=== PATIENT | female | born 1935 | race African-American/Black ===

== ENCOUNTER 2019-03-29 06:17 | Inpatient (IN) | payer OTHER ==
[2019-03-29] MEDS ORDERED: ALBUTEROL SO4 2.5/IPRATROPIUM 0.5 INH SOL 3 ML VIAL.NEB. NEB ONE ×2 (06:35→07:02)
[2019-03-29] MEDS ORDERED: DEXAMETHASONE SOD PHOSPHATE 10 MG/1 ML VIAL ONE (06:35)
[2019-03-29 06:38] LABS: BASO % 0.8 % (0-2.0); EOS % 2.2 % (0-4.5); HEMATOCRIT 38.9 % (32.4-45.2); HEMOGLOBIN 12.9 GM/dL (10.7-15.3); LYMPH % 18.3 % (8-40); MCH 30.5 pg (25.7-33.7); MCHC 33.3 g/dl (32.0-36.0); MEAN CELL VOLUME 91.5 fl (80-96); MEAN PLT VOLUME 8.2 fl (7.5-11.1); MONO % 8.4 % (3.8-10.2); NEUT % 70.3 % (42.8-82.8); PLATELET COUNT 253 K/MM3 (134-434); RBC 4.25 M/mm3 (3.60-5.2); RDW 14.1 % (11.6-15.6); WHITE BLOOD COUNT 7.3 K/mm3 (4.0-10.0)
[2019-03-29] MEDS ORDERED: ACETAMINOPHEN 1000 MG/100 ML VIAL (NON FORMULARY) IVPB ONE (07:01)
[2019-03-29] MEDS ORDERED: AZITHROMYCIN IVPB 500 MG in DEXTROSE 5%-WATER - 250 ML IVPB ONE (07:02)
--- NOTE | 2019-03-29 07:03 | PDOC ---
History of Present Illness - General Chief Complaint: Shortness of Breath Stated Complaint: DIFFICULTY BREATHING Time Seen by Provider: 03/29/19 06:32 History Source: Patient, EMS Exam Limitations: No Limitations - History of Present Illness Initial Comments: 03/29/19 07:24 83yo F with PMH of COPD (not on home O2), Afib (Eliquis), HTN, CHF BIBA for SOB. Pt states that she was having a harder time breathing for the last day or two but it got worse overnight. Per EMS, Pt was saturating high 60s on RA, placed on CPAP, given 10mg IM decadron and 2 duoneb treatments and saturated in low 90s. She was found to be using accessory muscles with scattered wheezing. Pt denies cough, congestion, fevers, chills, nausea, vomiting, recent hospitalizations, recent antibiotic use. PMD: [facility] Cards: Tatiana PMH: see hpi PSH: see hpi Meds: see med rec Allergies: PCN Past History - Past Medical History Allergies/Adverse Reactions: Allergies Allergy/AdvReac Type Severity Reaction Status Date / Time banana Allergy Unknown Verified 02/11/16 14:39 Penicillins Allergy Verified 02/11/16 14:39 Home Medications: Ambulatory Orders Acetaminophen [Tylenol .Regular Strength -] 650 mg PO Q6H PRN #0 tablet Apixaban [Eliquis -] 5 mg PO BID #0 tablet 11/05/15 Diltiazem Cd [Cardizem Cd -] 180 mg PO DAILY #30 cap.cd.24h 11/05/15 Furosemide [Lasix -] 40 mg PO DAILY #0 tablet 11/05/15 Hypromellose 0.5% Opth Soln [Artificial Tears] 1 drop OU TID PRN #0 drops Sotalol HCl [Betapace -] 80 mg PO BID #0 tablet 11/05/15 Valsartan [Diovan] 40 mg PO DAILY #0 tablet 11/05/15 Fluticasone/Salmeterol [Advair 250-50 Diskus] 1 each IH DAILY 02/11/16 Cardiac Disorders: Yes (PACEMAKER) COPD: Yes HTN: Yes - Suicide/Smoking/Psychosocial Hx Smoking History: Never smoked Have you smoked in the past 12 months: No If you are a former smoker, when did you quit?: 1 yr Information on smoking cessation initiated: No Hx Alcohol Use: No Drug/Substance Use Hx: No Substance Use Type: None Review of Systems - Review of Systems Constitutional: No: Chills, Fever, Weakness, Unexplained wgt Loss Respiratory: Yes: Shortness of Breath. No: Cough Cardiac (ROS): Yes: Palpitations. No: Chest Pain, Lightheadedness, Syncope ABD/GI: No: Constipated, Diarrhea, Nausea, Vomiting, Abdominal cramping : No: Symptoms Reported Musculoskeletal: No: Symptoms Reported Integumentary: No: Symptoms Reported Neurological: No: Symptoms reported *Physical Exam - Vital Signs Last Vital Signs Temp Pulse Resp BP Pulse Ox 100.6 F H 121 H 32 H 156/110 H 89 L 03/29/19 06:52 03/29/19 06:20 03/29/19 06:20 03/29/19 06:20 03/29/19 06:20 - Physical Exam General Appearance: Yes: Appropriately Dressed, Severe Distress, Obese HEENT: positive: EOMI, SOHAM Neck: positive: Trachea midline, Supple Respiratory/Chest: positive: Decreased Breath Sounds (in lower taylor), Rales ( upper taylor) Cardiovascular: positive: Tachycardia. negative: Edema, JVD, Murmur Vascular Pulses: Dorsalis-Pedis (R): 2+, Doralis-Pedis (L): 2+ Gastrointestinal/Abdominal: positive: Normal Bowel Sounds, Soft. negative: Tender Musculoskeletal: negative: CVA Tenderness Extremity: positive: Normal Capillary Refill, Pelvis Stable. negative: Swelling , Calf Tenderness Integumentary: positive: Normal Color, Dry, Warm Neurologic: positive: jailkeeper II-XII NML intact, Fully Oriented, Alert, Normal Mood/ Affect, Normal Response, Motor Strength 5/5 ED Treatment Course - LABORATORY CBC & Chemistry Diagram: 03/29/19 06:24 03/29/19 06:24 - ADDITIONAL ORDERS Additional order review: Laboratory Results 03/29/19 06:26 POC Glucometer 205 03/29/19 06:26 POC Glucometer 205 Medical Decision Making - Medical Decision Making 03/29/19 07:32 83yo F with PMH of COPD (not on home O2), Afib (Eliquis), HTN, CHF BIBA for SOB. Pt states that she was having a harder time breathing for the last day or two but it got worse overnight. Per EMS, Pt was saturating high 60s on RA, placed on CPAP, given 10mg IM decadron and 2 duoneb treatments and saturated in low 90s. She was found to be using accessory muscles with scattered wheezing. Pt denies cough, congestion, fevers, chills, nausea, vomiting, recent hospitalizations, recent antibiotic use. Vitals: tachycardic, saturating well on CPAP, hypertensive, 100.6 rectal temp PE: decreased breath sounds in lower lung taylor, rales in upper lung taylor , tachycardic, accessory muscle use Ddx includes but not limited to copd exacerbation, chf, pna, acs, effusions, metabolic/electrolyte abnormality, drug interactions, malignancy, pe low suspicion for pe; pt is on AC sepsis w/u. -bipap, ekg, cxr -abg, trop, bnp, mg -azithromycin given pcn allergy -tylenol -duonebs pt signed out to day team *DC/Admit/Observation/Transfer Diagnosis at time of Disposition: SOB (shortness of breath) - Referrals - Patient Instructions - Post Discharge Activity
[2019-03-29 07:11] LABS: ARTERIAL BLD GAS O2 SATURATION 94.9 % (95-98); ARTERIAL BLOOD GAS BASE EXCESS 3.4 meq/l (-2-2); ARTERIAL BLOOD GAS PCO2 49.7 mmHg (35-45); ARTERIAL BLOOD GAS PO2 79.4 mmHg (80-105); ARTERIAL BLOOD GAS pH 7.38 (7.35-7.45); CARBOXYHEMOGLOBIN 1.3 % (0-2)
[2019-03-29 07:18] LABS: ALBUMIN 3.2 g/dl (3.4-5.0); ALK PHOS 115 U/L (45-117); ANION GAP 6 MMOL/L (8-16); BILIRUBIN,TOTAL 0.7 mg/dL (0.2-1); BLOOD UREA NITROGEN 17.2 mg/dL (7-18); CALCIUM 8.5 mg/dL (8.5-10.1); CHLORIDE 103 mmol/L (98-107); CO2 31 mmol/L (21-32); CREATININE 1.2 mg/dL (0.55-1.3); GLUCOSE,RANDOM 230 mg/dL (74-106); SGOT/AST 100 U/L (15-37); SGPT/ALT 87 U/L (13-61); SODIUM 140 mmol/L (136-145); TOT PROT 7.2 g/dl (6.4-8.2)
[2019-03-29 07:25] LABS: ALLENS TEST POSITIVE
--- NOTE | 2019-03-29 07:40 | PDOC ---
*Physical Exam - Vital Signs Last Vital Signs Temp Pulse Resp BP Pulse Ox 100.6 F H 121 H 32 H 156/110 H 98 03/29/19 06:52 03/29/19 06:20 03/29/19 06:20 03/29/19 06:20 03/29/19 06:30 ED Treatment Course - LABORATORY CBC & Chemistry Diagram: 03/29/19 06:24 03/29/19 06:24 - ADDITIONAL ORDERS Additional order review: Laboratory Results 03/29/19 03/29/19 03/29/19 06:36 06:26 06:24 Anticoagulation Therapy No Result Required. Puncture Site Right radial ABG pH 7.38 ABG pCO2 at Pt Temp 49.7 H ABG pO2 at Pt Temp 79.4 L ABG HCO3 28.8 H ABG O2 Sat (Measured) 94.9 L ABG O2 Content 16.0 ABG Base Excess 3.4 H Roque Test Positive Carboxyhemoglobin 1.3 Methemoglobin 0.4 O2 Delivery Device Bipap Oxygen Flow Rate 40% Vent Mode S/t Vent Rate 16 Mechanical Rate Bipap Pressure Support Vent 14/7 Sodium Potassium Chloride Carbon Dioxide Anion Gap BUN Creatinine Est GFR (CKD-EPI)AfAm Est GFR (CKD-EPI)NonAf POC Glucometer 205 Random Glucose Lactic Acid Calcium Magnesium Cancelled Total Bilirubin AST ALT Alkaline Phosphatase Troponin I B-Natriuretic Peptide Cancelled Total Protein Albumin 03/29/19 03/29/19 03/29/19 06:24 06:24 06:24 Anticoagulation Therapy Puncture Site ABG pH ABG pCO2 at Pt Temp ABG pO2 at Pt Temp ABG HCO3 ABG O2 Sat (Measured) ABG O2 Content ABG Base Excess Roque Test Carboxyhemoglobin Methemoglobin O2 Delivery Device Oxygen Flow Rate Vent Mode Vent Rate Mechanical Rate Pressure Support Vent Sodium 140 Potassium 4.0 Chloride 103 Carbon Dioxide 31 Anion Gap 6 L BUN 17.2 Creatinine 1.2 Est GFR (CKD-EPI)AfAm 48.74 Est GFR (CKD-EPI)NonAf 42.05 POC Glucometer Random Glucose 230 H Lactic Acid 2.6 H* Calcium 8.5 Magnesium Total Bilirubin 0.7 AST 100 H ALT 87 H Alkaline Phosphatase 115 Troponin I Cancelled B-Natriuretic Peptide Total Protein 7.2 Albumin 3.2 L 03/29/19 03/29/19 06:26 06:24 RBC 4.25 MCV 91.5 MCHC 33.3 RDW 14.1 MPV 8.2 Neutrophils % 70.3 D Lymphocytes % 18.3 D Monocytes % 8.4 Eosinophils % 2.2 Basophils % 0.8 POC Glucometer 205 Medical Decision Making - Medical Decision Making Pt was signed out to me by resident Dr. Burnham, who explained the presentation, ED course, any pending results, and needed interventions. Pending results include labs and x-ray. Pt is currently stable on bipap and is lying comfortably. 03/29/19 07:40 Pt provided 500 mg IV azithromycin, IV levaquin, ofirmev, 1 g IV Mg, and duonebs (received duoneb and 10 IM decadron on ambulance) ECG: A flutter with variable AV block (HR 124, QRS 88, QTc 387). No TWIs or significant ST segment changes. No significant changes from prior ECG. CBC and CMP WNL Pending trop and BNP AB.38, CO2 49, O2 79 -- pt likely admission to telemetry 03/29/19 07:43 Chest x-ray shows b/l lower infiltrates suggestive of pneumonia with potential overlying edema suggestive of CHF 03/29/19 08:[address] Pillai for admission to telemetry. 03/29/19 08:34 Pt admitted to tele to Dr. Pillai. Pt stable, tolerating Bipap. BP stable. 03/29/19 08:49 *DC/Admit/Observation/Transfer Diagnosis at time of Disposition: SOB (shortness of breath) - Referrals Referrals: Ora Pillai MD [Primary Care Provider] - - Patient Instructions - Post Discharge Activity
[2019-03-29] MEDS ORDERED: MAGNESIUM 1GM/D5W - 1 GM/100 ML IVPB IVPB ONE (07:46)
[2019-03-29] MEDS ORDERED: ACETAMINOPHEN INJECTION 100 ML IVPB ONE (07:47)
[2019-03-29] MEDS ORDERED: AZITHROMYCIN IVPB 500 MG/250 ML BAG IVPB ONE (07:48)
[2019-03-29 07:58] LABS: MAGNESIUM 2.6 mg/dL (1.8-2.4); N-TERMINAL BNP 3001.6 pg/ml (5-450)
--- NOTE | 2019-03-29 07:59 | PDOC ---
Attending Attestation - Resident Resident Name: Sa Chachaira - ED Attending Attestation I have performed the following: I have examined & evaluated the patient, The case was reviewed & discussed with the resident, I agree w/resident's findings & plan, Exceptions are as noted - HPI HPI: 03/29/19 07:59 83yo F hx COPD (not on home O2), Afib (Eliquis), HTN, CHF presents to the ED with progressive SOB for 2 days. Pt states she was having difficulty sleeping while lying down due to the shortness of breath. Per EMS the patient was hypoxic to the 60s on room air when they got there. They put her on CPAP and gave her IM Decadron as well as duo nebs with improved sats to 90s. Patient was placed on BiPAP on arrival to the emergency department. She denies any fevers or chills, chest pain, coughing, nausea, vomiting, diarrhea, headache, focal weakness or numbness. Denies recent hospitalizations. - Physicial Exam PE: 03/29/19 08:02 agree with resident exam - Medical Decision Making 03/29/19 08:02 83yo F hx MMP including Afib on eliquis (reports compliance), COPD presents to the ED with 2 days of progressive SOB. Lungs with diminished breath sounds at R lung base, no wheezing at this time ( although after multiple nebs, decadron) DDx includes COPD exacerbation vs CHF vs PNA CXR with infiltrates at R lung base and congestion Plan to add magnesium, cover for PNA with azithro/levaquin (PCN allergy, CAP), and admit to tele Heart Score/ECG Review #1 03/29/19 08:05 Twelve-lead EKG was performed and reviewed by me. Atrial flutter, rate 124. Normal axis. No ST elevations. [address] depressions in leads V5 and V6, likely secondary to rate.
[2019-03-29 08:18] LABS: ACTIVATED PTT 33.4 SECONDS (25.2-36.5)
[2019-03-29 08:37] LABS: INR 1.49 (0.83-1.09); PROTHROMBIN TIME (PATIENT) 17.7 SEC (9.7-13.0)
[2019-03-29] MEDS: ALBUTEROL SO4 0.083% IH SOL 2.5 MG/3 ML VIAL.NEB. NEB SCH ×5 (08:47→23:20)
--- NOTE | 2019-03-29 09:55 | CON.CARD ---
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 Found to be in rapid afib and failure, rate-controlled and started IV diuresis, did not take AM meds, now on VM. - History Source History Provided By: Patient Limitations to Obtaining History: No Limitations - Past Medical History Cardio/Vascular: Yes: AFIB, Aortic Stenosis, HTN, Mitral Insufficiency, Pulmonary Hypertension, Other (AV block PPM) Pulmonary: Yes: COPD - Past Surgical History Past Surgical History: Yes: Permanent Pacemaker - Alcohol/Substance Use Hx Alcohol Use: No - Smoking History Smoking history: Never smoked Have you smoked in the past 12 months: No If you are a former smoker, when did you quit?: 1 yr Home Medications - Allergies Allergies/Adverse Reactions: Allergies Allergy/AdvReac Type Severity Reaction Status Date / Time banana Allergy Unknown Verified 02/11/16 14:39 Penicillins Allergy Verified 02/11/16 14:39 - Home Medications Home Medications: Ambulatory Orders Apixaban [Eliquis -] 5 mg PO BID #0 tablet 11/05/15 Furosemide [Lasix -] 40 mg PO DAILY #0 tablet 11/05/15 Hypromellose 0.5% Opth Soln [Artificial Tears] 1 drop OU TID PRN #0 drops Sotalol HCl [Betapace -] 80 mg PO BID #0 tablet 11/05/15 Fluticasone/Salmeterol [Advair 250-50 Diskus] 1 each IH DAILY 02/11/16 Diltiazem Cd [Cardizem Cd -] 240 mg PO DAILY 03/29/19 Losartan Potassium 25 mg PO DAILY 03/29/19 Review of Systems - Review of Systems Respiratory: reports: Exercise Intolerance, Orthopnea, SOB, SOB on Exertion Vital Signs: Vital Signs Temperature 100.6 F H 03/29/19 06:52 Pulse Rate 115 H 03/29/19 09:53 Respiratory Rate 16 03/29/19 09:53 Blood Pressure 92/74 03/29/19 09:53 O2 Sat by Pulse Oximetry (%) 100 03/29/19 09:53 Constitutional: Yes: No Distress Neck: Yes: Supple Respiratory: Yes: Regular, Diminished, On Venti-Mask Gastrointestinal: Yes: Soft, Hypoactive Bowel Sounds Cardiovascular: Yes: Tachycardia, Pulse Irregular JVD: No Carotid Bruit: No Heart Sounds: Yes: S1, S2 Murmur: Yes: Systolic Murmur, Grade 1 Edema: No - Other Data Labs, Other Data: CBC, BMP 03/29/19 06:24 03/29/19 06:24 INR, PTT INR 1.49 (0.83-1.09) H 03/29/19 06:24 Troponin, BNP 03/29/19 03/29/19 03/29/19 06:24 06:24 06:24 Troponin I < 0.02 Cancelled B-Natriuretic Peptide 3001.6 H Cancelled Troponin, BNP 03/29/19 03/29/19 03/29/19 06:24 06:24 06:24 Troponin I < 0.02 Cancelled B-Natriuretic Peptide 3001.6 H Cancelled Rapid aflutter @ 124 QTc 387 msec Ejection Fraction %: LVEF > or = 40 % Imaging - Results Chest X-ray: Report Reviewed (Bilateral PNA vs congestion) Problem List - Problems (1) Acute on chronic diastolic (congestive) heart failure Code(s): I50.33 - ACUTE ON CHRONIC DIASTOLIC (CONGESTIVE) HEART FAILURE (2) Chronic anticoagulation Code(s): Z79.01 - CUPOLA TAPPER (CURRENT) USE OF ANTICOAGULANTS (3) COPD (chronic obstructive pulmonary disease) Code(s): J44.9 - CHRONIC OBSTRUCTIVE PULMONARY DISEASE, UNSPECIFIED Qualifiers: COPD type: unspecified COPD Qualified Code(s): J44.9 - Chronic obstructive pulmonary disease, unspecified (4) SOB (shortness of breath) Code(s): R06.02 - SHORTNESS OF BREATH (5) Atrial fibrillation with rapid ventricular response Code(s): I48.91 - UNSPECIFIED ATRIAL FIBRILLATION (6) Chronic kidney disease Code(s): N18.9 - CHRONIC KIDNEY DISEASE, UNSPECIFIED Qualifiers: Chronic kidney disease stage: stage 2 (mild) Qualified Code(s): N18.2 - Chronic kidney disease, stage 2 (mild) (7) Hypertension Code(s): I10 - ESSENTIAL (PRIMARY) HYPERTENSION Qualifiers: Hypertension type: essential hypertension Qualified Code(s): I10 - Essential (primary) hypertension (8) Pacemaker Code(s): Z95.0 - PRESENCE OF CARDIAC PACEMAKER (9) Acute on chronic respiratory failure with hypoxia and hypercapnia Code(s): J96.21 - ACUTE AND CHRONIC RESPIRATORY FAILURE WITH HYPOXIA; J96.22 - ACUTE AND CHRONIC RESPIRATORY FAILURE WITH HYPERCAPNIA Assessment/Plan 06/08/2018 Echo: Normal LV systolic fxn LVEF 60-65%, mild AR, mild MR, mild-mod TR, mod pulm HTN 01/24/2019 Carotid US: Mild heterogenous plaque w/o stenosis Assessment/Plan 1. Acute on chronic hypercapneic, hypoxemic respiratory failure 2. Acute on chronic diastolic heart failure with mod pulm HTN 3. Paroxysmal atrial fibrillation with RVR [id number] on NOAC 4. Hypertension/HCVD 5. Advanced AV block s/p PPM 6. COPD 7. CKD 8. Abnormal LFTs suspect hepatic congestion PLAN: 1. IV diuresis with monitor diuretic response, renal fxn and electrolytes 2. Continue Sotalol 80 mg BID 3. Continue Eliquis 5 mg BID 4. Continue Cardizem CD 120 mg once a day and losartan 25 mg once a day with uptitration as hemodynamics tolerate 5. Continue monitoring on telemetry, repeat echo to assess ventricular and valve fxn, check TSH, lipid panel and Ha1c, trend LFTs 6. BD, O2 to maintain saO2>90%, empiric abx 7. Thank you for consultative opportunity
--- NOTE | 2019-03-29 10:07 | HP ---
DATE OF ADMISSION: 03/29/2019 HISTORY OF PRESENT ILLNESS: This is an 83-year-old female known to me for long time who came to the emergency room with complaints of shortness of breath. In the ER, she was found to have bibasilar pneumonia, so, she got admitted. She is on VentiMask now, and she is awake, alert, oriented, not in distress. PHYSICAL EXAMINATION: Vital signs: Today, her BP is 100/92, respirations 20, temperature 100.6, pulse 105. General: She alert and oriented, mild distress. HEENT: Unremarkable. Neck: Supple. Lungs: Bibasilar rales present. Heart: S1, S2 normal. No S3, S4. Abdomen: Soft. Extremities: Legs no edema. Neurologic: Grossly normal. LABORATORY REPORTS: WBC 7.3, hemoglobin 12.9, hematocrit 38.9. Chemistry: Sodium 140, potassium 4, chloride 103, creatinine 1.2, blood sugar 230. B-peptide 3001. Chest x-ray showed pulmonary congestion present, bibasilar pneumonia present. EKG to be evaluated. IMPRESSION: Bilateral pneumonia, history of hypertension. PLAN: IV antibiotics, admit to telemetry, will follow. Deidra [id number]
[2019-03-29] MEDS ORDERED: FUROSEMIDE 40 MG/4 ML INJECTABLE VIAL ONE (11:45)
[2019-03-29] MEDS: FUROSEMIDE 40 MG/4 ML INJECTABLE VIAL IVPUSH SCH (11:57)
--- NOTE | 2019-03-29 16:26 | ECHO ---
Name: CHAPIN HUSSEIN Exam:Adult Echocardiogram Study Date: 03/29/2019 01:43 PM Age: 83 yrs Reason For Study: CHF Height: 66 in Weight: 230 lb BSA: 2.1 m2 MMode/2D Measurements & Calculations IVSd: 1.3 cm Ao root diam: 2.3 cm LVIDd: 3.7 cm LA dimension: 3.7 cm LVIDs: 2.6 cm LVPWd: 1.0 cm EDV(Teich): 57.3 ml LVOT diam: 2.0 cm ESV(Teich): 23.6 ml LAV (MOD-bp): 133.0 ml Doppler Measurements & Calculations MV E max mayur: 241.0 cm/sec Ao V2 max: 176.5 cm/sec MV dec time: 0.10 sec Ao max P.5 mmHg AI P1/2t: 360.9 msec YAMILETH(V,D): 1.0 cm2 AI max mayur: 419.4 cm/sec LV V1 max P.3 mmHg AI max P.4 mmHg LV V1 max: 57.2 cm/sec AI dec slope: 340.4 cm/sec2 MR max mayur: 465.0 cm/sec TR max mayur: 322.4 cm/sec MR max P.9 mmHg TR max P.9 mmHg PA V2 max: 90.9 cm/sec Med Peak E' Mayur: 5.9 cm/sec PA max P.3 mmHg Med E/e': 41.0 Lat Peak E' Mayur: 5.7 cm/sec Lat E/e': 42.6 Procedure A complete two-dimensional transthoracic echocardiogram was performed (2D, M-mode, Doppler and color flow Doppler). The study was technically difficult with many images being suboptimal in quality. Left Ventricle The left ventricle is normal in size. Left ventricular systolic function is mildly reduced. Ejection Fraction = 45-50%. There is mild global hypokinesis of the left ventricle. Right Ventricle The right ventricle is normal in size and function. There is a pacemaker lead in the right ventricle. Atria The left atrium is moderately dilated. The right atrium is mildly dilated. There is a catheter/pacema ker lead seen in the right atrium. Mitral Valve There is mild mitral regurgitation. Tricuspid Valve There is moderate tricuspid regurgitation. Right ventricular systolic pressure is elevated at 40-50mm Hg. Aortic Valve No hemodynamically significant valvular aortic stenosis. Mild aortic regurgitation. Pulmonic Valve There is no pulmonic valvular regurgitation. Great Vessels The aortic root is normal size. Pericardium/Pleura There is no pericardial effusion. Interpretation Summary The study was technically difficult with many images being suboptimal in quality. Left ventricular systolic function is mildly reduced. There is mild global hypokinesis of the left ventricle. The right ventricle is normal in size and function. There is a pacemaker lead in the right ventricle and atrium. The left atrium is moderately dilated. The right atrium is mildly dilated. There is mild mitral regurgitation. There is moderate tricuspid regurgitation. Right ventricular systolic pressure is elevated at 40-50mmHg. Mild aortic regurgitation. MD Peter Yeboah 03/29/2019 04:26 PM
--- NOTE | 2019-03-29 17:02 | EKG ---
Test Reason : Blood Pressure : / mmHG Vent. Rate : 124 BPM Atrial Rate : 326 BPM P-R Int : 000 ms QRS Dur : 088 ms QT Int : 270 ms P-R-T Axes : 000 054 131 degrees QTc Int : 387 ms ATRIAL FLUTTER WITH VARIABLE A-V BLOCK ABNORMAL ECG WHEN COMPARED WITH ECG OF 11-FEB-2016 14:23, ATRIAL FLUTTER HAS REPLACED ATRIAL FIBRILLATION NON-SPECIFIC CHANGE IN ST SEGMENT IN ANTERIOR LEADS T WAVE INVERSION NOW EVIDENT IN LATERAL LEADS Confirmed by RYAN ARELLANO MD ([id number]) on 03/29/2019 5:01:59 PM Referred By: Molina HAUSER Confirmed By:RYAN ARELLANO MD
[2019-03-29 18:58] VITALS: BMI 35.5
[2019-03-29] MEDS ORDERED: dilTIAZem HCL 25 MG/5 ML - 5 ML VIAL IVPUSH PRN (19:50)
[2019-03-29] MEDS ORDERED: PT OWN MED DRAWER 7, Y5N ONE (20:55)
[2019-03-29] MEDS: APIXABAN 5 MG TABLET PO SCH (21:46)
[2019-03-29] MEDS: SOTALOL HCL 80 MG TABLET (FP) PO SCH (21:47)
[2019-03-29] MEDS ORDERED: APIXABAN 5 MG TABLET PO SCH (22:00)
[2019-03-29] MEDS ORDERED: SOTALOL HCL 80 MG TABLET (FP) PO SCH (22:00)
[2019-03-30] MEDS: ALBUTEROL SO4 0.083% IH SOL 2.5 MG/3 ML VIAL.NEB. NEB SCH ×6 (04:45→23:46)
[2019-03-30 07:15] LABS: BASO % 0.1 % (0-2.0); HEMATOCRIT 36.9 % (32.4-45.2); HEMOGLOBIN 12.2 GM/dL (10.7-15.3); LYMPH % 8.6 % (8-40); MCH 30.3 pg (25.7-33.7); MCHC 33.1 g/dl (32.0-36.0); MEAN CELL VOLUME 91.6 fl (80-96); MEAN PLT VOLUME 7.7 fl (7.5-11.1); MONO % 7.9 % (3.8-10.2); NEUT % 83.4 % (42.8-82.8); PLATELET COUNT 244 K/MM3 (134-434); RBC 4.03 M/mm3 (3.60-5.2); RDW 14.3 % (11.6-15.6)
[2019-03-30 07:59] LABS: ALBUMIN 3.4 g/dl (3.4-5.0); BILIRUBIN,DIRECT 0.3 mg/dL (0.0-0.2); BILIRUBIN,TOTAL 0.6 mg/dL (0.2-1); TOT PROT 7.2 g/dl (6.4-8.2)
[2019-03-30 08:00] LABS: ALBUMIN 3.3 g/dl (3.4-5.0); ALK PHOS 114 U/L (45-117); ANION GAP 6 MMOL/L (8-16); BILIRUBIN,TOTAL 0.6 mg/dL (0.2-1); BLOOD UREA NITROGEN 26.7 mg/dL (7-18); CALCIUM 8.8 mg/dL (8.5-10.1); CHLORIDE 104 mmol/L (98-107); CO2 31 mmol/L (21-32); CREATININE 1.1 mg/dL (0.55-1.3); GLUCOSE,RANDOM 142 mg/dL (74-106); SGOT/AST 115 U/L (15-37); SGPT/ALT 126 U/L (13-61); SODIUM 141 mmol/L (136-145); TOT PROT 7.2 g/dl (6.4-8.2)
[2019-03-30 08:04] LABS: BLOOD UREA NITROGEN 26.7 mg/dL (7-18); CALCIUM 8.6 mg/dL (8.5-10.1); CREATININE 1.1 mg/dL (0.55-1.3)
[2019-03-30 08:21] LABS: EPI CELLS 1.1 /HPF (0-5/HPF); HYALINE CASTS 1 /lpf (0-8); URINE APPEARANCE CLEAR; URINE BACTERIA 7.3 /hpf (NEGATIVE); URINE BILIRUBIN NEGATIVE (NEGATIVE); URINE COLOR YELLOW; URINE GLUCOSE (UA) NEGATIVE (NEGATIVE); URINE KETONE NEGATIVE (NEGATIVE); URINE LEUK ESTERASE NEGATIVE (NEGATIVE); URINE NITRITE NEGATIVE (NEGATIVE); URINE PROTEIN NEGATIVE (NEGATIVE); URINE RBC 2 /hpf (0-4); URINE UROBILINOGEN 0.2 mg/dL (0.2-1.0); URINE WBC 6 /hpf (0-5)
--- NOTE | 2019-03-30 09:11 | PN ---
Progress Note, Physician History of Present Illness: Rapid afib overnight, now dyspnea, orthopnea, chest tightness improved with rate -control and IV diuresis. - Current Medication List Current Medications: Active Medications Albuterol Sulfate (Ventolin 0.083% Nebulizer Soln -) 1 amp NEB RQ4H [facility] Last Admin: 03/30/19 08:07 Dose: 1 amp Apixaban (Eliquis -) 5 mg PO BID [facility] Last Admin: 03/29/19 21:46 Dose: 5 mg Diltiazem HCl (Cardizem Cd -) 120 mg PO DAILY [facility] Diltiazem HCl (Cardizem Injection -) 10 mg IVPUSH Q4H PRN PRN Reason: TO KEEP HR BELOW 120 Last Admin: 03/29/19 20:12 Dose: 10 mg Furosemide (Lasix Injection -) 40 mg IVPUSH DAILY [facility] Last Admin: 03/29/19 11:57 Dose: 40 mg Levofloxacin (Levaquin 500 Mg Premixed Ivpb -) 500 mg in 100 mls @ 100 mls/hr IVPB DAILY [facility] Losartan Potassium (Cozaar -) 25 mg PO DAILY [facility] Sotalol HCl (Betapace -) 80 mg PO BID [facility] Last Admin: 03/29/19 21:47 Dose: 80 mg - Objective Vital Signs: Vital Signs Temperature 97.6 F 03/30/19 05:50 Pulse Rate 87 03/30/19 05:50 Respiratory Rate 20 03/30/19 05:50 Blood Pressure 119/68 03/30/19 05:50 O2 Sat by Pulse Oximetry (%) 95 03/29/19 23:39 Constitutional: Yes: No Distress, Calm Neck: Yes: Supple Cardiovascular: Yes: Tachycardia, Pulse Irregular Respiratory: Yes: Regular, Diminished, On Nasal O2 Gastrointestinal: Yes: Normal Bowel Sounds, Soft, Abdomen, Obese Edema: No Labs: CBC, BMP 03/30/19 06:50 03/30/19 06:50 INR, PTT INR 1.49 (0.83-1.09) H 03/29/19 06:24 - ....Imaging EKG: Report Reviewed (Tele: Rapid afib) Problem List - Problems (1) Acute on chronic diastolic (congestive) heart failure Code(s): I50.33 - ACUTE ON CHRONIC DIASTOLIC (CONGESTIVE) HEART FAILURE (2) Chronic anticoagulation Code(s): Z79.01 - DIESEL RETROFIT DESIGNER (CURRENT) USE OF ANTICOAGULANTS (3) COPD (chronic obstructive pulmonary disease) Code(s): J44.9 - CHRONIC OBSTRUCTIVE PULMONARY DISEASE, UNSPECIFIED Qualifiers: COPD type: unspecified COPD Qualified Code(s): J44.9 - Chronic obstructive pulmonary disease, unspecified (4) SOB (shortness of breath) Code(s): R06.02 - SHORTNESS OF BREATH (5) Atrial fibrillation with rapid ventricular response Code(s): I48.91 - UNSPECIFIED ATRIAL FIBRILLATION (6) Chronic kidney disease Code(s): N18.9 - CHRONIC KIDNEY DISEASE, UNSPECIFIED Qualifiers: Chronic kidney disease stage: stage 2 (mild) Qualified Code(s): N18.2 - Chronic kidney disease, stage 2 (mild) (7) Hypertension Code(s): I10 - ESSENTIAL (PRIMARY) HYPERTENSION Qualifiers: Hypertension type: essential hypertension Qualified Code(s): I10 - Essential (primary) hypertension (8) Pacemaker Code(s): Z95.0 - PRESENCE OF CARDIAC PACEMAKER (9) Acute on chronic respiratory failure with hypoxia and hypercapnia Code(s): J96.21 - ACUTE AND CHRONIC RESPIRATORY FAILURE WITH HYPOXIA; J96.22 - ACUTE AND CHRONIC RESPIRATORY FAILURE WITH HYPERCAPNIA Assessment/Plan 03/29/2019 Echo: Mildly decreased LV systolic fxn, normal RV size and fxn, pacemaker RV, mod LAE, mild CEDRIC, mod TR RVSP 40-50 mmHg, mild MR, AR 06/08/2018 Echo: Normal LV systolic fxn LVEF 60-65%, mild AR, mild MR, mild-mod TR, mod pulm HTN 01/24/2019 Carotid US: Mild heterogenous plaque w/o stenosis Assessment/Plan 1. Acute on chronic hypercapneic, hypoxemic respiratory failure 2. Acute on chronic diastolic heart failure with mod pulm HTN 3. Paroxysmal atrial fibrillation with RVR [id number] on NOAC 4. Hypertension/HCVD 5. Advanced AV block s/p PPM 6. COPD 7. CKD 8. Abnormal LFTs suspect hepatic congestion 9. Low TSH, r/o hyperthyroidism as rapid afib trigger PLAN: 1. IV diuresis with monitor diuretic response, renal fxn and electrolytes 2. Continue Sotalol 80 mg BID 3. Continue Eliquis 5 mg BID 4. Increase Cardizem CD 240 mg once a day with IV Cardizem pushes as needed for rate-control and resumed losartan 25 mg once a day with uptitration as hemodynamics tolerate 5. Continue monitoring on telemetry, repeat echo to assess ventricular and valve fxn, check full TFTs, trend LFTs 6. BD, O2 to maintain saO2>90%, empiric abx
--- NOTE | 2019-03-30 10:00 | PN ---
Progress Note, Physician Chief Complaint: SOB better History of Present Illness: Admitted with exacerbation of COPD and Br asthma - Current Medication List Current Medications: Active Medications Albuterol Sulfate (Ventolin 0.083% Nebulizer Soln -) 1 amp NEB RQ4H [facility] Last Admin: 03/30/19 08:07 Dose: 1 amp Apixaban (Eliquis -) 5 mg PO BID [facility] Last Admin: 03/29/19 21:46 Dose: 5 mg Diltiazem HCl (Cardizem Cd -) 120 mg PO DAILY [facility] Diltiazem HCl (Cardizem Injection -) 10 mg IVPUSH Q4H PRN PRN Reason: TO KEEP HR BELOW 120 Last Admin: 03/29/19 20:12 Dose: 10 mg Furosemide (Lasix Injection -) 40 mg IVPUSH DAILY [facility] Last Admin: 03/29/19 11:57 Dose: 40 mg Levofloxacin (Levaquin 500 Mg Premixed Ivpb -) 500 mg in 100 mls @ 100 mls/hr IVPB DAILY [facility] Losartan Potassium (Cozaar -) 25 mg PO DAILY [facility] Sotalol HCl (Betapace -) 80 mg PO BID [facility] Last Admin: 03/29/19 21:47 Dose: 80 mg - Objective Vital Signs: Vital Signs Temperature 97.6 F 03/30/19 05:50 Pulse Rate 87 03/30/19 05:50 Respiratory Rate 20 03/30/19 05:50 Blood Pressure 119/68 03/30/19 05:50 O2 Sat by Pulse Oximetry (%) 95 03/29/19 23:39 Constitutional: Yes: No Distress Eyes: Yes: WNL HENT: Yes: WNL Neck: Yes: WNL Cardiovascular: Yes: WNL Respiratory: Yes: On Nasal O2, Poor Air Entry Gastrointestinal: Yes: Normal Bowel Sounds ...Rectal Exam: Yes: Deferred Genitourinary: Yes: WNL Breast(s): Yes: WNL Musculoskeletal: Yes: WNL Edema: No Peripheral Pulses WNL: Yes Neurological: Yes: Alert ...Motor Strength: WNL Psychiatric: Yes: Alert Labs: CBC, BMP 03/30/19 06:50 03/30/19 06:50 INR, PTT INR 1.49 (0.83-1.09) H 03/29/19 06:24 Assessment/Plan SOB resolved Continue same trt
[2019-03-30] MEDS ORDERED: PT OWN MED DRAWER 7, Y5N ONE ×3 (10:35→21:02)
[2019-03-30] MEDS: FUROSEMIDE 40 MG/4 ML INJECTABLE VIAL IVPUSH SCH (11:00)
[2019-03-30] MEDS: APIXABAN 5 MG TABLET PO SCH ×2 (11:00→22:34)
[2019-03-30] MEDS: SOTALOL HCL 80 MG TABLET (FP) PO SCH ×2 (11:00→22:34)
[2019-03-30] MEDS: LOSARTAN POTASSIUM 25 MG TABLET PO SCH (11:01)
--- NOTE | 2019-03-30 11:12 | CON.ID ---
Consult Consult Specialty:: infectious diseases Referred by:: Reason for Consultation:: pneumonia,sob - History of Present Illness Chief Complaint: sob History of Present Illness: 83yo F with PMH of COPD (not on home O2), Afib (Eliquis), HTN, CHF BIBA for SOB. Pt states that she was having a harder time breathing for the last day or two but it got worse overnight. Per EMS, Pt was saturating high 60s on RA, placed on CPAP, given 10mg IM decadron and 2 duoneb treatments and saturated in low 90s. She was found to be using accessory muscles with scattered wheezing. Pt denies cough, congestion, fevers, chills, nausea, vomiting, recent hospitalizations, recent antibiotic use. patient was placed on bipap and now is on nasal canula still looks tired patient was worked up and found to ahve infiltrates in lung - History Source History Provided By: Patient Limitations to Obtaining History: No Limitations - Past Medical History Cardio/Vascular: Yes: AFIB, Aortic Stenosis, HTN, Mitral Insufficiency, Pulmonary Hypertension, Other (AV block PPM) Pulmonary: Yes: COPD - Past Surgical History Past Surgical History: Yes: Permanent Pacemaker - Alcohol/Substance Use Hx Alcohol Use: No - Smoking History Smoking history: Former smoker Have you smoked in the past 12 months: No If you are a former smoker, when did you quit?: MORE THAN 5 YEARS AGO Home Medications - Allergies Allergies/Adverse Reactions: Allergies Allergy/AdvReac Type Severity Reaction Status Date / Time banana Allergy Unknown Verified 02/11/16 14:39 Penicillins Allergy Verified 02/11/16 14:39 - Home Medications Home Medications: Ambulatory Orders Apixaban [Eliquis -] 5 mg PO BID #0 tablet 11/05/15 Furosemide [Lasix -] 40 mg PO DAILY #0 tablet 11/05/15 Hypromellose 0.5% Opth Soln [Artificial Tears] 1 drop OU TID PRN #0 drops Sotalol HCl [Betapace -] 80 mg PO BID #0 tablet 11/05/15 Fluticasone/Salmeterol [Advair 250-50 Diskus] 1 each IH DAILY 02/11/16 Diltiazem Cd [Cardizem Cd -] 240 mg PO DAILY 03/29/19 Losartan Potassium 25 mg PO DAILY 03/29/19 Review of Systems - Review of Systems Constitutional: reports: No Symptoms Eyes: reports: No Symptoms HENT: reports: No Symptoms Neck: reports: No Symptoms Cardiovascular: reports: No Symptoms Respiratory: reports: Cough, SOB, SOB on Exertion Gastrointestinal: reports: No Symptoms Musculoskeletal: reports: No Symptoms Integumentary: reports: No Symptoms Neurological: reports: No Symptoms Endocrine: reports: No Symptoms Hematology/Lymphatic: reports: No Symptoms Psychiatric: reports: No Symptoms Physical Exam Vital Signs: Vital Signs Temperature 97.6 F 03/30/19 05:50 Pulse Rate 87 03/30/19 05:50 Respiratory Rate 20 03/30/19 05:50 Blood Pressure 119/68 03/30/19 05:50 O2 Sat by Pulse Oximetry (%) 95 03/29/19 23:39 Constitutional: Yes: Well Nourished, No Distress, Calm Eyes: Yes: Conjunctiva Clear Cardiovascular: Yes: Pulse Irregular Respiratory: Yes: Regular, On Nasal O2, Poor Air Entry (at the bases) Gastrointestinal: Yes: Normal Bowel Sounds, Soft Musculoskeletal: Yes: WNL Extremities: Yes: WNL Neurological: Yes: Alert, Oriented Psychiatric: Yes: Alert, Oriented Labs: CBC, BMP 03/30/19 06:50 03/30/19 06:50 Imaging - Results Chest X-ray: Report Reviewed, Image Reviewed Assessment/Plan Problem List - Problems (1) Acute on chronic diastolic (congestive) heart failure Code(s): I50.33 - ACUTE ON CHRONIC DIASTOLIC (CONGESTIVE) HEART FAILURE (2) Chronic anticoagulation Code(s): Z79.01 - NURSING HOME (CURRENT) USE OF ANTICOAGULANTS (3) COPD (chronic obstructive pulmonary disease) Code(s): J44.9 - CHRONIC OBSTRUCTIVE PULMONARY DISEASE, UNSPECIFIED Qualifiers: COPD type: unspecified COPD Qualified Code(s): J44.9 - Chronic obstructive pulmonary disease, unspecified (4) SOB (shortness of breath) Code(s): R06.02 - SHORTNESS OF BREATH (5) Atrial fibrillation with rapid ventricular response Code(s): I48.91 - UNSPECIFIED ATRIAL FIBRILLATION (6) Chronic kidney disease Code(s): N18.9 - CHRONIC KIDNEY DISEASE, UNSPECIFIED Qualifiers: Chronic kidney disease stage: stage 2 (mild) Qualified Code(s): N18.2 - Chronic kidney disease, stage 2 (mild) (7) Hypertension Code(s): I10 - ESSENTIAL (PRIMARY) HYPERTENSION Qualifiers: Hypertension type: essential hypertension Qualified Code(s): I10 - Essential (primary) hypertension (8) Pacemaker Code(s): Z95.0 - PRESENCE OF CARDIAC PACEMAKER (9) Acute on chronic respiratory failure with hypoxia and hypercapnia Code(s): J96.21 - ACUTE AND CHRONIC RESPIRATORY FAILURE WITH HYPOXIA; J96.22 - ACUTE AND CHRONIC RESPIRATORY FAILURE WITH HYPERCAPNIA plan await for all cx report will continue levaquin monitor wbc resp support incentive juanita
--- NOTE | 2019-03-30 12:42 | CON.PULM ---
Consult Consult Specialty:: PULMONARY Referred by:: PMD Reason for Consultation:: SOB - History of Present Illness History of Present Illness: 83yo F with PMH of COPD (not on home O2), Afib (Eliquis), HTN, CHF BIBA for SOB. Pt states that she was having a harder time breathing for the last day or two but it got worse overnight. Per EMS, Pt was saturating high 60s on RA, placed on CPAP, given 10mg IM decadron and 2 duoneb treatments and saturated in low 90s. She was found to be using accessory muscles with scattered wheezing. She was also found to be in rapid AF with CHF. Pt denies cough, congestion, fevers, chills, nausea, vomiting, recent hospitalizations, recent antibiotic use. She is a former long time smoker. She has a goiter and low TSH noted on this admission. 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 No: O2 Dependent Gastrointestinal: No: GI Bleed Hepatobiliary: No: Cirrhosis Renal/: No: Renal Failure Reproductive: Yes: Postmenopausal ...: No Heme/Onc: Yes: Anemia Infectious Disease: No: AIDS Psych: No: Addictions Musculoskeletal: Yes: Osteoarthritis Rheumatology: No: Rheumatoid Arthritis Endocrine: Yes: Hyperthyroidism. No: Diabetes Mellitus - Past Surgical History Past Surgical History: Yes: Permanent Pacemaker - Alcohol/Substance Use Hx Alcohol Use: No - Smoking History Smoking history: Former smoker Have you smoked in the past 12 months: No If you are a former smoker, when did you quit?: MORE THAN 5 YEARS AGO - Social History Usual Living Arrangement: With Child Place of : [facility] History of Recent Travel: No Home Medications - Allergies Allergies/Adverse Reactions: Allergies Allergy/AdvReac Type Severity Reaction Status Date / Time banana Allergy Unknown Verified 02/11/16 14:39 Penicillins Allergy Verified 02/11/16 14:39 - Home Medications Home Medications: Ambulatory Orders Apixaban [Eliquis -] 5 mg PO BID #0 tablet 11/05/15 Furosemide [Lasix -] 40 mg PO DAILY #0 tablet 11/05/15 Hypromellose 0.5% Opth Soln [Artificial Tears] 1 drop OU TID PRN #0 drops Sotalol HCl [Betapace -] 80 mg PO BID #0 tablet 11/05/15 Fluticasone/Salmeterol [Advair 250-50 Diskus] 1 each IH DAILY 02/11/16 Diltiazem Cd [Cardizem Cd -] 240 mg PO DAILY 03/29/19 Losartan Potassium 25 mg PO DAILY 03/29/19 Family Disease History - Family Disease History Family History: Unremarkable Review of Systems - Review of Systems Constitutional: denies: Fever Eyes: denies: Blurred Vision HENT: denies: Difficult Swallowing Neck: denies: Decreased ROM Cardiovascular: reports: Palpitations, Shortness of Breath. denies: Chest Pain Respiratory: reports: Exercise Intolerance, SOB, SOB on Exertion. denies: Hemoptysis, Wheezing Gastrointestinal: denies: Abdominal Pain Genitourinary: denies: Burning Physical Exam Vital Sings: Vital Signs Temperature 97.4 F L 03/30/19 10:00 Pulse Rate 133 H 03/30/19 10:00 Respiratory Rate 22 H 03/30/19 10:00 Blood Pressure 112/93 03/30/19 10:00 O2 Sat by Pulse Oximetry (%) 95 03/29/19 23:39 Constitutional: Yes: Calm Eyes: Yes: EOM Intact HENT: Yes: Normocephalic Neck: Yes: Trachea Midline Cardiovascular: Yes: Pulse Irregular, S1, S2 Respiratory: Yes: CTA Bilaterally Gastrointestinal: Yes: Normal Bowel Sounds, Soft, Abdomen, Obese Extremities: Yes: WNL Edema: No Neurological: Yes: Alert Psychiatric: Yes: Alert Labs: CBC, BMP 03/30/19 06:50 03/30/19 06:50 ABG Results ABG pH 7.38 (7.35-7.45) 03/29/19 06:36 ABG pCO2 at Pt Temp 49.7 mmHg (35-45) H 03/29/19 06:36 ABG pO2 at Pt Temp 79.4 mmHg (80-105) L 03/29/19 06:36 ABG HCO3 28.8 mmol/L (22-27) H 03/29/19 06:36 ABG O2 Sat (Measured) 94.9 % (95-98) L 03/29/19 06:36 ABG O2 Content 16.0 % vol (15-22) 03/29/19 06:36 ABG Base Excess 3.4 meq/l (-2-2) H 03/29/19 06:36 rest reviewed Imaging - Results Chest X-ray: Report Reviewed, Image Reviewed Cat Scan: Report Reviewed, Image Reviewed Problem List - Problems (1) Hyperthyroidism Code(s): E05.90 - THYROTOXICOSIS, UNSP WITHOUT THYROTOXIC CRISIS OR STORM (2) Acute on chronic diastolic (congestive) heart failure Code(s): I50.33 - ACUTE ON CHRONIC DIASTOLIC (CONGESTIVE) HEART FAILURE (3) COPD (chronic obstructive pulmonary disease) Code(s): J44.9 - CHRONIC OBSTRUCTIVE PULMONARY DISEASE, UNSPECIFIED Qualifiers: COPD type: unspecified COPD Qualified Code(s): J44.9 - Chronic obstructive pulmonary disease, unspecified (4) Pacemaker Code(s): Z95.0 - PRESENCE OF CARDIAC PACEMAKER (5) SOB (shortness of breath) Code(s): R06.02 - SHORTNESS OF BREATH (6) Atrial fibrillation Code(s): I48.91 - UNSPECIFIED ATRIAL FIBRILLATION Qualifiers: Atrial fibrillation type: persistent Qualified Code(s): I48.1 - Persistent atrial fibrillation (7) Hypertension Code(s): I10 - ESSENTIAL (PRIMARY) HYPERTENSION Qualifiers: Hypertension type: essential hypertension Qualified Code(s): I10 - Essential (primary) hypertension Assessment/Plan RAPID AF WITH CHF LOW TSH/GOITER SUSPECT HYPERTHYROIDISM WHICH MAY HAVE PRECIPITATED THE AF UNDERLYING COPD (50 PACK YEARS) PPM DUAL CHAMBER HTN CHECK T4/T3 WOULD REPEAT US THYROID CONSIDER ENDO CONSULT SUPPLEMENTAL O2/BRONCHODILATORS NEEDED NO NEED FOR SYSTEMIC STEROIDS AT THIS TIME RATE CONTROL/CARDIO FOLLOW UP Emily GALINDO MD
[2019-03-31] MEDS: ALBUTEROL SO4 0.083% IH SOL 2.5 MG/3 ML VIAL.NEB. NEB SCH ×5 (03:11→19:39)
[2019-03-31] MEDS ORDERED: PT OWN MED DRAWER 7, Y5N ONE ×3 (05:16→21:12)
[2019-03-31 07:35] LABS: ALBUMIN 3.1 g/dl (3.4-5.0); BILIRUBIN,DIRECT 0.2 mg/dL (0.0-0.2); BILIRUBIN,TOTAL 0.3 mg/dL (0.2-1); BLOOD UREA NITROGEN 27.7 mg/dL (7-18); CALCIUM 8.2 mg/dL (8.5-10.1); CREATININE 1.2 mg/dL (0.55-1.3); POTASSIUM 3.9 mmol/L (3.5-5.1); TOT PROT 6.7 g/dl (6.4-8.2)
--- NOTE | 2019-03-31 08:21 | PN ---
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 Found to be in rapid afib and failure, rate-controlled and started IV diuresis, did not take AM meds, now on VM. - Current Medication List Current Medications: Active Medications Albuterol Sulfate (Ventolin 0.083% Nebulizer Soln -) 1 amp NEB RQ4H [facility] Last Admin: 03/31/19 03:11 Dose: Not Given Apixaban (Eliquis -) 5 mg PO BID [facility] Last Admin: 03/30/19 22:34 Dose: 5 mg Diltiazem HCl (Cardizem Injection -) 10 mg IVPUSH Q4H PRN PRN Reason: TO KEEP HR BELOW 120 Last Admin: 03/29/19 20:12 Dose: 10 mg Diltiazem HCl (Cardizem Cd -) 240 mg PO DAILY [facility] Furosemide (Lasix Injection -) 40 mg IVPUSH DAILY [facility] Last Admin: 03/30/19 11:00 Dose: 40 mg Levofloxacin (Levaquin 500 Mg Premixed Ivpb -) 500 mg in 100 mls @ 100 mls/hr IVPB DAILY [facility] Last Admin: 03/30/19 11:00 Dose: 100 mls/hr Losartan Potassium (Cozaar -) 25 mg PO DAILY [facility] Last Admin: 03/30/19 11:01 Dose: 25 mg Sotalol HCl (Betapace -) 80 mg PO BID [facility] Last Admin: 03/30/19 22:34 Dose: 80 mg - Objective Vital Signs: Vital Signs Temperature 97.5 F L 03/31/19 02:00 Pulse Rate 69 03/31/19 02:00 Respiratory Rate 20 03/31/19 02:00 Blood Pressure 122/44 L 03/31/19 02:00 O2 Sat by Pulse Oximetry (%) 98 03/30/19 21:00 Eyes: Yes: WNL, Conjunctiva Clear, EOM Intact HENT: Yes: WNL, Atraumatic, Normocephalic Neck: Yes: WNL, Supple, Trachea Midline Cardiovascular: Yes: Pulse Irregular, S1, S2 Respiratory: Yes: WNL, Regular, CTA Bilaterally Gastrointestinal: Yes: WNL, Normal Bowel Sounds Genitourinary: Yes: WNL Musculoskeletal: Yes: WNL Extremities: Yes: WNL Edema: No Integumentary: Yes: WNL Neurological: Yes: WNL, Alert, Oriented ...Motor Strength: WNL Psychiatric: Yes: WNL Labs: CBC, BMP 03/30/19 06:50 03/31/19 05:00 INR, PTT INR 1.49 (0.83-1.09) H 03/29/19 06:24 Assessment/Plan Assessment/Plan 03/29/2019 Echo: Mildly decreased LV systolic fxn, normal RV size and fxn, pacemaker RV, mod LAE, mild CEDRIC, mod TR RVSP 40-50 mmHg, mild MR, AR 06/08/2018 Echo: Normal LV systolic fxn LVEF 60-65%, mild AR, mild MR, mild-mod TR, mod pulm HTN 01/24/2019 Carotid US: Mild heterogenous plaque w/o stenosis Assessment/Plan 1. Acute on chronic hypercapneic, hypoxemic respiratory failure 2. Acute on chronic diastolic heart failure with mod pulm HTN 3. Paroxysmal atrial fibrillation with RVR [id number] on NOAC 4. Hypertension/HCVD 5. Advanced AV block s/p PPM 6. COPD 7. CKD 8. Abnormal LFTs suspect hepatic congestion 9. Low TSH, r/o hyperthyroidism as rapid afib trigger PLAN: 1. IV diuresis with monitor diuretic response, renal fxn and electrolytes 2. Continue Sotalol 80 mg BID 3. Continue Eliquis 5 mg BID 4. Increase Cardizem CD 240 mg once a day with IV Cardizem pushes as needed for rate-control and resumed losartan 25 mg once a day with uptitration as hemodynamics tolerate 5. Continue monitoring on telemetry, repeat echo to assess ventricular and valve fxn, check full TFTs, trend LFTs 6. BD, O2 to maintain saO2>90%, empiric abx
--- NOTE | 2019-03-31 09:54 | PN ---
Progress Note (short form) - Note Progress Note: PULMONARY SUBJECTIVE IMPROVEMENT AWAKE/ALERT HR 80'S IRREGULAR/AFEBRILE ANICTERIC CLEAR B/L BREATH SOUNDS S1S2 IRREG BS+ SOFT NONTENDER DECREASED EDEMA LABS/MEDS/NOTES/IMAGES REVIEWED RAPID AF WITH CHF RESOLVING LOW TSH/GOITER/EUTHYROID UNDERLYING COPD (50 PACK YEARS) PPM DUAL CHAMBER HTN WOULD REPEAT US THYROID CONSIDER ENDO CONSULT/MAY HAVE SUBCLINICAL HYPERTHYROID SUPPLEMENTAL O2/BRONCHODILATORS NEEDED NO NEED FOR SYSTEMIC STEROIDS AT THIS TIME RATE CONTROL/CARDIO FOLLOW UP Emily GALINDO MD Problem List - Problems (1) Hyperthyroidism Code(s): E05.90 - THYROTOXICOSIS, UNSP WITHOUT THYROTOXIC CRISIS OR STORM (2) Acute on chronic diastolic (congestive) heart failure Code(s): I50.33 - ACUTE ON CHRONIC DIASTOLIC (CONGESTIVE) HEART FAILURE (3) COPD (chronic obstructive pulmonary disease) Code(s): J44.9 - CHRONIC OBSTRUCTIVE PULMONARY DISEASE, UNSPECIFIED Qualifiers: COPD type: unspecified COPD Qualified Code(s): J44.9 - Chronic obstructive pulmonary disease, unspecified (4) Pacemaker Code(s): Z95.0 - PRESENCE OF CARDIAC PACEMAKER (5) SOB (shortness of breath) Code(s): R06.02 - SHORTNESS OF BREATH (6) Atrial fibrillation Code(s): I48.91 - UNSPECIFIED ATRIAL FIBRILLATION Qualifiers: Atrial fibrillation type: persistent Qualified Code(s): I48.1 - Persistent atrial fibrillation (7) Hypertension Code(s): I10 - ESSENTIAL (PRIMARY) HYPERTENSION Qualifiers: Hypertension type: essential hypertension Qualified Code(s): I10 - Essential (primary) hypertension
[2019-03-31] MEDS: FUROSEMIDE 40 MG/4 ML INJECTABLE VIAL IVPUSH SCH (10:08)
[2019-03-31] MEDS: LOSARTAN POTASSIUM 25 MG TABLET PO SCH (10:08)
[2019-03-31] MEDS: SOTALOL HCL 80 MG TABLET (FP) PO SCH ×2 (10:08→22:12)
[2019-03-31] MEDS: APIXABAN 5 MG TABLET PO SCH ×2 (10:27→22:12)
--- NOTE | 2019-03-31 11:49 | PN ---
Progress Note, Physician History of Present Illness: stable afebrile - Current Medication List Current Medications: Active Medications Albuterol Sulfate (Ventolin 0.083% Nebulizer Soln -) 1 amp NEB RQ4H [facility] Last Admin: 03/31/19 08:24 Dose: 1 amp Apixaban (Eliquis -) 5 mg PO BID [facility] Last Admin: 03/31/19 10:27 Dose: 5 mg Diltiazem HCl (Cardizem Injection -) 10 mg IVPUSH Q4H PRN PRN Reason: TO KEEP HR BELOW 120 Last Admin: 03/29/19 20:12 Dose: 10 mg Diltiazem HCl (Cardizem Cd -) 240 mg PO DAILY [facility] Last Admin: 03/31/19 10:08 Dose: 240 mg Furosemide (Lasix Injection -) 40 mg IVPUSH DAILY [facility] Last Admin: 03/31/19 10:08 Dose: 40 mg Levofloxacin (Levaquin 500 Mg Premixed Ivpb -) 500 mg in 100 mls @ 100 mls/hr IVPB DAILY [facility] Last Admin: 03/31/19 10:08 Dose: 100 mls/hr Losartan Potassium (Cozaar -) 25 mg PO DAILY [facility] Last Admin: 03/31/19 10:08 Dose: 25 mg Sotalol HCl (Betapace -) 80 mg PO BID [facility] Last Admin: 03/31/19 10:08 Dose: 80 mg - Objective Vital Signs: Vital Signs Temperature 97.5 F L 03/31/19 02:00 Pulse Rate 69 03/31/19 02:00 Respiratory Rate 20 03/31/19 09:00 Blood Pressure 122/44 L 03/31/19 02:00 O2 Sat by Pulse Oximetry (%) 96 03/31/19 09:00 Constitutional: Yes: No Distress, Calm Cardiovascular: Yes: Pulse Irregular, S1 Respiratory: Yes: On Nasal O2, Poor Air Entry Gastrointestinal: Yes: Normal Bowel Sounds, Soft Musculoskeletal: Yes: WNL Extremities: Yes: WNL Neurological: Yes: Alert, Oriented Psychiatric: Yes: Alert, Oriented Labs: CBC, BMP 03/30/19 06:50 03/31/19 05:00 INR, PTT INR 1.49 (0.83-1.09) H 03/29/19 06:24 Assessment/Plan Problem List - Problems (1) Acute on chronic diastolic (congestive) heart failure Code(s): I50.33 - ACUTE ON CHRONIC DIASTOLIC (CONGESTIVE) HEART FAILURE (2) Chronic anticoagulation Code(s): Z79.01 - SNF (CURRENT) USE OF ANTICOAGULANTS (3) COPD (chronic obstructive pulmonary disease) Code(s): J44.9 - CHRONIC OBSTRUCTIVE PULMONARY DISEASE, UNSPECIFIED Qualifiers: COPD type: unspecified COPD Qualified Code(s): J44.9 - Chronic obstructive pulmonary disease, unspecified (4) SOB (shortness of breath) Code(s): R06.02 - SHORTNESS OF BREATH (5) Atrial fibrillation with rapid ventricular response Code(s): I48.91 - UNSPECIFIED ATRIAL FIBRILLATION (6) Chronic kidney disease Code(s): N18.9 - CHRONIC KIDNEY DISEASE, UNSPECIFIED Qualifiers: Chronic kidney disease stage: stage 2 (mild) Qualified Code(s): N18.2 - Chronic kidney disease, stage 2 (mild) (7) Hypertension Code(s): I10 - ESSENTIAL (PRIMARY) HYPERTENSION Qualifiers: Hypertension type: essential hypertension Qualified Code(s): I10 - Essential (primary) hypertension (8) Pacemaker Code(s): Z95.0 - PRESENCE OF CARDIAC PACEMAKER (9) Acute on chronic respiratory failure with hypoxia and hypercapnia Code(s): J96.21 - ACUTE AND CHRONIC RESPIRATORY FAILURE WITH HYPOXIA; J96.22 - ACUTE AND CHRONIC RESPIRATORY FAILURE WITH HYPERCAPNIA plan cx report noted monitor wbc if stable will change to oral tomorrow rest as per the team
--- NOTE | 2019-03-31 12:11 | PN ---
Progress Note, Physician Chief Complaint: Feels improved History of Present Illness: 83 year old female with history of HTN/HCVD, COPD, paroxysmal atrial fibrillation with RVR on NOAC and Sotalol, advanced AV block (tachy martha ) s/p PPM (dual chamber pacemaker) implant last seen in office 02/09/2019 presents with complaints of weakness, dyspnea, orthopnea, chest tightness, near w/o true syncope, - Current Medication List Current Medications: Active Medications Albuterol Sulfate (Ventolin 0.083% Nebulizer Soln -) 1 amp NEB RQ4H [facility] Last Admin: 03/31/19 08:24 Dose: 1 amp Apixaban (Eliquis -) 5 mg PO BID [facility] Last Admin: 03/31/19 10:27 Dose: 5 mg Diltiazem HCl (Cardizem Injection -) 10 mg IVPUSH Q4H PRN PRN Reason: TO KEEP HR BELOW 120 Last Admin: 03/29/19 20:12 Dose: 10 mg Diltiazem HCl (Cardizem Cd -) 240 mg PO DAILY [facility] Last Admin: 03/31/19 10:08 Dose: 240 mg Furosemide (Lasix Injection -) 40 mg IVPUSH DAILY [facility] Last Admin: 03/31/19 10:08 Dose: 40 mg Levofloxacin (Levaquin 500 Mg Premixed Ivpb -) 500 mg in 100 mls @ 100 mls/hr IVPB DAILY [facility] Last Admin: 03/31/19 10:08 Dose: 100 mls/hr Losartan Potassium (Cozaar -) 25 mg PO DAILY [facility] Last Admin: 03/31/19 10:08 Dose: 25 mg Sotalol HCl (Betapace -) 80 mg PO BID [facility] Last Admin: 03/31/19 10:08 Dose: 80 mg - Objective Vital Signs: Vital Signs Temperature 97.5 F L 03/31/19 02:00 Pulse Rate 69 03/31/19 02:00 Respiratory Rate 20 03/31/19 09:00 Blood Pressure 122/44 L 03/31/19 02:00 O2 Sat by Pulse Oximetry (%) 96 03/31/19 09:00 Elderly F not in distress, hemodynamically stable HEENT: Mm moist, no aneia, PERRLA EOMI NECK: No JVd No Bruit CHEST: Minimal basal Crepts CVS; s1S2 IR no m/g/r ABD: No distention, non tender EXT: fredo afeet, Pulses + 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: AOX3 non focal Labs: CBC, BMP 03/30/19 06:50 03/31/19 05:00 INR, PTT INR 1.49 (0.83-1.09) H 03/29/19 06:24 - ....Imaging X-ray: Report Reviewed (+ Infiltrates) Problem List - Problems (1) Near syncope Assessment/Plan: possibality of Neurocardiogenic evaluated by cardiology consult no new arrythmia , ECHO same as base line Code(s): R55 - SYNCOPE AND COLLAPSE (2) Acute on chronic diastolic (congestive) heart failure Assessment/Plan: Elevated BNP improving on current management Code(s): I50.33 - ACUTE ON CHRONIC DIASTOLIC (CONGESTIVE) HEART FAILURE (3) COPD exacerbation Assessment/Plan: Due to RTI Pneumonia , Pulmonary consult on the board, now improving on steroids abx and bronchodilators Code(s): J44.1 - CHRONIC OBSTRUCTIVE PULMONARY DISEASE W (ACUTE) EXACERBATION (4) Atrial fibrillation Assessment/Plan: on AC s/p Pacemaker rate controlled Code(s): I48.91 - UNSPECIFIED ATRIAL FIBRILLATION Qualifiers: Atrial fibrillation type: persistent Qualified Code(s): I48.1 - Persistent atrial fibrillation (5) Hypertension Assessment/Plan: Well controlled cont all home meds Code(s): I10 - ESSENTIAL (PRIMARY) HYPERTENSION Qualifiers: Hypertension type: essential hypertension Qualified Code(s): I10 - Essential (primary) hypertension
[2019-04-01] MEDS: ALBUTEROL SO4 0.083% IH SOL 2.5 MG/3 ML VIAL.NEB. NEB SCH ×6 (01:28→20:30)
[2019-04-01 05:45] LABS: HEMATOCRIT 35.7 % (32.4-45.2); HEMOGLOBIN 11.7 GM/dL (10.7-15.3); MCH 30.4 pg (25.7-33.7); MCHC 32.8 g/dl (32.0-36.0); MEAN CELL VOLUME 92.5 fl (80-96); MEAN PLT VOLUME 7.8 fl (7.5-11.1); PLATELET COUNT 229 K/MM3 (134-434); RBC 3.85 M/mm3 (3.60-5.2); RDW 14.3 % (11.6-15.6); WHITE BLOOD COUNT 11.1 K/mm3 (4.0-10.0)
[2019-04-01 06:11] LABS: BLOOD UREA NITROGEN 35.2 mg/dL (7-18); CALCIUM 8.6 mg/dL (8.5-10.1); CREATININE 1.3 mg/dL (0.55-1.3); POTASSIUM 4.1 mmol/L (3.5-5.1)
--- NOTE | 2019-04-01 08:06 | PN ---
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 Found to be in rapid afib and failure, rate-controlled and started IV diuresis, did not take AM meds, now on VM. - Current Medication List Current Medications: Active Medications Albuterol Sulfate (Ventolin 0.083% Nebulizer Soln -) 1 amp NEB RQ4H [facility] Last Admin: 04/01/19 07:58 Dose: 1 amp Apixaban (Eliquis -) 5 mg PO BID [facility] Last Admin: 03/31/19 22:12 Dose: 5 mg Diltiazem HCl (Cardizem Injection -) 10 mg IVPUSH Q4H PRN PRN Reason: TO KEEP HR BELOW 120 Last Admin: 03/29/19 20:12 Dose: 10 mg Diltiazem HCl (Cardizem Cd -) 240 mg PO DAILY [facility] Last Admin: 03/31/19 10:08 Dose: 240 mg Furosemide (Lasix Injection -) 40 mg IVPUSH DAILY [facility] Last Admin: 03/31/19 10:08 Dose: 40 mg Levofloxacin (Levaquin 500 Mg Premixed Ivpb -) 500 mg in 100 mls @ 100 mls/hr IVPB DAILY [facility] Last Admin: 03/31/19 10:08 Dose: 100 mls/hr Losartan Potassium (Cozaar -) 25 mg PO DAILY [facility] Last Admin: 03/31/19 10:08 Dose: 25 mg Sotalol HCl (Betapace -) 80 mg PO BID [facility] Last Admin: 03/31/19 22:12 Dose: 80 mg - Objective Vital Signs: Vital Signs Temperature 98.5 F 04/01/19 06:00 Pulse Rate 95 H 04/01/19 06:00 Respiratory Rate 20 04/01/19 06:00 Blood Pressure 125/44 L 04/01/19 06:00 O2 Sat by Pulse Oximetry (%) 100 04/01/19 06:14 Eyes: Yes: WNL, Conjunctiva Clear, EOM Intact HENT: Yes: WNL, Atraumatic, Normocephalic Neck: Yes: WNL, Supple, Trachea Midline Cardiovascular: Yes: WNL, Regular Rate and Rhythm Respiratory: Yes: WNL, Regular, CTA Bilaterally Gastrointestinal: Yes: WNL, Normal Bowel Sounds Genitourinary: Yes: WNL Musculoskeletal: Yes: WNL Extremities: Yes: WNL Edema: No Integumentary: Yes: WNL Neurological: Yes: WNL, Alert, Oriented ...Motor Strength: WNL Psychiatric: Yes: WNL Labs: CBC, BMP 04/01/19 05:05 04/01/19 05:05 INR, PTT INR 1.49 (0.83-1.09) H 03/29/19 06:24 Assessment/Plan Assessment/Plan 03/29/2019 Echo: Mildly decreased LV systolic fxn, normal RV size and fxn, pacemaker RV, mod LAE, mild CEDRIC, mod TR RVSP 40-50 mmHg, mild MR, AR 06/08/2018 Echo: Normal LV systolic fxn LVEF 60-65%, mild AR, mild MR, mild-mod TR, mod pulm HTN 01/24/2019 Carotid US: Mild heterogenous plaque w/o stenosis Assessment/Plan 1. Acute on chronic hypercapneic, hypoxemic respiratory failure 2. Acute on chronic diastolic heart failure with mod pulm HTN 3. Paroxysmal atrial fibrillation with RVR [id number] on NOAC 4. Hypertension/HCVD 5. Advanced AV block s/p PPM 6. COPD 7. CKD 8. Abnormal LFTs suspect hepatic congestion 9. Low TSH, r/o hyperthyroidism as rapid afib trigger PLAN: 1. IV diuresis with monitor diuretic response, renal fxn and electrolytes 2. Continue Sotalol 80 mg BID 3. Continue Eliquis 5 mg BID 4. Increase Cardizem CD 240 mg once a day with IV Cardizem pushes as needed for rate-control and resumed losartan 25 mg once a day with uptitration as hemodynamics tolerate 5. Continue monitoring on telemetry, repeat echo to assess ventricular and valve fxn, check full TFTs, trend LFTs 6. BD, O2 to maintain saO2>90%, empiric abx
--- NOTE | 2019-04-01 09:18 | PN ---
Progress Note (short form) - Note Progress Note: PULMONARY SUBJECTIVE IMPROVEMENT AWAKE/ALERT HR 80'S IRREGULAR/AFEBRILE ANICTERIC CLEAR B/L BREATH SOUNDS S1S2 IRREG BS+ SOFT NONTENDER DECREASED EDEMA LABS/MEDS/NOTES/IMAGES REVIEWED RAPID AF WITH CHF RESOLVED LOW TSH/GOITER/EUTHYROID UNDERLYING COPD (50 PACK YEARS) PPM DUAL CHAMBER HTN WOULD REPEAT US THYROID CONSIDER ENDO CONSULT/MAY HAVE SUBCLINICAL HYPERTHYROID SUPPLEMENTAL O2/BRONCHODILATORS NEEDED NO NEED FOR SYSTEMIC STEROIDS AT THIS TIME RATE CONTROL/CARDIO FOLLOW UP CLEARED FROM PULMONARY TO CONTINUE TREATMENT AND FURTHER WORKUP AN OUTPATIENT Emily GALINDO MD Problem List - Problems (1) Hyperthyroidism Code(s): E05.90 - THYROTOXICOSIS, UNSP WITHOUT THYROTOXIC CRISIS OR STORM (2) Acute on chronic diastolic (congestive) heart failure Code(s): I50.33 - ACUTE ON CHRONIC DIASTOLIC (CONGESTIVE) HEART FAILURE (3) COPD (chronic obstructive pulmonary disease) Code(s): J44.9 - CHRONIC OBSTRUCTIVE PULMONARY DISEASE, UNSPECIFIED Qualifiers: COPD type: unspecified COPD Qualified Code(s): J44.9 - Chronic obstructive pulmonary disease, unspecified (4) Pacemaker Code(s): Z95.0 - PRESENCE OF CARDIAC PACEMAKER (5) SOB (shortness of breath) Code(s): R06.02 - SHORTNESS OF BREATH (6) Atrial fibrillation Code(s): I48.91 - UNSPECIFIED ATRIAL FIBRILLATION Qualifiers: Atrial fibrillation type: persistent Qualified Code(s): I48.1 - Persistent atrial fibrillation (7) Hypertension Code(s): I10 - ESSENTIAL (PRIMARY) HYPERTENSION Qualifiers: Hypertension type: essential hypertension Qualified Code(s): I10 - Essential (primary) hypertension
--- NOTE | 2019-04-01 10:48 | PN ---
Progress Note, Physician History of Present Illness: stable no issues - Current Medication List Current Medications: Active Medications Albuterol Sulfate (Ventolin 0.083% Nebulizer Soln -) 1 amp NEB RQ4H [facility] Last Admin: 04/01/19 07:58 Dose: 1 amp Apixaban (Eliquis -) 5 mg PO BID [facility] Last Admin: 03/31/19 22:12 Dose: 5 mg Diltiazem HCl (Cardizem Injection -) 10 mg IVPUSH Q4H PRN PRN Reason: TO KEEP HR BELOW 120 Last Admin: 03/29/19 20:12 Dose: 10 mg Diltiazem HCl (Cardizem Cd -) 240 mg PO DAILY [facility] Last Admin: 03/31/19 10:08 Dose: 240 mg Furosemide (Lasix Injection -) 40 mg IVPUSH DAILY [facility] Last Admin: 03/31/19 10:08 Dose: 40 mg Losartan Potassium (Cozaar -) 25 mg PO DAILY [facility] Last Admin: 03/31/19 10:08 Dose: 25 mg Sotalol HCl (Betapace -) 80 mg PO BID [facility] Last Admin: 03/31/19 22:12 Dose: 80 mg - Objective Vital Signs: Vital Signs Temperature 98.5 F 04/01/19 06:00 Pulse Rate 95 H 04/01/19 06:00 Respiratory Rate 20 04/01/19 06:00 Blood Pressure 125/44 L 04/01/19 06:00 O2 Sat by Pulse Oximetry (%) 100 04/01/19 06:14 Constitutional: Yes: No Distress, Calm Respiratory: Yes: Regular, CTA Bilaterally Gastrointestinal: Yes: Normal Bowel Sounds, Soft Musculoskeletal: Yes: WNL Extremities: Yes: WNL Labs: CBC, BMP 04/01/19 05:05 04/01/19 05:05 INR, PTT INR 1.49 (0.83-1.09) H 03/29/19 06:24 Assessment/Plan Problem List - Problems (1) Acute on chronic diastolic (congestive) heart failure Code(s): I50.33 - ACUTE ON CHRONIC DIASTOLIC (CONGESTIVE) HEART FAILURE (2) Chronic anticoagulation Code(s): Z79.01 - HALF-WAY (CURRENT) USE OF ANTICOAGULANTS (3) COPD (chronic obstructive pulmonary disease) Code(s): J44.9 - CHRONIC OBSTRUCTIVE PULMONARY DISEASE, UNSPECIFIED Qualifiers: COPD type: unspecified COPD Qualified Code(s): J44.9 - Chronic obstructive pulmonary disease, unspecified (4) SOB (shortness of breath) Code(s): R06.02 - SHORTNESS OF BREATH (5) Atrial fibrillation with rapid ventricular response Code(s): I48.91 - UNSPECIFIED ATRIAL FIBRILLATION (6) Chronic kidney disease Code(s): N18.9 - CHRONIC KIDNEY DISEASE, UNSPECIFIED Qualifiers: Chronic kidney disease stage: stage 2 (mild) Qualified Code(s): N18.2 - Chronic kidney disease, stage 2 (mild) (7) Hypertension Code(s): I10 - ESSENTIAL (PRIMARY) HYPERTENSION Qualifiers: Hypertension type: essential hypertension Qualified Code(s): I10 - Essential (primary) hypertension (8) Pacemaker Code(s): Z95.0 - PRESENCE OF CARDIAC PACEMAKER (9) Acute on chronic respiratory failure with hypoxia and hypercapnia Code(s): J96.21 - ACUTE AND CHRONIC RESPIRATORY FAILURE WITH HYPOXIA; J96.22 - ACUTE AND CHRONIC RESPIRATORY FAILURE WITH HYPERCAPNIA plan changed to oral continue oral for couple of days rest as per the team resp support
[2019-04-01] MEDS ORDERED: PT OWN MED DRAWER 7, Y5N ONE (11:40)
[2019-04-01] MEDS: LOSARTAN POTASSIUM 25 MG TABLET PO SCH (11:42)
[2019-04-01] MEDS: SOTALOL HCL 80 MG TABLET (FP) PO SCH (11:43)
[2019-04-01] MEDS: FUROSEMIDE 40 MG/4 ML INJECTABLE VIAL IVPUSH SCH ×2 (11:44→14:44)
[2019-04-01] MEDS: APIXABAN 5 MG TABLET PO SCH (11:44)
--- NOTE | 2019-04-01 11:53 | DS ---
Physical Examination Vital Signs: Vital Signs Temperature 98.5 F 04/01/19 06:00 Pulse Rate 95 H 04/01/19 06:00 Respiratory Rate 20 04/01/19 06:00 Blood Pressure 125/44 L 04/01/19 06:00 O2 Sat by Pulse Oximetry (%) 100 04/01/19 06:14 Elderly F not in distress, hemodynamically stable HEENT: Mm moist, no aneia, PERRLA EOMI NECK: No JVd No Bruit CHEST: Minimal basal Crepts CVS; s1S2 IR no m/g/r ABD: No distention, non tender EXT: fredo afeet, Pulses + RAILROAD BRAKE REPAIRER: AOX3 non focal Labs: CBC, BMP 04/01/19 05:05 04/01/19 05:05 Discharge Summary Reason For Visit: SOB Current Active Problems Acute on chronic diastolic (congestive) heart failure (Acute) Acute on chronic respiratory failure with hypoxia and hypercapnia (Acute) COPD (chronic obstructive pulmonary disease) (Acute) COPD exacerbation (Acute) Chronic anticoagulation (Acute) Hyperthyroidism (Acute) Pacemaker (Acute) SOB (shortness of breath) (Acute) Condition: Stable - Instructions Disposition: HOME - Home Medications Comprehensive Discharge Medication List: Ambulatory Orders Apixaban [Eliquis -] 5 mg PO BID #0 tablet 11/05/15 Furosemide [Lasix -] 40 mg PO DAILY #0 tablet 11/05/15 Hypromellose 0.5% Opth Soln [Artificial Tears] 1 drop OU TID PRN #0 drops Sotalol HCl [Betapace -] 80 mg PO BID #0 tablet 11/05/15 Fluticasone/Salmeterol [Advair 250-50 Diskus] 1 each IH DAILY 02/11/16 Losartan Potassium 25 mg PO DAILY 03/29/19 Albuterol 0.083% Nebulizer Nica [Ventolin 0.083% Nebulizer Soln -] 1 amp NEB RQ4H amp 04/01/19 Apixaban [Eliquis -] 5 mg PO BID tablet 04/01/19 Diltiazem Cd [Cardizem Cd -] 240 mg PO DAILY #30 cap.cd.24h 04/01/19 Losartan Potassium [Cozaar -] 25 mg PO DAILY tablet 04/01/19 levoFLOXacin [Levaquin -] 500 mg PO DAILY@0600 #5 tablet 04/01/19
[2019-04-01 17:52] VITALS: BP 110/60; PULSE 96; TEMP 97.9
== END 2019-04-01 20:30 | disposition home or self-care (01) | DRG 291 ==
LOC: JER 06:17 → JERBED 08:07 → J4S 18:25
PROVIDERS: ADMIT Internal Medicine; ATTEND Internal Medicine
DX: I13.0 Hypertensive heart and chronic kidney disease with heart failure and stage 1 through stage 4 chronic kidney disease, or unspecified chronic kidney disease (principal); J96.22 Acute and chronic respiratory failure with hypercapnia; J96.21 Acute and chronic respiratory failure with hypoxia; I50.33 Acute on chronic diastolic (congestive) heart failure; J18.9 Pneumonia, unspecified organism; I48.0 Paroxysmal atrial fibrillation; J44.9 Chronic obstructive pulmonary disease, unspecified; N18.9 Chronic kidney disease, unspecified; K76.1 Chronic passive congestion of liver; I27.20 Pulmonary hypertension, unspecified; R00.0 Tachycardia, unspecified; E05.90 Thyrotoxicosis, unspecified without thyrotoxic crisis or storm; Z95.0 Presence of cardiac pacemaker
CPT/HCPCS: 36415; 36600; 71045-TC-FY; 80048; 80053; 80061; 80076; 81003; 82375; 82550; 82553; 82803; 82962; 83036; 83050; 83605; 83721; 83735; 83880; 84436; 84439; 84443; 84480; 84481; 84484; 85025; 85027; 85610; 85730; 87040; 87077; 87086; 93005; 93010; 93306-TC; 94640; 94660; 94761; 99283-25; J0131

== ENCOUNTER 2019-04-13 18:50 | Inpatient (IN) | payer OTHER ==
--- NOTE | 2019-04-13 20:02 | PDOC ---
History of Present Illness - General Chief Complaint: Shortness of Breath Stated Complaint: SHORTNESS OF BREATH Time Seen by Provider: 04/13/19 19:42 - History of Present Illness Initial Comments: 04/13/19 20:19 83 y/o F with hx of COPD. Afib on Eliquis,HTN, CKD, CHF recently treated for pneumonia presents to the ED with SOB and cough of 3 days duration. She was treated with antibiotics in the hospital and sent home on O2. She completed her antibiotic course at home. Cough is productive of greenish white sputum She denies chest pain (pleuritic or other cates), fevers, chills, hemoptysis, nausea or vomiting. Past History - Past Medical History Allergies/Adverse Reactions: Allergies Allergy/AdvReac Type Severity Reaction Status Date / Time No Known Allergies Allergy Verified 04/13/19 18:57 Cardiac Disorders: Yes (AFIB) COPD: Yes - Suicide/Smoking/Psychosocial Hx Smoking History: Former smoker Have you smoked in the past 12 months: No If you are a former smoker, when did you quit?: 2014 Information on smoking cessation initiated: No Hx Alcohol Use: No Drug/Substance Use Hx: No Review of Systems - Review of Systems All Other Systems: Reviewed and Negative *Physical Exam - Vital Signs Last Vital Signs Temp Pulse Resp BP Pulse Ox 98.7 F 120 H 28 H 104/87 95 04/13/19 18:58 04/13/19 18:58 04/13/19 18:58 04/13/19 18:58 04/13/19 18:58 - Physical Exam General Appearance: Yes: Appropriately Dressed HEENT: positive: Normal Voice Respiratory/Chest: positive: Accessory Muscle Use, Rapid RR, Wheezing. negative : Chest Tender Cardiovascular: positive: Regular Rhythm, S1, S2, Irregular. negative: JVD, Murmur Vascular Pulses: Dorsalis-Pedis (R): 2+, Doralis-Pedis (L): 2+ Gastrointestinal/Abdominal: positive: Normal Bowel Sounds, Soft, Protuberent. negative: Pulsatile Mass Extremity: positive: Normal Capillary Refill, Normal Range of Motion, Pedal Edema. negative: Tender, Coldness, Cyanosis Integumentary: positive: Normal Color, Dry, Warm Neurologic: positive: Fully Oriented, Alert, Normal Mood/Affect, Normal Response ED Treatment Course - LABORATORY CBC & Chemistry Diagram: 04/13/19 20:10 04/13/19 20:10 Medical Decision Making - Medical Decision Making 04/13/19 20:52 83 y/o F with hx of COPD. Afib on Eliquis,HTN, CKD, CHF recently treated for pneumonia presents to the ED with SOB and cough of 3 days duration DDx: copd vs chf exacerbation vs pneumonia Labs/Imaging/Meds ekg cbc duonetb cxr 04/13/19 21:26 Pt. reassesed after duoneb treatment. feels better but still using acessory muscles to breathe. additional duoneb ordered with furosemide (40mg IV) and solumedrol 04/13/19 22:54 Pt. doing a better however still experiencing tachycardia and some accesory muscle use. Dr Pillai has been contacted and she is admitted to his service. Pulmonary consult put in for Dr. Lam as well. Pt will receive another duoneb treatment. *DC/Admit/Observation/Transfer Diagnosis at time of Disposition: COPD exacerbation CHF exacerbation Qualifiers: Heart failure type: unspecified Qualified Code(s): I50.9 - Heart failure, unspecified - Discharge Dispostion Condition at time of disposition: Guarded Decision to Admit order: Yes - Referrals Referrals: Ora Pillai MD [Primary Care Provider] - - Patient Instructions - Post Discharge Activity
[2019-04-13 20:17] LABS: BASO % 0.5 % (0-2.0); EOS % 0.3 % (0-4.5); HEMATOCRIT 35.1 % (32.4-45.2); HEMOGLOBIN 11.4 GM/dL (10.7-15.3); LYMPH % 10.1 % (8-40); MCH 30.6 pg (25.7-33.7); MCHC 32.6 g/dl (32.0-36.0); MEAN PLT VOLUME 7.4 fl (7.5-11.1); MONO % 11.2 % (3.8-10.2); NEUT % 77.9 % (42.8-82.8); PLATELET COUNT 242 K/MM3 (134-434); RBC 3.73 M/mm3 (3.60-5.2); RDW 14.8 % (11.6-15.6); WHITE BLOOD COUNT 9.7 K/mm3 (4.0-10.0)
[2019-04-13] MEDS ORDERED: ALBUTEROL SO4 2.5/IPRATROPIUM 0.5 INH SOL 3 ML VIAL.NEB. NEB ONE ×5 (20:27→22:54)
[2019-04-13 20:36] LABS: ALBUMIN 3.3 g/dl (3.4-5.0); BILIRUBIN,TOTAL 0.9 mg/dL (0.2-1); BLOOD UREA NITROGEN 17.1 mg/dL (7-18); CALCIUM 8.8 mg/dL (8.5-10.1); POTASSIUM 3.8 mmol/L (3.5-5.1); TOT PROT 6.7 g/dl (6.4-8.2)
[2019-04-13] MEDS ORDERED: methylPREDNISolone NA SUCC 125 MG/2 ML VIAL IVPB ONE (21:15)
[2019-04-13] MEDS ORDERED: methylPREDNISolone NA SUCC 125 MG/2 ML VIAL ONE (21:22)
[2019-04-13] MEDS ORDERED: FUROSEMIDE 100 MG/10 ML INJECTABLE VIAL IVPB ONE (21:23)
[2019-04-13] MEDS ORDERED: FUROSEMIDE 40 MG/4 ML INJECTABLE VIAL ONE (21:43)
--- NOTE | 2019-04-14 01:05 | PDOC ---
Documentation entered by Constance Day SCRIBE, acting as scribe for Daxa Caldwell MD. Daxa Caldwell MD: This documentation has been prepared by the Shay ashley Lincy, SCRIBE, under my direction and personally reviewed by me in its entirety. I confirm that the documentation accurately reflects all work, treatment, procedures, and medical decision making performed by me. Attending Attestation - Resident Resident Name: RashelSoledad - ED Attending Attestation I have performed the following: I have examined & evaluated the patient, The case was reviewed & discussed with the resident, I agree w/resident's findings & plan, Exceptions are as noted - HPI HPI: 04/13/19 22:29 The patient is an 83 year old female with a past medical history significant for COPD, CHF, Afib, HTN and recent admission for COPD exacerbation presents to the emergency department with progressively worsening shortness of breath for the past few days. states she was discharged from hospital one week ago on home oxygen, unclear to her why. has been taking abx levaquin for last week. today sob became worse so came to ED. does not bilat leg edema. denies cp. sob is worse with lying flat and walking. Allergies: NKDA PCP: Dr. Carla Pillai. 04/14/19 01:01 - Physicial Exam PE: 04/14/19 01:02 awake alert mild resp distress, increased work of breathing and accessory muscle use. heart irreg tachycardia. no mrg abd soft nt nd ext bilat pitting edema. nuero alert oriented x 3. moves all four ext. - Medical Decision Making 04/13/19 22:22 83 yo F h/o afib, chf, copd, recenlty admitted for copd exacerbation, dc from hospital one week ago on levaquin here wiht worsenign leg edema. and sob. increased work of breathing on exam. crackles and faint wheezes. differential chf, pna, copd. effusion. plan labs ekg cxr trop culrues. pt with pulm congestion on cxr, given nebs intially with improvement. also give home dose of lasix. overall much improved. will require admission for copd, chf. 04/13/19 22:[address] Carla Pillai for admission. Case discussed with Dr. Pillai. 04/14/19 01:03 Heart Score/ECG Review #1 General ECG Interpretation: Normal Rate (afib rate [address] elevation or depression.), Normal Intervals, No acute ischemic changes Compared to previous ECG there are: Other
[2019-04-14] MEDS ORDERED: ALBUTEROL SO4 2.5/IPRATROPIUM 0.5 INH SOL 3 ML VIAL.NEB. NEB SCH (05:15)
[2019-04-14] MEDS: SOTALOL HCL 80 MG TABLET (FP) PO SCH ×3 (05:23→22:31)
[2019-04-14] MEDS: methylPREDNISolone NA SUCC 40 MG/1 ML VIAL IVPUSH SCH ×3 (05:23→22:31)
[2019-04-14 07:29] VITALS: BMI 35.0
[2019-04-14] MEDS: ALBUTEROL SO4 2.5/IPRATROPIUM 0.5 INH SOL 3 ML VIAL.NEB. NEB SCH ×4 (08:38→21:05)
[2019-04-14 09:23] LABS: HEMATOCRIT 34.7 % (32.4-45.2); HEMOGLOBIN 11.5 GM/dL (10.7-15.3); MCH 30.9 pg (25.7-33.7); MEAN CELL VOLUME 93.6 fl (80-96); MEAN PLT VOLUME 7.6 fl (7.5-11.1); PLATELET COUNT 242 K/MM3 (134-434); RBC 3.71 M/mm3 (3.60-5.2); RDW 15.1 % (11.6-15.6); WHITE BLOOD COUNT 8.4 K/mm3 (4.0-10.0)
[2019-04-14 09:59] LABS: ALK PHOS 93 U/L (45-117); ANION GAP 7 MMOL/L (8-16); BILIRUBIN,TOTAL 0.8 mg/dL (0.2-1); BLOOD UREA NITROGEN 18.4 mg/dL (7-18); CALCIUM 8.6 mg/dL (8.5-10.1); CHLORIDE 99 mmol/L (98-107); CO2 36 mmol/L (21-32); CREATININE 1.1 mg/dL (0.55-1.3); GLUCOSE,RANDOM 176 mg/dL (74-106); POTASSIUM 4.3 mmol/L (3.5-5.1); SGOT/AST 50 U/L (15-37); SGPT/ALT 72 U/L (13-61); SODIUM 142 mmol/L (136-145); TOT PROT 6.7 g/dl (6.4-8.2)
[2019-04-14] MEDS ORDERED: PT OWN MED DRAWER 7, Y5N ONE ×2 (10:16→22:17)
[2019-04-14] MEDS: BUDESONIDE/FORMETEROL FUMARATE 160/4.5 mcg INHALER IH SCH ×2 (10:35→22:31)
[2019-04-14] MEDS: APIXABAN 5 MG TABLET PO SCH ×2 (10:36→22:31)
[2019-04-14] MEDS: FUROSEMIDE 40 MG/4 ML INJECTABLE VIAL IVPUSH SCH (10:36)
[2019-04-14] MEDS: LOSARTAN POTASSIUM 25 MG TABLET PO SCH (10:37)
[2019-04-14] MEDS: ARTIFICIAL TEARS (POLYVINYL ALCOHOL) OPTH DROPS OU PRN (10:40)
--- NOTE | 2019-04-14 11:58 | PN ---
Progress Note (short form) - Note Progress Note: PULMONARY CONSULATATION DICTATED 04/14/19 IMP ACUTE ON CHRONIC HYPOXEMIC/HYPERCAPNEIC RESPIRATORY FAILURE ACUTE ON CHRONIC CHF COPD O2 DEPENDENT WITH EXACERBATION AFIB H/O AV BLOCK S/P PPM HTN PULMONARY HTN SUSPECTED OSAS PLAN IV LASIX INHALED BRONCHODILATORS O2 NIPPV IF PT DEVELOPES INCREASED RESPIRATORY DISTRESS ABG DAILY WT CHEST CT ABX STRICT I+Os SLEEP STUDIES OUTPATIENT DR WESTBROOK Problem List - Problems (1) Acute on chronic respiratory failure with hypoxia and hypercapnia Code(s): J96.21 - ACUTE AND CHRONIC RESPIRATORY FAILURE WITH HYPOXIA; J96.22 - ACUTE AND CHRONIC RESPIRATORY FAILURE WITH HYPERCAPNIA (2) CHF exacerbation Code(s): I50.9 - HEART FAILURE, UNSPECIFIED Qualifiers: Heart failure type: diastolic Qualified Code(s): I50.33 - Acute on chronic diastolic (congestive) heart failure (3) COPD exacerbation Code(s): J44.1 - CHRONIC OBSTRUCTIVE PULMONARY DISEASE W (ACUTE) EXACERBATION (4) Pulmonary HTN Code(s): I27.20 - PULMONARY HYPERTENSION, UNSPECIFIED (5) Afib Code(s): I48.91 - UNSPECIFIED ATRIAL FIBRILLATION Qualifiers: Atrial fibrillation type: paroxysmal Qualified Code(s): I48.0 - Paroxysmal atrial fibrillation (6) Status cardiac pacemaker Code(s): Z95.0 - PRESENCE OF CARDIAC PACEMAKER
--- NOTE | 2019-04-14 12:52 | CONS ---
DATE OF CONSULTATION: 04/14/2019 REFERRING PHYSICIAN: Ora Pillai MD HISTORY OF PRESENT ILLNESS: Patient is an 83-year-old black female past medical history of COPD, recently started on home O2; atrial fibrillation on Eliquis; status post permanent pacemaker; hypertension; CHF; mitral insufficiency; pulmonary hypertension; hypertension; long standing history tobacco use greater than 1 pack per day greater than 50 years; stopped approximately 6 years ago; admitted to [facility] with the complaint of 3 to 4 day history of increasing shortness of breath, dyspnea on exertion, weakness. Patient was recently hospitalized March 29, 2019, secondary to the acute on chronic hypoxemic hypercapnic respiratory failure. At the time, she was placed on BIPAP, as well as started on Lasix and inhaled bronchodilators and empiric antibiotic therapy. She was discharged home on April 01 in stable condition. She states that for the past few days she started noticing increasing shortness of breath, dyspnea on exertion and orthopnea. She denies any chest pain, nausea, vomiting or diaphoresis. She has an occasional cough, which is non-productive. On admission she was noted to be in respiratory distress, but using the accessory muscles. She was also noted to be tachycardic with atrial fibrillation rate of 105. She was started on Solu-Medrol and Lasix with some clinical improvement. Patient denies any chest pains, nausea, vomiting or diaphoresis. She denies any fevers, chills. PAST MEDICAL HISTORY: As stated before, she has a past medical history that included pulmonary hypertension, atrial fibrillation; history of AV block, status post permanent pacemaker, COPD, recently was placed on home O2, congestive heart failure systolic, as well as diastolic and hypertension. REVIEW OF SYSTEMS: Positive orthopnea. Positive dyspnea. No cough. No chest pain, no palpitation, no nausea, no vomiting. Positive mild lower extremity edema. CURRENT MEDICATIONS: Include Symbicort, Solu-Medrol, Cozaar, Zithromax, ceftriaxone, Eliquis, DuoNeb, Betapace, Cardizem, Artificial Tears and Lasix IV. PHYSICAL EXAMINATION: General: On physical examination, patient is an elderly black female awake, alert, in no acute distress. Vitals: She was afebrile. The heart rate is 131; blood pressure 102/70, respiratory rate is 18, O2 saturation 95% on 3 L. HEENT: Head is normocephalic, atraumatic. Neck: Supple. Heart: Irregularly, irregular S1, S2. Chest: A few bibasilar crackles. Abdomen: Soft. Bowel sounds are positive. Extremities: Trace bilateral lower extremity edema. LABORATORY STUDIES: WBC is 8.4, hemoglobin 11.5, hematocrit 34.7 and platelet count of 242,000. BUN is 18; creatinine 1.1, BNP is 2692. Chest x-ray revealed cardiomegaly, congestion bilaterally, infiltrates right greater than the left and right pleural effusion. IMPRESSION: 1. Acute on chronic hypoxemic hypercapnic respiratory failure, secondary to acute on chronic congestive heart failure. 2. Chronic obstructive pulmonary disease with exacerbation. 3. Atrial fibrillation, status post PPM. 4. History of atrioventricular block. 5. Status post permanent pacemaker. 6. Pulmonary hypertension. 7. Hypertension. 8. Suspected obstructive sleep apnea syndrome. PLAN: IV Lasix, inhaled bronchodilators, supplemental O2, check arterial blood gas, daily weights, CT scan of the chest, antibiotics as per ID, strict Is and Os. Consider sleep studies outpatient. GRACIELA WESTBROOK M.D. [id number] MTDD
[2019-04-14] MEDS: AZITHROMYCIN IVPB 500 MG/250 ML BAG IVPB SCH (13:10)
--- NOTE | 2019-04-14 13:43 | HP ---
DATE OF ADMISSION: 04/13/2019 DATE OF DICTATION: 04/14/2019 HISTORY OF PRESENT ILLNESS: This is an 83-year-old female who was recently admitted with CHF, discharged home. She came back again yesterday with complaints of cough and short of breath. In the ER, they thought she was in failure, also may have bilateral infiltrates, so, she got admitted. This morning, she is feeling better. PHYSICAL EXAMINATION: Vital signs: BP 128/45, pulse 120, temperature 98. HEENT: Unremarkable. Neck: Supple. No JVD Lungs: Bibasilar rales present. Heart: S1, S2 normal. No S3, S4. Abdomen: Soft. Extremities: Legs, no edema. Neurologic: Grossly normal. LABORATORY REPORTS: WBC 8.4 this morning, hemoglobin 11.5, hematocrit 34. Chemistry: Electrolytes are normal. BUN 18, creatinine 1.1. The B-peptide is 2692. IMPRESSION: Bibasilar infiltrates, CHF. PLAN: IV antibiotics, IV steroids. Will get pulmonary consult and cardiology consult. Deidra [id number]
[2019-04-14 14:29] LABS: ARTERIAL BLD GAS O2 SATURATION 94.2 % (95-98); ARTERIAL BLOOD GAS BASE EXCESS 6.2 meq/l (-2-2); ARTERIAL BLOOD GAS PCO2 49.4 mmHg (35-45); ARTERIAL BLOOD GAS PO2 73.9 mmHg (80-105); ARTERIAL BLOOD GAS pH 7.42 (7.35-7.45)
[2019-04-14 14:33] LABS: ALLENS TEST POSITIVE
--- NOTE | 2019-04-14 16:21 | CON.CARD ---
Consult Consult Specialty:: Cardiology Referred by:: Ora Pillai MD Reason for Consultation:: Dyspnea - History of Present Illness Chief Complaint: Dyspnea History of Present Illness: The patient is an 83 year old female with a past medical history significant for COPD, CHF, Afib, pacemaker, HTN and recent admission for COPD exacerbation presents with progressive worsening shortness of breath for the past few days, cough, wheeze, orthopnea, amenable to BD and diuresis. She denies cp, near or true syncope, palpitations, LE edema. Sob is worse with lying flat and walking. Allergies: NKDA - History Source History Provided By: Patient Limitations to Obtaining History: No Limitations - Past Medical History ...: No - Alcohol/Substance Use Hx Alcohol Use: No - Smoking History Smoking history: Former smoker Have you smoked in the past 12 months: No Aproximately how many cigarettes per day: 20 If you are a former smoker, when did you quit?: 2014 Home Medications - Allergies Allergies/Adverse Reactions: Allergies Allergy/AdvReac Type Severity Reaction Status Date / Time banana Allergy Verified 04/14/19 04:23 Penicillins Allergy Verified 04/14/19 04:23 - Home Medications Home Medications: Ambulatory Orders Apixaban [Eliquis] 5 mg PO BID 04/14/19 Diltiazem Cd [Cardizem Cd -] 240 mg PO DAILY 04/14/19 Fluticasone Propion/Salmeterol [Fluticasone-Salmeterol 250-50] 1 each IH DAILY 04/14/19 Furosemide [Lasix] 40 mg PO DAILY 04/14/19 Losartan Potassium [Cozaar] 25 mg PO DAILY 04/14/19 Polyvinyl Alcohol [Artificial Tears] 1 drop OU TID PRN 04/14/19 Sotalol HCl [Betapace] 80 mg PO BID 04/14/19 Review of Systems - Review of Systems Cardiovascular: reports: Shortness of Breath Respiratory: reports: Exercise Intolerance, Orthopnea, SOB on Exertion Vital Signs: Vital Signs Temperature 97.9 F 04/14/19 13:40 Pulse Rate 123 H 04/14/19 13:40 Respiratory Rate 20 04/14/19 13:40 Blood Pressure 104/56 L 04/14/19 13:40 O2 Sat by Pulse Oximetry (%) 95 04/14/19 05:00 Constitutional: Yes: No Distress, Calm Neck: Yes: Supple Respiratory: Yes: Regular, Diminished, On Nasal O2 Gastrointestinal: Yes: Soft, Hypoactive Bowel Sounds Cardiovascular: Yes: Pulse Irregular JVD: No Carotid Bruit: No Heart Sounds: Yes: S1, S2 Murmur: Yes: Systolic Murmur, Grade 1 Edema: Yes Edema: LLE: Trace, RLE: Trace - Other Data Labs, Other Data: CBC, BMP 04/14/19 08:50 04/14/19 08:50 Troponin, BNP 04/13/19 04/13/19 04/14/19 20:10 20:10 08:50 Troponin I < 0.02 < 0.02 B-Natriuretic Peptide 2692.4 H 04/14/19 14:15 Troponin I < 0.02 B-Natriuretic Peptide Troponin, BNP 04/13/19 04/13/19 04/14/19 20:10 20:10 08:50 Troponin I < 0.02 < 0.02 B-Natriuretic Peptide 2692.4 H 04/14/19 14:15 Troponin I < 0.02 B-Natriuretic Peptide Afib @ 105 PVC QTc 425 msec Ejection Fraction %: LVEF > or = 40 % Imaging - Results Chest X-ray: Report Reviewed (Congestion with right effusion) Problem List - Problems (1) COPD (chronic obstructive pulmonary disease) Code(s): J44.9 - CHRONIC OBSTRUCTIVE PULMONARY DISEASE, UNSPECIFIED Qualifiers: COPD type: unspecified COPD Qualified Code(s): J44.9 - Chronic obstructive pulmonary disease, unspecified (2) Acute on chronic respiratory failure with hypoxia and hypercapnia Code(s): J96.21 - ACUTE AND CHRONIC RESPIRATORY FAILURE WITH HYPOXIA; J96.22 - ACUTE AND CHRONIC RESPIRATORY FAILURE WITH HYPERCAPNIA (3) Afib Code(s): I48.91 - UNSPECIFIED ATRIAL FIBRILLATION Qualifiers: Atrial fibrillation type: paroxysmal Qualified Code(s): I48.0 - Paroxysmal atrial fibrillation (4) CHF exacerbation Code(s): I50.9 - HEART FAILURE, UNSPECIFIED Qualifiers: Heart failure type: diastolic Qualified Code(s): I50.33 - Acute on chronic diastolic (congestive) heart failure (5) Pulmonary HTN Code(s): I27.20 - PULMONARY HYPERTENSION, UNSPECIFIED (6) Status cardiac pacemaker Code(s): Z95.0 - PRESENCE OF CARDIAC PACEMAKER (7) Chronic anticoagulation Code(s): 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 Acute on chronic hypoxemic/hypercapneic respiratory failure 2. Acute on chronic diastolic heart failure and pulm HTN in context of 3. Paroxysmal afib with RVR on eliquis 4. 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 AV block s/p PPM 6. 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 IV diuresis with monitor diuretic response, renal fxn and electrolytes 2. Continue Eliquis 5 bid, Cardizem CD 240 qd, losartan 25 qd sotalol 80 bid 3. BD, O2, empiric abx, f/u chest CT 4. Sleep study as outpatient 5. Thank you for consultative opportunity
[2019-04-15] MEDS: methylPREDNISolone NA SUCC 40 MG/1 ML VIAL IVPUSH SCH ×3 (05:40→21:09)
[2019-04-15] MEDS: ALBUTEROL SO4 2.5/IPRATROPIUM 0.5 INH SOL 3 ML VIAL.NEB. NEB SCH ×4 (07:42→19:50)
--- NOTE | 2019-04-15 08:52 | PN ---
Progress Note, Physician History of Present Illness: pulmonary alert,less dyspneic,+ cough min sputum - Current Medication List Current Medications: Active Medications Albuterol/Ipratropium (Duoneb -) 1 amp NEB RQID [facility] Last Admin: 04/14/19 21:05 Dose: 1 amp Apixaban (Eliquis -) 5 mg PO BID [facility] Last Admin: 04/14/19 22:31 Dose: 5 mg Artificial Tears (Artificial Tears) 1 drop OU TID PRN PRN Reason: DRY EYES Last Admin: 04/14/19 10:40 Dose: 1 drop Budesonide/Formoterol Fumarate (Symbicort 160/4.5mcg -) 1 puff IH BID [facility] Last Admin: 04/14/19 22:31 Dose: 1 puff Diltiazem HCl (Cardizem Cd -) 240 mg PO DAILY [facility] Last Admin: 04/14/19 10:36 Dose: 240 mg Furosemide (Lasix Injection -) 40 mg IVPUSH DAILY [facility] Last Admin: 04/14/19 10:36 Dose: 40 mg Azithromycin (Zithromax 500mg Ivpb (Pre-Docked)) 500 mg in 250 mls @ 250 mls/ hr IVPB DAILY [facility] Last Admin: 04/14/19 13:10 Dose: 250 mls/hr Cefazolin Sodium 1 gm/ (Dextrose) 50 mls @ 100 mls/hr IVPB Q8H-IV [facility] Losartan Potassium (Cozaar -) 25 mg PO DAILY [facility] Last Admin: 04/14/19 10:37 Dose: 25 mg Methylprednisolone Sodium Succinate (Solu-Medrol -) 60 mg IVPUSH TID [facility] Last Admin: 04/15/19 05:40 Dose: 60 mg Sotalol HCl (Betapace -) 80 mg PO BID [facility] Last Admin: 04/14/19 22:31 Dose: 80 mg - Objective Vital Signs: Vital Signs Temperature 97.8 F 04/15/19 05:40 Pulse Rate 88 04/15/19 05:40 Respiratory Rate 18 04/15/19 05:40 Blood Pressure 98/50 L 04/15/19 05:40 O2 Sat by Pulse Oximetry (%) 94 L 04/14/19 21:00 Constitutional: Yes: Well Nourished, Calm Eyes: Yes: WNL HENT: Yes: WNL Neck: Yes: WNL Cardiovascular: Yes: Pulse Irregular, S1, S2 Respiratory: Yes: Diminished Gastrointestinal: Yes: Normal Bowel Sounds, Soft Extremities: Yes: WNL Edema: No Labs: CBC, BMP 04/14/19 08:50 04/14/19 08:50 Laboratory Tests 04/14/19 14:18 ABG pH 7.42 ABG pCO2 at Pt Temp 49.4 H ABG pO2 at Pt Temp 73.9 L ABG HCO3 31.3 H ABG O2 Sat (Measured) 94.2 L - ....Imaging Cat Scan: Image Reviewed Problem List - Problems (1) Acute on chronic respiratory failure with hypoxia and hypercapnia Code(s): J96.21 - ACUTE AND CHRONIC RESPIRATORY FAILURE WITH HYPOXIA; J96.22 - ACUTE AND CHRONIC RESPIRATORY FAILURE WITH HYPERCAPNIA (2) CHF exacerbation Code(s): I50.9 - HEART FAILURE, UNSPECIFIED Qualifiers: Heart failure type: diastolic Qualified Code(s): I50.33 - Acute on chronic diastolic (congestive) heart failure (3) COPD exacerbation Code(s): J44.1 - CHRONIC OBSTRUCTIVE PULMONARY DISEASE W (ACUTE) EXACERBATION (4) Pulmonary HTN Code(s): I27.20 - PULMONARY HYPERTENSION, UNSPECIFIED (5) Afib Code(s): I48.91 - UNSPECIFIED ATRIAL FIBRILLATION Qualifiers: Atrial fibrillation type: paroxysmal Qualified Code(s): I48.0 - Paroxysmal atrial fibrillation (6) Status cardiac pacemaker Code(s): Z95.0 - PRESENCE OF CARDIAC PACEMAKER Assessment/Plan IMP ACUTE ON CHRONIC HYPOXEMIC/HYPERCAPNEIC RESPIRATORY FAILURE IMPROVING ACUTE ON CHRONIC CHF IMPROVING COPD O2 DEPENDENT WITH EXACERBATION IMPROVING AFIB H/O AV BLOCK S/P PPM HTN PULMONARY HTN SUSPECTED OSAS PLAN IV LASIX STEROID TAPER INHALED BRONCHODILATORS O2 NIPPV IF PT DEVELOPES INCREASED RESPIRATORY DISTRESS DAILY WT STRICT I+Os SLEEP STUDIES OUTPATIENT DR WESTBROOK Problem List - Problems (1) Acute on chronic respiratory failure with hypoxia and hypercapnia Code(s): J96.21 - ACUTE AND CHRONIC RESPIRATORY FAILURE WITH HYPOXIA; J96.22 - ACUTE AND CHRONIC RESPIRATORY FAILURE WITH HYPERCAPNIA (2) CHF exacerbation Code(s): I50.9 - HEART FAILURE, UNSPECIFIED Qualifiers: Heart failure type: unspecified Qualified Code(s): I50.9 - Heart failure, unspecified (3) COPD exacerbation Code(s): J44.1 - CHRONIC OBSTRUCTIVE PULMONARY DISEASE W (ACUTE) EXACERBATION (4) Pulmonary HTN Code(s): I27.20 - PULMONARY HYPERTENSION, UNSPECIFIED (5) Afib Code(s): I48.91 - UNSPECIFIED ATRIAL FIBRILLATION (6) Status cardiac pacemaker Code(s): Z95.0 - PRESENCE OF CARDIAC PACEMAKER
[2019-04-15] MEDS ORDERED: PT OWN MED DRAWER 7, Y5N ONE ×2 (10:24→21:03)
[2019-04-15] MEDS: LOSARTAN POTASSIUM 25 MG TABLET PO SCH (10:32)
[2019-04-15] MEDS: APIXABAN 5 MG TABLET PO SCH ×2 (10:32→21:10)
[2019-04-15] MEDS: SOTALOL HCL 80 MG TABLET (FP) PO SCH ×2 (10:32→21:10)
[2019-04-15] MEDS: FUROSEMIDE 40 MG/4 ML INJECTABLE VIAL IVPUSH SCH (10:38)
[2019-04-15] MEDS: AZITHROMYCIN IVPB 500 MG/250 ML BAG IVPB SCH (10:38)
[2019-04-15] MEDS: BUDESONIDE/FORMETEROL FUMARATE 160/4.5 mcg INHALER IH SCH ×2 (10:39→21:11)
--- NOTE | 2019-04-15 10:43 | EKG ---
Test Reason : Blood Pressure : / mmHG Vent. Rate : 105 BPM Atrial Rate : 108 BPM P-R Int : 000 ms QRS Dur : 072 ms QT Int : 322 ms P-R-T Axes : 000 011 166 degrees QTc Int : 425 ms POOR DATA QUALITY, INTERPRETATION MAY BE ADVERSELY AFFECTED ATRIAL FIBRILLATION WITH RAPID VENTRICULAR RESPONSE WITH PREMATURE VENTRICULAR OR ABERRANTLY CONDUCTED COMPLEXES ABNORMAL ECG NO PREVIOUS ECGS AVAILABLE Confirmed by JING DE LA ROSA MD ([id number]) on 04/15/2019 10:43:16 AM Referred By: Confirmed By:JING DE LA ROSA MD
[2019-04-15] MEDS: ARTIFICIAL TEARS (POLYVINYL ALCOHOL) OPTH DROPS OU PRN (10:45)
--- NOTE | 2019-04-15 12:58 | PN ---
Progress Note, Physician Chief Complaint: Feels better History of Present Illness: Dr Severinos cardiology consult and Dr Booker pulmonery consult appreciated - Current Medication List Current Medications: Active Medications Albuterol/Ipratropium (Duoneb -) 1 amp NEB RQID [facility] Last Admin: 04/15/19 12:09 Dose: 1 amp Apixaban (Eliquis -) 5 mg PO BID [facility] Last Admin: 04/15/19 10:32 Dose: 5 mg Artificial Tears (Artificial Tears) 1 drop OU TID PRN PRN Reason: DRY EYES Last Admin: 04/15/19 10:45 Dose: 1 drop Budesonide/Formoterol Fumarate (Symbicort 160/4.5mcg -) 1 puff IH BID [facility] Last Admin: 04/15/19 10:39 Dose: 1 puff Diltiazem HCl (Cardizem Cd -) 240 mg PO DAILY [facility] Last Admin: 04/15/19 10:32 Dose: 240 mg Furosemide (Lasix Injection -) 40 mg IVPUSH DAILY [facility] Last Admin: 04/15/19 10:38 Dose: 40 mg Azithromycin (Zithromax 500mg Ivpb (Pre-Docked)) 500 mg in 250 mls @ 250 mls/ hr IVPB DAILY [facility] Last Admin: 04/15/19 10:38 Dose: 250 mls/hr Cefazolin Sodium 1 gm/ (Dextrose) 50 mls @ 100 mls/hr IVPB Q8H-IV [facility] Losartan Potassium (Cozaar -) 25 mg PO DAILY [facility] Last Admin: 04/15/19 10:32 Dose: 25 mg Methylprednisolone Sodium Succinate (Solu-Medrol -) 40 mg IVPUSH TID [facility] Sotalol HCl (Betapace -) 80 mg PO BID [facility] Last Admin: 04/15/19 10:32 Dose: 80 mg - Objective Vital Signs: Vital Signs Temperature 97.3 F L 04/15/19 10:45 Pulse Rate 132 H 04/15/19 10:45 Respiratory Rate 20 04/15/19 10:45 Blood Pressure 106/63 04/15/19 10:45 O2 Sat by Pulse Oximetry (%) 92 L 04/15/19 09:00 Constitutional: Yes: No Distress Eyes: Yes: WNL HENT: Yes: WNL Neck: Yes: WNL Cardiovascular: Yes: Pulse Irregular Respiratory: Yes: Rales Gastrointestinal: Yes: WNL ...Rectal Exam: Yes: Deferred Genitourinary: Yes: WNL Integumentary: Yes: WNL Labs: CBC, BMP 04/14/19 08:50 04/14/19 08:50 Assessment/Plan Bibasal infiltrate and CHF Doing better
--- NOTE | 2019-04-15 13:24 | PN ---
Progress Note, Physician History of Present Illness: Shortness of breath, cough productive of yellow sputum, wheeze, orthopnea, improving, amenable to BD and diuresis. She denies cp, near or true syncope, palpitations, LE edema. Allergies: NKDA - Current Medication List Current Medications: Active Medications Albuterol/Ipratropium (Duoneb -) 1 amp NEB RQID [facility] Last Admin: 04/15/19 12:09 Dose: 1 amp Apixaban (Eliquis -) 5 mg PO BID [facility] Last Admin: 04/15/19 10:32 Dose: 5 mg Artificial Tears (Artificial Tears) 1 drop OU TID PRN PRN Reason: DRY EYES Last Admin: 04/15/19 10:45 Dose: 1 drop Budesonide/Formoterol Fumarate (Symbicort 160/4.5mcg -) 1 puff IH BID [facility] Last Admin: 04/15/19 10:39 Dose: 1 puff Diltiazem HCl (Cardizem Cd -) 240 mg PO DAILY [facility] Last Admin: 04/15/19 10:32 Dose: 240 mg Furosemide (Lasix Injection -) 40 mg IVPUSH DAILY [facility] Last Admin: 04/15/19 10:38 Dose: 40 mg Azithromycin (Zithromax 500mg Ivpb (Pre-Docked)) 500 mg in 250 mls @ 250 mls/ hr IVPB DAILY [facility] Last Admin: 04/15/19 10:38 Dose: 250 mls/hr Cefazolin Sodium 1 gm/ (Dextrose) 50 mls @ 100 mls/hr IVPB Q8H-IV [facility] Losartan Potassium (Cozaar -) 25 mg PO DAILY [facility] Last Admin: 04/15/19 10:32 Dose: 25 mg Methylprednisolone Sodium Succinate (Solu-Medrol -) 40 mg IVPUSH TID [facility] Sotalol HCl (Betapace -) 80 mg PO BID [facility] Last Admin: 04/15/19 10:32 Dose: 80 mg - Objective Vital Signs: Vital Signs Temperature 97.3 F L 04/15/19 10:45 Pulse Rate 132 H 04/15/19 10:45 Respiratory Rate 20 04/15/19 10:45 Blood Pressure 106/63 04/15/19 10:45 O2 Sat by Pulse Oximetry (%) 92 L 04/15/19 09:00 Constitutional: Yes: No Distress, Calm Neck: Yes: Supple Cardiovascular: Yes: Pulse Irregular Respiratory: Yes: Regular, Diminished, On Nasal O2 Gastrointestinal: Yes: Normal Bowel Sounds, Soft, Abdomen, Obese Edema: Yes Edema: LLE: Trace, RLE: Trace Labs: CBC, BMP 04/14/19 08:50 04/14/19 08:50 - ....Imaging EKG: Report Reviewed (Tele: Rate-controlled afib) Problem List - Problems (1) COPD (chronic obstructive pulmonary disease) Code(s): J44.9 - CHRONIC OBSTRUCTIVE PULMONARY DISEASE, UNSPECIFIED Qualifiers: COPD type: unspecified COPD Qualified Code(s): J44.9 - Chronic obstructive pulmonary disease, unspecified (2) Acute on chronic respiratory failure with hypoxia and hypercapnia Code(s): J96.21 - ACUTE AND CHRONIC RESPIRATORY FAILURE WITH HYPOXIA; J96.22 - ACUTE AND CHRONIC RESPIRATORY FAILURE WITH HYPERCAPNIA (3) Afib Code(s): I48.91 - UNSPECIFIED ATRIAL FIBRILLATION Qualifiers: Atrial fibrillation type: paroxysmal Qualified Code(s): I48.0 - Paroxysmal atrial fibrillation (4) CHF exacerbation Code(s): I50.9 - HEART FAILURE, UNSPECIFIED Qualifiers: Heart failure type: diastolic Qualified Code(s): I50.33 - Acute on chronic diastolic (congestive) heart failure (5) Pulmonary HTN Code(s): I27.20 - PULMONARY HYPERTENSION, UNSPECIFIED (6) Status cardiac pacemaker Code(s): Z95.0 - PRESENCE OF CARDIAC PACEMAKER (7) Chronic anticoagulation Code(s): 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 Acute on chronic hypoxemic/hypercapneic respiratory failure 2. Acute on chronic diastolic heart failure and pulm HTN in context of 3. Paroxysmal afib with RVR [id number] 4 on eliquis 4. 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 Sick sinus syndrome s/p Medtr[employer] PPM 6. 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 IV diuresis with monitor diuretic response, renal fxn and electrolytes 2. Continue Eliquis 5 bid, Cardizem CD 240 qd, losartan 25 qd, sotalol 80 bid 3. BD, O2, IV steroid taper, empiric abx, f/u chest CT results 4. Sleep study as outpatient
[2019-04-16] MEDS: methylPREDNISolone NA SUCC 40 MG/1 ML VIAL IVPUSH SCH ×3 (05:59→21:07)
[2019-04-16] MEDS: ALBUTEROL SO4 2.5/IPRATROPIUM 0.5 INH SOL 3 ML VIAL.NEB. NEB SCH ×4 (08:14→20:31)
--- NOTE | 2019-04-16 09:32 | PN ---
Progress Note, Physician Chief Complaint: Still C/O cough History of Present Illness: CPD,bilateral basal infiltrate and CHF Ancef was on hold because of possible allergy to PCN Today I reviewed office chart and found that she was on Augmentin before ancef started back - Current Medication List Current Medications: Active Medications Albuterol/Ipratropium (Duoneb -) 1 amp NEB RQID [facility] Last Admin: 04/16/19 08:14 Dose: 1 amp Apixaban (Eliquis -) 5 mg PO BID [facility] Last Admin: 04/15/19 21:10 Dose: 5 mg Artificial Tears (Artificial Tears) 1 drop OU TID PRN PRN Reason: DRY EYES Last Admin: 04/15/19 10:45 Dose: 1 drop Budesonide/Formoterol Fumarate (Symbicort 160/4.5mcg -) 1 puff IH BID [facility] Last Admin: 04/15/19 21:11 Dose: 1 puff Diltiazem HCl (Cardizem Cd -) 240 mg PO DAILY [facility] Last Admin: 04/15/19 10:32 Dose: 240 mg Furosemide (Lasix Injection -) 40 mg IVPUSH DAILY [facility] Last Admin: 04/15/19 10:38 Dose: 40 mg Azithromycin (Zithromax 500mg Ivpb (Pre-Docked)) 500 mg in 250 mls @ 250 mls/ hr IVPB DAILY [facility] Last Admin: 04/15/19 10:38 Dose: 250 mls/hr Cefazolin Sodium 1 gm/ (Dextrose) 50 mls @ 100 mls/hr IVPB Q8H-IV [facility] Losartan Potassium (Cozaar -) 25 mg PO DAILY [facility] Last Admin: 04/15/19 10:32 Dose: 25 mg Methylprednisolone Sodium Succinate (Solu-Medrol -) 40 mg IVPUSH TID [facility] Last Admin: 04/16/19 05:59 Dose: 40 mg Sotalol HCl (Betapace -) 80 mg PO BID [facility] Last Admin: 04/15/19 21:10 Dose: 80 mg - Objective Vital Signs: Vital Signs Temperature 97.5 F L 04/16/19 08:04 Pulse Rate 77 04/16/19 08:04 Respiratory Rate 20 04/16/19 08:04 Blood Pressure 117/57 L 04/16/19 08:04 O2 Sat by Pulse Oximetry (%) 92 L 04/15/19 20:52 Constitutional: Yes: No Distress Eyes: Yes: WNL HENT: Yes: WNL Neck: Yes: WNL Cardiovascular: Yes: WNL Respiratory: Yes: Cough, On Nasal O2 Gastrointestinal: Yes: Normal Bowel Sounds ...Rectal Exam: Yes: Deferred Genitourinary: Yes: WNL Breast(s): Yes: WNL Musculoskeletal: Yes: WNL Neurological: Yes: Alert Psychiatric: Yes: Alert Labs: CBC, BMP 04/14/19 08:50 04/14/19 08:50 - ....Imaging Cat Scan: Pending Assessment/Plan Ancef IV pb started back
[2019-04-16] MEDS ORDERED: DEXTROSE 5%-WATER - 50 ML IVPB ONE ×2 (09:47→18:29)
[2019-04-16] MEDS ORDERED: ceFAZolin SODIUM 1 GM VIAL ONE ×2 (09:47→18:29)
[2019-04-16] MEDS: LOSARTAN POTASSIUM 25 MG TABLET PO SCH (09:49)
[2019-04-16] MEDS: APIXABAN 5 MG TABLET PO SCH ×2 (09:49→21:07)
[2019-04-16] MEDS: CEFAZOLIN 1 GM in DEXTROSE 5%-WATER - 50 ML IVPB SCH ×2 (09:52→18:46)
[2019-04-16] MEDS: AZITHROMYCIN IVPB 500 MG/250 ML BAG IVPB SCH (09:52)
[2019-04-16] MEDS: SOTALOL HCL 80 MG TABLET (FP) PO SCH ×2 (09:52→21:08)
[2019-04-16] MEDS: BUDESONIDE/FORMETEROL FUMARATE 160/4.5 mcg INHALER IH SCH ×2 (09:53→21:08)
[2019-04-16] MEDS: FUROSEMIDE 40 MG/4 ML INJECTABLE VIAL IVPUSH SCH (09:53)
--- NOTE | 2019-04-16 10:07 | PN ---
Progress Note, Physician History of Present Illness: Shortness of breath, cough productive of yellow sputum, wheeze, orthopnea, improving, amenable to BD and diuresis. She denies cp, near or true syncope, palpitations, LE edema. Allergies: NKDA - Current Medication List Current Medications: Active Medications Albuterol/Ipratropium (Duoneb -) 1 amp NEB RQID [facility] Last Admin: 04/16/19 08:14 Dose: 1 amp Apixaban (Eliquis -) 5 mg PO BID [facility] Last Admin: 04/16/19 09:49 Dose: 5 mg Artificial Tears (Artificial Tears) 1 drop OU TID PRN PRN Reason: DRY EYES Last Admin: 04/15/19 10:45 Dose: 1 drop Budesonide/Formoterol Fumarate (Symbicort 160/4.5mcg -) 1 puff IH BID [facility] Last Admin: 04/16/19 09:53 Dose: 1 puff Diltiazem HCl (Cardizem Cd -) 240 mg PO DAILY [facility] Last Admin: 04/16/19 09:49 Dose: 240 mg Furosemide (Lasix Injection -) 40 mg IVPUSH DAILY [facility] Last Admin: 04/16/19 09:53 Dose: 40 mg Azithromycin (Zithromax 500mg Ivpb (Pre-Docked)) 500 mg in 250 mls @ 250 mls/ hr IVPB DAILY [facility] Last Admin: 04/16/19 09:52 Dose: 250 mls/hr Cefazolin Sodium 1 gm/ (Dextrose) 50 mls @ 100 mls/hr IVPB Q8H-IV [facility] Last Admin: 04/16/19 09:52 Dose: 100 mls/hr Losartan Potassium (Cozaar -) 25 mg PO DAILY [facility] Last Admin: 04/16/19 09:49 Dose: 25 mg Methylprednisolone Sodium Succinate (Solu-Medrol -) 40 mg IVPUSH TID [facility] Last Admin: 04/16/19 05:59 Dose: 40 mg Sotalol HCl (Betapace -) 80 mg PO BID [facility] Last Admin: 04/16/19 09:52 Dose: 80 mg - Objective Vital Signs: Vital Signs Temperature 97.5 F L 04/16/19 08:04 Pulse Rate 77 04/16/19 08:04 Respiratory Rate 20 04/16/19 08:04 Blood Pressure 117/57 L 04/16/19 08:04 O2 Sat by Pulse Oximetry (%) 92 L 04/15/19 20:52 Constitutional: Yes: No Distress, Calm Neck: Yes: Supple Cardiovascular: Yes: Tachycardia, Pulse Irregular Respiratory: Yes: Regular, Diminished, On Nasal O2 Gastrointestinal: Yes: Normal Bowel Sounds, Soft Edema: No Labs: CBC, BMP 04/14/19 08:50 04/14/19 08:50 - ....Imaging EKG: Report Reviewed (Tele: Afib) Problem List - Problems (1) CHF exacerbation Code(s): I50.9 - HEART FAILURE, UNSPECIFIED Qualifiers: Heart failure type: diastolic Qualified Code(s): I50.33 - Acute on chronic diastolic (congestive) heart failure (2) Acute on chronic respiratory failure with hypoxia and hypercapnia Code(s): J96.21 - ACUTE AND CHRONIC RESPIRATORY FAILURE WITH HYPOXIA; J96.22 - ACUTE AND CHRONIC RESPIRATORY FAILURE WITH HYPERCAPNIA (3) Pulmonary HTN Code(s): I27.20 - PULMONARY HYPERTENSION, UNSPECIFIED (4) Afib Code(s): I48.91 - UNSPECIFIED ATRIAL FIBRILLATION Qualifiers: Atrial fibrillation type: paroxysmal Qualified Code(s): I48.0 - Paroxysmal atrial fibrillation (5) Status cardiac pacemaker Code(s): Z95.0 - PRESENCE OF CARDIAC PACEMAKER (6) COPD (chronic obstructive pulmonary disease) Code(s): J44.9 - CHRONIC OBSTRUCTIVE PULMONARY DISEASE, UNSPECIFIED Qualifiers: COPD type: unspecified COPD Qualified Code(s): J44.9 - Chronic obstructive pulmonary disease, unspecified (7) Chronic anticoagulation Code(s): Z79.01 - ASSISTED (CURRENT) USE OF ANTICOAGULANTS Assessment/Plan 05/2018 Echo: Normal LV size and fxn LVEF 60-65%, mild AR, MR, mild-mod TR, mod pulm HTN 01/2019 Carotid US: No sig stenosis 1. Acute on chronic hypoxemic/hypercapneic respiratory failure 2. Acute on chronic diastolic heart failure and pulm HTN in context of 3. Paroxysmal afib with RVR [id number] 4 on eliquis 4. 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 Sick sinus syndrome s/p [employer]tr[employer] PPM 6. 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 Resume oral diuresis with monitor diuretic response, renal fxn and electrolytes 2. Continue Eliquis 5 bid, Cardizem CD 240 qd, losartan 25 qd, sotalol 80 bid 3. BD, O2, IV steroid taper, empiric abx, f/u chest CT results 4. Sleep study as outpatient
--- NOTE | 2019-04-16 11:15 | PN ---
Progress Note, Physician History of Present Illness: pulmonary alert,sitting up in bed ,feeling better,dyspnea improving - Current Medication List Current Medications: Active Medications Albuterol/Ipratropium (Duoneb -) 1 amp NEB RQID [facility] Last Admin: 04/16/19 08:14 Dose: 1 amp Apixaban (Eliquis -) 5 mg PO BID [facility] Last Admin: 04/16/19 09:49 Dose: 5 mg Artificial Tears (Artificial Tears) 1 drop OU TID PRN PRN Reason: DRY EYES Last Admin: 04/15/19 10:45 Dose: 1 drop Budesonide/Formoterol Fumarate (Symbicort 160/4.5mcg -) 1 puff IH BID [facility] Last Admin: 04/16/19 09:53 Dose: 1 puff Diltiazem HCl (Cardizem Cd -) 240 mg PO DAILY [facility] Last Admin: 04/16/19 09:49 Dose: 240 mg Furosemide (Lasix -) 40 mg PO DAILY [facility] Azithromycin (Zithromax 500mg Ivpb (Pre-Docked)) 500 mg in 250 mls @ 250 mls/ hr IVPB DAILY [facility] Last Admin: 04/16/19 09:52 Dose: 250 mls/hr Cefazolin Sodium 1 gm/ (Dextrose) 50 mls @ 100 mls/hr IVPB Q8H-IV [facility] Last Admin: 04/16/19 09:52 Dose: 100 mls/hr Losartan Potassium (Cozaar -) 25 mg PO DAILY [facility] Last Admin: 04/16/19 09:49 Dose: 25 mg Methylprednisolone Sodium Succinate (Solu-Medrol -) 40 mg IVPUSH TID [facility] Last Admin: 04/16/19 05:59 Dose: 40 mg Sotalol HCl (Betapace -) 80 mg PO BID [facility] Last Admin: 04/16/19 09:52 Dose: 80 mg - Objective Vital Signs: Vital Signs Temperature 97.5 F L 04/16/19 08:04 Pulse Rate 77 04/16/19 08:04 Respiratory Rate 20 04/16/19 08:04 Blood Pressure 117/57 L 04/16/19 08:04 O2 Sat by Pulse Oximetry (%) 92 L 04/15/19 20:52 Constitutional: Yes: Well Nourished, Calm Eyes: Yes: WNL HENT: Yes: WNL Neck: Yes: WNL Cardiovascular: Yes: Pulse Irregular, S1, S2 Respiratory: Yes: Diminished Gastrointestinal: Yes: Normal Bowel Sounds, Soft Extremities: Yes: WNL Edema: No Labs: CBC, BMP Problem List - Problems (1) COPD exacerbation Code(s): J44.1 - CHRONIC OBSTRUCTIVE PULMONARY DISEASE W (ACUTE) EXACERBATION (2) CHF exacerbation Code(s): I50.9 - HEART FAILURE, UNSPECIFIED Qualifiers: Heart failure type: diastolic Qualified Code(s): I50.33 - Acute on chronic diastolic (congestive) heart failure (3) Acute on chronic respiratory failure with hypoxia and hypercapnia Code(s): J96.21 - ACUTE AND CHRONIC RESPIRATORY FAILURE WITH HYPOXIA; J96.22 - ACUTE AND CHRONIC RESPIRATORY FAILURE WITH HYPERCAPNIA (4) Pulmonary HTN Code(s): I27.20 - PULMONARY HYPERTENSION, UNSPECIFIED (5) Afib Code(s): I48.91 - UNSPECIFIED ATRIAL FIBRILLATION Qualifiers: Atrial fibrillation type: paroxysmal Qualified Code(s): I48.0 - Paroxysmal atrial fibrillation (6) Status cardiac pacemaker Code(s): Z95.0 - PRESENCE OF CARDIAC PACEMAKER Assessment/Plan IMP ACUTE ON CHRONIC HYPOXEMIC/HYPERCAPNEIC RESPIRATORY FAILURE IMPROVING ACUTE ON CHRONIC CHF IMPROVING COPD O2 DEPENDENT WITH EXACERBATION IMPROVING AFIB H/O AV BLOCK S/P PPM HTN PULMONARY HTN SUSPECTED OSAS PLAN IV LASIX STEROID TAPER INHALED BRONCHODILATORS O2 NIPPV IF PT DEVELOPES INCREASED RESPIRATORY DISTRESS DAILY WT STRICT I+Os SLEEP STUDIES OUTPATIENT DR WESTBROOK Problem List - Problems (1) Acute on chronic respiratory failure with hypoxia and hypercapnia Code(s): J96.21 - ACUTE AND CHRONIC RESPIRATORY FAILURE WITH HYPOXIA; J96.22 - ACUTE AND CHRONIC RESPIRATORY FAILURE WITH HYPERCAPNIA (2) CHF exacerbation Code(s): I50.9 - HEART FAILURE, UNSPECIFIED Qualifiers: Heart failure type: unspecified Qualified Code(s): I50.9 - Heart failure, unspecified (3) COPD exacerbation Code(s): J44.1 - CHRONIC OBSTRUCTIVE PULMONARY DISEASE W (ACUTE) EXACERBATION (4) Pulmonary HTN Code(s): I27.20 - PULMONARY HYPERTENSION, UNSPECIFIED (5) Afib Code(s): I48.91 - UNSPECIFIED ATRIAL FIBRILLATION (6) Status cardiac pacemaker Code(s): Z95.0 - PRESENCE OF CARDIAC PACEMAKER
[2019-04-17] MEDS ORDERED: ceFAZolin SODIUM 1 GM VIAL ONE ×3 (01:09→17:33)
[2019-04-17] MEDS ORDERED: DEXTROSE 5%-WATER - 50 ML IVPB ONE ×3 (01:09→17:33)
[2019-04-17] MEDS: CEFAZOLIN 1 GM in DEXTROSE 5%-WATER - 50 ML IVPB SCH ×3 (01:16→18:19)
[2019-04-17] MEDS: methylPREDNISolone NA SUCC 40 MG/1 ML VIAL IVPUSH SCH ×3 (05:58→21:08)
[2019-04-17] MEDS: ALBUTEROL SO4 2.5/IPRATROPIUM 0.5 INH SOL 3 ML VIAL.NEB. NEB SCH ×5 (08:00→20:54)
--- NOTE | 2019-04-17 09:30 | PN ---
Progress Note, Physician Chief Complaint: Still c/O SOB and cough History of Present Illness: CT of chest showed Rt LL consolidation - Current Medication List Current Medications: Active Medications Albuterol/Ipratropium (Duoneb -) 1 amp NEB RQID [facility] Last Admin: 04/17/19 08:00 Dose: 1 amp Apixaban (Eliquis -) 5 mg PO BID [facility] Last Admin: 04/16/19 21:07 Dose: 5 mg Artificial Tears (Artificial Tears) 1 drop OU TID PRN PRN Reason: DRY EYES Last Admin: 04/15/19 10:45 Dose: 1 drop Budesonide/Formoterol Fumarate (Symbicort 160/4.5mcg -) 1 puff IH BID [facility] Last Admin: 04/16/19 21:08 Dose: 1 puff Diltiazem HCl (Cardizem Cd -) 240 mg PO DAILY [facility] Last Admin: 04/16/19 09:49 Dose: 240 mg Furosemide (Lasix -) 40 mg PO DAILY [facility] Azithromycin (Zithromax 500mg Ivpb (Pre-Docked)) 500 mg in 250 mls @ 250 mls/ hr IVPB DAILY [facility] Last Admin: 04/16/19 09:52 Dose: 250 mls/hr Cefazolin Sodium 1 gm/ (Dextrose) 50 mls @ 100 mls/hr IVPB Q8H-IV [facility] Last Admin: 04/17/19 01:16 Dose: 100 mls/hr Losartan Potassium (Cozaar -) 25 mg PO DAILY [facility] Last Admin: 04/16/19 09:49 Dose: 25 mg Methylprednisolone Sodium Succinate (Solu-Medrol -) 40 mg IVPUSH TID [facility] Last Admin: 04/17/19 05:58 Dose: 40 mg Sotalol HCl (Betapace -) 80 mg PO BID [facility] Last Admin: 04/16/19 21:08 Dose: 80 mg - Objective Vital Signs: Vital Signs Temperature 98.7 F 04/17/19 06:05 Pulse Rate 81 04/17/19 06:05 Respiratory Rate 18 04/17/19 06:05 Blood Pressure 115/53 L 04/17/19 06:05 O2 Sat by Pulse Oximetry (%) 93 L 04/16/19 20:39 Constitutional: Yes: Mild Distress Eyes: Yes: WNL HENT: Yes: WNL Neck: Yes: WNL Cardiovascular: Yes: WNL Respiratory: Yes: Cough, Poor Air Entry, SOB Gastrointestinal: Yes: WNL ...Rectal Exam: Yes: Deferred Genitourinary: Yes: WNL Breast(s): Yes: WNL Musculoskeletal: Yes: WNL Edema: No Neurological: Yes: Alert Labs: CBC, BMP 04/14/19 08:50 04/14/19 08:50 Assessment/Plan Rpt Xray chest
[2019-04-17] MEDS: LOSARTAN POTASSIUM 25 MG TABLET PO SCH (10:40)
[2019-04-17] MEDS: SOTALOL HCL 80 MG TABLET (FP) PO SCH ×2 (10:40→21:08)
[2019-04-17] MEDS: APIXABAN 5 MG TABLET PO SCH ×2 (10:40→21:08)
[2019-04-17] MEDS: AZITHROMYCIN IVPB 500 MG/250 ML BAG IVPB SCH (10:41)
[2019-04-17] MEDS: BUDESONIDE/FORMETEROL FUMARATE 160/4.5 mcg INHALER IH SCH ×2 (10:49→21:08)
--- NOTE | 2019-04-17 10:56 | PN ---
Progress Note, Physician Chief Complaint: Events noted Dyspnea and wheezing History of Present Illness: Patient was seen and examined. Awake and alert. Chart was reviewed Denies chest pain or palpitations Dyspnea persists with cough and wheezing - Current Medication List Current Medications: Active Medications Albuterol/Ipratropium (Duoneb -) 1 amp NEB RQID [facility] Last Admin: 04/17/19 08:00 Dose: 1 amp Apixaban (Eliquis -) 5 mg PO BID [facility] Last Admin: 04/17/19 10:40 Dose: 5 mg Artificial Tears (Artificial Tears) 1 drop OU TID PRN PRN Reason: DRY EYES Last Admin: 04/15/19 10:45 Dose: 1 drop Budesonide/Formoterol Fumarate (Symbicort 160/4.5mcg -) 1 puff IH BID [facility] Last Admin: 04/17/19 10:49 Dose: 1 puff Diltiazem HCl (Cardizem Cd -) 240 mg PO DAILY [facility] Last Admin: 04/17/19 10:40 Dose: 240 mg Furosemide (Lasix -) 40 mg PO DAILY [facility] Azithromycin (Zithromax 500mg Ivpb (Pre-Docked)) 500 mg in 250 mls @ 250 mls/ hr IVPB DAILY [facility] Last Admin: 04/17/19 10:41 Dose: 250 mls/hr Cefazolin Sodium 1 gm/ (Dextrose) 50 mls @ 100 mls/hr IVPB Q8H-IV [facility] Last Admin: 04/17/19 10:41 Dose: 100 mls/hr Losartan Potassium (Cozaar -) 25 mg PO DAILY [facility] Last Admin: 04/17/19 10:40 Dose: 25 mg Methylprednisolone Sodium Succinate (Solu-Medrol -) 40 mg IVPUSH TID [facility] Last Admin: 04/17/19 05:58 Dose: 40 mg Sotalol HCl (Betapace -) 80 mg PO BID [facility] Last Admin: 04/17/19 10:40 Dose: 80 mg - Objective Vital Signs: Vital Signs Temperature 97.3 F L 04/17/19 10:47 Pulse Rate 102 H 04/17/19 10:47 Respiratory Rate 18 04/17/19 10:47 Blood Pressure 103/60 04/17/19 10:47 O2 Sat by Pulse Oximetry (%) 93 L 04/16/19 20:39 Eyes: Yes: PERRL HENT: Yes: Atraumatic Neck: Yes: Supple Cardiovascular: Yes: Pulse Irregular, S1, S2 Respiratory: Yes: Diminished, Wheezes Gastrointestinal: Yes: Normal Bowel Sounds, Soft. No: Tenderness Edema: No Additional Findings/Remarks: - Review of Systems Constitutional: reports: Weakness. denies: Chills, Fever Cardiovascular: reports: Shortness of Breath. denies: Chest Pain Respiratory: (+) Cough, denies: Hemoptysis, Orthopnea, PND Gastrointestinal: denies: Abdominal Pain, Constipation, Diarrhea, Melena, Nausea , Rectal Bleeding, Vomiting Genitourinary: denies: Dysuria Neurological: denies: Dizziness, Headache, Seizure, Syncope Problem List - Problems (1) Acute on chronic respiratory failure with hypoxia and hypercapnia Code(s): J96.21 - ACUTE AND CHRONIC RESPIRATORY FAILURE WITH HYPOXIA; J96.22 - ACUTE AND CHRONIC RESPIRATORY FAILURE WITH HYPERCAPNIA (2) COPD (chronic obstructive pulmonary disease) Code(s): J44.9 - CHRONIC OBSTRUCTIVE PULMONARY DISEASE, UNSPECIFIED Qualifiers: COPD type: unspecified COPD Qualified Code(s): J44.9 - Chronic obstructive pulmonary disease, unspecified (3) Pulmonary HTN Code(s): I27.20 - PULMONARY HYPERTENSION, UNSPECIFIED (4) Status cardiac pacemaker Code(s): Z95.0 - PRESENCE OF CARDIAC PACEMAKER (5) AV block, 2nd degree Code(s): I44.1 - ATRIOVENTRICULAR BLOCK, SECOND DEGREE (6) Acute on chronic diastolic (congestive) heart failure Code(s): I50.33 - ACUTE ON CHRONIC DIASTOLIC (CONGESTIVE) HEART FAILURE (7) Atrial fibrillation Code(s): I48.91 - UNSPECIFIED ATRIAL FIBRILLATION Qualifiers: Atrial fibrillation type: persistent Qualified Code(s): I48.1 - Persistent atrial fibrillation (8) Chronic kidney disease Code(s): N18.9 - CHRONIC KIDNEY DISEASE, UNSPECIFIED Qualifiers: Chronic kidney disease stage: stage 2 (mild) Qualified Code(s): N18.2 - Chronic kidney disease, stage 2 (mild) (9) Hypertension Code(s): I10 - ESSENTIAL (PRIMARY) HYPERTENSION Qualifiers: Hypertension type: essential hypertension Qualified Code(s): I10 - Essential (primary) hypertension (10) SOB (shortness of breath) Code(s): R06.02 - SHORTNESS OF BREATH Assessment/Plan 1. Acute on chronic hypoxemic/hypercapneic respiratory failure 2. Acute on chronic diastolic heart failure and pulm HTN 3. Paroxysmal AF with RVR [id number] 4 on Eliquis 4. 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 Sick sinus syndrome s/p Medtronic PPM 6. Suspected OSAS PLAN: 1. PO Lasix and monitor renal function and electrolytes 2. Continue Eliquis 5 mg BID, Cardizem CD 240 mg QD, Losartan 25 mg QD and Sotalol 80 mg BID 3. Bronchodilator, O2, IV steroid taper, empiric antibiotics 4. Sleep study can be done as outpatient Further plans are to follow Jordy Simpson MD
[2019-04-17] MEDS: FUROSEMIDE 40 MG TABLET (FP) PO SCH (13:08)
--- NOTE | 2019-04-17 13:50 | PN ---
Progress Note, Physician History of Present Illness: pulmonary alert,feeling better,dyspnea improving - Current Medication List Current Medications: Active Medications Albuterol/Ipratropium (Duoneb -) 1 amp NEB RQID [facility] Last Admin: 04/17/19 11:59 Dose: 1 amp Apixaban (Eliquis -) 5 mg PO BID [facility] Last Admin: 04/17/19 10:40 Dose: 5 mg Artificial Tears (Artificial Tears) 1 drop OU TID PRN PRN Reason: DRY EYES Last Admin: 04/15/19 10:45 Dose: 1 drop Budesonide/Formoterol Fumarate (Symbicort 160/4.5mcg -) 1 puff IH BID [facility] Last Admin: 04/17/19 10:49 Dose: 1 puff Diltiazem HCl (Cardizem Cd -) 240 mg PO DAILY [facility] Last Admin: 04/17/19 10:40 Dose: 240 mg Furosemide (Lasix -) 40 mg PO DAILY [facility] Last Admin: 04/17/19 13:08 Dose: 40 mg Azithromycin (Zithromax 500mg Ivpb (Pre-Docked)) 500 mg in 250 mls @ 250 mls/ hr IVPB DAILY [facility] Last Admin: 04/17/19 10:41 Dose: 250 mls/hr Cefazolin Sodium 1 gm/ (Dextrose) 50 mls @ 100 mls/hr IVPB Q8H-IV [facility] Last Admin: 04/17/19 10:41 Dose: 100 mls/hr Losartan Potassium (Cozaar -) 25 mg PO DAILY [facility] Last Admin: 04/17/19 10:40 Dose: 25 mg Methylprednisolone Sodium Succinate (Solu-Medrol -) 40 mg IVPUSH TID [facility] Last Admin: 04/17/19 13:18 Dose: 40 mg Sotalol HCl (Betapace -) 80 mg PO BID [facility] Last Admin: 04/17/19 10:40 Dose: 80 mg - Objective Vital Signs: Vital Signs Temperature 97.3 F L 04/17/19 10:47 Pulse Rate 102 H 04/17/19 10:47 Respiratory Rate 18 04/17/19 10:47 Blood Pressure 103/60 04/17/19 10:47 O2 Sat by Pulse Oximetry (%) 93 L 04/16/19 20:39 Constitutional: Yes: Well Nourished, Calm Eyes: Yes: WNL HENT: Yes: WNL Neck: Yes: WNL Cardiovascular: Yes: Pulse Irregular, S1, S2 Respiratory: Yes: Wheezes (few wheezes) Gastrointestinal: Yes: Normal Bowel Sounds, Soft Extremities: Yes: WNL Edema: Yes Edema: LLE: Trace, RLE: Trace Labs: Problem List - Problems (1) COPD exacerbation Code(s): J44.1 - CHRONIC OBSTRUCTIVE PULMONARY DISEASE W (ACUTE) EXACERBATION (2) CHF exacerbation Code(s): I50.9 - HEART FAILURE, UNSPECIFIED Qualifiers: Heart failure type: diastolic Qualified Code(s): I50.33 - Acute on chronic diastolic (congestive) heart failure (3) Acute on chronic respiratory failure with hypoxia and hypercapnia Code(s): J96.21 - ACUTE AND CHRONIC RESPIRATORY FAILURE WITH HYPOXIA; J96.22 - ACUTE AND CHRONIC RESPIRATORY FAILURE WITH HYPERCAPNIA (4) Pulmonary HTN Code(s): I27.20 - PULMONARY HYPERTENSION, UNSPECIFIED (5) Afib Code(s): I48.91 - UNSPECIFIED ATRIAL FIBRILLATION Qualifiers: Atrial fibrillation type: paroxysmal Qualified Code(s): I48.0 - Paroxysmal atrial fibrillation (6) Status cardiac pacemaker Code(s): Z95.0 - PRESENCE OF CARDIAC PACEMAKER Assessment/Plan IMP ACUTE ON CHRONIC HYPOXEMIC/HYPERCAPNEIC RESPIRATORY FAILURE IMPROVING ACUTE ON CHRONIC CHF IMPROVING COPD O2 DEPENDENT WITH EXACERBATION IMPROVING AFIB H/O AV BLOCK S/P PPM HTN PULMONARY HTN SUSPECTED OSAS PLAN LASIX STEROID TAPER INHALED BRONCHODILATORS O2 NIPPV IF PT DEVELOPES INCREASED RESPIRATORY DISTRESS DAILY WT STRICT I+Os SLEEP STUDIES OUTPATIENT SHORT TERM INPATIENT PULMONARY REHAB POST DISCHARGE DR WESTBROOK Problem List - Problems (1) Acute on chronic respiratory failure with hypoxia and hypercapnia Code(s): J96.21 - ACUTE AND CHRONIC RESPIRATORY FAILURE WITH HYPOXIA; J96.22 - ACUTE AND CHRONIC RESPIRATORY FAILURE WITH HYPERCAPNIA (2) CHF exacerbation Code(s): I50.9 - HEART FAILURE, UNSPECIFIED Qualifiers: Heart failure type: unspecified Qualified Code(s): I50.9 - Heart failure, unspecified (3) COPD exacerbation Code(s): J44.1 - CHRONIC OBSTRUCTIVE PULMONARY DISEASE W (ACUTE) EXACERBATION (4) Pulmonary HTN Code(s): I27.20 - PULMONARY HYPERTENSION, UNSPECIFIED (5) Afib Code(s): I48.91 - UNSPECIFIED ATRIAL FIBRILLATION (6) Status cardiac pacemaker Code(s): Z95.0 - PRESENCE OF CARDIAC PACEMAKER
[2019-04-17] MEDS ORDERED: MAGNESIUM HYDROX 2400MG/30ML ORAL SUSPENSION 30 ML CUP PO ONE (17:45)
[2019-04-18] MEDS ORDERED: DEXTROSE 5%-WATER - 50 ML IVPB ONE ×3 (01:00→17:01)
[2019-04-18] MEDS ORDERED: ceFAZolin SODIUM 1 GM VIAL ONE ×3 (01:00→17:01)
[2019-04-18] MEDS: CEFAZOLIN 1 GM in DEXTROSE 5%-WATER - 50 ML IVPB SCH ×3 (01:25→17:10)
[2019-04-18] MEDS: ALBUTEROL SO4 2.5/IPRATROPIUM 0.5 INH SOL 3 ML VIAL.NEB. NEB SCH ×4 (08:00→20:33)
[2019-04-18] MEDS ORDERED: PT OWN MED DRAWER 7, Y5N ONE ×2 (08:25→21:20)
[2019-04-18] MEDS: APIXABAN 5 MG TABLET PO SCH ×2 (09:11→21:40)
[2019-04-18] MEDS: LOSARTAN POTASSIUM 25 MG TABLET PO SCH (09:11)
[2019-04-18] MEDS: FUROSEMIDE 40 MG TABLET (FP) PO SCH (09:11)
[2019-04-18] MEDS: SOTALOL HCL 80 MG TABLET (FP) PO SCH ×2 (09:11→21:40)
[2019-04-18] MEDS: methylPREDNISolone NA SUCC 40 MG/1 ML VIAL IVPUSH SCH ×2 (09:12→21:40)
[2019-04-18] MEDS: AZITHROMYCIN IVPB 500 MG/250 ML BAG IVPB SCH (09:12)
[2019-04-18] MEDS ORDERED: MINERAL OIL ENEMA 133 ML ENEMA PR ONE (09:32)
--- NOTE | 2019-04-18 09:32 | PN ---
Progress Note, Physician Chief Complaint: Feels better ,C/O constipation - Current Medication List Current Medications: Active Medications Albuterol/Ipratropium (Duoneb -) 1 amp NEB RQID [facility] Last Admin: 04/17/19 20:54 Dose: 1 amp Apixaban (Eliquis -) 5 mg PO BID [facility] Last Admin: 04/18/19 09:11 Dose: 5 mg Artificial Tears (Artificial Tears) 1 drop OU TID PRN PRN Reason: DRY EYES Last Admin: 04/15/19 10:45 Dose: 1 drop Budesonide/Formoterol Fumarate (Symbicort 160/4.5mcg -) 1 puff IH BID [facility] Last Admin: 04/17/19 21:08 Dose: 1 puff Diltiazem HCl (Cardizem Cd -) 240 mg PO DAILY [facility] Last Admin: 04/18/19 09:12 Dose: 240 mg Furosemide (Lasix -) 40 mg PO DAILY [facility] Last Admin: 04/18/19 09:11 Dose: 40 mg Azithromycin (Zithromax 500mg Ivpb (Pre-Docked)) 500 mg in 250 mls @ 250 mls/ hr IVPB DAILY [facility] Last Admin: 04/18/19 09:12 Dose: 250 mls/hr Cefazolin Sodium 1 gm/ (Dextrose) 50 mls @ 100 mls/hr IVPB Q8H-IV [facility] Last Admin: 04/18/19 09:12 Dose: 100 mls/hr Losartan Potassium (Cozaar -) 25 mg PO DAILY [facility] Last Admin: 04/18/19 09:11 Dose: 25 mg Methylprednisolone Sodium Succinate (Solu-Medrol -) 40 mg IVPUSH BID [facility] Last Admin: 04/18/19 09:12 Dose: 40 mg Sotalol HCl (Betapace -) 80 mg PO BID [facility] Last Admin: 04/18/19 09:11 Dose: 80 mg - Objective Vital Signs: Vital Signs Temperature 97.6 F 04/18/19 05:29 Pulse Rate 78 04/18/19 05:29 Respiratory Rate 18 04/18/19 05:29 Blood Pressure 114/61 04/18/19 05:29 O2 Sat by Pulse Oximetry (%) 95 04/17/19 21:00 Constitutional: Yes: No Distress Eyes: Yes: WNL HENT: Yes: WNL Neck: Yes: WNL Cardiovascular: Yes: WNL Respiratory: Yes: WNL, Rales Gastrointestinal: Yes: Normal Bowel Sounds ...Rectal Exam: Yes: Deferred Edema: No Neurological: Yes: Alert ...Motor Strength: WNL Labs: CBC, BMP 04/14/19 08:50 04/14/19 08:50 - ....Imaging Chest X-ray: Report Reviewed Assessment/Plan Fleets enema Trasfer to floor
[2019-04-18] MEDS: BUDESONIDE/FORMETEROL FUMARATE 160/4.5 mcg INHALER IH SCH ×2 (12:00→21:40)
--- NOTE | 2019-04-18 12:11 | PN ---
Progress Note, Physician History of Present Illness: Shortness of breath, cough productive of yellow sputum, wheeze, orthopnea, improving, amenable to BD and diuresis. She denies cp, near or true syncope, palpitations, LE edema. Allergies: NKDA - Current Medication List Current Medications: Active Medications Albuterol/Ipratropium (Duoneb -) 1 amp NEB RQID [facility] Last Admin: 04/18/19 08:00 Dose: 1 amp Apixaban (Eliquis -) 5 mg PO BID [facility] Last Admin: 04/18/19 09:11 Dose: 5 mg Artificial Tears (Artificial Tears) 1 drop OU TID PRN PRN Reason: DRY EYES Last Admin: 04/15/19 10:45 Dose: 1 drop Budesonide/Formoterol Fumarate (Symbicort 160/4.5mcg -) 1 puff IH BID [facility] Last Admin: 04/18/19 12:00 Dose: 1 puff Diltiazem HCl (Cardizem Cd -) 240 mg PO DAILY [facility] Last Admin: 04/18/19 09:12 Dose: 240 mg Furosemide (Lasix -) 40 mg PO DAILY [facility] Last Admin: 04/18/19 09:11 Dose: 40 mg Azithromycin (Zithromax 500mg Ivpb (Pre-Docked)) 500 mg in 250 mls @ 250 mls/ hr IVPB DAILY [facility] Last Admin: 04/18/19 09:12 Dose: 250 mls/hr Cefazolin Sodium 1 gm/ (Dextrose) 50 mls @ 100 mls/hr IVPB Q8H-IV [facility] Last Admin: 04/18/19 09:12 Dose: 100 mls/hr Losartan Potassium (Cozaar -) 25 mg PO DAILY [facility] Last Admin: 04/18/19 09:11 Dose: 25 mg Methylprednisolone Sodium Succinate (Solu-Medrol -) 40 mg IVPUSH BID [facility] Last Admin: 04/18/19 09:12 Dose: 40 mg Sotalol HCl (Betapace -) 80 mg PO BID [facility] Last Admin: 04/18/19 09:11 Dose: 80 mg - Objective Vital Signs: Vital Signs Temperature 97.6 F 04/18/19 10:00 Pulse Rate 86 04/18/19 10:00 Respiratory Rate 18 04/18/19 10:00 Blood Pressure 105/55 L 04/18/19 10:00 O2 Sat by Pulse Oximetry (%) 95 04/18/19 10:00 Constitutional: Yes: No Distress, Calm Neck: Yes: Supple Cardiovascular: Yes: Regular Rate and Rhythm Respiratory: Yes: Regular, Diminished, On Nasal O2 Gastrointestinal: Yes: Normal Bowel Sounds, Soft Edema: Yes Edema: LLE: Trace, RLE: Trace Labs: CBC, BMP 04/14/19 08:50 04/14/19 08:50 - ....Imaging Chest X-ray: Report Reviewed (Some improvement) Problem List - Problems (1) CHF exacerbation Code(s): I50.9 - HEART FAILURE, UNSPECIFIED Qualifiers: Heart failure type: diastolic Qualified Code(s): I50.33 - Acute on chronic diastolic (congestive) heart failure (2) Acute on chronic respiratory failure with hypoxia and hypercapnia Code(s): J96.21 - ACUTE AND CHRONIC RESPIRATORY FAILURE WITH HYPOXIA; J96.22 - ACUTE AND CHRONIC RESPIRATORY FAILURE WITH HYPERCAPNIA (3) Pulmonary HTN Code(s): I27.20 - PULMONARY HYPERTENSION, UNSPECIFIED (4) Afib Code(s): I48.91 - UNSPECIFIED ATRIAL FIBRILLATION Qualifiers: Atrial fibrillation type: paroxysmal Qualified Code(s): I48.0 - Paroxysmal atrial fibrillation (5) Status cardiac pacemaker Code(s): Z95.0 - PRESENCE OF CARDIAC PACEMAKER (6) COPD (chronic obstructive pulmonary disease) Code(s): J44.9 - CHRONIC OBSTRUCTIVE PULMONARY DISEASE, UNSPECIFIED Qualifiers: COPD type: unspecified COPD Qualified Code(s): J44.9 - Chronic obstructive pulmonary disease, unspecified (7) Chronic anticoagulation 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 Acute on chronic hypoxemic/hypercapneic respiratory failure 2. Acute on chronic diastolic heart failure and pulm HTN 3. Paroxysmal AF with RVR [id number] 4 on Eliquis 4. 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 Sick sinus syndrome s/p Medtronic PPM 6. 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 Oral diuresis with monitor diuretic response, renal fxn and electrolytes 2. Continue Eliquis 5 bid, Cardizem CD 240 qd, losartan 25 qd, sotalol 80 bid 3. BD, O2, IV steroid taper, empiric abx 4. Sleep study as outpatient, plan for inpatient pulm rehab post d/c
--- NOTE | 2019-04-18 12:35 | PN ---
Progress Note, Physician History of Present Illness: pulmonary alert,feeling better sob improving,+ occ cough - Current Medication List Current Medications: Active Medications Albuterol/Ipratropium (Duoneb -) 1 amp NEB RQID [facility] Last Admin: 04/18/19 12:12 Dose: 1 amp Apixaban (Eliquis -) 5 mg PO BID [facility] Last Admin: 04/18/19 09:11 Dose: 5 mg Artificial Tears (Artificial Tears) 1 drop OU TID PRN PRN Reason: DRY EYES Last Admin: 04/15/19 10:45 Dose: 1 drop Budesonide/Formoterol Fumarate (Symbicort 160/4.5mcg -) 1 puff IH BID [facility] Last Admin: 04/18/19 12:00 Dose: 1 puff Diltiazem HCl (Cardizem Cd -) 240 mg PO DAILY [facility] Last Admin: 04/18/19 09:12 Dose: 240 mg Furosemide (Lasix -) 40 mg PO DAILY [facility] Last Admin: 04/18/19 09:11 Dose: 40 mg Azithromycin (Zithromax 500mg Ivpb (Pre-Docked)) 500 mg in 250 mls @ 250 mls/ hr IVPB DAILY [facility] Last Admin: 04/18/19 09:12 Dose: 250 mls/hr Cefazolin Sodium 1 gm/ (Dextrose) 50 mls @ 100 mls/hr IVPB Q8H-IV [facility] Last Admin: 04/18/19 09:12 Dose: 100 mls/hr Losartan Potassium (Cozaar -) 25 mg PO DAILY [facility] Last Admin: 04/18/19 09:11 Dose: 25 mg Methylprednisolone Sodium Succinate (Solu-Medrol -) 40 mg IVPUSH BID [facility] Last Admin: 04/18/19 09:12 Dose: 40 mg Sotalol HCl (Betapace -) 80 mg PO BID [facility] Last Admin: 04/18/19 09:11 Dose: 80 mg - Objective Vital Signs: Vital Signs Temperature 97.6 F 04/18/19 10:00 Pulse Rate 86 04/18/19 10:00 Respiratory Rate 18 04/18/19 10:00 Blood Pressure 105/55 L 04/18/19 10:00 O2 Sat by Pulse Oximetry (%) 95 04/18/19 10:00 Constitutional: Yes: Well Nourished, Calm Eyes: Yes: WNL HENT: Yes: WNL Neck: Yes: WNL Cardiovascular: Yes: Pulse Irregular, S1, S2 Respiratory: Yes: Diminished Gastrointestinal: Yes: Normal Bowel Sounds, Soft Extremities: Yes: WNL Edema: Yes Labs: CBC, BMP 04/14/19 08:50 Problem List - Problems (1) COPD exacerbation Code(s): J44.1 - CHRONIC OBSTRUCTIVE PULMONARY DISEASE W (ACUTE) EXACERBATION (2) CHF exacerbation Code(s): I50.9 - HEART FAILURE, UNSPECIFIED Qualifiers: Heart failure type: diastolic Qualified Code(s): I50.33 - Acute on chronic diastolic (congestive) heart failure (3) Acute on chronic respiratory failure with hypoxia and hypercapnia Code(s): J96.21 - ACUTE AND CHRONIC RESPIRATORY FAILURE WITH HYPOXIA; J96.22 - ACUTE AND CHRONIC RESPIRATORY FAILURE WITH HYPERCAPNIA (4) Pulmonary HTN Code(s): I27.20 - PULMONARY HYPERTENSION, UNSPECIFIED (5) Afib Code(s): I48.91 - UNSPECIFIED ATRIAL FIBRILLATION Qualifiers: Atrial fibrillation type: paroxysmal Qualified Code(s): I48.0 - Paroxysmal atrial fibrillation (6) Status cardiac pacemaker Code(s): Z95.0 - PRESENCE OF CARDIAC PACEMAKER Assessment/Plan IMP ACUTE ON CHRONIC HYPOXEMIC/HYPERCAPNEIC RESPIRATORY FAILURE IMPROVING ACUTE ON CHRONIC CHF IMPROVING COPD O2 DEPENDENT WITH EXACERBATION IMPROVING AFIB H/O AV BLOCK S/P PPM HTN PULMONARY HTN SUSPECTED OSAS PLAN LASIX STEROID TAPER INHALED BRONCHODILATORS O2 DAILY WT STRICT I+Os SLEEP STUDIES OUTPATIENT SHORT TERM INPATIENT PULMONARY REHAB POST DISCHARGE DR WESTBROOK Problem List - Problems (1) Acute on chronic respiratory failure with hypoxia and hypercapnia Code(s): J96.21 - ACUTE AND CHRONIC RESPIRATORY FAILURE WITH HYPOXIA; J96.22 - ACUTE AND CHRONIC RESPIRATORY FAILURE WITH HYPERCAPNIA (2) CHF exacerbation Code(s): I50.9 - HEART FAILURE, UNSPECIFIED Qualifiers: Heart failure type: unspecified Qualified Code(s): I50.9 - Heart failure, unspecified (3) COPD exacerbation Code(s): J44.1 - CHRONIC OBSTRUCTIVE PULMONARY DISEASE W (ACUTE) EXACERBATION (4) Pulmonary HTN Code(s): I27.20 - PULMONARY HYPERTENSION, UNSPECIFIED (5) Afib Code(s): I48.91 - UNSPECIFIED ATRIAL FIBRILLATION (6) Status cardiac pacemaker Code(s): Z95.0 - PRESENCE OF CARDIAC PACEMAKER
[2019-04-19] MEDS ORDERED: ceFAZolin SODIUM 1 GM VIAL ONE ×2 (00:59→08:11)
[2019-04-19] MEDS ORDERED: DEXTROSE 5%-WATER - 50 ML IVPB ONE ×2 (01:00→08:12)
[2019-04-19] MEDS: CEFAZOLIN 1 GM in DEXTROSE 5%-WATER - 50 ML IVPB SCH (01:03)
[2019-04-19] MEDS ORDERED: PT OWN MED DRAWER 7, Y5N ONE ×2 (08:11→21:51)
[2019-04-19] MEDS: APIXABAN 5 MG TABLET PO SCH ×2 (09:02→21:55)
[2019-04-19] MEDS: FUROSEMIDE 40 MG TABLET (FP) PO SCH (09:02)
[2019-04-19] MEDS: methylPREDNISolone NA SUCC 40 MG/1 ML VIAL IVPUSH SCH ×2 (09:03→21:56)
[2019-04-19] MEDS: AZITHROMYCIN IVPB 500 MG/250 ML BAG IVPB SCH (09:03)
[2019-04-19] MEDS: LOSARTAN POTASSIUM 25 MG TABLET PO SCH (09:03)
[2019-04-19] MEDS: SOTALOL HCL 80 MG TABLET (FP) PO SCH ×2 (09:03→21:55)
[2019-04-19] MEDS: BUDESONIDE/FORMETEROL FUMARATE 160/4.5 mcg INHALER IH SCH ×2 (09:03→21:54)
--- NOTE | 2019-04-19 09:28 | PN ---
Progress Note, Physician Chief Complaint: SOB better,still C/O cough History of Present Illness: Dr Lam is advising in patient pulmonary rehab - Current Medication List Current Medications: Active Medications Apixaban (Eliquis -) 5 mg PO BID [facility] Last Admin: 04/19/19 09:02 Dose: 5 mg Artificial Tears (Artificial Tears) 1 drop OU TID PRN PRN Reason: DRY EYES Last Admin: 04/15/19 10:45 Dose: 1 drop Budesonide/Formoterol Fumarate (Symbicort 160/4.5mcg -) 1 puff IH BID [facility] Last Admin: 04/19/19 09:03 Dose: 1 puff Diltiazem HCl (Cardizem Cd -) 240 mg PO DAILY [facility] Last Admin: 04/19/19 09:02 Dose: 240 mg Furosemide (Lasix -) 40 mg PO DAILY [facility] Last Admin: 04/19/19 09:02 Dose: 40 mg Azithromycin (Zithromax 500mg Ivpb (Pre-Docked)) 500 mg in 250 mls @ 250 mls/ hr IVPB DAILY [facility] Last Admin: 04/19/19 09:03 Dose: 250 mls/hr Cefazolin Sodium 1 gm/ (Dextrose) 50 mls @ 100 mls/hr IVPB Q8H-IV [facility] Last Admin: 04/19/19 01:03 Dose: 100 mls/hr Losartan Potassium (Cozaar -) 25 mg PO DAILY [facility] Last Admin: 04/19/19 09:03 Dose: 25 mg Methylprednisolone Sodium Succinate (Solu-Medrol -) 30 mg IVPUSH BID [facility] Last Admin: 04/19/19 09:03 Dose: 30 mg Sotalol HCl (Betapace -) 80 mg PO BID [facility] Last Admin: 04/19/19 09:03 Dose: 80 mg - Objective Vital Signs: Vital Signs Temperature 98.2 F 04/19/19 06:00 Pulse Rate 96 H 04/19/19 06:00 Respiratory Rate 20 04/19/19 06:00 Blood Pressure 136/75 04/19/19 06:00 O2 Sat by Pulse Oximetry (%) 96 04/18/19 20:17 Constitutional: Yes: Calm Eyes: Yes: WNL HENT: Yes: WNL, Tonsillar Exudate, Other Neck: Yes: WNL Cardiovascular: Yes: WNL Respiratory: Yes: WNL, Cough Gastrointestinal: Yes: WNL ...Rectal Exam: Yes: Deferred Genitourinary: Yes: WNL Breast(s): Yes: WNL Musculoskeletal: Yes: WNL Edema: No Neurological: Yes: Alert Psychiatric: Yes: Alert Labs: CBC, BMP 04/14/19 08:50 04/14/19 08:50 Assessment/Plan SNF for pulmonary rehab
--- NOTE | 2019-04-19 10:26 | PN ---
Progress Note, Physician History of Present Illness: Shortness of breath improved, still reports cough productive of yellow sputum and wheeze. She denies cp, near or true syncope, palpitations, LE edema. Allergies: NKDA - Current Medication List Current Medications: Active Medications Apixaban (Eliquis -) 5 mg PO BID [facility] Last Admin: 04/19/19 09:02 Dose: 5 mg Artificial Tears (Artificial Tears) 1 drop OU TID PRN PRN Reason: DRY EYES Last Admin: 04/15/19 10:45 Dose: 1 drop Budesonide/Formoterol Fumarate (Symbicort 160/4.5mcg -) 1 puff IH BID [facility] Last Admin: 04/19/19 09:03 Dose: 1 puff Diltiazem HCl (Cardizem Cd -) 240 mg PO DAILY [facility] Last Admin: 04/19/19 09:02 Dose: 240 mg Furosemide (Lasix -) 40 mg PO DAILY [facility] Last Admin: 04/19/19 09:02 Dose: 40 mg Azithromycin (Zithromax 500mg Ivpb (Pre-Docked)) 500 mg in 250 mls @ 250 mls/ hr IVPB DAILY [facility] Last Admin: 04/19/19 09:03 Dose: 250 mls/hr Losartan Potassium (Cozaar -) 25 mg PO DAILY [facility] Last Admin: 04/19/19 09:03 Dose: 25 mg Methylprednisolone Sodium Succinate (Solu-Medrol -) 30 mg IVPUSH BID [facility] Last Admin: 04/19/19 09:03 Dose: 30 mg Sotalol HCl (Betapace -) 80 mg PO BID [facility] Last Admin: 04/19/19 09:03 Dose: 80 mg - Objective Vital Signs: Vital Signs Temperature 97.7 F 04/19/19 09:00 Pulse Rate 116 H 04/19/19 09:00 Respiratory Rate 20 04/19/19 09:00 Blood Pressure 105/59 L 04/19/19 09:00 O2 Sat by Pulse Oximetry (%) 97 04/19/19 09:00 Constitutional: Yes: No Distress, Calm Neck: Yes: Supple Cardiovascular: Yes: Regular Rate and Rhythm Respiratory: Yes: Regular, Cough, Diminished, On Nasal O2, SOB, Wheezes Gastrointestinal: Yes: Normal Bowel Sounds, Soft, Abdomen, Obese Edema: Yes Edema: LLE: Trace, RLE: Trace Labs: CBC, BMP 04/14/19 08:50 04/14/19 08:50 Problem List - Problems (1) CHF exacerbation Code(s): I50.9 - HEART FAILURE, UNSPECIFIED Qualifiers: Heart failure type: diastolic Qualified Code(s): I50.33 - Acute on chronic diastolic (congestive) heart failure (2) Acute on chronic respiratory failure with hypoxia and hypercapnia Code(s): J96.21 - ACUTE AND CHRONIC RESPIRATORY FAILURE WITH HYPOXIA; J96.22 - ACUTE AND CHRONIC RESPIRATORY FAILURE WITH HYPERCAPNIA (3) Pulmonary HTN Code(s): I27.20 - PULMONARY HYPERTENSION, UNSPECIFIED (4) Afib Code(s): I48.91 - UNSPECIFIED ATRIAL FIBRILLATION Qualifiers: Atrial fibrillation type: paroxysmal Qualified Code(s): I48.0 - Paroxysmal atrial fibrillation (5) Status cardiac pacemaker Code(s): Z95.0 - PRESENCE OF CARDIAC PACEMAKER (6) COPD (chronic obstructive pulmonary disease) Code(s): J44.9 - CHRONIC OBSTRUCTIVE PULMONARY DISEASE, UNSPECIFIED Qualifiers: COPD type: unspecified COPD Qualified Code(s): J44.9 - Chronic obstructive pulmonary disease, unspecified (7) Chronic anticoagulation Code(s): Z79.01 - ASSISTED (CURRENT) USE OF ANTICOAGULANTS Assessment/Plan 04/16/[address]: RLL consolidation, small effusion, mild congestion 05/2018 Echo: Normal LV size and fxn LVEF 60-65%, mild AR, MR, mild-mod TR, mod pulm HTN 01/2019 Carotid US: No sig stenosis 1. Acute on chronic hypoxemic/hypercapneic respiratory failure 2. Acute on chronic diastolic heart failure and pulm HTN 3. Paroxysmal AF with RVR [id number] 4 on Eliquis 4. 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 Sick sinus syndrome s/p Medtronic PPM 6. 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 Oral diuresis with monitor diuretic response, renal fxn and electrolytes 2. Continue Eliquis 5 bid, Cardizem CD 240 qd, losartan 25 qd, sotalol 80 bid 3. BD, O2, IV steroid taper, empiric abx 4. Sleep study as outpatient, plan for inpatient pulm rehab post d/c
--- NOTE | 2019-04-19 12:56 | PN ---
Progress Note (short form) - Note Progress Note: PULMONARY States breathing slightly better. +cough with yellow sputum. No chest pain. Vital Signs Period Temp Pulse Resp BP Sys/Ponce Pulse Ox Last 24 Hr 97.5 F-98.2 F 74-116 18-21 105-136/47-82 96-97 Gen: NAD at rest Heart: RRR Lung: scattered rhonchi Abd: soft, nontender Ext: + edema CBC, BMP 04/14/19 08:50 04/14/19 08:50 Active Medications Apixaban (Eliquis -) 5 mg PO BID [facility] Last Admin: 04/19/19 09:02 Dose: 5 mg Artificial Tears (Artificial Tears) 1 drop OU TID PRN PRN Reason: DRY EYES Last Admin: 04/15/19 10:45 Dose: 1 drop Budesonide/Formoterol Fumarate (Symbicort 160/4.5mcg -) 1 puff IH BID [facility] Last Admin: 04/19/19 09:03 Dose: 1 puff Diltiazem HCl (Cardizem Cd -) 240 mg PO DAILY [facility] Last Admin: 04/19/19 09:02 Dose: 240 mg Furosemide (Lasix -) 40 mg PO DAILY [facility] Last Admin: 04/19/19 09:02 Dose: 40 mg Azithromycin (Zithromax 500mg Ivpb (Pre-Docked)) 500 mg in 250 mls @ 250 mls/ hr IVPB DAILY [facility] Last Admin: 04/19/19 09:03 Dose: 250 mls/hr Losartan Potassium (Cozaar -) 25 mg PO DAILY [facility] Last Admin: 04/19/19 09:03 Dose: 25 mg Methylprednisolone Sodium Succinate (Solu-Medrol -) 30 mg IVPUSH BID [facility] Last Admin: 04/19/19 09:03 Dose: 30 mg Sotalol HCl (Betapace -) 80 mg PO BID [facility] Last Admin: 04/19/19 09:03 Dose: 80 mg A/P Acute on Chronic Hypoxic and Hypercapneic Respiratory Failure Acute on Chronic Diastolic Heart Failure Acute COPD Exacerbation Pulmonary HTN Paroxysmal Atrial Fibrillation s/p PPM Suspect DOMINGA - continue medrol at current dose - inhaled bronchodilators - O2 to keep Spo2 >90% - incentive spirometry - continue lasix - monitor urine output, creatinine - rate control - continue anticoagulation - agree with Samuel evaluation
[2019-04-20 08:09] LABS: BASO % 0.2 % (0-2.0); LYMPH % 5.1 % (8-40); MCHC 32.6 g/dl (32.0-36.0); MEAN PLT VOLUME 7.5 fl (7.5-11.1); MONO % 10.1 % (3.8-10.2); NEUT % 84.6 % (42.8-82.8); RBC 3.89 M/mm3 (3.60-5.2); RDW 16.1 % (11.6-15.6); WHITE BLOOD COUNT 11.5 K/mm3 (4.0-10.0)
[2019-04-20 08:20] LABS: ALBUMIN 3.1 g/dl (3.4-5.0); BILIRUBIN,TOTAL 0.6 mg/dL (0.2-1); BLOOD UREA NITROGEN 36.9 mg/dL (7-18); CALCIUM 8.3 mg/dL (8.5-10.1); POTASSIUM 4.9 mmol/L (3.5-5.1); TOT PROT 6.2 g/dl (6.4-8.2)
[2019-04-20 09:16] LABS: PLATELET COUNT 295 K/MM3 (134-434)
[2019-04-20] MEDS ORDERED: PT OWN MED DRAWER 7, Y5N ONE (09:34)
--- NOTE | 2019-04-20 09:51 | PN ---
Progress Note, Physician History of Present Illness: Shortness of breath, cough productive of yellow sputum and wheeze improved. She denies cp, near or true syncope, palpitations, LE edema. Allergies: NKDA - Current Medication List Current Medications: Active Medications Apixaban (Eliquis -) 5 mg PO BID [facility] Last Admin: 04/19/19 21:55 Dose: 5 mg Artificial Tears (Artificial Tears) 1 drop OU TID PRN PRN Reason: DRY EYES Last Admin: 04/15/19 10:45 Dose: 1 drop Budesonide/Formoterol Fumarate (Symbicort 160/4.5mcg -) 1 puff IH BID [facility] Last Admin: 04/19/19 21:54 Dose: 1 puff Diltiazem HCl (Cardizem Cd -) 240 mg PO DAILY [facility] Last Admin: 04/19/19 09:02 Dose: 240 mg Furosemide (Lasix -) 40 mg PO DAILY [facility] Last Admin: 04/19/19 09:02 Dose: 40 mg Azithromycin (Zithromax 500mg Ivpb (Pre-Docked)) 500 mg in 250 mls @ 250 mls/ hr IVPB DAILY [facility] Last Admin: 04/19/19 09:03 Dose: 250 mls/hr Losartan Potassium (Cozaar -) 25 mg PO DAILY [facility] Last Admin: 04/19/19 09:03 Dose: 25 mg Methylprednisolone Sodium Succinate (Solu-Medrol -) 30 mg IVPUSH BID [facility] Last Admin: 04/19/19 21:56 Dose: 30 mg Sotalol HCl (Betapace -) 80 mg PO BID [facility] Last Admin: 04/19/19 21:55 Dose: 80 mg - Objective Vital Signs: Vital Signs Temperature 97.5 F L 04/20/19 06:00 Pulse Rate 110 H 04/20/19 06:00 Respiratory Rate 22 H 04/20/19 06:00 Blood Pressure 118/77 04/20/19 06:00 O2 Sat by Pulse Oximetry (%) 97 04/19/19 20:55 Constitutional: Yes: No Distress, Calm Neck: Yes: Supple Cardiovascular: Yes: Regular Rate and Rhythm Respiratory: Yes: Regular, Cough, Diminished, On Nasal O2, SOB, Wheezes Gastrointestinal: Yes: Normal Bowel Sounds, Soft, Abdomen, Obese Edema: Yes Edema: LLE: Trace, RLE: Trace Labs: CBC, BMP 04/20/19 07:03 04/20/19 07:03 - ....Imaging EKG: Report Reviewed (Tele: PAF with RVR->SR) Problem List - Problems (1) CHF exacerbation Code(s): I50.9 - HEART FAILURE, UNSPECIFIED Qualifiers: Heart failure type: diastolic Qualified Code(s): I50.33 - Acute on chronic diastolic (congestive) heart failure (2) Acute on chronic respiratory failure with hypoxia and hypercapnia Code(s): J96.21 - ACUTE AND CHRONIC RESPIRATORY FAILURE WITH HYPOXIA; J96.22 - ACUTE AND CHRONIC RESPIRATORY FAILURE WITH HYPERCAPNIA (3) Pulmonary HTN Code(s): I27.20 - PULMONARY HYPERTENSION, UNSPECIFIED (4) Afib Code(s): I48.91 - UNSPECIFIED ATRIAL FIBRILLATION Qualifiers: Atrial fibrillation type: paroxysmal Qualified Code(s): I48.0 - Paroxysmal atrial fibrillation (5) Status cardiac pacemaker Code(s): Z95.0 - PRESENCE OF CARDIAC PACEMAKER (6) COPD (chronic obstructive pulmonary disease) Code(s): J44.9 - CHRONIC OBSTRUCTIVE PULMONARY DISEASE, UNSPECIFIED Qualifiers: COPD type: unspecified COPD Qualified Code(s): J44.9 - Chronic obstructive pulmonary disease, unspecified (7) Chronic anticoagulation Code(s): 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 Acute on chronic hypoxemic/hypercapneic respiratory failure 2. Acute on chronic diastolic heart failure and pulm HTN 3. Paroxysmal AF with RVR [id number] 4 on Eliquis 4. 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 Sick sinus syndrome s/p Medtronic PPM 6. 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 Oral diuresis with monitor diuretic response, renal fxn and electrolytes 2. Continue Eliquis 5 bid, Cardizem CD 240 qd, losartan 25 qd, sotalol 80 bid 3. BD, O2, oral steroid taper, complete empiric abx course 4. Sleep study as outpatient, plan for inpatient pulm rehab post d/c 5. F/u in cardiology office upon d/c from rehab
--- NOTE | 2019-04-20 09:54 | DS ---
Physical Examination Vital Signs: Vital Signs Temperature 97.5 F L 04/20/19 06:00 Pulse Rate 110 H 04/20/19 06:00 Respiratory Rate 22 H 04/20/19 06:00 Blood Pressure 118/77 04/20/19 06:00 O2 Sat by Pulse Oximetry (%) 97 04/19/19 20:55 Findings/Remarks: Admitted with bibasal pneumonia,exacerbation of COPD Treated with IV zethromax and ancef improved Constitutional: Yes: Calm Eyes: Yes: WNL HENT: Yes: WNL Neck: Yes: WNL Cardiovascular: Yes: Pulse Irregular Respiratory: Yes: On Nasal O2, SOB on Exertion Gastrointestinal: Yes: WNL ...Rectal Exam: Yes: Deferred Renal/: Yes: WNL Edema: No Neurological: Yes: Alert ...Motor Strength: WNL Psychiatric: Yes: Alert Labs: CBC, BMP 04/20/19 07:03 04/20/19 07:03 Discharge Summary Reason For Visit: ACUTE ON CHRONIC CONGESTIVE HEART FAILURE Current Active Problems Acute on chronic respiratory failure with hypoxia and hypercapnia (Acute) Afib (Acute) CHF exacerbation (Acute) COPD (chronic obstructive pulmonary disease) (Acute) COPD exacerbation (Acute) Chronic anticoagulation (Acute) Pulmonary HTN (Acute) Status cardiac pacemaker (Acute) Condition: Guarded - Instructions - Home Medications Comprehensive Discharge Medication List: Ambulatory Orders Apixaban [Eliquis -] 5 mg PO BID #0 tablet 11/05/15 Furosemide [Lasix -] 40 mg PO DAILY #0 tablet 11/05/15 Hypromellose 0.5% Opth Soln [Artificial Tears] 1 drop OU TID PRN #0 drops Sotalol HCl [Betapace -] 80 mg PO BID #0 tablet 11/05/15 Fluticasone/Salmeterol [Advair 250-50 Diskus] 1 each IH DAILY 02/11/16 Losartan Potassium 25 mg PO DAILY 03/29/19 Albuterol 0.083% Nebulizer Nica [Ventolin 0.083% Nebulizer Soln -] 1 amp NEB RQ4H amp 04/01/19 Apixaban [Eliquis -] 5 mg PO BID tablet 04/01/19 Diltiazem Cd [Cardizem Cd -] 240 mg PO DAILY #30 cap.cd.24h 04/01/19 Losartan Potassium [Cozaar -] 25 mg PO DAILY tablet 04/01/19 levoFLOXacin [Levaquin -] 500 mg PO DAILY@0600 #5 tablet 04/01/19 Apixaban [Eliquis] 5 mg PO BID 04/14/19 Diltiazem Cd [Cardizem Cd -] 240 mg PO DAILY 04/14/19 Fluticasone Propion/Salmeterol [Fluticasone-Salmeterol 250-50] 1 each IH DAILY 04/14/19 Furosemide [Lasix] 40 mg PO DAILY 04/14/19 Losartan Potassium [Cozaar] 25 mg PO DAILY 04/14/19 Polyvinyl Alcohol [Artificial Tears] 1 drop OU TID PRN 04/14/19 Sotalol HCl [Betapace] 80 mg PO BID 04/14/19
[2019-04-20] MEDS: methylPREDNISolone NA SUCC 40 MG/1 ML VIAL IVPUSH SCH (10:04)
[2019-04-20] MEDS: SOTALOL HCL 80 MG TABLET (FP) PO SCH (10:05)
[2019-04-20] MEDS: FUROSEMIDE 40 MG TABLET (FP) PO SCH (10:06)
[2019-04-20] MEDS: LOSARTAN POTASSIUM 25 MG TABLET PO SCH (10:06)
[2019-04-20] MEDS: APIXABAN 5 MG TABLET PO SCH (10:06)
[2019-04-20] MEDS: BUDESONIDE/FORMETEROL FUMARATE 160/4.5 mcg INHALER IH SCH (10:07)
[2019-04-20] MEDS: AZITHROMYCIN IVPB 500 MG/250 ML BAG IVPB SCH (10:13)
[2019-04-20 13:46] VITALS: BP 98/54; PULSE 90; TEMP 97.6
== END 2019-04-20 14:55 | DRG 189 ==
LOC: JER 18:50 → MERGE 22:33 → JERBED 22:33 → JER 23:03 → J4S 04-14 03:59
PROVIDERS: ADMIT Internal Medicine; ATTEND Internal Medicine
DX: J96.21 Acute and chronic respiratory failure with hypoxia (principal); J18.9 Pneumonia, unspecified organism; J44.1 Chronic obstructive pulmonary disease with (acute) exacerbation; I13.0 Hypertensive heart and chronic kidney disease with heart failure and stage 1 through stage 4 chronic kidney disease, or unspecified chronic kidney disease; J96.22 Acute and chronic respiratory failure with hypercapnia; I50.33 Acute on chronic diastolic (congestive) heart failure; N18.2 Chronic kidney disease, stage 2 (mild); R00.0 Tachycardia, unspecified; I27.20 Pulmonary hypertension, unspecified; I44.1 Atrioventricular block, second degree; K59.00 Constipation, unspecified; G47.33 Obstructive sleep apnea (adult) (pediatric); I48.0 Paroxysmal atrial fibrillation; I08.1 Rheumatic disorders of both mitral and tricuspid valves; Z79.01 Long term (current) use of anticoagulants; Z99.81 Dependence on supplemental oxygen; Z95.0 Presence of cardiac pacemaker
CPT/HCPCS: 36415; 36600; 71045-TC-FY; 71250-TC; 80053; 82550; 82803; 83036; 83880; 84443; 84484; 85025; 85027; 93005; 93010; 94010; 94640; 97116-GP; 97161-GP; 99283-25

== ENCOUNTER 2019-06-14 14:50 | Inpatient (IN) | payer OTHER ==
--- NOTE | 2019-06-14 14:59 | PDOC ---
Rapid Medical Evaluation Chief Complaint: Shortness of Breath Time Seen by Provider: 06/14/19 14:52 Medical Evaluation: Allergies Allergy/AdvReac Type Severity Reaction Status Date / Time banana Allergy Unknown Verified 02/11/16 14:39 Penicillins Allergy Verified 02/11/16 14:39 06/14/19 15:00 83 year old female s/p shortness of breath. reports that she has been using oxygen continuously at home. Usually patient uses oxygen PRN PE: Patient alert ox3, b/l rales at the bases. Dyspneic A; afib; shortness of breath P: AFib on EKG 134 bpm labs EKG patient to the ER for further management of care. Discharge Disposition - Diagnosis COPD exacerbation Atrial fibrillation Qualifiers: Atrial fibrillation type: persistent Qualified Code(s): I48.1 - Persistent atrial fibrillation - Referrals - Patient Instructions - Post Discharge Activity
[2019-06-14] MEDS ORDERED: dilTIAZem HCL 50 MG/10 ML - 10 ML VIAL IVPUSH ONE ×4 (15:17→15:38)
[2019-06-14 15:42] LABS: BASO % 0.9 % (0-2.0); EOS % 0.3 % (0-4.5); HEMATOCRIT 38.8 % (32.4-45.2); HEMOGLOBIN 12.5 GM/dL (10.7-15.3); LYMPH % 15.6 % (8-40); MCH 30.7 pg (25.7-33.7); MCHC 32.2 g/dl (32.0-36.0); MEAN CELL VOLUME 95.5 fl (80-96); MONO % 10.9 % (3.8-10.2); NEUT % 72.3 % (42.8-82.8); PLATELET COUNT 314 K/MM3 (134-434); RBC 4.06 M/mm3 (3.60-5.2); RDW 15.6 % (11.6-15.6); WHITE BLOOD COUNT 9.9 K/mm3 (4.0-10.0)
[2019-06-14] MEDS ORDERED: dilTIAZem HCL 60 MG TABLET (FP) PO ONE (15:54)
[2019-06-14] MEDS ORDERED: dilTIAZem HCL 60 MG TABLET (FP) ONE (15:58)
[2019-06-14 16:06] LABS: INR 2.05 (0.83-1.09); PROTHROMBIN TIME (PATIENT) 24.4 SEC (9.7-13.0)
--- NOTE | 2019-06-14 16:20 | PDOC ---
Documentation entered by Debby Stack SCRIBE, acting as scribe for Kelley Gibson DO. Kelley Gibson, DO: This documentation has been prepared by the Sreekanth ashley Adrianna, SCRIBE, under my direction and personally reviewed by me in its entirety. I confirm that the documentation accurately reflects all work, treatment, procedures, and medical decision making performed by me. Attending Attestation - Resident Resident Name: Harry Flores - ED Attending Attestation I have performed the following: I have examined & evaluated the patient, The case was reviewed & discussed with the resident, I agree w/resident's findings & plan, Exceptions are as noted - HPI HPI: The patient is an 83 year old female, with a significant PMH of COPD, CHF, PAF, SSS (s/p PPM), abnormal LFTs, CAD, HTN, pulmonary HTN, and recent admission for COPD, who presents to the ED for evaluation of Afib with RVR. Patient was seen by her ndt inspector this morning and was found to be in Afib with RVR. She was advised to go to the ED for inpatient cardioversion, reinitiation of Sotalol (instead of Metoprolol), and blood work. Patient reports feeling SOB all day today (both at rest and with exertion). She endorses some palpitations with exertion and new onset bilateral LE edema since her hospitalization last month. She denies any chest pain while in the ED. Patient is on 2L of home O2. Denies fever, chills, nausea, vomit, diarrhea, constipation, abdominal pain, dysuria, hematuria. Allergies: Banana, penicillins Surgical History: Pacemaker, abdominal surgery Social History: Former smoker (quit 4 years ago). Denies EtOH or illicit drug use PCP: Dr. Carla Sands: Dr. Lam Card: Dr. Simpson - Physicial Exam PE: Constitutional: Awake, alert, oriented. No acute distress. Head: Normocephalic. Atraumatic Eyes: PERRL. EOMI. Conjunctivae are not pale. ENT: Mucous membranes are moist and intact. Posterior pharynx without exudates or erythema. Uvula midline. Neck: Supple. Full ROM. No lymphadenopathy. Cardiovascular: +Tachycardic. +Irregularly irregular. Distal pulses are 2+ and symmetric. Pulmonary/Chest: +Nasal cannula on, with diminished breath sounds at the bilateral bases. No wheezing, rales or rhonchi. Abdominal: +Obese. Soft and nondistended. There is no tenderness. No rebound, guarding or rigidity. No organomegaly. No palpable masses. Good bowel sounds. Back: No CVA tenderness. Musculoskeletal: +1+ pitting edema of the bilateral lower extremities. Bilateral feet are warm. No cyanosis. No clubbing. Full range of motion in all extremities. Nocalf tenderness. Radial/pedal pulses are intact and 2+ bilaterally Skin: Skin is warm and dry. No petechiae. No purpura. Neurological: Alert and oriented to person, place, and time. Cranial nerves II -XII are grossly intact. Normal speech. Strength is grossly symmetric. No sensory deficits. Psychiatric: Good eye contact. Normal interaction, affect and behavior. - Critical Care Time Total Critical Care Time: 35 Critical Care Statement: The care of this patient involved high complexity decision making to prevent further life threatening deterioration of the patient 's condition and/or to evaluate & treat vital organ system(s) failure or risk of failure. - Medical Decision Making 06/14/19 16:06 I, Dr. Kelley Gibson, DO, attest that this document has been prepared under my direction and personally reviewed by me in its entirety. I further attest, that it accurately reflects all work, treatment, procedures and medical decision -making performed by me. a/p: 83yo female with hx of afib presents from Dr. Jordy Simpson for eval of afib w rvr -arrived from Dr. Simpson c/o sob today -denies cp/palpitations -denies abd pain -recently had extended stay at [facility] and then [facility] for pna, afib w rvr -had follow up visit today with Dr. Simpson -on eliquis -pt denies pleuritic cp -hx of COPD on chronic home o2 therapy, 2L nc -no cough -no f/c -states mild swelling to LE since march - on lasix -sent by dr. simpson for rate control, restart sotalol, poss cardioversion in the hospital -requests admission to Dr. Chelsea Phillips -will give cardizem IV for rate control, labs, ekg, cxr 06/14/19 16:09 pt rate 104 after iv cardizem po dose ordered labs pending pt tolerating po 06/14/19 16:32 resident discussed the case with Dr. Phillips who accepts pt to service 06/14/19 16:32 trop neg 06/14/19 17:10 labs reviewed pt will be admitted to Dr. Phillips Heart Score/ECG Review - ECG Intrepretation Comment:: 06/14/19 16:10 afib at 134, nl axis, q waves septally which are age indeterminate, st depression lateral leads with t-wave inversions repeat ekg: afib at 109, nl axis, st depressions with t wave inversions V6, i, avl, q waves septally 06/14/19 16:34 afib at 104, nl axis, q waves septally and st depressions with t wave inversions v6, i, avl
--- NOTE | 2019-06-14 16:20 | PDOC ---
History of Present Illness - General Chief Complaint: Shortness of Breath Stated Complaint: SOB Time Seen by Provider: 06/14/19 14:52 History Source: Patient, Family, Primary Care Provider Exam Limitations: No Limitations - History of Present Illness Initial Comments: 06/14/19 16:11 Jazmín Chahal is an 83F with PMH Afib with RVR s/p pacemaker, COPD, and HTN presenting from word processing supervisor Dr. Simpson's office with afib with RVR, shortness of breath, and palpitations. Patient reports that starting this morning, has had rapid heart rate and shortness of breath. Denies any chest pain or pressure. Has had episodes like this for about a month. Went to word processing supervisor Dr. Simpson who found her to be in Afib with RVR, sent to emergency room for rate control and admission, with plans to cardiovert tomorrow and restart sotolol. Reports taking 300mg diltiazem and 50mg metoprolol daily, but was previously on sotolol prior to a multiple hospitalizations over the last few months for PNA and Afib. Currently reports some shortness of breath and heart racing. Has episodes of SOB at home, has home oxygen which she uses at 2L PRN, does not have continuous oxygen use. Denies any recent fever/chills, N/V, abd pain, urinary sx. Past History - Past Medical History Allergies/Adverse Reactions: Allergies Allergy/AdvReac Type Severity Reaction Status Date / Time banana Allergy Unknown Verified 06/14/19 15:03 Penicillins Allergy Verified 06/14/19 15:03 Home Medications: Ambulatory Orders Apixaban [Eliquis -] 5 mg PO BID #0 tablet 11/05/15 Fluticasone/Salmeterol [Advair 250-50 Diskus] 1 each IH BID 02/11/16 Albuterol 0.083% Nebulizer Nica [Ventolin 0.083% Nebulizer Soln -] 1 amp NEB RQ4H amp 04/01/19 Diltiazem Cd [Cardizem Cd -] 300 mg PO DAILY 04/14/19 Furosemide [Lasix] 40 mg PO DAILY 04/14/19 Metoprolol Succinate [Toprol Xl] 50 mg PO DAILY 06/14/19 Potassium Chloride [Klor-Con] 20 meq PO DAILY 09/26/19 Tiotropium [place] [Spiriva] 1 inh PO DAILY 06/14/19 Anemia: No Asthma: No Cancer: No Cardiac Disorders: Yes (AFIB, Aortic Stenosis, Mitral insuffiency, pHTN) CVA: No COPD: Yes (on home O2) CHF: Yes Dementia: No Diabetes: No GI Disorders: Yes (Diverticulitis) Disorders: No HTN: Yes Hypercholesterolemia: No Liver Disease: No Seizures: No Thyroid Disease: No - Surgical History Abdominal Surgery: Yes (Bowel resection) Cardiac Surgery: Yes (PPM) - Immunization History Immunization Up to Date: Yes - Psycho Social/Smoking Cessation Hx Smoking History: Former smoker Have you smoked in the past 12 months: No Number of Cigarettes Smoked Daily: 20 If you are a former smoker, when did you quit?: 5YEARS AGO Information on smoking cessation initiated: No Hx Alcohol Use: No Drug/Substance Use Hx: No Substance Use Type: None Hx Substance Use Treatment: No Review of Systems - Review of Systems Constitutional: No: Chills, Fever HEENTM: No: Blurred Vision, Recent change in vision, Hearing Loss Respiratory: Yes: Shortness of Breath, SOB at Rest. No: Cough, Productive cough Cardiac (ROS): Yes: Irregular Heart Rate. No: Chest Pain, Syncope ABD/GI: No: Constipated, Diarrhea, Nausea, Vomiting : No: Burning, Dysuria, Discharge, Frequency, Flank Pain, Hematuria Musculoskeletal: No: Symptoms Reported Integumentary: No: Symptoms Reported Neurological: No: Headache, Numbness, Paresthesia, Tremors, Weakness, Dizziness Endocrine: No: Symptoms Reported Hematologic/Lymphatic: No: Symptoms Reported All Other Systems: Reviewed and Negative *Physical Exam - Vital Signs Last Vital Signs Temp Pulse Resp BP Pulse Ox 98.3 F 140 H 24 H 102/82 95 06/14/19 14:53 06/14/19 14:53 06/14/19 15:32 06/14/19 15:32 06/14/19 15:32 - Physical Exam General Appearance: Yes: Nourished, Appropriately Dressed, Mild Distress HEENT: positive: EOMI, SOHAM, Normal Voice (speaking in full sentences), Pharynx Normal. negative: Scleral Icterus (R), Scleral Icterus (L) Neck: positive: Supple. negative: Tender, Lymphadenopathy (R), Lymphadenopathy (L) Respiratory/Chest: negative: Accessory Muscle Use Cardiovascular: positive: Edema (BLE edema, non-pitting), Tachycardia, Irregularly Irregular (Afib with RVR). negative: Murmur Gastrointestinal/Abdominal: positive: Normal Bowel Sounds, Tender, Soft Musculoskeletal: positive: Normal Inspection. negative: CVA Tenderness Extremity: positive: Normal Capillary Refill, Normal Inspection, Normal Range of Motion Integumentary: positive: Normal Color, Dry, Warm Neurologic: positive: Fully Oriented, Alert, Normal Mood/Affect, Normal Response ED Treatment Course - LABORATORY CBC & Chemistry Diagram: 06/14/19 15:21 06/14/19 15:21 - ADDITIONAL ORDERS Additional order review: Laboratory Results 06/14/19 06/14/19 15:21 15:21 PT with INR 24.40 H INR 2.05 H Creatine Kinase 85 Troponin I < 0.02 06/14/19 15:21 RBC 4.06 MCV 95.5 MCHC 32.2 RDW 15.6 MPV 7.0 L Neutrophils % 72.3 Lymphocytes % 15.6 D Monocytes % 10.9 H Eosinophils % 0.3 D Basophils % 0.9 D - Medications Given in the ED: ED Medications Discontinued Medications Generic Name Dose Route Start Last Admin Trade Name Freq PRN Reason Stop Dose Admin Diltiazem HCl 5 mg 06/14/19 15:18 06/14/19 15:32 Cardizem Injection - IVPUSH 06/14/19 15:19 5 mg ONCE ONE Administration Diltiazem HCl 15 mg 06/14/19 15:38 06/14/19 15:44 Cardizem Injection - IVPUSH 06/14/19 15:39 15 mg ONCE ONE Administration Diltiazem HCl 60 mg 06/14/19 15:54 06/14/19 16:01 Cardizem - PO 06/14/19 15:55 60 mg ONCE ONE Administration Medical Decision Making - Medical Decision Making 06/14/19 16:24 Jazmín Chahal is an 83F with PMH Afib with RVR s/p pacemaker, COPD, and HTN presenting from word processing supervisor Dr. Simpson's office with afib with RVR, shortness of breath, and palpitations. ECG shows Afib with RVR. Patient initially presented on equipment monitor phototypesetting with Afib with RVR at HR 130s, BP 100s/60s, SOB without respiratory distress on 2L NC. Alert and oriented, speaking full sentences. Given 20mg IV diltiazem for rate control, HR down to 100-109, BP 119/86. Given 60mg PO diltiazem for maintenance. Per word processing supervisor Dr. Simpson, would like rate control, admission overnight with plan to get GHASSAN and cardiovert tomorrow, restart on sotalol. INR 2.05, CBC WNL, troponins <0.02 06/14/19 16:42 Patient HR currently stable at low 100s. Otherwise in no acute distress. Patient requires inpatient admission for rapid atrial fibrillation, including IV medications for rate control, evaluation of heart for clot burden by GHASSAN, and electrical cardioversion. Spoke to Dr. Chelsea Phillips regarding admission to [facility] under her service. Has already discussed patient with Dr. Simpson. Discharge - Discharge Information Problems reviewed: Yes Clinical Impression/Diagnosis: COPD exacerbation Atrial fibrillation Qualifiers: Atrial fibrillation type: persistent Qualified Code(s): I48.1 - Persistent atrial fibrillation - Follow up/Referral - Patient Discharge Instructions - Post Discharge Activity
[2019-06-14 17:05] LABS: ALBUMIN 3.4 g/dl (3.4-5.0); ALK PHOS 89 U/L (45-117); ANION GAP 9 MMOL/L (8-16); BLOOD UREA NITROGEN 18.8 mg/dL (7-18); CALCIUM 9.2 mg/dL (8.5-10.1); CHLORIDE 102 mmol/L (98-107); CO2 26 mmol/L (21-32); CREATININE 1.3 mg/dL (0.55-1.3); GLUCOSE,RANDOM 140 mg/dL (74-106); MAGNESIUM 2.2 mg/dL (1.8-2.4); POTASSIUM 4.2 mmol/L (3.5-5.1); SGOT/AST 32 U/L (15-37); SGPT/ALT 37 U/L (13-61); SODIUM 137 mmol/L (136-145); TOT PROT 6.5 g/dl (6.4-8.2)
[2019-06-14] MEDS: ALBUTEROL SO4 0.083% IH SOL 2.5 MG/3 ML VIAL.NEB. NEB SCH ×2 (19:58→23:58)
[2019-06-14] MEDS: APIXABAN 5 MG TABLET PO SCH (23:26)
[2019-06-14] MEDS: SOTALOL HCL 80 MG TABLET (FP) PO SCH (23:26)
[2019-06-14] MEDS: BUDESONIDE/FORMETEROL FUMARATE 80/4.5 mcg INHALER IH SCH (23:42)
[2019-06-15 03:46] VITALS: BMI 35.0
[2019-06-15] MEDS: ALBUTEROL SO4 0.083% IH SOL 2.5 MG/3 ML VIAL.NEB. NEB SCH ×5 (05:17→20:15)
[2019-06-15] MEDS ORDERED: PT OWN MED DRAWER 7, Y5N ONE ×2 (10:08)
[2019-06-15] MEDS: BUDESONIDE/FORMETEROL FUMARATE 80/4.5 mcg INHALER IH SCH ×2 (10:13→22:49)
[2019-06-15] MEDS: SOTALOL HCL 80 MG TABLET (FP) PO SCH ×2 (10:13→22:48)
[2019-06-15] MEDS: POTASSIUM CHLORIDE TABS 10 MEQ TABLET.ER (FP) PO SCH (10:13)
[2019-06-15] MEDS: FUROSEMIDE 40 MG TABLET (FP) PO SCH (10:13)
[2019-06-15] MEDS: APIXABAN 5 MG TABLET PO SCH ×2 (10:13→22:49)
[2019-06-15] MEDS: TIOTROPIUM BROMIDE 2.5 MCG (SPIRIVA) RESPIMAT INHALER IH SCH (11:24)
--- NOTE | 2019-06-15 11:40 | CON.CARD ---
Consult Consult Specialty:: Cardiology Referred by:: Chelsea Phillips MD Reason for Consultation:: PAF with RVR - History of Present Illness Chief Complaint: Dyspnea, palpitations History of Present Illness: The patient is an 83 year old female with a past medical history significant for COPD, CHF, Afib, sss s/p Medtronic pacemaker, HTN, pulm HTN and recent admission for COPD exacerbation/PNA presents with shortness of breath, palpitations, worsening LE edema, also orthopnea. She denies cp, near or true syncope. Sob is worse with lying flat and walking. Patient was seen by Dr. Simpson and was found to be in Afib with RVR. She was advised to go to the ED for inpatient cardioversion, reinitiation of Sotalol (instead of Metoprolol), patient had sotalol d/lisbet during rehab. Allergies: NKDA - History Source History Provided By: Patient Limitations to Obtaining History: No Limitations - Past Medical History Cardio/Vascular: Yes: AFIB, Pulmonary Hypertension, Aortic Stenosis, HTN, Mitral Insufficiency, Other Pulmonary: Yes: COPD. No: O2 Dependent ...: No Musculoskeletal: Yes: Osteoarthritis Endocrine: Yes: Hyperthyroidism. No: Diabetes Mellitus - Past Surgical History Past Surgical History: Yes: Permanent Pacemaker - Alcohol/Substance Use Hx Alcohol Use: No - Smoking History Smoking history: Former smoker Have you smoked in the past 12 months: No Aproximately how many cigarettes per day: 20 If you are a former smoker, when did you quit?: 5YEARS AGO - Social History Usual Living Arrangement: With Child History of Recent Travel: No Home Medications - Allergies Allergies/Adverse Reactions: Allergies Allergy/AdvReac Type Severity Reaction Status Date / Time banana Allergy Unknown Verified 06/14/19 15:03 Penicillins Allergy Verified 06/14/19 15:03 - Home Medications Home Medications: Ambulatory Orders Apixaban [Eliquis -] 5 mg PO BID #0 tablet 11/05/15 Fluticasone/Salmeterol [Advair 250-50 Diskus] 1 each IH BID 02/11/16 Albuterol 0.083% Nebulizer Nica [Ventolin 0.083% Nebulizer Soln -] 1 amp NEB RQ4H amp 04/01/19 Diltiazem Cd [Cardizem Cd -] 300 mg PO DAILY 04/14/19 Furosemide [Lasix] 40 mg PO DAILY 04/14/19 Metoprolol Succinate [Toprol Xl] 50 mg PO DAILY 06/14/19 Potassium Chloride [Klor-Con] 20 meq PO DAILY 06/14/19 Tiotropium [place] [Spiriva] 1 inh PO DAILY 06/14/19 Pantoprazole Sodium [Protonix] 40 mg PO DAILY 06/15/19 predniSONE [Deltasone -] 10 mg PO DAILY 06/15/19 Review of Systems - Review of Systems Cardiovascular: reports: Edema, Palpitations Respiratory: reports: Exercise Intolerance, SOB, SOB on Exertion Vital Signs: Vital Signs Temperature 98.5 F 06/15/19 08:50 Pulse Rate 100 H 06/15/19 08:50 Respiratory Rate 20 06/15/19 08:50 Blood Pressure 132/65 06/15/19 11:28 O2 Sat by Pulse Oximetry (%) 93 L 06/14/19 23:00 Constitutional: Yes: No Distress, Calm Neck: Yes: Supple Respiratory: Yes: Regular, Diminished, On Nasal O2 Gastrointestinal: Yes: Normal Bowel Sounds, Soft, Abdomen, Obese Cardiovascular: Yes: Tachycardia, Pulse Irregular JVD: No Carotid Bruit: No Heart Sounds: Yes: S1, S2 Murmur: Yes: Systolic Murmur, Grade 1 Edema: Yes Edema: LLE: 1+, RLE: 1+ - Other Data Labs, Other Data: CBC, BMP 06/14/19 15:21 06/14/19 15:21 INR, PTT INR 2.05 (0.83-1.09) H 06/14/19 15:21 Troponin, BNP 06/14/19 06/14/19 15:21 20:55 Troponin I < 0.02 < 0.02 Troponin, BNP 06/14/19 06/14/19 15:21 20:55 Troponin I < 0.02 < 0.02 Afib @ 109 QTC 498 msec Tele: Afib Ejection Fraction %: LVEF > or = 40 % Imaging - Results Chest X-ray: Report Reviewed (Mild CHF) Problem List - Problems (1) Acute on chronic diastolic (congestive) heart failure Code(s): I50.33 - ACUTE ON CHRONIC DIASTOLIC (CONGESTIVE) HEART FAILURE (2) Acute on chronic respiratory failure with hypoxia and hypercapnia Code(s): J96.21 - ACUTE AND CHRONIC RESPIRATORY FAILURE WITH HYPOXIA; J96.22 - ACUTE AND CHRONIC RESPIRATORY FAILURE WITH HYPERCAPNIA (3) Atrial fibrillation with rapid ventricular response Code(s): I48.91 - UNSPECIFIED ATRIAL FIBRILLATION (4) Chronic anticoagulation Code(s): Z79.01 - CUSTODIAL (CURRENT) USE OF ANTICOAGULANTS (5) Chronic kidney disease Code(s): N18.9 - CHRONIC KIDNEY DISEASE, UNSPECIFIED Qualifiers: Chronic kidney disease stage: stage 2 (mild) Qualified Code(s): N18.2 - Chronic kidney disease, stage 2 (mild) (6) Hypertension Code(s): I10 - ESSENTIAL (PRIMARY) HYPERTENSION Qualifiers: Hypertension type: essential hypertension Qualified Code(s): I10 - Essential (primary) hypertension (7) Pacemaker Code(s): Z95.0 - PRESENCE OF CARDIAC PACEMAKER (8) Pulmonary HTN Code(s): I27.20 - PULMONARY HYPERTENSION, UNSPECIFIED (9) SOB (shortness of breath) Code(s): R06.02 - SHORTNESS OF BREATH (10) Status cardiac pacemaker Code(s): Z95.0 - PRESENCE OF CARDIAC PACEMAKER (11) COPD (chronic obstructive pulmonary disease) Code(s): J44.9 - CHRONIC OBSTRUCTIVE PULMONARY DISEASE, UNSPECIFIED Qualifiers: COPD type: unspecified COPD Qualified Code(s): J44.9 - Chronic obstructive pulmonary disease, unspecified Assessment/Plan 03/29/2019 Mild global HK of LV, pacemaker lead, mod LAE, mild CEDRIC, mod TR with mod-severe pulm HTN and Mild AR 04/16/[address]: RLL consolidation, small effusion, mild congestion 05/2018 Echo: Normal LV size and fxn LVEF 60-65%, mild AR, MR, mild-mod TR, mod pulm HTN 01/2019 Carotid US: No sig stenosis 1. Acute on chronic hypoxemic/hypercapneic respiratory failure 2. Acute on chronic diastolic heart failure and pulm HTN 3. Paroxysmal AF with RVR [id number] 4 on Eliquis 4. Home O2-dependent COPD w/ h/o flares, recent PNA post mechanical ventilation 5. Sick sinus syndrome s/p Medtronic PPM 6. 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 Oral diuresis with monitor diuretic response, renal fxn and electrolytes 2. Continue Eliquis 5 bid, Cardizem CD 300 qd, sotalol 80 bid resume losartan 25 qd as hemodynamics tolerate, plan for DCCV. Eliquis compliance assured so GHASSAN -guidance not indicated 3. BD, O2, oral steroid taper 4. Sleep study as outpatient, plan for continued pulm rehab post d/c 5. F/u in cardiology office upon d/c 6. Thank you for consultative opportunity Procedure Note Procedure: Synchronized DCCV Indication: Symptomatic paroxysmal atrial fibrillation with RVR After informed consent obtained by Dr. Valerio for anesthesia and myself for cardioversion, patient underwent successful DCCV with 120 J shock after adequate deep sedation. Post ECG shows NSR @ [address]-T changes Qtc 506 msec. No complications, continue sotalol, cardizem and Eliquis.
--- NOTE | 2019-06-15 12:00 | HP ---
Admitting History and Physical - Primary Care Physician PCP: Chelsea Phillips - Admission History of Present Illness: patient seen and examined chart reviewed Discussed with salesperson furniture--- as well as nursing staff and emergency room records----Reviewed and I concur In summary The patient is an 83 year old female, with a significant PMH of COPD, CHF, PAF, SSS (s/p PPM), abnormal LFTs, CAD, HTN, pulmonary HTN, and recent admission for COPD, who presents to the ED for evaluation of Afib with RVR. Patient was seen by her salesperson furniture this morning and was found to be in Afib with RVR. She was advised to go to the ED for inpatient cardioversion, reinitiation of Sotalol (instead of Metoprolol), and blood work. Patient reports feeling SOB all day today (both at rest and with exertion). She endorses some palpitations with exertion and new onset bilateral LE edema since her hospitalization last month. She denies any chest pain while in the ED. Patient is on 2L of home O2. Denies fever, chills, nausea, vomit, diarrhea, constipation, abdominal pain, dysuria, hematuria. Allergies: Banana, penicillins Surgical History: Pacemaker, abdominal surgery Social History: Former smoker (quit 4 years ago). Denies EtOH or illicit drug use PCP: Dr. Carla Pillai----Changed to Dr. Gerry Sands: Dr. Lam Card: Dr. Simpson patient scheduled for cardioversion today--- currently nothing by mouth Denies any chest pain Breathing better Comfortable- Currently nothing by mouth History Source: Patient, Medical Record Limitations to Obtaining History: No Limitations - Past Medical History Cardiovascular: Yes: AFIB, Pulmonary Hypertension, Aortic Stenosis, HTN, Mitral Insufficiency, Other Pulmonary: Yes: COPD. No: O2 Dependent ...: No Heme/Onc: Yes: Anemia Musculoskeletal: Yes: Osteoarthritis Endocrine: Yes: Hyperthyroidism. No: Diabetes Mellitus - Past Surgical History Past Surgical History: Yes: Permanent Pacemaker - Advance Directives Advance Directives: Yes: Health Care Proxy - Smoking History Smoking history: Former smoker Have you smoked in the past 12 months: No Aproximately how many cigarettes per day: 20 If you are a former smoker, when did you quit?: 5YEARS AGO - Alcohol/Substance Use Hx Alcohol Use: No - Social History History of Recent Travel: No Home Medications - Allergies Allergies/Adverse Reactions: Allergies Allergy/AdvReac Type Severity Reaction Status Date / Time banana Allergy Unknown Verified 06/14/19 15:03 Penicillins Allergy Verified 06/14/19 15:03 - Home Medications Home Medications: Ambulatory Orders Apixaban [Eliquis -] 5 mg PO BID #0 tablet 11/05/15 Fluticasone/Salmeterol [Advair 250-50 Diskus] 1 each IH BID 02/11/16 Albuterol 0.083% Nebulizer [place]ica [Ventolin 0.083% Nebulizer Soln -] 1 amp NEB RQ4H amp 04/01/19 Diltiazem Cd [Cardizem Cd -] 300 mg PO DAILY 04/14/19 Furosemide [Lasix] 40 mg PO DAILY 04/14/19 Metoprolol Succinate [Toprol Xl] 50 mg PO DAILY 06/14/19 Potassium Chloride [Klor-Con] 20 meq PO DAILY 06/14/19 Tiotropium [place] [Spiriva] 1 inh PO DAILY 06/14/19 Pantoprazole Sodium [Protonix] 40 mg PO DAILY 06/15/19 predniSONE [Deltasone -] 10 mg PO DAILY 06/15/19 Family Medical History Family History: Unremarkable Review of Systems - Review of Systems Constitutional: reports: No Symptoms Eyes: reports: No Symptoms HENT: reports: No Symptoms Neck: reports: No Symptoms Cardiovascular: reports: Palpitations, Shortness of Breath Respiratory: reports: SOB Gastrointestinal: reports: No Symptoms Genitourinary: reports: No Symptoms Hematology/Lymphatic: reports: No Symptoms Psychiatric: reports: No Symptoms Physical Examination Vital Signs: Vital Signs Temperature 98.5 F 06/15/19 08:50 Pulse Rate 100 H 06/15/19 08:50 Respiratory Rate 20 06/15/19 08:50 Blood Pressure 132/65 06/15/19 11:28 O2 Sat by Pulse Oximetry (%) 93 L 06/14/19 23:00 Constitutional: Yes: No Distress Eyes: Yes: Conjunctiva Clear Neck: Yes: Supple Cardiovascular: Yes: Pulse Irregular Respiratory: Yes: Diminished Gastrointestinal: Yes: Soft, Abdomen, Obese Edema: LLE: 1+, RLE: 1+ Neurological: Yes: Alert Psychiatric: Yes: Alert Labs: CBC, BMP 06/14/19 15:21 06/14/19 15:21 Imaging - Results Chest X-ray: Report Reviewed EKG: Report Reviewed Problem List - Problems (1) Atrial fibrillation with rapid ventricular response Code(s): I48.91 - UNSPECIFIED ATRIAL FIBRILLATION (2) Chronic anticoagulation Code(s): Z79.01 - [facility] (CURRENT) USE OF ANTICOAGULANTS (3) Hypertension Code(s): I10 - ESSENTIAL (PRIMARY) HYPERTENSION Qualifiers: Hypertension type: essential hypertension Qualified Code(s): I10 - Essential (primary) hypertension (4) Pacemaker Code(s): Z95.0 - PRESENCE OF CARDIAC PACEMAKER (5) Pulmonary HTN Code(s): I27.20 - PULMONARY HYPERTENSION, UNSPECIFIED (6) COPD (chronic obstructive pulmonary disease) Code(s): J44.9 - CHRONIC OBSTRUCTIVE PULMONARY DISEASE, UNSPECIFIED Qualifiers: COPD type: unspecified COPD Qualified Code(s): J44.9 - Chronic obstructive pulmonary disease, unspecified Assessment/Plan discussed with patient medications reviewed For cardioversion today We will follow
--- NOTE | 2019-06-15 14:04 | EKG ---
Test Reason : Blood Pressure : / mmHG Vent. Rate : 109 BPM Atrial Rate : 258 BPM P-R Int : 000 ms QRS Dur : 084 ms QT Int : 370 ms P-R-T Axes : 000 016 149 degrees QTc Int : 498 ms ATRIAL FIBRILLATION WITH RAPID VENTRICULAR RESPONSE ABNORMAL ECG WHEN COMPARED WITH ECG OF 14-JUN-2019 16:25, QT HAS LENGTHENED Confirmed by AFIA FAITH MD ([id number]) on 06/15/2019 2:03:54 PM Referred By: TI MADSEN Confirmed By:AFIA FAITH MD
--- NOTE | 2019-06-15 14:12 | EKG ---
Test Reason : Blood Pressure : / mmHG Vent. Rate : 104 BPM Atrial Rate : 055 BPM P-R Int : 000 ms QRS Dur : 086 ms QT Int : 324 ms P-R-T Axes : 000 010 144 degrees QTc Int : 426 ms ATRIAL FIBRILLATION WITH RAPID VENTRICULAR RESPONSE T WAVE ABNORMALITY, CONSIDER LATERAL ISCHEMIA ABNORMAL ECG WHEN COMPARED WITH ECG OF 14-JUN-2019 15:59, T WAVE INVERSION MORE EVIDENT IN LATERAL LEADS Confirmed by AFIA FAITH MD ([id number]) on 06/15/2019 2:12:25 PM Referred By: Confirmed By:AFIA FAITH MD
--- NOTE | 2019-06-15 14:13 | EKG ---
Test Reason : Blood Pressure : / mmHG Vent. Rate : 109 BPM Atrial Rate : 109 BPM P-R Int : 000 ms QRS Dur : 076 ms QT Int : 318 ms P-R-T Axes : 000 009 140 degrees QTc Int : 428 ms ATRIAL FIBRILLATION WITH RAPID VENTRICULAR RESPONSE ABNORMAL ECG Confirmed by AFIA FAITH MD ([id number]) on 06/15/2019 2:12:43 PM Referred By: Confirmed By:AFIA FAITH MD
--- NOTE | 2019-06-15 14:14 | EKG ---
Test Reason : Blood Pressure : / mmHG Vent. Rate : 134 BPM Atrial Rate : 147 BPM P-R Int : 000 ms QRS Dur : 080 ms QT Int : 274 ms P-R-T Axes : 000 011 140 degrees QTc Int : 409 ms ATRIAL FIBRILLATION WITH RAPID VENTRICULAR RESPONSE SEPTAL INFARCT , AGE UNDETERMINED ABNORMAL ECG Confirmed by AFIA FAITH MD ([id number]) on 06/15/2019 2:13:41 PM Referred By: Confirmed By:AFIA FAITH MD
[2019-06-16] MEDS: ALBUTEROL SO4 0.083% IH SOL 2.5 MG/3 ML VIAL.NEB. NEB SCH ×3 (04:08→07:50)
[2019-06-16 06:44] VITALS: TEMP 98.4
[2019-06-16] MEDS ORDERED: PT OWN MED DRAWER 7, Y5N ONE (09:40)
[2019-06-16] MEDS: APIXABAN 5 MG TABLET PO SCH (09:44)
[2019-06-16] MEDS: TIOTROPIUM BROMIDE 2.5 MCG (SPIRIVA) RESPIMAT INHALER IH SCH (09:44)
[2019-06-16] MEDS: FUROSEMIDE 40 MG TABLET (FP) PO SCH (09:44)
[2019-06-16] MEDS: SOTALOL HCL 80 MG TABLET (FP) PO SCH (09:44)
[2019-06-16] MEDS: BUDESONIDE/FORMETEROL FUMARATE 80/4.5 mcg INHALER IH SCH (09:44)
[2019-06-16] MEDS: POTASSIUM CHLORIDE TABS 10 MEQ TABLET.ER (FP) PO SCH (09:44)
[2019-06-16 09:49] VITALS: BP 131/65; PULSE 85
--- NOTE | 2019-06-16 11:33 | PN ---
Progress Note, Physician Chief Complaint: Events noted Feels better Now in sinus rhythm History of Present Illness: Patient was seen and examined. Awake and alert. Chart was reviewed Denies chest pain or palpitations Dyspnea better - Current Medication List Current Medications: Active Medications Albuterol Sulfate (Ventolin 0.083% Nebulizer Soln -) 1 amp NEB RQ4H REPLACED BY [facility] Last Admin: 06/16/19 07:50 Dose: 1 amp Apixaban (Eliquis -) 5 mg PO BID REPLACED BY [facility] Last Admin: 06/16/19 09:44 Dose: 5 mg Budesonide/Formoterol Fumarate (Symbicort 80/4.5mcg -) 2 puff IH BID REPLACED BY [facility] Last Admin: 06/16/19 09:44 Dose: 2 puff Diltiazem HCl (Cardizem Cd -) 300 mg PO DAILY REPLACED BY [facility] Last Admin: 06/16/19 09:44 Dose: 300 mg Furosemide (Lasix -) 40 mg PO DAILY REPLACED BY [facility] Last Admin: 06/16/19 09:44 Dose: 40 mg Potassium Chloride (K-Dur -) 20 meq PO DAILY REPLACED BY [facility] Last Admin: 06/16/19 09:44 Dose: 20 meq Sotalol HCl (Betapace -) 80 mg PO BID REPLACED BY [facility] Last Admin: 06/16/19 09:44 Dose: 80 mg Tiotropium [place] (Spiriva Respimat) 2 puff IH DAILY REPLACED BY [facility] Last Admin: 06/16/19 09:44 Dose: 2 puff - Objective Vital Signs: Vital Signs Temperature 98.4 F 06/16/19 06:00 Pulse Rate 85 06/16/19 09:49 Respiratory Rate 18 06/16/19 09:49 Blood Pressure 131/65 06/16/19 09:49 O2 Sat by Pulse Oximetry (%) 94 L 06/16/19 10:00 Eyes: Yes: PERRL HENT: Yes: Atraumatic Neck: Yes: Supple Cardiovascular: Yes: Regular Rate and Rhythm, S1, S2 Respiratory: Yes: Diminished Gastrointestinal: Yes: Normal Bowel Sounds, Soft. No: Tenderness Edema: No Problem List - Problems (1) COPD exacerbation Code(s): J44.1 - CHRONIC OBSTRUCTIVE PULMONARY DISEASE W (ACUTE) EXACERBATION (2) AV block, 2nd degree Code(s): I44.1 - ATRIOVENTRICULAR BLOCK, SECOND DEGREE (3) Acute on chronic diastolic (congestive) heart failure Code(s): I50.33 - ACUTE ON CHRONIC DIASTOLIC (CONGESTIVE) HEART FAILURE (4) Acute on chronic respiratory failure with hypoxia and hypercapnia Code(s): J96.21 - ACUTE AND CHRONIC RESPIRATORY FAILURE WITH HYPOXIA; J96.22 - ACUTE AND CHRONIC RESPIRATORY FAILURE WITH HYPERCAPNIA (5) Atrial fibrillation Code(s): I48.91 - UNSPECIFIED ATRIAL FIBRILLATION Qualifiers: Atrial fibrillation type: persistent Qualified Code(s): I48.1 - Persistent atrial fibrillation (6) Chronic kidney disease Code(s): N18.9 - CHRONIC KIDNEY DISEASE, UNSPECIFIED Qualifiers: Chronic kidney disease stage: stage 2 (mild) Qualified Code(s): N18.2 - Chronic kidney disease, stage 2 (mild) (7) Hypertension Code(s): I10 - ESSENTIAL (PRIMARY) HYPERTENSION Qualifiers: Hypertension type: essential hypertension Qualified Code(s): I10 - Essential (primary) hypertension (8) Pacemaker Code(s): Z95.0 - PRESENCE OF CARDIAC PACEMAKER (9) Pulmonary HTN Code(s): I27.20 - PULMONARY HYPERTENSION, UNSPECIFIED (10) SOB (shortness of breath) Code(s): R06.02 - SHORTNESS OF BREATH Assessment/Plan 1. Acute on chronic hypoxemic/hypercapneic respiratory failure 2. Acute on chronic diastolic heart failure and pulm HTN 3. Paroxysmal AF with RVR now sinus rhythm after synchronized cardioversion [id number] 4 on Eliquis 4. 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 Sick sinus syndrome s/p [employer] PPM 6. Suspected OSAS PLAN: 1. Oral diuresis with monitoring renal function and electrolytes 2. Continue Eliquis 5 mg BID, Cardizem CD 300 mg QD, Sotalol 80 mg BID and Losartan 25 mg QD as hemodynamics tolerate 3. Bronchodilator, O2 and oral steroid taper 4. Sleep study as outpatient, plan for continued pulm rehab as outpatient 5. Discharge planning today and cardiology office follow up upon discharge Jordy Simpson MD
--- NOTE | 2019-06-16 12:34 | DS ---
Physical Examination Vital Signs: Vital Signs Temperature 98.4 F 06/16/19 06:00 Pulse Rate 85 06/16/19 09:49 Respiratory Rate 18 06/16/19 09:49 Blood Pressure 131/65 06/16/19 09:49 O2 Sat by Pulse Oximetry (%) 94 L 06/16/19 10:00 Constitutional: Yes: No Distress, Calm Cardiovascular: Yes: Pulse Irregular Respiratory: Yes: Diminished Gastrointestinal: Yes: Normal Bowel Sounds, Soft, Abdomen, Obese. No: Tenderness Edema: No Labs: CBC, BMP 06/14/19 15:21 06/14/19 15:21 Discharge Summary Problems reviewed: Yes Reason For Visit: AFIB Current Active Problems Afib (Acute) COPD exacerbation (Acute) Plan of Treatment: Admitted for rapid afib-- was seen by Cardiology cardioversion done 06/15/19 Pt better restarted Sotalol instead of Metoprolol Followed up by cardiology today Pt is clinically better rateis under control she is tolerating Sotalol stable for dc home-- should follow up with me in the office 2 weeks Condition: Improved - Instructions Disposition: HOME - Home Medications Comprehensive Discharge Medication List: Ambulatory Orders Apixaban [Eliquis -] 5 mg PO BID #0 tablet 11/05/15 Fluticasone/Salmeterol [Advair 250-50 Diskus] 1 each IH BID 02/11/16 Albuterol 0.083% Nebulizer Nica [Ventolin 0.083% Nebulizer Soln -] 1 amp NEB RQ4H amp 04/01/19 Diltiazem Cd [Cardizem Cd -] 300 mg PO DAILY 04/14/19 Furosemide [Lasix] 40 mg PO DAILY 04/14/19 Metoprolol Succinate [Toprol Xl] 50 mg PO DAILY 06/14/19 Potassium Chloride [Klor-Con] 20 meq PO DAILY 06/14/19 Tiotropium [place] [Spiriva] 1 inh PO DAILY 06/14/19 Pantoprazole Sodium [Protonix] 40 mg PO DAILY 06/15/19 predniSONE [Deltasone -] 10 mg PO DAILY 06/15/19
--- NOTE | 2019-06-17 16:52 | EKG ---
Test Reason : Blood Pressure : / mmHG Vent. Rate : 083 BPM Atrial Rate : 083 BPM P-R Int : 204 ms QRS Dur : 082 ms QT Int : 394 ms P-R-T Axes : 067 018 130 degrees QTc Int : 462 ms NORMAL SINUS RHYTHM T WAVE ABNORMALITY, CONSIDER LATERAL ISCHEMIA ABNORMAL ECG WHEN COMPARED WITH ECG OF 15-JUN-2019 12:54, NO SIGNIFICANT CHANGE WAS FOUND Confirmed by PETE MORROW, REBECCA ([id number]) on 06/17/2019 4:52:21 PM Referred By: Primitivo UPTON Confirmed By:REBECCA FREEMAN MD
--- NOTE | 2019-06-18 07:00 | EKG ---
Test Reason : Blood Pressure : / mmHG Vent. Rate : 076 BPM Atrial Rate : 076 BPM P-R Int : 196 ms QRS Dur : 084 ms QT Int : 450 ms P-R-T Axes : 053 009 122 degrees QTc Int : 506 ms NORMAL SINUS RHYTHM PROLONGED QT ABNORMAL ECG WHEN COMPARED WITH ECG OF 15-JUN-2019 09:44, SINUS RHYTHM HAS REPLACED ATRIAL FIBRILLATION Confirmed by AFIA FAITH MD ([id number]) on 06/15/2019 1:57:45 PM Referred By: TI MADSEN Confirmed By:AFIA FAITH MD
== END 2019-06-16 14:25 | disposition home or self-care (01) | DRG 309 ==
LOC: JER 14:50 → SUPCPDRO 14:50 → JERBED 15:41 → J4S 23:17
PROVIDERS: ADMIT Internal Medicine; ATTEND Internal Medicine
PROC: 5A2204Z Restoration of Cardiac Rhythm, Single (ICD-10-PCS; principal; 2019-06-15 12:15)
DX: I48.0 Paroxysmal atrial fibrillation (principal); I50.32 Chronic diastolic (congestive) heart failure; I13.0 Hypertensive heart and chronic kidney disease with heart failure and stage 1 through stage 4 chronic kidney disease, or unspecified chronic kidney disease; J96.12 Chronic respiratory failure with hypercapnia; J96.11 Chronic respiratory failure with hypoxia; J44.9 Chronic obstructive pulmonary disease, unspecified; Z95.0 Presence of cardiac pacemaker; I49.5 Sick sinus syndrome; Z88.0 Allergy status to penicillin; I25.10 Atherosclerotic heart disease of native coronary artery without angina pectoris; I27.20 Pulmonary hypertension, unspecified; Z87.891 Personal history of nicotine dependence; I35.0 Nonrheumatic aortic (valve) stenosis; Z79.01 Long term (current) use of anticoagulants; N18.2 Chronic kidney disease, stage 2 (mild); Z99.81 Dependence on supplemental oxygen; I44.1 Atrioventricular block, second degree; G47.33 Obstructive sleep apnea (adult) (pediatric)
CPT/HCPCS: 36415; 71045-TC-FY; 80053; 82550; 83735; 84439; 84443; 84484; 85025; 85610; 93005; 93010; 94640; 99285-25

== ENCOUNTER 2019-06-25 23:11 | Inpatient (IN) | payer OTHER ==
[2019-06-25] MEDS ORDERED: methylPREDNISolone NA SUCC 125 MG/2 ML VIAL IVPB ONE (23:37)
[2019-06-25] MEDS ORDERED: MAGNESIUM SULF 50% (8.12 MEQ/2 ML-1 GM VIAL) IVPB ONE (23:37)
--- NOTE | 2019-06-25 23:38 | PDOC ---
History of Present Illness - General Stated Complaint: DIFF.BREATHING Time Seen by Provider: 06/25/19 23:36 History Source: Patient Exam Limitations: No Limitations - History of Present Illness Initial Comments: 06/26/19 00:45 Jazmín Chahal is a 83yF w PMHx asthma, COPD, CHF, HTN, Afib with RVR s/p pacemaker on eliquis presenting w dyspnea. Worsening dyspnea for last 4d, with increased supplemental O2 demand from intermittent NC use to constant 4L NC. Also worsened farrah leg swelling. Denies fever, headache, cough, chest/AB pain, urinary/bowel movement changes. Was recently d/c on 06/16 for management of afib. Past History - Past Medical History Allergies/Adverse Reactions: Allergies Allergy/AdvReac Type Severity Reaction Status Date / Time banana Allergy Unknown Verified 06/25/19 23:54 Penicillins Allergy Verified 06/25/19 23:54 Home Medications: Ambulatory Orders Apixaban [Eliquis -] 5 mg PO BID #0 tablet 11/05/15 Fluticasone/Salmeterol [Advair 250-50 Diskus] 1 each IH BID 02/11/16 Albuterol 0.083% Nebulizer Nica [Ventolin 0.083% Nebulizer Soln -] 1 amp NEB RQ4H amp 04/01/19 Diltiazem Cd [Cardizem Cd -] 300 mg PO DAILY 04/14/19 Furosemide [Lasix] 40 mg PO DAILY 04/14/19 Potassium Chloride [Klor-Con] 20 meq PO DAILY 06/14/19 Tiotropium [place] [Spiriva] 1 inh PO DAILY 06/14/19 Pantoprazole Sodium [Protonix] 40 mg PO DAILY 06/15/19 predniSONE [Deltasone -] 10 mg PO DAILY 06/15/19 Nystatin/Dpha/Lido/Sucrafate [Nystatin Mouth Rinse *Df Formula*] 5 ml MM DAILY # 1 bottle 06/16/19 Sotalol HCl [Betapace -] 80 mg PO BID #60 tablet 06/16/19 Anemia: No Asthma: No Cancer: No Cardiac Disorders: Yes (AFIB, Aortic Stenosis, Mitral insuffiency, pHTN) CVA: No COPD: Yes (on home O2) CHF: Yes Dementia: No Diabetes: No GI Disorders: Yes (Diverticulitis) Disorders: No HTN: Yes Hypercholesterolemia: No Liver Disease: No Seizures: No Thyroid Disease: No - Surgical History Abdominal Surgery: Yes (Bowel resection) Cardiac Surgery: Yes (PPM) - Immunization History Immunization Up to Date: Yes - Psycho Social/Smoking Cessation Hx Smoking History: Former smoker Have you smoked in the past 12 months: No Number of Cigarettes Smoked Daily: 20 If you are a former smoker, when did you quit?: 5YEARS AGO Hx Alcohol Use: No Drug/Substance Use Hx: No Substance Use Type: None Hx Substance Use Treatment: No Review of Systems - Review of Systems Constitutional: No: Chills, Fever HEENTM: No: Eye Pain, Nose Pain, Throat Pain, Mouth Pain Respiratory: Yes: Shortness of Breath. No: Cough Cardiac (ROS): No: Chest Pain, Palpitations, Syncope ABD/GI: No: Abdominal Distended, Constipated, Diarrhea, Nausea, Vomiting : No: Burning, Dysuria, Discharge, Frequency, Flank Pain, Hematuria Musculoskeletal: No: Back Pain, Joint Pain Integumentary: No: Bruising, Dryness, Erythema Neurological: No: Headache, Seizure, Tingling, Tremors Psychiatric: No: Anxiety, Depression, Stressors Endocrine: No: Excessive Sweating, Flushing, Intolerance to Cold, Intolerance to Heat *Physical Exam - Physical Exam General Appearance: Yes: Nourished, Appropriately Dressed, Mild Distress HEENT: positive: EOMI, SOHAM, Normal Voice, Hearing Grossly Normal. negative: Scleral Icterus (R), Scleral Icterus (L), Nasal Congestion, Rhinorrhea Respiratory/Chest: positive: Respiratory Distress, Rapid RR, Decreased Breath Sounds (decreased breath sounds L>R), Wheezing. negative: Chest Tender, Crackles, Rhonchi, Stridor Cardiovascular: positive: Regular Rhythm, Regular Rate, S1, S2. negative: Edema , Murmur Gastrointestinal/Abdominal: positive: Normal Bowel Sounds, Flat, Soft. negative : Tender, Organomegaly, Protuberent Musculoskeletal: negative: CVA Tenderness (R), CVA Tenderness (L) Extremity: negative: Pedal Edema, Swelling Integumentary: positive: Normal Color, Swelling (+2 pitting edema to knees farrah) Neurologic: positive: Fully Oriented, Alert, Normal Response, Responsive. negative: Numbness, Confused, Disoriented ED Treatment Course - LABORATORY CBC & Chemistry Diagram: 06/26/19 00:00 06/26/19 00:00 Medical Decision Making - Medical Decision Making 06/26/19 00:07 duonebx3, Mg, solumedrol CXR shows R interstitial basilar infiltrates, cardiomegaly, pacemaker WBC 11.7, BNP 2300, trop neg EKG shows a fib w prolonged QTc 528, HR 83, unchanged --- Jazmín Chahal is a 83yF w PMHx asthma, COPD, CHF, HTN, Afib with RVR s/p pacemaker on eliquis presenting w 4d dyspnea d/t COPD exacerbation (wheezing improved w medication) and CHF exacerbation (elevated BNP, worse BLE swelling). Breathing comfortably on 5L NC. No signs of pneumonia on CXR or ACS (unchanged EKG, trop neg). Breathing improved w duonebx3, Mg, solumedrol. Admit to tele hospitalist for COPD exacerbation, CHF exacerbation causing increased respiratory demands on 5L NC Signed out to night team Discharge - Discharge Information Problems reviewed: Yes Clinical Impression/Diagnosis: COPD exacerbation Acute exacerbation of CHF (congestive heart failure) Qualifiers: Heart failure type: unspecified Qualified Code(s): I50.9 - Heart failure, unspecified Condition: Good - Follow up/Referral Referrals: Chelsea Phillips MD [Primary Care Provider] - - Patient Discharge Instructions - Post Discharge Activity
[2019-06-25] MEDS ORDERED: ALBUTEROL SO4 2.5/IPRATROPIUM 0.5 INH SOL 3 ML VIAL.NEB. NEB ONE (23:40)
[2019-06-25] MEDS ORDERED: ALBUTEROL SO4 0.083% IH SOL 2.5 MG/3 ML VIAL.NEB. NEB ONE (23:55)
[2019-06-25] MEDS: ALBUTEROL SO4 0.083% IH SOL 2.5 MG/3 ML VIAL.NEB. NEB PRN (23:58)
[2019-06-26] MEDS ORDERED: MAGNESIUM 1GM/D5W - 2 GM/200 ML IVPB IVPB ONE (00:09)
[2019-06-26] MEDS ORDERED: ALBUTEROL SO4 0.083% IH SOL 2.5 MG/3 ML VIAL.NEB. NEB ONE (00:09)
[2019-06-26] MEDS ORDERED: methylPREDNISolone NA SUCC 125 MG/2 ML VIAL ONE (00:09)
[2019-06-26] MEDS: ALBUTEROL SO4 0.083% IH SOL 2.5 MG/3 ML VIAL.NEB. NEB PRN ×2 (00:11→00:44)
[2019-06-26 00:56] LABS: BASO % 0.4 % (0-2.0); EOS % 1.3 % (0-4.5); HEMATOCRIT 36.7 % (32.4-45.2); HEMOGLOBIN 11.7 GM/dL (10.7-15.3); LYMPH % 17.8 % (8-40); MCH 30.3 pg (25.7-33.7); MCHC 31.9 g/dl (32.0-36.0); MEAN CELL VOLUME 95.1 fl (80-96); MEAN PLT VOLUME 7.7 fl (7.5-11.1); MONO % 16.2 % (3.8-10.2); NEUT % 64.3 % (42.8-82.8); PLATELET COUNT 289 K/MM3 (134-434); RBC 3.86 M/mm3 (3.60-5.2); RDW 15.6 % (11.6-15.6); WHITE BLOOD COUNT 11.7 K/mm3 (4.0-10.0)
[2019-06-26 01:14] LABS: INR 3.41 (0.83-1.09); PROTHROMBIN TIME (PATIENT) 40.7 SEC (9.7-13.0)
[2019-06-26 01:18] LABS: BILIRUBIN,TOTAL 1.2 mg/dL (0.2-1); BLOOD UREA NITROGEN 15.9 mg/dL (7-18); CALCIUM 8.5 mg/dL (8.5-10.1); CREATININE 1.3 mg/dL (0.55-1.3); POTASSIUM 3.8 mmol/L (3.5-5.1); TOT PROT 6.3 g/dl (6.4-8.2)
--- NOTE | 2019-06-26 02:40 | PDOC ---
Documentation entered by Neva Stack SCRIBE, acting as scribe for Esthela Wild MD. Esthela Wild MD: This documentation has been prepared by the Sreekanth ashley Brenda, SCRIBE, under my direction and personally reviewed by me in its entirety. I confirm that the documentation accurately reflects all work, treatment, procedures, and medical decision making performed by me. Attending Attestation - Resident Resident Name: Filipe Avila - ED Attending Attestation I have performed the following: I have examined & evaluated the patient, The case was reviewed & discussed with the resident, I agree w/resident's findings & plan, Exceptions are as noted - HPI HPI: 06/26/19 01:40 83 yo female BIBA for shortness of breath. PMH for copd - Physicial Exam PE: 06/26/19 01:41 wnwd 83 yo female p/w tachypnea 06/26/19 01:53 head ncat neck supple lungs scattered wheezing,moving air in all lung taylor cvs irreg irreg r s1s2 abd nontender skin warm and dry extremities no pitting edema psych appropriate 06/26/19 01:56 - Medical Decision Making 06/26/19 02:11 PMH COPD, chf,afib on Coumadin 06/26/19 02:38 Negative troponin INR above 3 BNP greater than 2300 Impression COPD exacerbation ,chf patient admitted
[2019-06-26] MEDS ORDERED: ACETAMINOPHEN 325 MG TABLET (FP) PO PRN (03:19)
[2019-06-26] MEDS ORDERED: IPRATROPIUM BR 0.02% 0.5 MG/2.5 ML VIAL.NEB. NEB PRN (03:19)
--- NOTE | 2019-06-26 03:33 | HP ---
Admitting History and Physical - Primary Care Physician PCP: Dr. Hodges - Admission Chief Complaint: SOB History of Present Illness: 83 year old female with PMHx asthma, COPD, CHF, HTN, Afib with RVR s/p pacemaker on eliquis arrived to ED with complain of dyspnea. As per patient dyspnea has been getting over over 4 days with increase use of supplemental oxygen, also with mild b/l leg swelling. Patient denies fever, headache, dizziness, CP, constipation, diarrhea. Patient was recently discharge on 06/16 for management of A-fib. History Source: Patient, Family Member Limitations to Obtaining History: No Limitations - Past Medical History Cardiovascular: Yes: AFIB, CHF, HTN Pulmonary: Yes: COPD Gastrointestinal: Yes: GERD Endocrine: Yes: Hyperthyroidism. No: Diabetes Mellitus - Past Surgical History Past Surgical History: Yes: Permanent Pacemaker - Smoking History Smoking history: Former smoker Have you smoked in the past 12 months: No Aproximately how many cigarettes per day: 20 If you are a former smoker, when did you quit?: 5YEARS AGO - Alcohol/Substance Use Hx Alcohol Use: No History of Substance Use: reports: None - Social History ADL: Independent History of Recent Travel: No Home Medications - Allergies Allergies/Adverse Reactions: Allergies Allergy/AdvReac Type Severity Reaction Status Date / Time banana Allergy Unknown Verified 06/25/19 23:54 Penicillins Allergy Verified 06/25/19 23:54 - Home Medications Home Medications: Ambulatory Orders Apixaban [Eliquis -] 5 mg PO BID #0 tablet 11/05/15 Fluticasone/Salmeterol [Advair 250-50 Diskus] 1 each IH BID 02/11/16 Albuterol 0.083% Nebulizer Nica [Ventolin 0.083% Nebulizer Soln -] 1 amp NEB RQ4H amp 04/01/19 Diltiazem Cd [Cardizem Cd -] 300 mg PO DAILY 04/14/19 Furosemide [Lasix] 40 mg PO DAILY 04/14/19 Potassium Chloride [Klor-Con] 20 meq PO DAILY 06/14/19 Tiotropium [place] [Spiriva] 1 inh PO DAILY 06/14/19 Pantoprazole Sodium [Protonix] 40 mg PO DAILY 06/15/19 predniSONE [Deltasone -] 10 mg PO DAILY 06/15/19 Nystatin/Dpha/Lido/Sucrafate [Nystatin Mouth Rinse *Df Formula*] 5 ml MM DAILY # 1 bottle 06/16/19 Sotalol HCl [Betapace -] 80 mg PO BID #60 tablet 06/16/19 Family Medical History Family History: Denies Review of Systems - Review of Systems Constitutional: reports: No Symptoms Eyes: reports: No Symptoms HENT: reports: No Symptoms Neck: reports: No Symptoms Cardiovascular: reports: No Symptoms Respiratory: reports: SOB, SOB on Exertion, Wheezing Gastrointestinal: reports: No Symptoms Genitourinary: reports: No Symptoms Breasts: reports: No Symptoms Reported Musculoskeletal: reports: No Symptoms Integumentary: reports: No Symptoms Neurological: reports: No Symptoms Endocrine: reports: No Symptoms Hematology/Lymphatic: reports: No Symptoms Psychiatric: reports: No Symptoms Physical Examination Vital Signs: Vital Signs Temperature 97.7 F 06/25/19 23:36 Pulse Rate 88 06/26/19 02:16 Respiratory Rate 20 06/26/19 02:16 Blood Pressure 116/82 06/26/19 02:16 O2 Sat by Pulse Oximetry (%) 96 06/26/19 02:16 Constitutional: Yes: Mild Distress Eyes: Yes: Conjunctiva Clear, EOM Intact HENT: Yes: Atraumatic, Normocephalic Neck: Yes: Supple, Trachea Midline Cardiovascular: Yes: Regular Rate and Rhythm Respiratory: Yes: Diminished, Dullness, On Nasal O2, SOB, SOB on Exertion, Wheezes Gastrointestinal: Yes: Normal Bowel Sounds, Soft Musculoskeletal: Yes: WNL Extremities: Yes: WNL Edema: LLE: 1+, RLE: 1+ Peripheral Pulses WNL: Yes Neurological: Yes: Alert, Oriented Labs: CBC, BMP 06/26/19 00:00 06/26/19 00:00 Imaging - Results Chest X-ray: Report Reviewed (CXR shows R interstitial basilar infiltrates, cardiomegaly, pacemaker) EKG: Report Reviewed (EKG shows a fib w prolonged QTc 528, HR 83, unchanged) Other: Report Reviewed (WBC 11.7, BNP 2300, trop neg) Problem List - Problems (1) Acute on chronic diastolic (congestive) heart failure Code(s): I50.33 - ACUTE ON CHRONIC DIASTOLIC (CONGESTIVE) HEART FAILURE (2) CHF exacerbation Code(s): I50.9 - HEART FAILURE, UNSPECIFIED Qualifiers: Heart failure type: unspecified Qualified Code(s): I50.9 - Heart failure, unspecified (3) GERD (gastroesophageal reflux disease) Code(s): K21.9 - GASTRO-ESOPHAGEAL REFLUX DISEASE WITHOUT ESOPHAGITIS (4) Afib Code(s): I48.91 - UNSPECIFIED ATRIAL FIBRILLATION Qualifiers: Atrial fibrillation type: persistent (5) Hypertension Code(s): I10 - ESSENTIAL (PRIMARY) HYPERTENSION Qualifiers: Hypertension type: essential hypertension Qualified Code(s): I10 - Essential (primary) hypertension Assessment/Plan 83 year old female with PMHx asthma, COPD, CHF, HTN, Afib with RVR s/p pacemaker on eliquis arrived to ED with complain of worsening dyspnea. # Acute COPD exacerbation CXR shows R interstitial basilar infiltrates, cardiomegaly, pacemaker WBC 11.7 In ED given duonebx3, Mg, solumedrol and magnesium sulfate - continue with solumedrol 40 mg IV push q 8 hours - continue with nebulizer QID pRN - continue with o2 via NC - tylenol q 4-6 hours as needed - repeat cbc, cmp in AM - if noted with increase wbc, and worsening respiratory symptoms consider starting antibiotics # CHF BNP 2300 - continue with lasix 40mg daily - Monitor I & O - Fluid restriction #HTN/A-fib (+PPM) -EKG shows a fib w prolonged QTc 528, HR 83, unchanged -trop neg -Continue with eliquis 5 mg BID -Continue with cardizem 300mg q daily -Continue with Toprol XL 50 mg BID # GERD - continue with protonix 40 mg daily Visit type - Emergency Visit Emergency Visit: Yes Care time: The patient presented to the Emergency Department on the above date and was hospitalized for further evaluation of their emergent condition. - New Patient This patient is new to me today: Yes Date on this admission: 06/26/19 - Critical Care Critical Care patient: No
[2019-06-26] MEDS ORDERED: PATIENT'S OWN MEDICATION (NON-FORMULARY) (Tiotropium Bromide [Spiriva] 1 INH) PO SCH (10:00)
[2019-06-26] MEDS: APIXABAN 5 MG TABLET PO SCH ×2 (10:20→23:17)
[2019-06-26] MEDS: BUDESONIDE/FORMETEROL FUMARATE 160/4.5 mcg INHALER IH SCH ×2 (10:20→23:17)
[2019-06-26] MEDS: methylPREDNISolone NA SUCC 40 MG/1 ML VIAL IVPUSH SCH ×2 (10:20→18:40)
[2019-06-26] MEDS: PANTOPRAZOLE 40 MG TABLET (FP) PO SCH (10:20)
[2019-06-26] MEDS: FUROSEMIDE 40 MG TABLET (FP) PO SCH (10:20)
[2019-06-26] MEDS: TIOTROPIUM BROMIDE 2.5 MCG (SPIRIVA) RESPIMAT INHALER IH SCH (10:20)
--- NOTE | 2019-06-26 10:43 | PN ---
Progress Note (short form) - Note Progress Note: pt examined in ER SOB+ received lasix and solumedrol here Selected Entries 06/26/19 09:40 Temperature 97.4 F L Pulse Rate [ 110 H Apical] Respiratory 20 Rate Blood Pressure 113/61 [Right Arm] O2 Sat by Pulse 100 Oximetry (%) Oxygen Flow 3 Rate Laboratory Tests 06/26/19 06/26/19 06/26/19 00:00 00:00 00:00 WBC 11.7 H Hgb 11.7 Hct 36.7 Plt Count 289 INR Sodium 137 Potassium 3.8 Chloride 96 L Carbon Dioxide 32 Anion Gap 9 BUN 15.9 Creatinine 1.3 Est GFR (CKD-EPI)AfAm 44.24 Random Glucose 111 H Calcium 8.5 Total Bilirubin 1.2 H AST 30 ALT 30 Alkaline Phosphatase 117 Creatine Kinase Troponin I B-Natriuretic Peptide 2359.6 H 06/26/19 06/26/19 00:00 00:00 WBC Hgb Hct Plt Count INR 3.41 H Sodium Potassium Chloride Carbon Dioxide Anion Gap BUN Creatinine Est GFR (CKD-EPI)AfAm Random Glucose Calcium Total Bilirubin AST ALT Alkaline Phosphatase Creatine Kinase 31 Troponin I < 0.02 B-Natriuretic Peptide S1 S2 Irregular Lungs decreased, ronchi++ Abd- soft, NT edema + PLAN on solumedrol nebs O2 3 liters lasix Pulm eval cardiology eval OOB PT eval Problem List - Problems (1) COPD exacerbation Code(s): J44.1 - CHRONIC OBSTRUCTIVE PULMONARY DISEASE W (ACUTE) EXACERBATION (2) GERD (gastroesophageal reflux disease) Code(s): K21.9 - GASTRO-ESOPHAGEAL REFLUX DISEASE WITHOUT ESOPHAGITIS (3) AV block, 2nd degree Code(s): I44.1 - ATRIOVENTRICULAR BLOCK, SECOND DEGREE (4) Afib Code(s): I48.91 - UNSPECIFIED ATRIAL FIBRILLATION Qualifiers: Atrial fibrillation type: persistent (5) COPD exacerbation Code(s): J44.1 - CHRONIC OBSTRUCTIVE PULMONARY DISEASE W (ACUTE) EXACERBATION (6) Chronic kidney disease Code(s): N18.9 - CHRONIC KIDNEY DISEASE, UNSPECIFIED Qualifiers: Chronic kidney disease stage: stage 2 (mild) Qualified Code(s): N18.2 - Chronic kidney disease, stage 2 (mild) (7) Hypertension Code(s): I10 - ESSENTIAL (PRIMARY) HYPERTENSION Qualifiers: Hypertension type: essential hypertension Qualified Code(s): I10 - Essential (primary) hypertension
--- NOTE | 2019-06-26 12:05 | EKG ---
Test Reason : Blood Pressure : / mmHG Vent. Rate : 083 BPM Atrial Rate : 094 BPM P-R Int : 000 ms QRS Dur : 080 ms QT Int : 450 ms P-R-T Axes : 000 021 137 degrees QTc Int : 528 ms POOR DATA QUALITY, INTERPRETATION MAY BE ADVERSELY AFFECTED ATRIAL FIBRILLATION WITH OCCASIONAL ventricular-paced complexes ABNORMAL ECG WHEN COMPARED WITH ECG OF 16-JUN-2019 09:52, ELECTRONIC VENTRICULAR PACEMAKER HAS REPLACED SINUS RHYTHM Confirmed by Spencer Ledesma ([id number]) on 06/26/2019 12:05:23 PM Referred By: Confirmed By:Spencer Ledesma
--- NOTE | 2019-06-26 12:13 | CON.PULM ---
Consult Consult Specialty:: PULMONARY Referred by:: Dr Phillips Reason for Consultation:: shortness of breath - History of Present Illness Chief Complaint: shortness of breath History of Present Illness: 83yo female with h/o HTN, LV diastolic dysfunction, atrial fibrillation s/p PPM , asthma/COPD who was admitted with worsening shortness of breath x 2 days. Denies chest pain or palpitations. No fevers, chills or sweats. +cough productive with occasional wheezing. No sick contacts or recent travel. Pt was recently hospitalized for atrial fibrillation. Received nebulizer treatments and IV steroids in the ER, now feeling better. - History Source History Provided By: Patient, Medical Record Limitations to Obtaining History: No Limitations - Past Medical History Cardio/Vascular: Yes: AFIB, CHF, HTN Pulmonary: Yes: COPD Gastrointestinal: Yes: GERD Musculoskeletal: Yes: Osteoarthritis Endocrine: Yes: Hyperthyroidism. No: Diabetes Mellitus - Past Surgical History Past Surgical History: Yes: Permanent Pacemaker - Alcohol/Substance Use Hx Alcohol Use: No History of Substance Use: reports: None - Smoking History Smoking history: Former smoker Have you smoked in the past 12 months: No Aproximately how many cigarettes per day: 20 If you are a former smoker, when did you quit?: 5YEARS AGO - Social History Usual Living Arrangement: With Child ADL: Independent History of Recent Travel: No Home Medications - Allergies Allergies/Adverse Reactions: Allergies Allergy/AdvReac Type Severity Reaction Status Date / Time banana Allergy Unknown Verified 06/25/19 23:54 Penicillins Allergy Verified 06/25/19 23:54 - Home Medications Home Medications: Ambulatory Orders Apixaban [Eliquis -] 5 mg PO BID #0 tablet 11/05/15 Fluticasone/Salmeterol [Advair 250-50 Diskus] 1 each IH BID 02/11/16 Albuterol 0.083% Nebulizer Nica [Ventolin 0.083% Nebulizer Soln -] 1 amp NEB RQ4H amp 04/01/19 Diltiazem Cd [Cardizem Cd -] 300 mg PO DAILY 04/14/19 Furosemide [Lasix] 40 mg PO DAILY 04/14/19 Potassium Chloride [Klor-Con] 20 meq PO DAILY 06/14/19 Tiotropium [place] [Spiriva] 1 inh PO DAILY 06/14/19 Pantoprazole Sodium [Protonix] 40 mg PO DAILY 06/15/19 predniSONE [Deltasone -] 10 mg PO DAILY 06/15/19 Nystatin/Dpha/Lido/Sucrafate [Nystatin Mouth Rinse *Df Formula*] 5 ml MM DAILY # 1 bottle 06/16/19 Sotalol HCl [Betapace -] 80 mg PO BID #60 tablet 06/16/19 Review of Systems - Review of Systems Constitutional: denies: Chills, Fever, Weakness Eyes: denies: Recent Change in Vision HENT: denies: Nasal Congestion, Throat Pain Neck: denies: Stiffness, Tenderness Cardiovascular: reports: Shortness of Breath. denies: Chest Pain, Palpitations Respiratory: reports: Cough, Wheezing. denies: Hemoptysis Gastrointestinal: denies: Abdominal Pain, Nausea, Vomiting Genitourinary: denies: Dysuria, Hematuria Neurological: denies: Dizziness, Headache Endocrine: denies: Unexplained Weight Loss Physical Exam Vital Sings: Vital Signs Temperature 97.4 F L 06/26/19 09:40 Pulse Rate 110 H 06/26/19 09:40 Respiratory Rate 20 06/26/19 09:40 Blood Pressure 113/61 06/26/19 09:40 O2 Sat by Pulse Oximetry (%) 100 06/26/19 09:40 Constitutional: Yes: Calm Eyes: Yes: Conjunctiva Clear, EOM Intact HENT: Yes: Atraumatic, Normocephalic Neck: Yes: Supple, Trachea Midline Cardiovascular: Yes: Pulse Irregular Respiratory: Yes: Diminished (decreased breath sounds at the bases) ...Clubbing: No Gastrointestinal: Yes: Normal Bowel Sounds, Soft. No: Tenderness Edema: Yes Labs: CBC, BMP 06/26/19 00:00 06/26/19 00:00 Imaging - Results Chest X-ray: Report Reviewed, Image Reviewed (pulmonary vascular congestion, right effusion improved from prior) Problem List - Problems (1) COPD exacerbation Code(s): J44.1 - CHRONIC OBSTRUCTIVE PULMONARY DISEASE W (ACUTE) EXACERBATION (2) Acute on chronic diastolic (congestive) heart failure Code(s): I50.33 - ACUTE ON CHRONIC DIASTOLIC (CONGESTIVE) HEART FAILURE (3) Afib Code(s): I48.91 - UNSPECIFIED ATRIAL FIBRILLATION Qualifiers: Atrial fibrillation type: persistent (4) Hypertension Code(s): I10 - ESSENTIAL (PRIMARY) HYPERTENSION Qualifiers: Hypertension type: essential hypertension Qualified Code(s): I10 - Essential (primary) hypertension Assessment/Plan Acute COPD Exacerbation Acute on Chronic Diastolic Heart Failure Atrial Fibrillation Pulmonary HTN HTN - continue IV medrol - inhaled bronchodilators standing and PRN - O2 to keep spO2 >90% - continue lasix - monitor urine output, creatinine - can observe off antibiotics at this time - rate control - continue anticoagulation Thank you for this consult Shreyas Ghotra MD
[2019-06-26] MEDS: NYSTATIN 500,000 UNITS/5 ML SUSPENSION PO SCH ×2 (18:41→23:18)
[2019-06-27 00:33] VITALS: BMI 35.3
[2019-06-27] MEDS: methylPREDNISolone NA SUCC 40 MG/1 ML VIAL IVPUSH SCH ×3 (01:18→17:23)
[2019-06-27] MEDS: ALBUTEROL SO4 0.083% IH SOL 2.5 MG/3 ML VIAL.NEB. NEB PRN (04:19)
[2019-06-27] MEDS: NYSTATIN 500,000 UNITS/5 ML SUSPENSION PO SCH ×3 (06:15→17:23)
[2019-06-27] MEDS ORDERED: PT OWN MED DRAWER 7, Y5N ONE ×2 (08:09→22:19)
[2019-06-27] MEDS: PANTOPRAZOLE 40 MG TABLET (FP) PO SCH (09:38)
[2019-06-27] MEDS: APIXABAN 5 MG TABLET PO SCH ×2 (09:38→22:30)
[2019-06-27] MEDS: FUROSEMIDE 40 MG TABLET (FP) PO SCH (09:38)
[2019-06-27] MEDS: BUDESONIDE/FORMETEROL FUMARATE 160/4.5 mcg INHALER IH SCH ×2 (09:39→22:33)
--- NOTE | 2019-06-27 10:34 | CON.CARD ---
Consult Consult Specialty:: Cardiology Referred by:: Chelsea Phillips MD Reason for Consultation:: Dyspnea - History of Present Illness Chief Complaint: Dyspnea History of Present Illness: The patient is an 83 year old female with a past medical history significant for COPD, CHF, Afib, pacemaker, HTN and recent admission for COPD exacerbation presents with recurrent worsening shortness of breath cough, wheeze, orthopnea , amenable to BD and diuresis. She denies cp, near or true syncope, palpitations , LE edema. Recent hospitalization for rapid afib post DCCV, unfortunately now recurred. - History Source History Provided By: Patient Limitations to Obtaining History: No Limitations - Past Medical History Cardio/Vascular: Yes: AFIB, CHF, HTN Pulmonary: Yes: COPD Gastrointestinal: Yes: GERD ...: No Musculoskeletal: Yes: Osteoarthritis Endocrine: Yes: Hyperthyroidism. No: Diabetes Mellitus - Past Surgical History Past Surgical History: Yes: Permanent Pacemaker - Alcohol/Substance Use Hx Alcohol Use: No History of Substance Use: reports: None - Smoking History Smoking history: Former smoker Have you smoked in the past 12 months: No Aproximately how many cigarettes per day: 20 If you are a former smoker, when did you quit?: 5YEARS AGO - Social History Usual Living Arrangement: With Child ADL: Independent History of Recent Travel: No Home Medications - Allergies Allergies/Adverse Reactions: Allergies Allergy/AdvReac Type Severity Reaction Status Date / Time banana Allergy Unknown Verified 06/25/19 23:54 Penicillins Allergy Verified 06/25/19 23:54 - Home Medications Home Medications: Ambulatory Orders Apixaban [Eliquis -] 5 mg PO BID #0 tablet 11/05/15 Fluticasone/Salmeterol [Advair 250-50 Diskus] 1 each IH BID 02/11/16 Albuterol 0.083% Nebulizer Nica [Ventolin 0.083% Nebulizer Soln -] 1 amp NEB RQ4H amp 04/01/19 Diltiazem Cd [Cardizem Cd -] 300 mg PO DAILY 04/14/19 Furosemide [Lasix] 40 mg PO DAILY 04/14/19 Potassium Chloride [Klor-Con] 20 meq PO DAILY 06/14/19 Tiotropium [place] [Spiriva] 1 inh PO DAILY 06/14/19 Pantoprazole Sodium [Protonix] 40 mg PO DAILY 06/15/19 predniSONE [Deltasone -] 10 mg PO DAILY 06/15/19 Nystatin/Dpha/Lido/Sucrafate [Nystatin Mouth Rinse *Df Formula*] 5 ml MM DAILY # 1 bottle 06/16/19 Sotalol HCl [Betapace -] 80 mg PO BID #60 tablet 06/16/19 Cholecalciferol (Vitamin D3) [Vitamin D3 -] 1,000 unit PO DAILY 06/26/19 Review of Systems - Review of Systems Cardiovascular: reports: Shortness of Breath Respiratory: reports: Cough, SOB on Exertion, Wheezing Vital Signs: Vital Signs Temperature 98 F 06/27/19 08:40 Pulse Rate 93 H 06/27/19 08:40 Respiratory Rate 20 06/27/19 08:45 Blood Pressure 125/60 06/27/19 08:40 O2 Sat by Pulse Oximetry (%) 95 06/27/19 08:45 Constitutional: Yes: No Distress, Calm Neck: Yes: Supple Respiratory: Yes: Regular, Diminished, On Nasal O2 Gastrointestinal: Yes: Normal Bowel Sounds, Soft, Abdomen, Obese Cardiovascular: Yes: Pulse Irregular JVD: No PMI: Non-Displaced Heart Sounds: Yes: S1, S2 Murmur: Yes: Systolic Murmur, Grade 2 Edema: No - Other Data Labs, Other Data: CBC, BMP 06/26/19 00:00 06/26/19 00:00 INR, PTT INR 3.41 (0.83-1.09) H 06/26/19 00:00 Afib @ 83 paced beat Ejection Fraction %: LVEF > or = 40 % Imaging - Results Chest X-ray: Report Reviewed (Bibasilar ATX, pacemaker) Problem List - Problems (1) COPD exacerbation Code(s): J44.1 - CHRONIC OBSTRUCTIVE PULMONARY DISEASE W (ACUTE) EXACERBATION (2) Acute on chronic diastolic (congestive) heart failure Code(s): I50.33 - ACUTE ON CHRONIC DIASTOLIC (CONGESTIVE) HEART FAILURE (3) Acute on chronic respiratory failure with hypoxia and hypercapnia Code(s): J96.21 - ACUTE AND CHRONIC RESPIRATORY FAILURE WITH HYPOXIA; J96.22 - ACUTE AND CHRONIC RESPIRATORY FAILURE WITH HYPERCAPNIA (4) Atrial fibrillation Code(s): I48.91 - UNSPECIFIED ATRIAL FIBRILLATION Qualifiers: Atrial fibrillation type: paroxysmal Qualified Code(s): I48.0 - Paroxysmal atrial fibrillation (5) Chronic anticoagulation Code(s): Z79.01 - COAT CHECK ATTENDANT (CURRENT) USE OF ANTICOAGULANTS (6) Chronic kidney disease Code(s): N18.9 - CHRONIC KIDNEY DISEASE, UNSPECIFIED Qualifiers: Chronic kidney disease stage: stage 2 (mild) Qualified Code(s): N18.2 - Chronic kidney disease, stage 2 (mild) (7) Hypertension Code(s): I10 - ESSENTIAL (PRIMARY) HYPERTENSION Qualifiers: Hypertension type: essential hypertension Qualified Code(s): I10 - Essential (primary) hypertension (8) Hyperthyroidism Code(s): E05.90 - THYROTOXICOSIS, UNSP WITHOUT THYROTOXIC CRISIS OR STORM (9) Pacemaker Code(s): Z95.0 - PRESENCE OF CARDIAC PACEMAKER (10) Pulmonary HTN Code(s): I27.20 - PULMONARY HYPERTENSION, UNSPECIFIED (11) SOB (shortness of breath) Code(s): R06.02 - SHORTNESS OF BREATH Assessment/Plan 03/29/2019 Mild global HK of LV, pacemaker lead, mod LAE, mild CEDRIC, mod TR with mod-severe pulm HTN and Mild AR 04/16/[address]: RLL consolidation, small effusion, mild congestion 05/2018 Echo: Normal LV size and fxn LVEF 60-65%, mild AR, MR, mild-mod TR, mod pulm HTN 01/2019 Carotid US: No sig stenosis 1. Acute on chronic hypoxemic/hypercapneic respiratory failure 2. Acute home O2-dependent COPD Exacerbation h/o mechanical ventilation 3. Chronic diastolic heart failure and pulm HTN 4. Paroxysmal AF with recurrence h/o cardioversion [id number] 4 on Eliquis 5. Sick sinus syndrome s/p Medtronic PPM 6. Suspected OSAS PLAN: 1. Oral diuresis with monitoring diuretic response, renal function and electrolytes 2. Continue Eliquis 5 mg BID, Cardizem CD 300 mg QD, Sotalol 80 mg BID and Losartan 25 mg QD as hemodynamics tolerate 3. Bronchodilator, O2 and IV steroids with GI protection 4. Sleep study as outpatient, plan for continued pulm rehab as outpatient 5. Cardiology office follow up upon discharge
--- NOTE | 2019-06-27 10:46 | PN ---
Progress Note (short form) - Note Progress Note: sitting up in chair feeling a little light headed She is getting metoprolol here she was supposed to be on Sotalol breathing is better Vital Signs - 24 hr 06/26/19 06/26/19 06/27/19 21:00 22:00 02:00 Temperature 98.2 F 98.2 F Pulse Rate 108 H 100 H Respiratory 22 H 22 H Rate Blood Pressure 114/50 L 125/64 O2 Sat by Pulse 95 Oximetry (%) 06/27/19 06/27/19 06/27/19 04:14 06:00 08:40 Temperature 98.3 F 98 F Pulse Rate 90 93 H Respiratory 20 20 Rate Blood Pressure 112/74 125/60 O2 Sat by Pulse 95 Oximetry (%) 06/27/19 08:45 Temperature Pulse Rate Respiratory 20 Rate Blood Pressure O2 Sat by Pulse 95 Oximetry (%) Current Medications Generic Name Dose Route Start Last Admin Trade Name Freq PRN Reason Stop Dose Admin Acetaminophen 650 mg 06/26/19 03:19 Tylenol - PO Q4H PRN PAIN OR FEVER Albuterol Sulfate 1 amp 06/26/19 03:19 06/27/19 04:19 Ventolin 0.083% Nebulizer Soln - NEB 1 amp RQID PRN Administration SHORT OF BREATH/WHEEZING Apixaban 5 mg 06/26/19 10:00 06/27/19 09:38 Eliquis - PO 5 mg BID EUNICE Administration Budesonide/Formoterol Fumarate 1 puff 06/26/19 10:00 06/27/19 09:39 Symbicort 160/4.5mcg - IH 1 puff BID EUNICE Administration Diltiazem HCl 300 mg 06/26/19 10:00 06/26/19 10:20 Cardizem Cd - PO 300 mg DAILY EUNICE Administration Furosemide 40 mg 06/26/19 10:00 06/27/19 09:38 Lasix - PO 40 mg DAILY EUNICE Administration Ipratropium [place] 1 amp 06/26/19 03:19 06/27/19 04:18 Atrovent 0.02% Nebulizer - NEB 1 amp RQID PRN Administration WHEEZING Methylprednisolone Sodium Succinate 40 mg 06/26/19 10:00 06/27/19 09:37 Solu-Medrol - IVPUSH 40 mg Q8H-IV EUNICE Administration Metoprolol Succinate 50 mg 06/26/19 10:00 06/27/19 09:38 Toprol Xl - PO 50 mg BID EUNICE Administration Nystatin 500,000 units 06/26/19 18:00 06/27/19 06:15 Nystatin Oral Suspension - PO 500,000 units Q6HPO EUNICE Administration Pantoprazole Sodium 40 mg 06/26/19 10:00 06/27/19 09:38 Protonix - PO 40 mg DAILY EUNICE Administration Tiotropium [place] 2 puff 06/26/19 10:00 06/26/19 10:20 Spiriva Respimat IH Not Given DAILY EUNICE S1 S2 Irregular Lungs decreased Abd- soft, NT edema + PLAN on solumedrol nebs O2 3 liters change metoprolol top sotalol Pulm eval noted cardiology eval OOB PT eval Problem List - Problems (1) COPD exacerbation Code(s): J44.1 - CHRONIC OBSTRUCTIVE PULMONARY DISEASE W (ACUTE) EXACERBATION (2) GERD (gastroesophageal reflux disease) Code(s): K21.9 - GASTRO-ESOPHAGEAL REFLUX DISEASE WITHOUT ESOPHAGITIS (3) Afib Code(s): I48.91 - UNSPECIFIED ATRIAL FIBRILLATION Qualifiers: Atrial fibrillation type: persistent (4) Chronic kidney disease Code(s): N18.9 - CHRONIC KIDNEY DISEASE, UNSPECIFIED Qualifiers: Chronic kidney disease stage: stage 2 (mild) Qualified Code(s): N18.2 - Chronic kidney disease, stage 2 (mild) (5) Hypertension Code(s): I10 - ESSENTIAL (PRIMARY) HYPERTENSION Qualifiers: Hypertension type: essential hypertension Qualified Code(s): I10 - Essential (primary) hypertension
[2019-06-27] MEDS: TIOTROPIUM BROMIDE 2.5 MCG (SPIRIVA) RESPIMAT INHALER IH SCH (12:38)
--- NOTE | 2019-06-27 14:06 | PN ---
Progress Note (short form) - Note Progress Note: PULMONARY States breathing is improving. Less cough and wheezing. Vital Signs Period Temp Pulse Resp BP Sys/Ponce Pulse Ox Last 24 Hr 98 F-98.3 F 90-108 20-22 112-125/50-74 95-95 Gen: NAD at rest Heart: RRR Lung: decreased breath sounds at the bases, no wheezes Abd: soft, nontender Ext: no edema CBC, BMP 06/26/19 00:00 06/26/19 00:00 Active Medications Acetaminophen (Tylenol -) 650 mg PO Q4H PRN PRN Reason: PAIN OR FEVER Albuterol Sulfate (Ventolin 0.083% Nebulizer Soln -) 1 amp NEB RQID PRN PRN Reason: SHORT OF BREATH/WHEEZING Last Admin: 06/27/19 04:19 Dose: 1 amp Apixaban (Eliquis -) 5 mg PO BID [facility] Last Admin: 06/27/19 09:38 Dose: 5 mg Budesonide/Formoterol Fumarate (Symbicort 160/4.5mcg -) 1 puff IH BID [facility] Last Admin: 06/27/19 09:39 Dose: 1 puff Diltiazem HCl (Cardizem Cd -) 300 mg PO DAILY [facility] Last Admin: 06/27/19 12:36 Dose: 300 mg Furosemide (Lasix -) 40 mg PO DAILY [facility] Last Admin: 06/27/19 09:38 Dose: 40 mg Ipratropium [place] (Atrovent 0.02% Nebulizer -) 1 amp NEB RQID PRN PRN Reason: WHEEZING Last Admin: 06/27/19 04:18 Dose: 1 amp Methylprednisolone Sodium Succinate (Solu-Medrol -) 40 mg IVPUSH Q8H-IV [facility] Last Admin: 06/27/19 09:37 Dose: 40 mg Nystatin (Nystatin Oral Suspension -) 500,000 units PO Q6HPO [facility] Last Admin: 06/27/19 12:36 Dose: 500,000 units Pantoprazole Sodium (Protonix -) 40 mg PO DAILY [facility] Last Admin: 06/27/19 09:38 Dose: 40 mg Sotalol HCl (Betapace -) 80 mg PO BID [facility] A/P Acute COPD Exacerbation Acute on Chronic Diastolic Heart Failure Atrial Fibrillation Pulmonary HTN HTN - continue medrol - inhaled bronchodilators standing and PRN - O2 to keep spO2 >90% - continue lasix - monitor urine output, creatinine - can observe off antibiotics at this time - rate control - continue anticoagulation Problem List - Problems (1) COPD exacerbation Code(s): J44.1 - CHRONIC OBSTRUCTIVE PULMONARY DISEASE W (ACUTE) EXACERBATION (2) Acute on chronic diastolic (congestive) heart failure Code(s): I50.33 - ACUTE ON CHRONIC DIASTOLIC (CONGESTIVE) HEART FAILURE (3) Afib Code(s): I48.91 - UNSPECIFIED ATRIAL FIBRILLATION Qualifiers: Atrial fibrillation type: persistent (4) Hypertension Code(s): I10 - ESSENTIAL (PRIMARY) HYPERTENSION Qualifiers: Hypertension type: essential hypertension Qualified Code(s): I10 - Essential (primary) hypertension
[2019-06-27] MEDS: ALBUTEROL SO4 2.5/IPRATROPIUM 0.5 INH SOL 3 ML VIAL.NEB. NEB SCH ×2 (15:45→20:18)
[2019-06-27] MEDS: SOTALOL HCL 80 MG TABLET (FP) PO SCH (22:30)
[2019-06-28] MEDS: NYSTATIN 500,000 UNITS/5 ML SUSPENSION PO SCH ×5 (00:38→23:22)
[2019-06-28] MEDS: methylPREDNISolone NA SUCC 40 MG/1 ML VIAL IVPUSH SCH ×3 (02:38→17:27)
[2019-06-28] MEDS: ALBUTEROL SO4 0.083% IH SOL 2.5 MG/3 ML VIAL.NEB. NEB PRN (03:08)
[2019-06-28] MEDS: ALBUTEROL SO4 2.5/IPRATROPIUM 0.5 INH SOL 3 ML VIAL.NEB. NEB SCH ×4 (07:15→20:42)
[2019-06-28 08:07] LABS: BASO % 0.1 % (0-2.0); HEMATOCRIT 35.1 % (32.4-45.2); HEMOGLOBIN 11.6 GM/dL (10.7-15.3); LYMPH % 5.1 % (8-40); MCH 31.2 pg (25.7-33.7); MCHC 32.9 g/dl (32.0-36.0); MEAN CELL VOLUME 94.8 fl (80-96); MEAN PLT VOLUME 7.5 fl (7.5-11.1); MONO % 7.3 % (3.8-10.2); NEUT % 87.5 % (42.8-82.8); PLATELET COUNT 299 K/MM3 (134-434); RBC 3.71 M/mm3 (3.60-5.2); RDW 15.5 % (11.6-15.6); WHITE BLOOD COUNT 17.5 K/mm3 (4.0-10.0)
[2019-06-28 08:16] LABS: INR 2.21 (0.83-1.09); PROTHROMBIN TIME (PATIENT) 26.3 SEC (9.7-13.0)
[2019-06-28 08:21] LABS: BILIRUBIN,TOTAL 0.8 mg/dL (0.2-1); CREATININE 1.2 mg/dL (0.55-1.3); POTASSIUM 4.7 mmol/L (3.5-5.1); TOT PROT 6.4 g/dl (6.4-8.2)
--- NOTE | 2019-06-28 09:43 | PN ---
Progress Note, Physician History of Present Illness: Dyspnea, cough and wheezes improving. Tolerated PT. - Current Medication List Current Medications: Active Medications Acetaminophen (Tylenol -) 650 mg PO Q4H PRN PRN Reason: PAIN OR FEVER Albuterol Sulfate (Ventolin 0.083% Nebulizer Soln -) 1 amp NEB RQID PRN PRN Reason: SHORT OF BREATH/WHEEZING Last Admin: 06/28/19 03:08 Dose: 1 amp Albuterol/Ipratropium (Duoneb -) 1 amp NEB RQID [facility] Last Admin: 06/28/19 07:15 Dose: 1 amp Apixaban (Eliquis -) 5 mg PO BID [facility] Last Admin: 06/27/19 22:30 Dose: 5 mg Budesonide/Formoterol Fumarate (Symbicort 160/4.5mcg -) 1 puff IH BID [facility] Last Admin: 06/27/19 22:33 Dose: 1 puff Diltiazem HCl (Cardizem Cd -) 300 mg PO DAILY [facility] Last Admin: 06/27/19 12:36 Dose: 300 mg Furosemide (Lasix -) 40 mg PO DAILY [facility] Last Admin: 06/27/19 09:38 Dose: 40 mg Methylprednisolone Sodium Succinate (Solu-Medrol -) 40 mg IVPUSH Q8H-IV [facility] Last Admin: 06/28/19 02:38 Dose: 40 mg Nystatin (Nystatin Oral Suspension -) 500,000 units PO Q6HPO [facility] Last Admin: 06/28/19 06:49 Dose: 500,000 units Pantoprazole Sodium (Protonix -) 40 mg PO DAILY [facility] Last Admin: 06/27/19 09:38 Dose: 40 mg Sotalol HCl (Betapace -) 80 mg PO BID [facility] Last Admin: 06/27/19 22:30 Dose: 80 mg - Objective Vital Signs: Vital Signs Temperature 97.6 F 06/28/19 06:00 Pulse Rate 88 06/28/19 06:00 Respiratory Rate 20 06/28/19 06:00 Blood Pressure 130/78 06/28/19 06:00 O2 Sat by Pulse Oximetry (%) 94 L 06/27/19 21:00 Constitutional: Yes: No Distress, Calm Neck: Yes: Supple Cardiovascular: Yes: Pulse Irregular Respiratory: Yes: Regular, Cough, Diminished, On Nasal O2, SOB Gastrointestinal: Yes: Normal Bowel Sounds, Soft, Abdomen, Obese Edema: Yes Edema: LLE: Trace, RLE: Trace Labs: CBC, BMP 06/28/19 07:10 06/28/19 07:10 INR, PTT INR 2.21 (0.83-1.09) H 06/28/19 07:10 Problem List - Problems (1) COPD exacerbation Code(s): J44.1 - CHRONIC OBSTRUCTIVE PULMONARY DISEASE W (ACUTE) EXACERBATION (2) Acute on chronic diastolic (congestive) heart failure Code(s): I50.33 - ACUTE ON CHRONIC DIASTOLIC (CONGESTIVE) HEART FAILURE (3) Acute on chronic respiratory failure with hypoxia and hypercapnia Code(s): J96.21 - ACUTE AND CHRONIC RESPIRATORY FAILURE WITH HYPOXIA; J96.22 - ACUTE AND CHRONIC RESPIRATORY FAILURE WITH HYPERCAPNIA (4) Atrial fibrillation Code(s): I48.91 - UNSPECIFIED ATRIAL FIBRILLATION Qualifiers: Atrial fibrillation type: paroxysmal Qualified Code(s): I48.0 - Paroxysmal atrial fibrillation (5) Chronic anticoagulation Code(s): Z79.01 - RETIREMENT (CURRENT) USE OF ANTICOAGULANTS (6) Chronic kidney disease Code(s): N18.9 - CHRONIC KIDNEY DISEASE, UNSPECIFIED Qualifiers: Chronic kidney disease stage: stage 2 (mild) Qualified Code(s): N18.2 - Chronic kidney disease, stage 2 (mild) (7) Hypertension Code(s): I10 - ESSENTIAL (PRIMARY) HYPERTENSION Qualifiers: Hypertension type: essential hypertension Qualified Code(s): I10 - Essential (primary) hypertension (8) Pacemaker Code(s): Z95.0 - PRESENCE OF CARDIAC PACEMAKER (9) Pulmonary HTN Code(s): I27.20 - PULMONARY HYPERTENSION, UNSPECIFIED (10) SOB (shortness of breath) Code(s): R06.02 - SHORTNESS OF BREATH Assessment/Plan 03/29/2019 Mild global HK of LV, pacemaker lead, mod LAE, mild CEDRIC, mod TR with mod-severe pulm HTN and Mild AR 04/16/[address]: RLL consolidation, small effusion, mild congestion 05/2018 Echo: Normal LV size and fxn LVEF 60-65%, mild AR, MR, mild-mod TR, mod pulm HTN 01/2019 Carotid US: No sig stenosis 1. Acute on chronic hypoxemic/hypercapneic respiratory failure 2. 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 Chronic diastolic heart failure and pulm HTN 4. Paroxysmal AF with recurrence h/o cardioversion [id number] 4 on Eliquis 5. Sick sinus syndrome s/p Medtronic PPM 6. Suspected OSAS PLAN: 1. Oral diuresis with monitoring diuretic response, renal function and electrolytes 2. Continue Eliquis 5 mg BID, Cardizem CD 300 mg QD, Sotalol 80 mg BID and resume Losartan 25 mg QD as hemodynamics tolerate 3. Bronchodilator, O2 to keep spO2 >90% and IV steroid taper with GI protection 4. Sleep study as outpatient, plan for continued pulm rehab as outpatient 5. Cardiology office follow-up upon discharge
--- NOTE | 2019-06-28 09:59 | PN ---
Progress Note (short form) - Note Progress Note: PULMONARY States breathing is improving but not at baseline. Less cough with yellow sputum and wheezing. Vital Signs Period Temp Pulse Resp BP Sys/Ponce Pulse Ox Last 24 Hr 97.6 F-98.2 F 82-88 20-20 126-131/58-78 94 Gen: NAD at rest Heart: RRR Lung: decreased breath sounds at the bases, no wheezes Abd: soft, nontender Ext: no edema CBC, BMP 06/28/19 07:10 06/28/19 07:10 Active Medications Acetaminophen (Tylenol -) 650 mg PO Q4H PRN PRN Reason: PAIN OR FEVER Albuterol Sulfate (Ventolin 0.083% Nebulizer Soln -) 1 amp NEB RQID PRN PRN Reason: SHORT OF BREATH/WHEEZING Last Admin: 06/28/19 03:08 Dose: 1 amp Albuterol/Ipratropium (Duoneb -) 1 amp NEB RQID [facility] Last Admin: 06/28/19 07:15 Dose: 1 amp Apixaban (Eliquis -) 5 mg PO BID [facility] Last Admin: 06/27/19 22:30 Dose: 5 mg Budesonide/Formoterol Fumarate (Symbicort 160/4.5mcg -) 1 puff IH BID [facility] Last Admin: 06/27/19 22:33 Dose: 1 puff Diltiazem HCl (Cardizem Cd -) 300 mg PO DAILY [facility] Last Admin: 06/27/19 12:36 Dose: 300 mg Furosemide (Lasix -) 40 mg PO DAILY [facility] Last Admin: 06/27/19 09:38 Dose: 40 mg Methylprednisolone Sodium Succinate (Solu-Medrol -) 40 mg IVPUSH Q8H-IV [facility] Last Admin: 06/28/19 02:38 Dose: 40 mg Nystatin (Nystatin Oral Suspension -) 500,000 units PO Q6HPO [facility] Last Admin: 06/28/19 06:49 Dose: 500,000 units Pantoprazole Sodium (Protonix -) 40 mg PO DAILY [facility] Last Admin: 06/27/19 09:38 Dose: 40 mg Sotalol HCl (Betapace -) 80 mg PO BID [facility] Last Admin: 06/27/19 22:30 Dose: 80 mg A/P Acute COPD Exacerbation Acute on Chronic Diastolic Heart Failure Atrial Fibrillation Pulmonary HTN HTN - continue medrol at current dose, can likely change to PO prednisone 40mg daily in AM if continues to improve - inhaled bronchodilators standing and PRN - O2 to keep spO2 >90% - continue lasix - monitor urine output, creatinine - can observe off antibiotics at this time - rate control - continue anticoagulation Problem List - Problems (1) COPD exacerbation Code(s): J44.1 - CHRONIC OBSTRUCTIVE PULMONARY DISEASE W (ACUTE) EXACERBATION (2) Acute on chronic diastolic (congestive) heart failure Code(s): I50.33 - ACUTE ON CHRONIC DIASTOLIC (CONGESTIVE) HEART FAILURE (3) Afib Code(s): I48.91 - UNSPECIFIED ATRIAL FIBRILLATION Qualifiers: Atrial fibrillation type: persistent (4) Hypertension Code(s): I10 - ESSENTIAL (PRIMARY) HYPERTENSION Qualifiers: Hypertension type: essential hypertension Qualified Code(s): I10 - Essential (primary) hypertension
[2019-06-28] MEDS ORDERED: PT OWN MED DRAWER 7, Y5N ONE ×2 (10:02→21:04)
[2019-06-28] MEDS: PANTOPRAZOLE 40 MG TABLET (FP) PO SCH (10:10)
[2019-06-28] MEDS: SOTALOL HCL 80 MG TABLET (FP) PO SCH ×2 (10:10→21:48)
[2019-06-28] MEDS: APIXABAN 5 MG TABLET PO SCH ×2 (10:10→21:48)
[2019-06-28] MEDS: FUROSEMIDE 40 MG TABLET (FP) PO SCH (10:10)
[2019-06-28] MEDS: BUDESONIDE/FORMETEROL FUMARATE 160/4.5 mcg INHALER IH SCH ×2 (10:13→21:48)
--- NOTE | 2019-06-28 10:32 | PN ---
Progress Note (short form) - Note Progress Note: pt examined SOB+ decreased son at bedside Vital Signs - 24 hr 06/27/19 06/27/19 06/27/19 17:20 21:00 22:00 Temperature 98.2 F 97.9 F Pulse Rate 88 82 Respiratory 20 20 Rate Blood Pressure 131/59 L 126/58 L O2 Sat by Pulse 94 L Oximetry (%) 06/28/19 06/28/19 06:00 10:00 Temperature 97.6 F 97.5 F L Pulse Rate 88 98 H Respiratory 20 19 Rate Blood Pressure 130/78 112/56 L O2 Sat by Pulse Oximetry (%) Current Medications Generic Name Dose Route Start Last Admin Trade Name Freq PRN Reason Stop Dose Admin Acetaminophen 650 mg 06/26/19 03:19 Tylenol - PO Q4H PRN PAIN OR FEVER Albuterol Sulfate 1 amp 06/26/19 03:19 06/28/19 03:08 Ventolin 0.083% Nebulizer Soln - NEB 1 amp RQID PRN Administration SHORT OF BREATH/WHEEZING Albuterol/Ipratropium 1 amp 06/27/19 16:00 06/28/19 07:15 Duoneb - NEB 1 amp RQID E[facility]ICE Administration Apixaban 5 mg 06/26/19 10:00 06/28/19 10:10 Eliquis - PO 5 mg BID E[facility]ICE Administration Budesonide/Formoterol Fumarate 1 puff 06/26/19 10:00 06/28/19 10:13 Symbicort 160/4.5mcg - IH 1 puff BID E[facility] Administration Diltiazem HCl 300 mg 06/26/19 10:00 06/28/19 10:10 Cardizem Cd - PO 300 mg DAILY [facility] Administration Furosemide 40 mg 06/26/19 10:00 06/28/19 10:10 Lasix - PO 40 mg DAILY [facility] Administration Methylprednisolone Sodium Succinate 40 mg 06/26/19 10:00 06/28/19 10:10 Solu-Medrol - IVPUSH 40 mg Q8H-IV EUNICE Administration Nystatin 500,000 units 06/26/19 18:00 06/28/19 06:49 Nystatin Oral Suspension - PO 500,000 units Q6HPO [facility] Administration Pantoprazole Sodium 40 mg 06/26/19 10:00 06/28/19 10:10 Protonix - PO 40 mg DAILY [facility] Administration Sotalol HCl 80 mg 06/27/19 22:00 06/28/19 10:10 Betapace - PO 80 mg BID E[facility] Administration Laboratory Results - last 24 hr 06/28/19 06/28/19 06/28/19 07:10 07:10 07:10 WBC 17.5 H RBC 3.71 Hgb 11.6 Hct 35.1 MCV 94.8 MCH 31.2 MCHC 32.9 RDW 15.5 Plt Count 299 MPV 7.5 Absolute Neuts (auto) 15.3 H Neutrophils % 87.5 H D Lymphocytes % 5.1 L D Monocytes % 7.3 Eosinophils % 0.0 D Basophils % 0.1 Nucleated RBC % 0 PT with INR 26.30 H INR 2.21 H Sodium 137 Potassium 4.7 Chloride 97 L Carbon Dioxide 34 H Anion Gap 6 L BUN 34.0 H Creatinine 1.2 Est GFR (CKD-EPI)AfAm 48.74 Est GFR (CKD-EPI)NonAf 42.05 Random Glucose 173 H Calcium 9.0 Total Bilirubin 0.8 AST 35 ALT 37 Alkaline Phosphatase 102 Total Protein 6.4 Albumin 3.0 L S1 S2 Irregular Lungs decreased,minimal ronchi Abd- soft, NT edema +decreased PLAN on solumedrol taper nebs O2 3 liters lasix Pulm eval noted cardiology eval noted OOB PT eval possible PO prednisone in AM and dc planning for Tuesday if ok Problem List - Problems (1) COPD exacerbation Code(s): J44.1 - CHRONIC OBSTRUCTIVE PULMONARY DISEASE W (ACUTE) EXACERBATION (2) GERD (gastroesophageal reflux disease) Code(s): K21.9 - GASTRO-ESOPHAGEAL REFLUX DISEASE WITHOUT ESOPHAGITIS (3) AV block, 2nd degree Code(s): I44.1 - ATRIOVENTRICULAR BLOCK, SECOND DEGREE (4) Afib Code(s): I48.91 - UNSPECIFIED ATRIAL FIBRILLATION Qualifiers: Atrial fibrillation type: persistent (5) COPD exacerbation Code(s): J44.1 - CHRONIC OBSTRUCTIVE PULMONARY DISEASE W (ACUTE) EXACERBATION (6) Chronic kidney disease Code(s): N18.9 - CHRONIC KIDNEY DISEASE, UNSPECIFIED Qualifiers: Chronic kidney disease stage: stage 2 (mild) Qualified Code(s): N18.2 - Chronic kidney disease, stage 2 (mild) (7) Hypertension Code(s): I10 - ESSENTIAL (PRIMARY) HYPERTENSION Qualifiers: Hypertension type: essential hypertension Qualified Code(s): I10 - Essential (primary) hypertension
[2019-06-29] MEDS: methylPREDNISolone NA SUCC 40 MG/1 ML VIAL IVPUSH SCH (01:47)
[2019-06-29] MEDS: ALBUTEROL SO4 0.083% IH SOL 2.5 MG/3 ML VIAL.NEB. NEB PRN (05:15)
[2019-06-29] MEDS: NYSTATIN 500,000 UNITS/5 ML SUSPENSION PO SCH ×3 (06:23→18:55)
[2019-06-29] MEDS: ALBUTEROL SO4 2.5/IPRATROPIUM 0.5 INH SOL 3 ML VIAL.NEB. NEB SCH ×4 (07:35→20:40)
--- NOTE | 2019-06-29 10:32 | PN ---
Progress Note (short form) - Note Progress Note: pt seen/ examined chart reviewed sitting in chair feels better gets sob with walking c/c- dry mouth. Vital Signs Temp 98.3 F 06/29/19 06:00 Pulse 112 H 06/29/19 06:00 Resp 20 06/29/19 06:00 BP 126/81 06/29/19 06:00 Pulse Ox 94 L 06/28/19 21:00 Intake & Output 06/28/19 06/28/19 06/29/19 11:59 23:59 11:59 Intake Total 100 200 700 Balance 100 200 700 Weight 216 lb 6.4 oz 220 lb 4.8 oz Intake: Oral 100 200 700 Other: Voiding Method Toilet Toilet # Unmeasured Voids Void 1 1 1 Bowel Movement Yes: 1 # Bowel Movements 1 Weight Measurement Method Built in Bedscale Built in Bedscale Active Medications Acetaminophen (Tylenol -) 650 mg PO Q4H PRN PRN Reason: PAIN OR FEVER Albuterol Sulfate (Ventolin 0.083% Nebulizer Soln -) 1 amp NEB RQID PRN PRN Reason: SHORT OF BREATH/WHEEZING Last Admin: 06/29/19 05:15 Dose: 1 amp Albuterol/Ipratropium (Duoneb -) 1 amp NEB RQID [facility] Last Admin: 06/29/19 07:35 Dose: 1 amp Apixaban (Eliquis -) 5 mg PO BID [facility] Last Admin: 06/28/19 21:48 Dose: 5 mg Budesonide/Formoterol Fumarate (Symbicort 160/4.5mcg -) 1 puff IH BID [facility] Last Admin: 06/28/19 21:48 Dose: 1 puff Diltiazem HCl (Cardizem Cd -) 300 mg PO DAILY [facility] Last Admin: 06/28/19 10:10 Dose: 300 mg Furosemide (Lasix -) 40 mg PO DAILY [facility] Last Admin: 06/28/19 10:10 Dose: 40 mg Losartan Potassium (Cozaar -) 25 mg PO DAILY [facility] Methylprednisolone Sodium Succinate (Solu-Medrol -) 40 mg IVPUSH BID [facility] Nystatin (Nystatin Oral Suspension -) 500,000 units PO Q6HPO [facility] Last Admin: 06/29/19 06:23 Dose: 500,000 units Pantoprazole Sodium (Protonix -) 40 mg PO DAILY [facility] Last Admin: 06/28/19 10:10 Dose: 40 mg Sotalol HCl (Betapace -) 80 mg PO BID [facility] Last Admin: 06/28/19 21:48 Dose: 80 mg CBC, BMP 06/28/19 07:10 06/28/19 07:10 Physical Exam Awake/ comfortable Thrush + S1 S2 Irregular Lungs decreased,minimal ronchi Abd- soft, NT edema +decreased PLAN on solumedrol tapering nebs O2 3 liters lasix OOB PT eval possible PO prednisone in AM and dc planning for Tuesday if ok Nystatin Mouth wash Problem List - Problems (1) COPD exacerbation Code(s): J44.1 - CHRONIC OBSTRUCTIVE PULMONARY DISEASE W (ACUTE) EXACERBATION (2) GERD (gastroesophageal reflux disease) Code(s): K21.9 - GASTRO-ESOPHAGEAL REFLUX DISEASE WITHOUT ESOPHAGITIS (3) AV block, 2nd degree Code(s): I44.1 - ATRIOVENTRICULAR BLOCK, SECOND DEGREE (4) Afib Code(s): I48.91 - UNSPECIFIED ATRIAL FIBRILLATION Qualifiers: Atrial fibrillation type: persistent (5) COPD exacerbation Code(s): J44.1 - CHRONIC OBSTRUCTIVE PULMONARY DISEASE W (ACUTE) EXACERBATION (6) Chronic kidney disease Code(s): N18.9 - CHRONIC KIDNEY DISEASE, UNSPECIFIED Qualifiers: Chronic kidney disease stage: stage 2 (mild) Qualified Code(s): N18.2 - Chronic kidney disease, stage 2 (mild) (7) Hypertension Code(s): I10 - ESSENTIAL (PRIMARY) HYPERTENSION Qualifiers: Hypertension type: essential hypertension Qualified Code(s): I10 - Essential (primary) hypertension
--- NOTE | 2019-06-29 10:33 | PN ---
Progress Note, Physician History of Present Illness: Dyspnea, cough and wheezes improving. OOB in chair. - Current Medication List Current Medications: Active Medications Acetaminophen (Tylenol -) 650 mg PO Q4H PRN PRN Reason: PAIN OR FEVER Albuterol Sulfate (Ventolin 0.083% Nebulizer Soln -) 1 amp NEB RQID PRN PRN Reason: SHORT OF BREATH/WHEEZING Last Admin: 06/29/19 05:15 Dose: 1 amp Albuterol/Ipratropium (Duoneb -) 1 amp NEB RQID [facility] Last Admin: 06/29/19 07:35 Dose: 1 amp Apixaban (Eliquis -) 5 mg PO BID [facility] Last Admin: 06/28/19 21:48 Dose: 5 mg Budesonide/Formoterol Fumarate (Symbicort 160/4.5mcg -) 1 puff IH BID [facility] Last Admin: 06/28/19 21:48 Dose: 1 puff Diltiazem HCl (Cardizem Cd -) 300 mg PO DAILY [facility] Last Admin: 06/28/19 10:10 Dose: 300 mg Furosemide (Lasix -) 40 mg PO DAILY [facility] Last Admin: 06/28/19 10:10 Dose: 40 mg Losartan Potassium (Cozaar -) 25 mg PO DAILY [facility] Methylprednisolone Sodium Succinate (Solu-Medrol -) 40 mg IVPUSH BID [facility] Nystatin (Nystatin Oral Suspension -) 500,000 units PO Q6HPO [facility] Last Admin: 06/29/19 06:23 Dose: 500,000 units Pantoprazole Sodium (Protonix -) 40 mg PO DAILY [facility] Last Admin: 06/28/19 10:10 Dose: 40 mg Sotalol HCl (Betapace -) 80 mg PO BID [facility] Last Admin: 06/28/19 21:48 Dose: 80 mg - Objective Vital Signs: Vital Signs Temperature 98.3 F 06/29/19 06:00 Pulse Rate 112 H 06/29/19 06:00 Respiratory Rate 20 06/29/19 06:00 Blood Pressure 126/81 06/29/19 06:00 O2 Sat by Pulse Oximetry (%) 94 L 06/28/19 21:00 Constitutional: Yes: No Distress, Calm Neck: Yes: Supple Cardiovascular: Yes: Regular Rate and Rhythm Respiratory: Yes: Regular, Diminished, On Nasal O2 Gastrointestinal: Yes: Soft, Hypoactive Bowel Sounds Edema: Yes Edema: LLE: Trace, RLE: Trace Labs: CBC, BMP 06/28/19 07:10 06/28/19 07:10 INR, PTT INR 2.21 (0.83-1.09) H 06/28/19 07:10 Problem List - Problems (1) COPD exacerbation Code(s): J44.1 - CHRONIC OBSTRUCTIVE PULMONARY DISEASE W (ACUTE) EXACERBATION (2) Acute on chronic diastolic (congestive) heart failure Code(s): I50.33 - ACUTE ON CHRONIC DIASTOLIC (CONGESTIVE) HEART FAILURE (3) Acute on chronic respiratory failure with hypoxia and hypercapnia Code(s): J96.21 - ACUTE AND CHRONIC RESPIRATORY FAILURE WITH HYPOXIA; J96.22 - ACUTE AND CHRONIC RESPIRATORY FAILURE WITH HYPERCAPNIA (4) Atrial fibrillation Code(s): I48.91 - UNSPECIFIED ATRIAL FIBRILLATION Qualifiers: Atrial fibrillation type: paroxysmal Qualified Code(s): I48.0 - Paroxysmal atrial fibrillation (5) Chronic anticoagulation Code(s): Z79.01 - DETENTION (CURRENT) USE OF ANTICOAGULANTS (6) Chronic kidney disease Code(s): N18.9 - CHRONIC KIDNEY DISEASE, UNSPECIFIED Qualifiers: Chronic kidney disease stage: stage 2 (mild) Qualified Code(s): N18.2 - Chronic kidney disease, stage 2 (mild) (7) Hypertension Code(s): I10 - ESSENTIAL (PRIMARY) HYPERTENSION Qualifiers: Hypertension type: essential hypertension Qualified Code(s): I10 - Essential (primary) hypertension (8) Pacemaker Code(s): Z95.0 - PRESENCE OF CARDIAC PACEMAKER (9) Pulmonary HTN Code(s): I27.20 - PULMONARY HYPERTENSION, UNSPECIFIED (10) SOB (shortness of breath) Code(s): R06.02 - SHORTNESS OF BREATH Assessment/Plan 03/29/2019 Mild global HK of LV, pacemaker lead, mod LAE, mild CEDRIC, mod TR with mod-severe pulm HTN and Mild AR 04/16/[address]: RLL consolidation, small effusion, mild congestion 05/2018 Echo: Normal LV size and fxn LVEF 60-65%, mild AR, MR, mild-mod TR, mod pulm HTN 01/2019 Carotid US: No sig stenosis 1. Acute on chronic hypoxemic/hypercapneic respiratory failure 2. 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 Chronic diastolic heart failure and pulm HTN 4. Paroxysmal AF with recurrence h/o cardioversion [id number] 4 on Eliquis 5. Sick sinus syndrome s/p Medtronic PPM 6. Suspected OSAS PLAN: 1. Oral diuresis with monitoring diuretic response, renal function and electrolytes 2. Continue Eliquis 5 mg BID, Cardizem CD 300 mg QD, Sotalol 80 mg BID and Losartan 25 mg QD as hemodynamics tolerate 3. Bronchodilator, O2 to keep spO2 >90% and IV steroid taper with GI protection 4. Sleep study as outpatient, plan for continued pulm rehab as outpatient 5. Cardiology office follow-up upon discharge
[2019-06-29] MEDS ORDERED: PT OWN MED DRAWER 7, Y5N ONE ×2 (11:05→20:17)
[2019-06-29] MEDS: LOSARTAN POTASSIUM 25 MG TABLET PO SCH (11:13)
[2019-06-29] MEDS: SOTALOL HCL 80 MG TABLET (FP) PO SCH ×2 (11:13→21:40)
[2019-06-29] MEDS: APIXABAN 5 MG TABLET PO SCH ×2 (11:14→21:40)
[2019-06-29] MEDS: PANTOPRAZOLE 40 MG TABLET (FP) PO SCH (11:14)
[2019-06-29] MEDS: FUROSEMIDE 40 MG TABLET (FP) PO SCH (11:14)
[2019-06-29] MEDS: BUDESONIDE/FORMETEROL FUMARATE 160/4.5 mcg INHALER IH SCH ×2 (11:17→21:41)
--- NOTE | 2019-06-29 13:12 | PN ---
Progress Note (short form) - Note Progress Note: PULMONARY OOB TO CHAIR VSS/AFEBRILE SPO2 88-90% ON O2 ANICTERIC DIMINISHED BUT CLEAR BREATH SOUNDS S1S2 BS+ NO EDEMA LABS/MEDS/NOTES/IMAGES REVIEWED A/P Acute COPD Exacerbation Acute on Chronic Diastolic Heart Failure Atrial Fibrillation Pulmonary HTN HTN - change to PO prednisone 40mg daily - inhaled bronchodilators standing and PRN - O2 to keep spO2 >90% - continue lasix - monitor urine output, creatinine - can observe off antibiotics at this time - rate control - continue anticoagulation Emily GALINDO MD
[2019-06-29] MEDS: predniSONE 20 MG TABLET (UD) PO SCH (14:53)
[2019-06-29] MEDS ORDERED: methylPREDNISolone NA SUCC 40 MG/1 ML VIAL IVPUSH SCH (22:00)
[2019-06-30] MEDS: NYSTATIN 500,000 UNITS/5 ML SUSPENSION PO SCH ×4 (00:16→18:20)
[2019-06-30] MEDS: ALBUTEROL SO4 2.5/IPRATROPIUM 0.5 INH SOL 3 ML VIAL.NEB. NEB SCH ×3 (07:35→15:29)
[2019-06-30] MEDS ORDERED: PT OWN MED DRAWER 7, Y5N ONE (09:30)
[2019-06-30] MEDS: SOTALOL HCL 80 MG TABLET (FP) PO SCH (09:32)
[2019-06-30] MEDS: predniSONE 20 MG TABLET (UD) PO SCH (09:32)
[2019-06-30] MEDS: LOSARTAN POTASSIUM 25 MG TABLET PO SCH (09:32)
[2019-06-30] MEDS: PANTOPRAZOLE 40 MG TABLET (FP) PO SCH (09:33)
[2019-06-30] MEDS: FUROSEMIDE 40 MG TABLET (FP) PO SCH (09:33)
[2019-06-30] MEDS: APIXABAN 5 MG TABLET PO SCH (09:33)
[2019-06-30] MEDS: BUDESONIDE/FORMETEROL FUMARATE 160/4.5 mcg INHALER IH SCH (09:34)
--- NOTE | 2019-06-30 11:03 | DS ---
Physical Examination Vital Signs: Vital Signs Temperature 98.0 F 06/29/19 21:42 Pulse Rate 85 06/29/19 21:42 Respiratory Rate 18 06/29/19 21:42 Blood Pressure 135/90 06/29/19 21:42 O2 Sat by Pulse Oximetry (%) 94 L 06/29/19 21:00 Findings/Remarks: feels much better all f/u noted Constitutional: Yes: No Distress, Calm Eyes: Yes: Conjunctiva Clear HENT: Yes: Other (thrush much better) Neck: Yes: Supple Cardiovascular: Yes: Pulse Irregular Respiratory: Yes: Diminished Gastrointestinal: Yes: Soft, Abdomen, Obese Edema: No Neurological: Yes: Alert Psychiatric: Yes: Alert Labs: CBC, BMP 06/28/19 07:10 06/28/19 07:10 Discharge Summary Problems reviewed: Yes Reason For Visit: CONGESTIVE HEART FAILURE, ACUTE EXACERBATION OF Current Active Problems CHF exacerbation (Acute) COPD exacerbation (Acute) GERD (gastroesophageal reflux disease) (Acute) Hospital Course: 83 year old female with PMHx asthma, COPD, CHF, HTN, Afib with RVR s/p pacemaker on eliquis arrived to ED with complain of dyspnea.. found in copd exac treated with steroids pulmonary followed much better- Baseline Stable for d/c home pt has home oxygen meds reconcilled/ send to pharmacy as needed. f/u with Dr. Phillips in office in one week F/u with cardiology/ Pulmonary as advised Pt in agreement D/W RN also Condition: Improved - Instructions Referrals: Chelsea Phillips MD [Primary Care Provider] - Disposition: HOME - Home Medications Comprehensive Discharge Medication List: Ambulatory Orders Apixaban [Eliquis -] 5 mg PO BID #0 tablet 11/05/15 Fluticasone/Salmeterol [Advair 250-50 Diskus] 1 each IH BID 02/11/16 Albuterol 0.083% Nebulizer Nica [Ventolin 0.083% Nebulizer Soln -] 1 amp NEB RQ4H amp 04/01/19 Diltiazem Cd [Cardizem Cd -] 300 mg PO DAILY 04/14/19 Furosemide [Lasix] 40 mg PO DAILY 04/14/19 Potassium Chloride [Klor-Con] 20 meq PO DAILY 06/14/19 Tiotropium Olar [Spiriva] 1 inh PO DAILY 06/14/19 Pantoprazole Sodium [Protonix] 40 mg PO DAILY 06/15/19 Nystatin/Dpha/Lido/Sucrafate [Nystatin Mouth Rinse *Df Formula*] 5 ml MM DAILY # 1 bottle 06/16/19 Sotalol HCl [Betapace -] 80 mg PO BID #60 tablet 06/16/19 Cholecalciferol (Vitamin D3) [Vitamin D3 -] 1,000 unit PO DAILY 06/26/19 Losartan Potassium [Cozaar -] 25 mg PO DAILY 30 Days #30 tablet 06/30/19 predniSONE [Deltasone -] 10 mg PO DAILY #60 tablet 06/30/19
--- NOTE | 2019-06-30 11:32 | PN ---
Progress Note (short form) - Note Progress Note: breathing is overall improved. No CP or SOB. No acute events overnight. Intake & Output 06/27/19 06/28/19 06/29/19 06/30/19 23:59 23:59 23:59 23:59 Intake Total 9352 783 9852 Balance 7703 460 9701 Weight 220 lb 1.6 oz 216 lb 6.4 oz 220 lb 4.8 oz Last Vital Signs Temp Pulse Resp BP Pulse Ox 98.0 F 85 18 135/90 94 L 06/29/19 21:42 06/29/19 21:42 06/29/19 21:42 06/29/19 21:42 06/29/19 21:00 Active Medications Acetaminophen (Tylenol -) 650 mg PO Q4H PRN PRN Reason: PAIN OR FEVER Albuterol Sulfate (Ventolin 0.083% Nebulizer Soln -) 1 amp NEB RQID PRN PRN Reason: SHORT OF BREATH/WHEEZING Last Admin: 06/29/19 05:15 Dose: 1 amp Albuterol/Ipratropium (Duoneb -) 1 amp NEB RQID [facility] Last Admin: 06/30/19 07:35 Dose: 1 amp Apixaban (Eliquis -) 5 mg PO BID [facility] Last Admin: 06/30/19 09:33 Dose: 5 mg Budesonide/Formoterol Fumarate (Symbicort 160/4.5mcg -) 1 puff IH BID [facility] Last Admin: 06/30/19 09:34 Dose: 1 puff Diltiazem HCl (Cardizem Cd -) 300 mg PO DAILY [facility] Last Admin: 06/30/19 09:32 Dose: 300 mg Furosemide (Lasix -) 40 mg PO DAILY [facility] Last Admin: 06/30/19 09:33 Dose: 40 mg Losartan Potassium (Cozaar -) 25 mg PO DAILY [facility] Last Admin: 06/30/19 09:32 Dose: 25 mg Nystatin (Nystatin Oral Suspension -) 500,000 units PO Q6HPO [facility] Last Admin: 06/30/19 05:57 Dose: 500,000 units Pantoprazole Sodium (Protonix -) 40 mg PO DAILY [facility] Last Admin: 06/30/19 09:33 Dose: 40 mg Prednisone (Deltasone -) 40 mg PO DAILY [facility] Last Admin: 06/30/19 09:32 Dose: 40 mg Sotalol HCl (Betapace -) 80 mg PO BID [facility] Last Admin: 06/30/19 09:32 Dose: 80 mg Gen: NAD at rest Heart: RRR Lung: decreased breath sounds at the bases, no wheezes Abd: soft, nontender Ext: no edema Problem List - Problems (1) COPD exacerbation Code(s): J44.1 - CHRONIC OBSTRUCTIVE PULMONARY DISEASE W (ACUTE) EXACERBATION (2) Acute on chronic diastolic (congestive) heart failure Code(s): I50.33 - ACUTE ON CHRONIC DIASTOLIC (CONGESTIVE) HEART FAILURE (3) Afib Code(s): I48.91 - UNSPECIFIED ATRIAL FIBRILLATION Qualifiers: Atrial fibrillation type: persistent (4) Hypertension Code(s): I10 - ESSENTIAL (PRIMARY) HYPERTENSION Qualifiers: Hypertension type: essential hypertension Qualified Code(s): I10 - Essential (primary) hypertension A/P Acute COPD Exacerbation Acute on Chronic Diastolic Heart Failure Atrial Fibrillation Pulmonary HTN HTN - Prednisone taper - Patient has home O2 - Has follow up with Dr Campbell on the Dr Davalos
[2019-06-30] MEDS ORDERED: INSULIN (NOVOLOG) ASPART 100 UNITS/ML 10ML VIAL ONE ×2 (11:50→17:02)
--- NOTE | 2019-06-30 13:26 | PN ---
Progress Note, Physician History of Present Illness: Dyspnea, cough and wheezes improving. OOB in chair. - Current Medication List Current Medications: Active Medications Acetaminophen (Tylenol -) 650 mg PO Q4H PRN PRN Reason: PAIN OR FEVER Albuterol Sulfate (Ventolin 0.083% Nebulizer Soln -) 1 amp NEB RQID PRN PRN Reason: SHORT OF BREATH/WHEEZING Last Admin: 06/29/19 05:15 Dose: 1 amp Albuterol/Ipratropium (Duoneb -) 1 amp NEB RQID [facility] Last Admin: 06/30/19 11:54 Dose: 1 amp Apixaban (Eliquis -) 5 mg PO BID [facility] Last Admin: 06/30/19 09:33 Dose: 5 mg Budesonide/Formoterol Fumarate (Symbicort 160/4.5mcg -) 1 puff IH BID [facility] Last Admin: 06/30/19 09:34 Dose: 1 puff Diltiazem HCl (Cardizem Cd -) 300 mg PO DAILY [facility] Last Admin: 06/30/19 09:32 Dose: 300 mg Furosemide (Lasix -) 40 mg PO DAILY [facility] Last Admin: 06/30/19 09:33 Dose: 40 mg Losartan Potassium (Cozaar -) 25 mg PO DAILY [facility] Last Admin: 06/30/19 09:32 Dose: 25 mg Nystatin (Nystatin Oral Suspension -) 500,000 units PO Q6HPO [facility] Last Admin: 06/30/19 11:57 Dose: 500,000 units Pantoprazole Sodium (Protonix -) 40 mg PO DAILY [facility] Last Admin: 06/30/19 09:33 Dose: 40 mg Prednisone (Deltasone -) 40 mg PO DAILY [facility] Last Admin: 06/30/19 09:32 Dose: 40 mg Sotalol HCl (Betapace -) 80 mg PO BID [facility] Last Admin: 06/30/19 09:32 Dose: 80 mg - Objective Vital Signs: Vital Signs Temperature 97.8 F 06/30/19 08:10 Pulse Rate 88 06/30/19 08:10 Respiratory Rate 18 06/30/19 08:10 Blood Pressure 120/48 L 06/30/19 08:10 O2 Sat by Pulse Oximetry (%) 97 06/30/19 09:00 Constitutional: Yes: No Distress, Calm Neck: Yes: Supple Cardiovascular: Yes: Regular Rate and Rhythm Respiratory: Yes: Regular, Diminished, On Nasal O2 Gastrointestinal: Yes: Normal Bowel Sounds, Soft Edema: Yes Edema: LLE: 1+, RLE: 1+ Labs: CBC, BMP 06/28/19 07:10 06/28/19 07:10 INR, PTT INR 2.21 (0.83-1.09) H 06/28/19 07:10 Problem List - Problems (1) COPD exacerbation Code(s): J44.1 - CHRONIC OBSTRUCTIVE PULMONARY DISEASE W (ACUTE) EXACERBATION (2) Acute on chronic diastolic (congestive) heart failure Code(s): I50.33 - ACUTE ON CHRONIC DIASTOLIC (CONGESTIVE) HEART FAILURE (3) Acute on chronic respiratory failure with hypoxia and hypercapnia Code(s): J96.21 - ACUTE AND CHRONIC RESPIRATORY FAILURE WITH HYPOXIA; J96.22 - ACUTE AND CHRONIC RESPIRATORY FAILURE WITH HYPERCAPNIA (4) Atrial fibrillation Code(s): I48.91 - UNSPECIFIED ATRIAL FIBRILLATION Qualifiers: Atrial fibrillation type: paroxysmal Qualified Code(s): I48.0 - Paroxysmal atrial fibrillation (5) Chronic anticoagulation Code(s): Z79.01 - [employer]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 OF ANTICOAGULANTS (6) Chronic kidney disease Code(s): N18.9 - CHRONIC KIDNEY DISEASE, UNSPECIFIED Qualifiers: Chronic kidney disease stage: stage 2 (mild) Qualified Code(s): N18.2 - Chronic kidney disease, stage 2 (mild) (7) Hypertension Code(s): I10 - ESSENTIAL (PRIMARY) HYPERTENSION Qualifiers: Hypertension type: essential hypertension Qualified Code(s): I10 - Essential (primary) hypertension (8) Pacemaker Code(s): Z95.0 - PRESENCE OF CARDIAC PACEMAKER (9) Pulmonary HTN Code(s): I27.20 - PULMONARY HYPERTENSION, UNSPECIFIED (10) SOB (shortness of breath) Code(s): R06.02 - SHORTNESS OF BREATH Assessment/Plan 03/29/2019 Mild global HK of LV, pacemaker lead, mod LAE, mild CEDRIC, mod TR with mod-severe pulm HTN and Mild AR 04/16/[address]: RLL consolidation, small effusion, mild congestion 05/2018 Echo: Normal LV size and fxn LVEF 60-65%, mild AR, MR, mild-mod TR, mod pulm HTN 01/2019 Carotid US: No sig stenosis 1. Acute on chronic hypoxemic/hypercapneic respiratory failure 2. 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 Chronic diastolic heart failure and pulm HTN 4. Paroxysmal AF with recurrence h/o cardioversion [id number] 4 on Eliquis 5. Sick sinus syndrome s/p Medtronic PPM 6. Suspected OSAS PLAN: 1. Oral diuresis with monitoring diuretic response, renal function and electrolytes 2. Continue Eliquis 5 mg BID, Cardizem CD 300 mg QD, Sotalol 80 mg BID and Losartan 25 mg QD as hemodynamics tolerate 3. Bronchodilator, O2 to keep spO2 >90% and IV steroid taper with GI protection 4. Sleep study as outpatient, plan for continued pulm rehab as outpatient 5. Cardiology office follow-up upon discharge
[2019-06-30 17:28] VITALS: BP 103/64; PULSE 87; TEMP 97.8
--- NOTE | 2019-06-30 18:30 | HOSP ---
Physical Examination Vital Signs: Vital Signs Temperature 97.8 F 06/30/19 17:27 Pulse Rate 87 06/30/19 17:27 Respiratory Rate 20 06/30/19 17:27 Blood Pressure 103/64 06/30/19 17:27 O2 Sat by Pulse Oximetry (%) 97 06/30/19 09:00 Labs: CBC, BMP 06/28/19 07:10 06/28/19 07:10 Hospitalist Encounter Assessment: called by nursing this evening to speak to son and patient. Patient would like to be discharged home today. Discharge was held earlier due to conversation with Son and Dr. Hodges, son was enquiring if patient would benefit from Rehab. I spoke to patient who does not want to go to Rehab, and would like to be discharged home. Son also requesting to take her home today. Called and d/w Dr. Hodges-patient can be discharged. prescriptions sent to pharmacy earlier today (cozaar, Prednisone) by Dr. Hodges. Verified with patient, states she has all other home meds at home. pt will follow up with PCP, Cardio, Pulm. Spoke to RN Shade Matcher Ms. Malou Owens who will contact for visiting Nurse for patient.
== END 2019-06-30 19:00 | disposition home or self-care (01) | DRG 291 ==
LOC: JER 23:11 → JERBED 06-26 01:52 → J8W 06-26 18:21
PROVIDERS: ADMIT Internal Medicine; ATTEND Internal Medicine
DX: I13.0 Hypertensive heart and chronic kidney disease with heart failure and stage 1 through stage 4 chronic kidney disease, or unspecified chronic kidney disease (principal); J96.21 Acute and chronic respiratory failure with hypoxia; J96.22 Acute and chronic respiratory failure with hypercapnia; I50.33 Acute on chronic diastolic (congestive) heart failure; J44.1 Chronic obstructive pulmonary disease with (acute) exacerbation; I27.20 Pulmonary hypertension, unspecified; I08.0 Rheumatic disorders of both mitral and aortic valves; E05.90 Thyrotoxicosis, unspecified without thyrotoxic crisis or storm; K21.9 Gastro-esophageal reflux disease without esophagitis; R94.31 Abnormal electrocardiogram [ECG] [EKG]; I44.1 Atrioventricular block, second degree; N18.2 Chronic kidney disease, stage 2 (mild); I48.0 Paroxysmal atrial fibrillation; G47.33 Obstructive sleep apnea (adult) (pediatric); E66.9 Obesity, unspecified; Z99.81 Dependence on supplemental oxygen; Z79.01 Long term (current) use of anticoagulants; Z95.0 Presence of cardiac pacemaker; Z68.35 Body mass index [BMI] 35.0-35.9, adult
CPT/HCPCS: 36415; 71045-TC-FY; 80053; 82550; 83880; 84484; 85025; 85610; 93005; 93010; 94640; 97116-GP; 97161-GP; 99284-25

== ENCOUNTER 2019-07-09 13:24 | Day surgery (SDC) | payer OTHER ==
[2019-07-09 15:59] VITALS: BMI 35.5
[2019-07-09 16:58] VITALS: PULSE 91
[2019-07-09 18:00] VITALS: BP 138/76; TEMP 98.4
--- NOTE | 2019-07-10 12:10 | EKG ---
Test Reason : Blood Pressure : / mmHG Vent. Rate : 091 BPM Atrial Rate : 091 BPM P-R Int : 198 ms QRS Dur : 076 ms QT Int : 380 ms P-R-T Axes : 065 007 113 degrees QTc Int : 467 ms POOR DATA QUALITY, INTERPRETATION MAY BE ADVERSELY AFFECTED NORMAL SINUS RHYTHM T WAVE ABNORMALITY, CONSIDER LATERAL ISCHEMIA ABNORMAL ECG Confirmed by Vazquez Dang MD ([id number]) on 07/10/2019 12:10:07 PM Referred By: Jordy Simpson Confirmed By:Vazquez Dang MD
== END 2019-07-09 17:59 | disposition home or self-care (01) ==
LOC: JASU-ENDO 13:24
PROVIDERS: ATTEND Internal Medicine Cardiovascular Disease
PROC: 5A2204Z Restoration of Cardiac Rhythm, Single (ICD-10-PCS; principal; 2019-07-09 12:15)
DX: I48.91 Unspecified atrial fibrillation (principal); J44.9 Chronic obstructive pulmonary disease, unspecified
CPT/HCPCS: 92960; 93005; 93010

== ENCOUNTER 2019-09-03 11:05 | Day surgery (SDC) | payer OTHER ==
[2019-08-31 14:47] VITALS: BMI 36.3
--- NOTE | 2019-09-03 13:20 | EKG ---
Test Reason : Blood Pressure : / mmHG Vent. Rate : 089 BPM Atrial Rate : 089 BPM P-R Int : 214 ms QRS Dur : 088 ms QT Int : 442 ms P-R-T Axes : 053 008 063 degrees QTc Int : 537 ms SINUS RHYTHM WITH 1ST DEGREE A-V BLOCK PROLONGED QT ABNORMAL ECG WHEN COMPARED WITH ECG OF 09-JUL-2019 16:47, NO SIGNIFICANT CHANGE WAS FOUND Confirmed by JORDY FREEMAN MD ([id number]) on 09/03/2019 1:20:17 PM Referred By: Jordy Freeman Confirmed By:JORDY FREEMAN MD
== END 2019-09-03 12:30 | disposition home or self-care (01) ==
LOC: JASU-ENDO 11:05
PROVIDERS: ATTEND Internal Medicine Cardiovascular Disease
DX: Z53.8 Procedure and treatment not carried out for other reasons (principal)
CPT/HCPCS: 93005; 93010

== ENCOUNTER 2023-01-27 12:00 | Inpatient (IN) | payer OTHER ==
[2023-01-27] MEDS ORDERED: MAGNESIUM SULF 50% (8.12 MEQ/2 ML-1 GM VIAL) IVPB ONE (12:36)
[2023-01-27] MEDS ORDERED: methylPREDNISolone NA SUCC 125 MG/2 ML VIAL IVPUSH ONE (12:36)
[2023-01-27] MEDS ORDERED: ALBUTEROL SO4 2.5/IPRATROPIUM 0.5 INH SOL 3 ML VIAL.NEB. NEB ONE (13:05)
[2023-01-27] MEDS ORDERED: AZITHROMYCIN IVPB 500 MG/250 ML BAG IVPB ONE (13:05)
[2023-01-27] MEDS ORDERED: methylPREDNISolone NA SUCC 125 MG/2 ML VIAL ONE (13:05)
[2023-01-27] MEDS ORDERED: MAGNESIUM SULFATE IN WATER 2 GM/50 ML IVPB IVPB ONE (13:05)
[2023-01-27 13:13] LABS: VENOUS BASE EXCESS 6.7 mmol/L (-2-2); VENOUS O2 SATURATION 45.5 % (70-80); VENOUS PCO2 55.9 mmHg (38-52); VENOUS PH 7.4 (7.310-7.410)
[2023-01-27] MEDS: AZITHROMYCIN IVPB 500 MG in DEXTROSE 5%-WATER - 250 ML IVPB ONE ×2 (13:15→13:44)
[2023-01-27] MEDS: ALBUTEROL SO4 2.5/IPRATROPIUM 0.5 INH SOL 3 ML VIAL.NEB. NEB SCH ×5 (13:26→13:44)
[2023-01-27 13:32] LABS: BASO % 0.6 % (0-2.0); EOS % 0.7 % (0-4.5); HEMATOCRIT 36.6 % (32.4-45.2); HEMOGLOBIN 12.2 GM/dL (10.7-15.3); LYMPH % 16.1 % (8-40); MCH 31.1 pg (25.7-33.7); MCHC 33.3 g/dl (32.0-36.0); MEAN CELL VOLUME 93.3 fl (80-96); MEAN PLT VOLUME 7.5 fl (7.5-11.1); MONO % 17.2 % (3.8-10.2); NEUT % 65.4 % (42.8-82.8); PLATELET COUNT 250 10^3/uL (134-434); RBC 3.92 M/mm3 (3.60-5.2); RDW 14.6 % (11.6-15.6); WHITE BLOOD COUNT 8.8 K/mm3 (4.0-10.0)
[2023-01-27 13:39] LABS: INR 2.51 (0.83-1.09); PROTHROMBIN TIME (PATIENT) 28.9 SEC (9.7-13.0)
[2023-01-27 13:42] LABS: ACTIVATED PTT 46.3 SECONDS (25.2-36.5)
[2023-01-27 13:55] LABS: POTASSIUM 3.8 mmol/L (3.5-5.1)
[2023-01-27 13:57] LABS: CALCIUM 8.3 mg/dL (8.5-10.1)
[2023-01-27 13:58] LABS: ALBUMIN 3.2 g/dl (3.4-5.0); BLOOD UREA NITROGEN 20.2 mg/dL (7-18); MAGNESIUM 1.9 mg/dL (1.8-2.4)
[2023-01-27 14:01] LABS: CREATININE 1.3 mg/dL (0.55-1.3)
[2023-01-27 14:02] LABS: TOT PROT 7.1 g/dl (6.4-8.2)
[2023-01-27 14:03] LABS: BILIRUBIN,TOTAL 0.8 mg/dL (0.2-1)
[2023-01-27] MEDS ORDERED: CEFTRIAXONE 1 GM in DEXTROSE 5%-WATER - 100 ML IVPB ONE (16:17)
[2023-01-27] MEDS ORDERED: CEFTRIAXONE 1 GM/50 ML BAG ONE (16:54)
[2023-01-27] MEDS ORDERED: ALBUTEROL SO4 2.5/IPRATROPIUM 0.5 INH SOL 3 ML VIAL.NEB. NEB PRN (20:17)
[2023-01-27] MEDS ORDERED: ALBUTEROL SO4 0.083% IH SOL 2.5 MG/3 ML VIAL.NEB. NEB PRN (20:25)
[2023-01-27] MEDS: SOTALOL HCL 80 MG TABLET (FP) PO SCH (22:02)
[2023-01-27] MEDS: APIXABAN 5 MG TABLET PO SCH (22:02)
[2023-01-27 23:05] VITALS: BMI 36.5
[2023-01-28] MEDS: methylPREDNISolone NA SUCC 40 MG/1 ML VIAL IVPUSH SCH ×3 (01:16→17:22)
[2023-01-28 07:23] LABS: BASO % 0.1 % (0-2.0); HEMATOCRIT 36.4 % (32.4-45.2); LYMPH % 7.7 % (8-40); MCH 30.9 pg (25.7-33.7); MCHC 33.1 g/dl (32.0-36.0); MEAN CELL VOLUME 93.3 fl (80-96); MEAN PLT VOLUME 7.6 fl (7.5-11.1); MONO % 7.7 % (3.8-10.2); NEUT % 84.5 % (42.8-82.8); PLATELET COUNT 242 10^3/uL (134-434); RDW 14.6 % (11.6-15.6); WHITE BLOOD COUNT 9.5 K/mm3 (4.0-10.0)
[2023-01-28 07:38] LABS: POTASSIUM 4.3 mmol/L (3.5-5.1)
[2023-01-28 07:55] LABS: CALCIUM 8.9 mg/dL (8.5-10.1)
[2023-01-28 07:56] LABS: BLOOD UREA NITROGEN 26.3 mg/dL (7-18)
[2023-01-28 07:57] LABS: TOT PROT 7.1 g/dl (6.4-8.2)
[2023-01-28 07:59] LABS: CREATININE 1.3 mg/dL (0.55-1.3)
[2023-01-28 08:00] LABS: BILIRUBIN,TOTAL 0.4 mg/dL (0.2-1)
[2023-01-28] MEDS: PANTOPRAZOLE 40 MG TABLET PO SCH (09:17)
[2023-01-28] MEDS: APIXABAN 5 MG TABLET PO SCH ×2 (09:17→21:29)
[2023-01-28] MEDS: CHOLECALCIFEROL (VIT D3) 1,000 UNIT (25 MCG) TABLET PO SCH (09:17)
[2023-01-28] MEDS: LOSARTAN POTASSIUM 25 MG TABLET PO SCH (09:17)
[2023-01-28] MEDS: FUROSEMIDE 40 MG TABLET (FP) PO SCH (09:17)
[2023-01-28] MEDS: SOTALOL HCL 80 MG TABLET (FP) PO SCH ×2 (09:17→21:29)
[2023-01-28] MEDS: TIOTROPIUM BROMIDE 2.5 MCG (SPIRIVA) RESPIMAT INHALER IH SCH (09:19)
[2023-01-29] MEDS: methylPREDNISolone NA SUCC 40 MG/1 ML VIAL IVPUSH SCH ×3 (01:50→17:18)
[2023-01-29] MEDS: FUROSEMIDE 40 MG TABLET (FP) PO SCH (11:33)
[2023-01-29] MEDS: CHOLECALCIFEROL (VIT D3) 1,000 UNIT (25 MCG) TABLET PO SCH (11:33)
[2023-01-29] MEDS: APIXABAN 5 MG TABLET PO SCH ×2 (11:34→22:15)
[2023-01-29] MEDS: SOTALOL HCL 80 MG TABLET (FP) PO SCH ×2 (11:34→22:15)
[2023-01-29] MEDS: TIOTROPIUM BROMIDE 2.5 MCG (SPIRIVA) RESPIMAT INHALER IH SCH ×2 (11:34→12:03)
[2023-01-29] MEDS: PANTOPRAZOLE 40 MG TABLET PO SCH (11:34)
[2023-01-29] MEDS: LOSARTAN POTASSIUM 25 MG TABLET PO SCH (11:34)
[2023-01-29] MEDS ORDERED: FUROSEMIDE 40 MG/4 ML INJECTABLE VIAL IVPUSH ONE (11:59)
[2023-01-29 12:03] LABS: ARTERIAL BLD GAS O2 SATURATION 94.1 % (95-98); ARTERIAL BLOOD GAS BASE EXCESS 3.4 mmol/L (-2-2); ARTERIAL BLOOD GAS PO2 67.7 mmHg (80-100); ARTERIAL BLOOD GAS pH 7.441 (7.350-7.450)
[2023-01-29 12:04] LABS: ALLENS TEST POSITIVE
[2023-01-30] MEDS: methylPREDNISolone NA SUCC 40 MG/1 ML VIAL IVPUSH SCH ×3 (01:40→17:22)
[2023-01-30 08:38] LABS: POTASSIUM 4.4 mmol/L (3.5-5.1)
[2023-01-30 08:43] LABS: BLOOD UREA NITROGEN 38.8 mg/dL (7-18); CALCIUM 9.1 mg/dL (8.5-10.1)
[2023-01-30 08:47] LABS: CREATININE 1.3 mg/dL (0.55-1.3)
[2023-01-30] MEDS: APIXABAN 5 MG TABLET PO SCH ×2 (09:39→21:51)
[2023-01-30] MEDS: PANTOPRAZOLE 40 MG TABLET PO SCH (09:39)
[2023-01-30] MEDS: LOSARTAN POTASSIUM 25 MG TABLET PO SCH (09:39)
[2023-01-30] MEDS: FUROSEMIDE 40 MG/4 ML INJECTABLE VIAL IVPUSH SCH (09:39)
[2023-01-30] MEDS: CHOLECALCIFEROL (VIT D3) 1,000 UNIT (25 MCG) TABLET PO SCH (09:39)
[2023-01-30] MEDS: SOTALOL HCL 80 MG TABLET (FP) PO SCH ×2 (09:45→21:51)
[2023-01-30] MEDS: TIOTROPIUM BROMIDE 2.5 MCG (SPIRIVA) RESPIMAT INHALER IH SCH (09:54)
[2023-01-30] MEDS: LIDOCAINE 5% TOPICAL PATCH TP SCH (10:36)
[2023-01-30] MEDS: LIDOCAINE PATCH REMOVAL MC SCH (21:51)
[2023-01-31] MEDS: methylPREDNISolone NA SUCC 40 MG/1 ML VIAL IVPUSH SCH ×2 (06:26→17:51)
[2023-01-31] MEDS: PANTOPRAZOLE 40 MG TABLET PO SCH (09:33)
[2023-01-31] MEDS: FUROSEMIDE 40 MG/4 ML INJECTABLE VIAL IVPUSH SCH (09:33)
[2023-01-31] MEDS: LOSARTAN POTASSIUM 25 MG TABLET PO SCH (09:33)
[2023-01-31] MEDS: SOTALOL HCL 80 MG TABLET (FP) PO SCH ×2 (09:33→21:43)
[2023-01-31] MEDS: CHOLECALCIFEROL (VIT D3) 1,000 UNIT (25 MCG) TABLET PO SCH (09:33)
[2023-01-31] MEDS: TIOTROPIUM BROMIDE 2.5 MCG (SPIRIVA) RESPIMAT INHALER IH SCH (09:33)
[2023-01-31] MEDS: LIDOCAINE 5% TOPICAL PATCH TP SCH (09:34)
[2023-01-31] MEDS: APIXABAN 5 MG TABLET PO SCH ×2 (09:44→21:43)
[2023-01-31] MEDS: LIDOCAINE PATCH REMOVAL MC SCH (21:52)
[2023-02-01] MEDS: methylPREDNISolone NA SUCC 40 MG/1 ML VIAL IVPUSH SCH (06:29)
[2023-02-01] MEDS: LIDOCAINE 5% TOPICAL PATCH TP SCH (10:10)
[2023-02-01] MEDS: CHOLECALCIFEROL (VIT D3) 1,000 UNIT (25 MCG) TABLET PO SCH (10:10)
[2023-02-01] MEDS: FUROSEMIDE 40 MG/4 ML INJECTABLE VIAL IVPUSH SCH (10:11)
[2023-02-01] MEDS: PANTOPRAZOLE 40 MG TABLET PO SCH (10:11)
[2023-02-01] MEDS: LOSARTAN POTASSIUM 25 MG TABLET PO SCH (10:11)
[2023-02-01] MEDS: SOTALOL HCL 80 MG TABLET (FP) PO SCH ×2 (10:11→20:59)
[2023-02-01] MEDS: APIXABAN 5 MG TABLET PO SCH ×2 (10:11→20:59)
[2023-02-01] MEDS: TIOTROPIUM BROMIDE 2.5 MCG (SPIRIVA) RESPIMAT INHALER IH SCH (10:12)
[2023-02-01] MEDS ORDERED: POLYETHYLENE GLYCOL (HEALTHYLAX) 3350 17 GM PACKET PO PRN (10:42)
[2023-02-01] MEDS: LIDOCAINE PATCH REMOVAL MC SCH (20:59)
[2023-02-02] MEDS: LOSARTAN POTASSIUM 25 MG TABLET PO SCH (09:59)
[2023-02-02] MEDS: PANTOPRAZOLE 40 MG TABLET PO SCH (09:59)
[2023-02-02] MEDS: methylPREDNISolone NA SUCC 40 MG/1 ML VIAL IVPUSH SCH (09:59)
[2023-02-02] MEDS: SOTALOL HCL 80 MG TABLET (FP) PO SCH ×2 (09:59→21:08)
[2023-02-02] MEDS: CHOLECALCIFEROL (VIT D3) 1,000 UNIT (25 MCG) TABLET PO SCH (09:59)
[2023-02-02] MEDS: APIXABAN 5 MG TABLET PO SCH ×2 (09:59→21:08)
[2023-02-02] MEDS: LIDOCAINE 5% TOPICAL PATCH TP SCH (10:01)
[2023-02-02] MEDS: FUROSEMIDE 40 MG/4 ML INJECTABLE VIAL IVPUSH SCH ×2 (10:01→21:08)
[2023-02-02] MEDS: TIOTROPIUM BROMIDE 2.5 MCG (SPIRIVA) RESPIMAT INHALER IH SCH (10:03)
[2023-02-02] MEDS: LIDOCAINE PATCH REMOVAL MC SCH (21:09)
[2023-02-03 06:44] LABS: CALCIUM 9.1 mg/dL (8.5-10.1)
[2023-02-03 06:45] LABS: BLOOD UREA NITROGEN 42.8 mg/dL (7-18)
[2023-02-03 06:48] LABS: CREATININE 1.1 mg/dL (0.55-1.3)
[2023-02-03] MEDS: LIDOCAINE 5% TOPICAL PATCH TP SCH (09:34)
[2023-02-03] MEDS: APIXABAN 5 MG TABLET PO SCH ×2 (09:34→21:37)
[2023-02-03] MEDS: PANTOPRAZOLE 40 MG TABLET PO SCH (09:34)
[2023-02-03] MEDS: SOTALOL HCL 80 MG TABLET (FP) PO SCH ×2 (09:35→21:37)
[2023-02-03] MEDS: CHOLECALCIFEROL (VIT D3) 1,000 UNIT (25 MCG) TABLET PO SCH (09:35)
[2023-02-03] MEDS: FUROSEMIDE 40 MG/4 ML INJECTABLE VIAL IVPUSH SCH ×2 (09:35→21:37)
[2023-02-03] MEDS: LOSARTAN POTASSIUM 25 MG TABLET PO SCH (09:35)
[2023-02-03] MEDS: TIOTROPIUM BROMIDE 2.5 MCG (SPIRIVA) RESPIMAT INHALER IH SCH (09:36)
[2023-02-03] MEDS: methylPREDNISolone NA SUCC 40 MG/1 ML VIAL IVPUSH SCH (12:28)
[2023-02-03] MEDS: LIDOCAINE PATCH REMOVAL MC SCH (21:37)
[2023-02-04 08:10] LABS: BASO % 0.1 % (0-2.0); EOS % 1.2 % (0-4.5); HEMATOCRIT 42.2 % (32.4-45.2); HEMOGLOBIN 14.2 GM/dL (10.7-15.3); LYMPH % 18.7 % (8-40); MCH 31.5 pg (25.7-33.7); MCHC 33.7 g/dl (32.0-36.0); MEAN CELL VOLUME 93.5 fl (80-96); MEAN PLT VOLUME 8.1 fl (7.5-11.1); MONO % 15.9 % (3.8-10.2); NEUT % 64.1 % (42.8-82.8); PLATELET COUNT 242 10^3/uL (134-434); RBC 4.52 M/mm3 (3.60-5.2); RDW 14.7 % (11.6-15.6); WHITE BLOOD COUNT 10.3 K/mm3 (4.0-10.0)
[2023-02-04 08:54] LABS: POTASSIUM 3.9 mmol/L (3.5-5.1)
[2023-02-04 08:55] LABS: CALCIUM 8.8 mg/dL (8.5-10.1)
[2023-02-04 08:56] LABS: BLOOD UREA NITROGEN 37.8 mg/dL (7-18); MAGNESIUM 2.2 mg/dL (1.8-2.4)
[2023-02-04 08:59] LABS: CREATININE 1.2 mg/dL (0.55-1.3)
[2023-02-04] MEDS: APIXABAN 5 MG TABLET PO SCH ×2 (10:30→21:19)
[2023-02-04] MEDS: LIDOCAINE 5% TOPICAL PATCH TP SCH (10:30)
[2023-02-04] MEDS: LOSARTAN POTASSIUM 25 MG TABLET PO SCH (10:31)
[2023-02-04] MEDS: SOTALOL HCL 80 MG TABLET (FP) PO SCH ×2 (10:31→21:19)
[2023-02-04] MEDS: PANTOPRAZOLE 40 MG TABLET PO SCH (10:31)
[2023-02-04] MEDS: predniSONE 20 MG TABLET (UD) PO SCH (10:31)
[2023-02-04] MEDS: FUROSEMIDE 40 MG/4 ML INJECTABLE VIAL IVPUSH SCH ×2 (10:31→21:19)
[2023-02-04] MEDS: CHOLECALCIFEROL (VIT D3) 1,000 UNIT (25 MCG) TABLET PO SCH (10:31)
[2023-02-04] MEDS: TIOTROPIUM BROMIDE 2.5 MCG (SPIRIVA) RESPIMAT INHALER IH SCH (10:32)
[2023-02-04] MEDS: LIDOCAINE PATCH REMOVAL MC SCH (21:20)
[2023-02-05] MEDS: LIDOCAINE 5% TOPICAL PATCH TP SCH (09:40)
[2023-02-05] MEDS: TIOTROPIUM BROMIDE 2.5 MCG (SPIRIVA) RESPIMAT INHALER IH SCH (09:40)
[2023-02-05] MEDS: LOSARTAN POTASSIUM 25 MG TABLET PO SCH (09:41)
[2023-02-05] MEDS: predniSONE 20 MG TABLET (UD) PO SCH (09:41)
[2023-02-05] MEDS: APIXABAN 5 MG TABLET PO SCH ×2 (09:41→21:39)
[2023-02-05] MEDS: PANTOPRAZOLE 40 MG TABLET PO SCH (09:41)
[2023-02-05] MEDS: FUROSEMIDE 40 MG/4 ML INJECTABLE VIAL IVPUSH SCH ×2 (09:41→21:39)
[2023-02-05] MEDS: CHOLECALCIFEROL (VIT D3) 1,000 UNIT (25 MCG) TABLET PO SCH (09:41)
[2023-02-05] MEDS: SOTALOL HCL 80 MG TABLET (FP) PO SCH ×2 (09:41→21:39)
[2023-02-05] MEDS: LIDOCAINE PATCH REMOVAL MC SCH (21:44)
[2023-02-06] MEDS: predniSONE 20 MG TABLET (UD) PO SCH (09:34)
[2023-02-06] MEDS: SOTALOL HCL 80 MG TABLET (FP) PO SCH ×2 (09:34→21:46)
[2023-02-06] MEDS: APIXABAN 5 MG TABLET PO SCH ×2 (09:34→21:46)
[2023-02-06] MEDS: CHOLECALCIFEROL (VIT D3) 1,000 UNIT (25 MCG) TABLET PO SCH (09:34)
[2023-02-06] MEDS: PANTOPRAZOLE 40 MG TABLET PO SCH (09:34)
[2023-02-06] MEDS: LOSARTAN POTASSIUM 25 MG TABLET PO SCH (09:34)
[2023-02-06] MEDS: LIDOCAINE 5% TOPICAL PATCH TP SCH (09:34)
[2023-02-06] MEDS: FUROSEMIDE 40 MG/4 ML INJECTABLE VIAL IVPUSH SCH ×2 (09:35→21:46)
[2023-02-06] MEDS: TIOTROPIUM BROMIDE 2.5 MCG (SPIRIVA) RESPIMAT INHALER IH SCH (09:35)
[2023-02-06] MEDS: LIDOCAINE PATCH REMOVAL MC SCH (21:48)
[2023-02-07] MEDS: PANTOPRAZOLE 40 MG TABLET PO SCH (10:53)
[2023-02-07] MEDS: APIXABAN 5 MG TABLET PO SCH (10:53)
[2023-02-07] MEDS: predniSONE 20 MG TABLET (UD) PO SCH (10:53)
[2023-02-07] MEDS: CHOLECALCIFEROL (VIT D3) 1,000 UNIT (25 MCG) TABLET PO SCH (10:53)
[2023-02-07] MEDS: FUROSEMIDE 40 MG/4 ML INJECTABLE VIAL IVPUSH SCH (10:53)
[2023-02-07] MEDS: LOSARTAN POTASSIUM 25 MG TABLET PO SCH (10:53)
[2023-02-07] MEDS: SOTALOL HCL 80 MG TABLET (FP) PO SCH (10:53)
[2023-02-07] MEDS: LIDOCAINE 5% TOPICAL PATCH TP SCH (10:54)
[2023-02-07] MEDS: TIOTROPIUM BROMIDE 2.5 MCG (SPIRIVA) RESPIMAT INHALER IH SCH (11:01)
[2023-02-07 12:04] VITALS: BP 116/68; PULSE 85; RESP 22; TEMP 98
== END 2023-02-07 18:10 | disposition home or self-care (01) | DRG 291 ==
LOC: JER 12:00 → JERBED 16:23 → J4W 20:43 → OBSVTOIN 01-28 10:17 → J4W 02-04 18:16
PROVIDERS: ADMIT Internal Medicine; ATTEND Internal Medicine
DX: I13.0 Hypertensive heart and chronic kidney disease with heart failure and stage 1 through stage 4 chronic kidney disease, or unspecified chronic kidney disease (principal); I50.33 Acute on chronic diastolic (congestive) heart failure; J96.22 Acute and chronic respiratory failure with hypercapnia; J96.21 Acute and chronic respiratory failure with hypoxia; J44.1 Chronic obstructive pulmonary disease with (acute) exacerbation; I48.19 Other persistent atrial fibrillation; I42.9 Cardiomyopathy, unspecified; E05.90 Thyrotoxicosis, unspecified without thyrotoxic crisis or storm; I27.20 Pulmonary hypertension, unspecified; N18.9 Chronic kidney disease, unspecified; K21.9 Gastro-esophageal reflux disease without esophagitis; I44.0 Atrioventricular block, first degree; I44.1 Atrioventricular block, second degree; E66.9 Obesity, unspecified; Z68.36 Body mass index [BMI] 36.0-36.9, adult; Z99.81 Dependence on supplemental oxygen
CPT/HCPCS: 0241U-QW; 36415; 36600; 71045-TC-FY; 80048; 80053; 82803; 83735; 83880; 84439; 84443; 84484; 85025; 85610; 85730; 87040; 93005; 93010; 97116-GP; 99285-25; C9803-CS; G0378; U0003; U0005

== ENCOUNTER 2023-03-23 16:56 | Inpatient (IN) | payer OTHER ==
[2023-03-23 17:14] VITALS: BMI 37.1
[2023-03-23 18:02] LABS: BASO % 0.6 % (0-2.0); EOS % 0.9 % (0-4.5); HEMATOCRIT 37.6 % (32.4-45.2); HEMOGLOBIN 12.3 GM/dL (10.7-15.3); LYMPH % 19.5 % (8-40); MCH 30.2 pg (25.7-33.7); MCHC 32.7 g/dl (32.0-36.0); MEAN CELL VOLUME 92.4 fl (80-96); MEAN PLT VOLUME 7.2 fl (7.5-11.1); MONO % 21.4 % (3.8-10.2); NEUT % 57.6 % (42.8-82.8); PLATELET COUNT 255 10^3/uL (134-434); RBC 4.07 M/mm3 (3.60-5.2); RDW 16.1 % (11.6-15.6); WHITE BLOOD COUNT 8.3 K/mm3 (4.0-10.0)
[2023-03-23] MEDS ORDERED: MEROPENEM 1 GM in DEXTROSE 5%-WATER 100 ML IVPB ONE (18:03)
[2023-03-23] MEDS ORDERED: VANCOMYCIN 1 GM in D5W (PRE-DOCKED) 1,000 MG/250 ML (RESTRICTED TO ID ONLY IVPB ONE (18:03)
[2023-03-23] MEDS ORDERED: FUROSEMIDE 40 MG/4 ML INJECTABLE VIAL IVPUSH ONE (18:03)
[2023-03-23] MEDS ORDERED: ALBUTEROL SO4 2.5/IPRATROPIUM 0.5 INH SOL 3 ML VIAL.NEB. NEB ONE ×2 (18:04→18:36)
[2023-03-23 18:05] LABS: INR 1.97 (0.83-1.09); PROTHROMBIN TIME (PATIENT) 22.7 SEC (9.7-13.0)
[2023-03-23 18:08] LABS: ACTIVATED PTT 40.7 SECONDS (25.2-36.5)
[2023-03-23 18:22] LABS: VENOUS BASE EXCESS 7.2 mmol/L (-2-2); VENOUS O2 SATURATION 67.9 % (70-80); VENOUS PCO2 48.2 mmHg (38-52); VENOUS PH 7.446 (7.310-7.410)
[2023-03-23 18:30] LABS: POTASSIUM 3.9 mmol/L (3.5-5.1)
[2023-03-23 18:32] LABS: CALCIUM 9.1 mg/dL (8.5-10.1)
[2023-03-23 18:33] LABS: BLOOD UREA NITROGEN 17.7 mg/dL (7-18); MAGNESIUM 1.9 mg/dL (1.8-2.4)
[2023-03-23 18:35] LABS: ANISOCYTOSIS 2+; MACROCYTOSIS 0; OVALOCYTE 1+
[2023-03-23 18:36] LABS: CREATININE 1.2 mg/dL (0.55-1.3)
[2023-03-23] MEDS ORDERED: MEROPENEM 1 GM VIAL (RESTRICTED TO ID) IVPB ONE (18:36)
[2023-03-23] MEDS ORDERED: FUROSEMIDE 40 MG/4 ML INJECTABLE VIAL ONE (18:36)
[2023-03-23 18:37] LABS: TOT PROT 6.3 g/dl (6.4-8.2)
[2023-03-23 18:38] LABS: BILIRUBIN,TOTAL 0.8 mg/dL (0.2-1)
[2023-03-23 18:41] LABS: N-TERMINAL BNP 3379.2 pg/ml (5-450)
[2023-03-23] MEDS ORDERED: POLYETHYLENE GLYCOL (HEALTHYLAX) 3350 17 GM PACKET PO PRN (21:12)
[2023-03-24] MEDS: SOTALOL HCL 80 MG TABLET (FP) PO SCH ×3 (03:36→22:04)
[2023-03-24] MEDS: APIXABAN 5 MG TABLET PO SCH ×3 (03:36→22:04)
[2023-03-24] MEDS ORDERED: VANCOMYCIN/WATER FOR INJ (PEG) 1,000 MG/200 ML BAG IVPB ONE (03:37)
[2023-03-24] MEDS ORDERED: APIXABAN 5 MG TABLET ONE ×2 (03:37→09:15)
[2023-03-24] MEDS ORDERED: FUROSEMIDE 40 MG/4 ML INJECTABLE VIAL ONE (03:46)
[2023-03-24] MEDS: FUROSEMIDE 40 MG/4 ML INJECTABLE VIAL IVPUSH SCH ×2 (07:04→14:20)
[2023-03-24 07:08] LABS: HEMATOCRIT 37.4 % (32.4-45.2); HEMOGLOBIN 11.8 GM/dL (10.7-15.3); MCH 29.7 pg (25.7-33.7); MCHC 31.5 g/dl (32.0-36.0); MEAN CELL VOLUME 94.4 fl (80-96); MEAN PLT VOLUME 7.9 fl (7.5-11.1); PLATELET COUNT 259 10^3/uL (134-434); RBC 3.96 M/mm3 (3.60-5.2); RDW 15.6 % (11.6-15.6); WHITE BLOOD COUNT 7.9 K/mm3 (4.0-10.0)
[2023-03-24 07:21] LABS: POTASSIUM 3.5 mmol/L (3.5-5.1)
[2023-03-24 07:29] LABS: BILIRUBIN,TOTAL 0.9 mg/dL (0.2-1); TOT PROT 6.3 g/dl (6.4-8.2)
[2023-03-24] MEDS ORDERED: PANTOPRAZOLE 40 MG TABLET PO ONE (09:15)
[2023-03-24] MEDS ORDERED: LOSARTAN POTASSIUM 25 MG TABLET ONE (09:15)
[2023-03-24] MEDS ORDERED: POTASSIUM CHLORIDE TABS 20 MEQ TABLET.ER (FP) PO ONE (09:16)
[2023-03-24 09:21] LABS: ANISOCYTOSIS 0; HELMET CELLS 0; HOWELL-JOLLY BODIES 0; MACROCYTOSIS 0; OVALOCYTE 0; ROULEAU 0; SICKELED CELLS 0; TARGET CELLS 0; TEAR DROP CELLS 0; TOXIC GRANULATION 0
[2023-03-24] MEDS: LOSARTAN POTASSIUM 25 MG TABLET PO SCH (09:43)
[2023-03-24] MEDS: ALLOPURINOL 100 MG TABLET (FP) PO SCH (09:43)
[2023-03-24] MEDS: PANTOPRAZOLE 40 MG TABLET PO SCH (09:43)
[2023-03-24] MEDS: POTASSIUM CHLORIDE TABS 20 MEQ TABLET.ER (FP) PO SCH (09:43)
[2023-03-24] MEDS: CEFAZOLIN 1 GM in DEXTROSE 5%-WATER - 50 ML IVPB SCH ×2 (11:30→18:36)
[2023-03-24] MEDS ORDERED: ALBUTEROL SO4 2.5/IPRATROPIUM 0.5 INH SOL 3 ML VIAL.NEB. NEB PRN (13:43)
[2023-03-24] MEDS ORDERED: VANCOMYCIN PREMIX 1.5 GM 1,500 MG/300 ML BAG IVPB SCH (15:00)
[2023-03-24] MEDS ORDERED: VANCOMYCIN HCL 1,500 MG in DEXTROSE 5%-WATER - 250 ML IVPB SCH (15:30)
[2023-03-24] MEDS: TIOTROPIUM BROMIDE 2.5 MCG (SPIRIVA) RESPIMAT INHALER IH SCH (15:48)
[2023-03-24] MEDS: COLLAGENASE CLOSTRIDIUM HIST. 30 GRAMS TUBE TP SCH (15:48)
[2023-03-25] MEDS: CEFAZOLIN 1 GM in DEXTROSE 5%-WATER - 50 ML IVPB SCH ×3 (04:22→17:09)
[2023-03-25] MEDS: FUROSEMIDE 40 MG/4 ML INJECTABLE VIAL IVPUSH SCH ×2 (05:59→13:46)
[2023-03-25 08:24] LABS: BASO % 0.7 % (0-2.0); EOS % 1.9 % (0-4.5); HEMATOCRIT 39.8 % (32.4-45.2); HEMOGLOBIN 12.7 GM/dL (10.7-15.3); LYMPH % 16.4 % (8-40); MCH 30.3 pg (25.7-33.7); MEAN CELL VOLUME 94.8 fl (80-96); MEAN PLT VOLUME 7.8 fl (7.5-11.1); PLATELET COUNT 264 10^3/uL (134-434); RBC 4.19 M/mm3 (3.60-5.2); RDW 15.6 % (11.6-15.6); WHITE BLOOD COUNT 8.5 K/mm3 (4.0-10.0)
[2023-03-25 08:50] LABS: POTASSIUM 3.7 mmol/L (3.5-5.1)
[2023-03-25 08:58] LABS: BLOOD UREA NITROGEN 17.2 mg/dL (7-18); CALCIUM 9.3 mg/dL (8.5-10.1)
[2023-03-25 08:59] LABS: MAGNESIUM 2.1 mg/dL (1.8-2.4)
[2023-03-25 09:02] LABS: BILIRUBIN,TOTAL 1.1 mg/dL (0.2-1)
[2023-03-25 09:03] LABS: TOT PROT 6.4 g/dl (6.4-8.2)
[2023-03-25] MEDS: APIXABAN 5 MG TABLET PO SCH ×2 (11:39→22:30)
[2023-03-25] MEDS: PANTOPRAZOLE 40 MG TABLET PO SCH (11:39)
[2023-03-25] MEDS: POTASSIUM CHLORIDE TABS 20 MEQ TABLET.ER (FP) PO SCH (11:39)
[2023-03-25] MEDS: ALLOPURINOL 100 MG TABLET (FP) PO SCH (11:39)
[2023-03-25] MEDS: LOSARTAN POTASSIUM 25 MG TABLET PO SCH (11:40)
[2023-03-25] MEDS: SOTALOL HCL 80 MG TABLET (FP) PO SCH ×2 (11:43→22:30)
[2023-03-25] MEDS: TIOTROPIUM BROMIDE 2.5 MCG (SPIRIVA) RESPIMAT INHALER IH SCH (11:48)
[2023-03-25] MEDS: COLLAGENASE CLOSTRIDIUM HIST. 30 GRAMS TUBE TP SCH (13:47)
[2023-03-25] MEDS: LIDOCAINE 5% TOPICAL PATCH TP SCH (17:09)
[2023-03-25] MEDS: LIDOCAINE PATCH REMOVAL MC SCH (22:33)
[2023-03-26] MEDS: CEFAZOLIN 1 GM in DEXTROSE 5%-WATER - 50 ML IVPB SCH ×3 (02:03→17:09)
[2023-03-26] MEDS: FUROSEMIDE 40 MG/4 ML INJECTABLE VIAL IVPUSH SCH ×2 (06:42→13:00)
[2023-03-26] MEDS: ALBUTEROL SO4 0.083% IH SOL 2.5 MG/3 ML VIAL.NEB. NEB PRN ×2 (07:46→14:42)
[2023-03-26] MEDS: ALLOPURINOL 100 MG TABLET (FP) PO SCH (09:02)
[2023-03-26] MEDS: LOSARTAN POTASSIUM 25 MG TABLET PO SCH (09:02)
[2023-03-26] MEDS: POTASSIUM CHLORIDE TABS 20 MEQ TABLET.ER (FP) PO SCH (09:02)
[2023-03-26] MEDS: TIOTROPIUM BROMIDE 2.5 MCG (SPIRIVA) RESPIMAT INHALER IH SCH (09:02)
[2023-03-26] MEDS: LIDOCAINE 5% TOPICAL PATCH TP SCH (09:02)
[2023-03-26] MEDS: APIXABAN 5 MG TABLET PO SCH ×2 (09:02→22:20)
[2023-03-26] MEDS: PANTOPRAZOLE 40 MG TABLET PO SCH (09:02)
[2023-03-26] MEDS: SOTALOL HCL 80 MG TABLET (FP) PO SCH ×2 (09:02→22:20)
[2023-03-26] MEDS: COLLAGENASE CLOSTRIDIUM HIST. 30 GRAMS TUBE TP SCH (09:03)
[2023-03-26] MEDS: LIDOCAINE PATCH REMOVAL MC SCH (22:20)
[2023-03-27] MEDS: CEFAZOLIN 1 GM in DEXTROSE 5%-WATER - 50 ML IVPB SCH ×3 (04:20→17:02)
[2023-03-27] MEDS: FUROSEMIDE 40 MG/4 ML INJECTABLE VIAL IVPUSH SCH ×2 (05:37→13:18)
[2023-03-27 09:03] LABS: BLOOD UREA NITROGEN 20.2 mg/dL (7-18)
[2023-03-27 09:06] LABS: CREATININE 1.1 mg/dL (0.55-1.3)
[2023-03-27] MEDS: LIDOCAINE 5% TOPICAL PATCH TP SCH (09:26)
[2023-03-27] MEDS: APIXABAN 5 MG TABLET PO SCH ×2 (09:30→21:41)
[2023-03-27] MEDS: ALLOPURINOL 100 MG TABLET (FP) PO SCH (09:30)
[2023-03-27] MEDS: LOSARTAN POTASSIUM 25 MG TABLET PO SCH (09:31)
[2023-03-27] MEDS: PANTOPRAZOLE 40 MG TABLET PO SCH (09:31)
[2023-03-27] MEDS: POTASSIUM CHLORIDE TABS 20 MEQ TABLET.ER (FP) PO SCH (09:31)
[2023-03-27] MEDS: TIOTROPIUM BROMIDE 2.5 MCG (SPIRIVA) RESPIMAT INHALER IH SCH (09:32)
[2023-03-27] MEDS: COLLAGENASE CLOSTRIDIUM HIST. 30 GRAMS TUBE TP SCH (09:32)
[2023-03-27] MEDS: SOTALOL HCL 80 MG TABLET (FP) PO SCH ×2 (09:32→21:40)
[2023-03-27] MEDS ORDERED: SENNOSIDES 8.6MG TABLET (FP) PO PRN (10:44)
[2023-03-27] MEDS ORDERED: BISACODYL 10 MG SUPP.RECT PR PRN (10:44)
[2023-03-27] MEDS ORDERED: ACETAMINOPHEN 1000 MG/100 ML BAG IVPB PRN (10:44)
[2023-03-27] MEDS: DOCUSATE SODIUM 100 MG CAPSULE (FP) PO SCH ×2 (13:18→21:41)
[2023-03-27] MEDS: LIDOCAINE PATCH REMOVAL MC SCH (21:41)
[2023-03-28] MEDS: CEFAZOLIN 1 GM in DEXTROSE 5%-WATER - 50 ML IVPB SCH ×2 (02:29→09:28)
[2023-03-28] MEDS: FUROSEMIDE 40 MG/4 ML INJECTABLE VIAL IVPUSH SCH ×2 (06:44→14:13)
[2023-03-28] MEDS: DOCUSATE SODIUM 100 MG CAPSULE (FP) PO SCH ×3 (06:44→21:19)
[2023-03-28 08:02] LABS: HEMATOCRIT 37.2 % (32.4-45.2); HEMOGLOBIN 11.9 GM/dL (10.7-15.3); MCH 30.2 pg (25.7-33.7); MCHC 32.1 g/dl (32.0-36.0); MEAN CELL VOLUME 94.3 fl (80-96); MEAN PLT VOLUME 7.9 fl (7.5-11.1); PLATELET COUNT 267 10^3/uL (134-434); RBC 3.95 M/mm3 (3.60-5.2); RDW 15.6 % (11.6-15.6); WHITE BLOOD COUNT 8.1 K/mm3 (4.0-10.0)
[2023-03-28 08:14] LABS: POTASSIUM 4.3 mmol/L (3.5-5.1)
[2023-03-28 08:16] LABS: CALCIUM 9.6 mg/dL (8.5-10.1)
[2023-03-28 08:17] LABS: MAGNESIUM 2.2 mg/dL (1.8-2.4)
[2023-03-28] MEDS: POTASSIUM CHLORIDE TABS 20 MEQ TABLET.ER (FP) PO SCH (09:28)
[2023-03-28] MEDS: LOSARTAN POTASSIUM 25 MG TABLET PO SCH (09:28)
[2023-03-28] MEDS: ALLOPURINOL 100 MG TABLET (FP) PO SCH (09:29)
[2023-03-28] MEDS: APIXABAN 5 MG TABLET PO SCH ×2 (09:29→21:19)
[2023-03-28] MEDS: SOTALOL HCL 80 MG TABLET (FP) PO SCH ×2 (09:29→21:19)
[2023-03-28] MEDS: PANTOPRAZOLE 40 MG TABLET PO SCH (09:29)
[2023-03-28] MEDS: COLLAGENASE CLOSTRIDIUM HIST. 30 GRAMS TUBE TP SCH (09:30)
[2023-03-28] MEDS: TIOTROPIUM BROMIDE 2.5 MCG (SPIRIVA) RESPIMAT INHALER IH SCH (09:30)
[2023-03-28] MEDS: LIDOCAINE 5% TOPICAL PATCH TP SCH (10:31)
[2023-03-28] MEDS: ALBUTEROL SO4 0.083% IH SOL 2.5 MG/3 ML VIAL.NEB. NEB PRN (15:01)
[2023-03-28] MEDS: CEPHALEXIN MONOHYDRATE 500 MG CAPSULE (UD) PO SCH (21:19)
[2023-03-28] MEDS: LIDOCAINE PATCH REMOVAL MC SCH (22:03)
[2023-03-29] MEDS ORDERED: ACETAMINOPHEN 1000 MG/100 ML BAG IVPB ONE (00:32)
[2023-03-29] MEDS: FUROSEMIDE 40 MG/4 ML INJECTABLE VIAL IVPUSH SCH ×2 (06:03→13:26)
[2023-03-29] MEDS: DOCUSATE SODIUM 100 MG CAPSULE (FP) PO SCH ×3 (06:03→21:38)
[2023-03-29] MEDS: LOSARTAN POTASSIUM 25 MG TABLET PO SCH (09:52)
[2023-03-29] MEDS: POTASSIUM CHLORIDE TABS 20 MEQ TABLET.ER (FP) PO SCH (09:52)
[2023-03-29] MEDS: PANTOPRAZOLE 40 MG TABLET PO SCH (09:52)
[2023-03-29] MEDS: CEPHALEXIN MONOHYDRATE 500 MG CAPSULE (UD) PO SCH ×2 (09:52→21:38)
[2023-03-29] MEDS: ALLOPURINOL 100 MG TABLET (FP) PO SCH (09:52)
[2023-03-29] MEDS: APIXABAN 5 MG TABLET PO SCH ×2 (09:52→21:38)
[2023-03-29] MEDS: COLLAGENASE CLOSTRIDIUM HIST. 30 GRAMS TUBE TP SCH (09:54)
[2023-03-29] MEDS: TIOTROPIUM BROMIDE 2.5 MCG (SPIRIVA) RESPIMAT INHALER IH SCH (09:54)
[2023-03-29] MEDS: LIDOCAINE 5% TOPICAL PATCH TP SCH (09:55)
[2023-03-29] MEDS: SOTALOL HCL 80 MG TABLET (FP) PO SCH ×2 (09:56→21:38)
[2023-03-29] MEDS ORDERED: ALBUTEROL SO4 2.5/IPRATROPIUM 0.5 INH SOL 3 ML VIAL.NEB. NEB SCH (12:00)
[2023-03-29] MEDS: ALBUTEROL SO4 2.5/IPRATROPIUM 0.5 INH SOL 3 ML VIAL.NEB. NEB SCH ×3 (13:13→20:57)
[2023-03-29] MEDS: BACITRACIN ZINC 15 GM TUBE TOPICAL OINTMENT TP SCH (13:26)
[2023-03-29] MEDS: LIDOCAINE PATCH REMOVAL MC SCH (21:42)
[2023-03-30] MEDS ORDERED: ACETAMINOPHEN 1000 MG/100 ML BAG IVPB ONE (00:31)
[2023-03-30] MEDS: FUROSEMIDE 40 MG/4 ML INJECTABLE VIAL IVPUSH SCH (06:09)
[2023-03-30] MEDS: DOCUSATE SODIUM 100 MG CAPSULE (FP) PO SCH ×3 (06:09→22:03)
[2023-03-30 07:22] LABS: POTASSIUM 4.2 mmol/L (3.5-5.1)
[2023-03-30 07:23] LABS: CALCIUM 9.4 mg/dL (8.5-10.1)
[2023-03-30 07:24] LABS: BLOOD UREA NITROGEN 20.3 mg/dL (7-18)
[2023-03-30] MEDS: ALBUTEROL SO4 2.5/IPRATROPIUM 0.5 INH SOL 3 ML VIAL.NEB. NEB SCH ×4 (07:40→20:20)
[2023-03-30] MEDS: SOTALOL HCL 80 MG TABLET (FP) PO SCH ×2 (11:30→22:03)
[2023-03-30] MEDS: CEPHALEXIN MONOHYDRATE 500 MG CAPSULE (UD) PO SCH ×2 (11:30→22:03)
[2023-03-30] MEDS: POTASSIUM CHLORIDE TABS 20 MEQ TABLET.ER (FP) PO SCH (11:30)
[2023-03-30] MEDS: LOSARTAN POTASSIUM 25 MG TABLET PO SCH (11:31)
[2023-03-30] MEDS: APIXABAN 5 MG TABLET PO SCH ×2 (11:31→22:03)
[2023-03-30] MEDS: PANTOPRAZOLE 40 MG TABLET PO SCH (11:31)
[2023-03-30] MEDS: LIDOCAINE 5% TOPICAL PATCH TP SCH (11:31)
[2023-03-30] MEDS: ALLOPURINOL 100 MG TABLET (FP) PO SCH (11:31)
[2023-03-30] MEDS: BACITRACIN ZINC 15 GM TUBE TOPICAL OINTMENT TP SCH (11:31)
[2023-03-30] MEDS: COLLAGENASE CLOSTRIDIUM HIST. 30 GRAMS TUBE TP SCH (11:32)
[2023-03-30] MEDS: LIDOCAINE PATCH REMOVAL MC SCH (22:10)
[2023-03-31] MEDS: DOCUSATE SODIUM 100 MG CAPSULE (FP) PO SCH (05:12)
[2023-03-31] MEDS: ALBUTEROL SO4 2.5/IPRATROPIUM 0.5 INH SOL 3 ML VIAL.NEB. NEB SCH ×4 (07:25→20:05)
[2023-03-31] MEDS ORDERED: SPIRONOLACTONE 25 MG TABLET PO SCH (10:00)
[2023-03-31] MEDS ORDERED: FUROSEMIDE 40 MG TABLET (FP) PO SCH (10:00)
[2023-03-31] MEDS: LIDOCAINE 5% TOPICAL PATCH TP SCH (10:07)
[2023-03-31] MEDS: CEPHALEXIN MONOHYDRATE 500 MG CAPSULE (UD) PO SCH (10:07)
[2023-03-31] MEDS: APIXABAN 5 MG TABLET PO SCH (10:07)
[2023-03-31] MEDS: PANTOPRAZOLE 40 MG TABLET PO SCH (10:07)
[2023-03-31] MEDS: ALLOPURINOL 100 MG TABLET (FP) PO SCH (10:07)
[2023-03-31] MEDS: SOTALOL HCL 80 MG TABLET (FP) PO SCH (10:07)
[2023-03-31] MEDS: LOSARTAN POTASSIUM 25 MG TABLET PO SCH (10:07)
[2023-03-31] MEDS: BACITRACIN ZINC 15 GM TUBE TOPICAL OINTMENT TP SCH (10:17)
[2023-03-31] MEDS ORDERED: MINERAL OIL/PET HY-PHL TOPICAL OINTMENT 454 GM JAR TP SCH (13:00)
[2023-03-31 15:29] VITALS: BP 126/44; PULSE 74; RESP 19; TEMP 96.9
== END 2023-03-31 16:00 | DRG 291 ==
LOC: JER 16:56 → JERBED 20:30 → J4W 03-24 09:55
PROVIDERS: ADMIT Internal Medicine; ATTEND Internal Medicine
DX: I13.0 Hypertensive heart and chronic kidney disease with heart failure and stage 1 through stage 4 chronic kidney disease, or unspecified chronic kidney disease (principal); I50.33 Acute on chronic diastolic (congestive) heart failure; L03.115 Cellulitis of right lower limb; L03.116 Cellulitis of left lower limb; L97.218 Non-pressure chronic ulcer of right calf with other specified severity; L97.228 Non-pressure chronic ulcer of left calf with other specified severity; N18.2 Chronic kidney disease, stage 2 (mild); J44.9 Chronic obstructive pulmonary disease, unspecified; I87.2 Venous insufficiency (chronic) (peripheral); I83.012 Varicose veins of right lower extremity with ulcer of calf; I83.022 Varicose veins of left lower extremity with ulcer of calf; I25.119 Atherosclerotic heart disease of native coronary artery with unspecified angina pectoris; I48.0 Paroxysmal atrial fibrillation; K21.9 Gastro-esophageal reflux disease without esophagitis; I08.2 Rheumatic disorders of both aortic and tricuspid valves; I27.20 Pulmonary hypertension, unspecified; E78.5 Hyperlipidemia, unspecified; E05.90 Thyrotoxicosis, unspecified without thyrotoxic crisis or storm; Z95.0 Presence of cardiac pacemaker; Z79.01 Long term (current) use of anticoagulants
CPT/HCPCS: 0241U-QW; 36415; 71045-TC-FY; 80048; 80053; 82803; 83735; 83880; 84484; 85025; 85027; 85610; 85651; 85730; 86140; 87635; 93005; 93010; 93926-TC; 93970-TC; 94640; 97116-GP; 97162-GP; 99285-25

== ENCOUNTER 2023-06-23 17:33 | Inpatient (IN) | payer OTHER ==
[2023-06-23] MEDS ORDERED: VANCOMYCIN 1,000 MG in DEXTROSE 5%-WATER - 250 ML IVPB ONE (19:32)
[2023-06-23] MEDS ORDERED: MEROPENEM 1 GM in DEXTROSE 5%-WATER 100 ML IVPB ONE (19:32)
[2023-06-23] MEDS ORDERED: VANCOMYCIN 1 GRAM (PRE-DOCKED) 1,000 MG/250 ML BAG IVPB ONE (19:53)
[2023-06-23] MEDS ORDERED: MEROPENEM 1 GM VIAL (RESTRICTED TO ID) IVPB ONE (19:53)
[2023-06-23 19:59] LABS: VENOUS BASE EXCESS 5.4 mmol/L (-2-2); VENOUS O2 SATURATION 28.4 % (70-80); VENOUS PCO2 56.4 mmHg (38-52); VENOUS PH 7.375 (7.310-7.410)
[2023-06-23 20:04] LABS: BASO % 0.6 % (0-2.0); EOS % 1.6 % (0-4.5); HEMATOCRIT 41.4 % (32.4-45.2); HEMOGLOBIN 13.8 GM/dL (10.7-15.3); LYMPH % 19.8 % (8-40); MCH 30.3 pg (25.7-33.7); MCHC 33.4 g/dl (32.0-36.0); MEAN CELL VOLUME 90.6 fl (80-96); MEAN PLT VOLUME 7.3 fl (7.5-11.1); MONO % 19.4 % (3.8-10.2); NEUT % 58.6 % (42.8-82.8); PLATELET COUNT 255 10^3/uL (134-434); RBC 4.57 M/mm3 (3.60-5.2); RDW 15.8 % (11.6-15.6)
[2023-06-23 20:18] LABS: POTASSIUM 4.3 mmol/L (3.5-5.1)
[2023-06-23 20:20] LABS: ALBUMIN 3.4 g/dl (3.4-5.0); BLOOD UREA NITROGEN 18.6 mg/dL (7-18); CALCIUM 9.3 mg/dL (8.5-10.1)
[2023-06-23 20:23] LABS: CREATININE 1.2 mg/dL (0.55-1.3)
[2023-06-23 20:25] LABS: BILIRUBIN,TOTAL 0.6 mg/dL (0.2-1)
[2023-06-23 20:28] LABS: N-TERMINAL BNP 3131.5 pg/ml (5-450)
[2023-06-23 21:18] LABS: ERYTHROCYTE SEDIMENTATION RATE 70 mm/hr (0-30)
[2023-06-24] MEDS: ACETAMINOPHEN 325 MG TABLET (FP) PO PRN (07:05)
[2023-06-24] MEDS ORDERED: ALBUTEROL SO4 0.083% IH SOL 2.5 MG/3 ML VIAL.NEB. NEB PRN (10:22)
[2023-06-24 11:19] LABS: BASO % 0.8 % (0-2.0); EOS % 2.4 % (0-4.5); HEMATOCRIT 36.1 % (32.4-45.2); HEMOGLOBIN 11.9 GM/dL (10.7-15.3); LYMPH % 21.1 % (8-40); MCH 29.9 pg (25.7-33.7); MCHC 33.1 g/dl (32.0-36.0); MEAN CELL VOLUME 90.3 fl (80-96); MEAN PLT VOLUME 7.5 fl (7.5-11.1); MONO % 16.7 % (3.8-10.2); PLATELET COUNT 236 10^3/uL (134-434); RDW 15.5 % (11.6-15.6)
[2023-06-24 11:41] LABS: POTASSIUM 4.1 mmol/L (3.5-5.1)
[2023-06-24 11:55] LABS: CALCIUM 8.7 mg/dL (8.5-10.1)
[2023-06-24 11:56] LABS: MAGNESIUM 2.2 mg/dL (1.8-2.4)
[2023-06-24 11:59] LABS: CREATININE 1.1 mg/dL (0.55-1.3); PHOSPHOROUS 3.6 mg/dL (2.5-4.9)
[2023-06-24] MEDS: MEROPENEM 1 GM in DEXTROSE 5%-WATER 100 ML IVPB SCH ×2 (12:05→17:33)
[2023-06-24] MEDS: SPIRONOLACTONE 25 MG TABLET PO SCH (13:35)
[2023-06-24] MEDS: ALLOPURINOL 100 MG TABLET (FP) PO SCH (13:36)
[2023-06-24] MEDS: POTASSIUM CHLORIDE TABS 20 MEQ TABLET.ER (FP) PO SCH (13:36)
[2023-06-24] MEDS: LOSARTAN POTASSIUM 25 MG TABLET PO SCH (13:36)
[2023-06-24] MEDS: CHOLECALCIFEROL (VIT D3) 1,000 UNIT (25 MCG) TABLET PO SCH (13:36)
[2023-06-24] MEDS: APIXABAN 5 MG TABLET PO SCH ×2 (13:36→23:46)
[2023-06-24] MEDS: FUROSEMIDE 40 MG TABLET (FP) PO SCH (13:36)
[2023-06-24] MEDS: TIOTROPIUM BROMIDE 2.5 MCG (SPIRIVA) RESPIMAT INHALER IH SCH (14:45)
[2023-06-24] MEDS: SOTALOL HCL 80 MG TABLET (FP) PO SCH (14:46)
[2023-06-24] MEDS ORDERED: VANCOMYCIN/WATER FOR INJ (PEG) 1,000 MG/200 ML BAG IVPB ONE (20:00)
[2023-06-25] MEDS: MEROPENEM 1 GM in DEXTROSE 5%-WATER 100 ML IVPB SCH ×3 (03:18→17:11)
[2023-06-25] MEDS: CHOLECALCIFEROL (VIT D3) 1,000 UNIT (25 MCG) TABLET PO SCH (09:29)
[2023-06-25] MEDS: LOSARTAN POTASSIUM 25 MG TABLET PO SCH (09:29)
[2023-06-25] MEDS: SPIRONOLACTONE 25 MG TABLET PO SCH (09:30)
[2023-06-25] MEDS: APIXABAN 5 MG TABLET PO SCH ×2 (09:30→21:37)
[2023-06-25] MEDS: POTASSIUM CHLORIDE TABS 20 MEQ TABLET.ER (FP) PO SCH (09:30)
[2023-06-25] MEDS: ALLOPURINOL 100 MG TABLET (FP) PO SCH (09:30)
[2023-06-25] MEDS: TIOTROPIUM BROMIDE 2.5 MCG (SPIRIVA) RESPIMAT INHALER IH SCH (09:31)
[2023-06-25] MEDS: SOTALOL HCL 80 MG TABLET (FP) PO SCH (09:32)
[2023-06-25] MEDS: FUROSEMIDE 40 MG TABLET (FP) PO SCH (09:34)
[2023-06-25] MEDS ORDERED: TIOTROPIUM BROMIDE 2.5 MCG (SPIRIVA) RESPIMAT INHALER IH SCH (10:00)
[2023-06-25] MEDS: ACETAMINOPHEN 325 MG TABLET (FP) PO PRN (17:11)
[2023-06-26] MEDS: MEROPENEM 1 GM in DEXTROSE 5%-WATER 100 ML IVPB SCH ×3 (02:49→17:05)
[2023-06-26 08:39] LABS: BASO % 0.5 % (0-2.0); HEMATOCRIT 37.3 % (32.4-45.2); HEMOGLOBIN 12.2 GM/dL (10.7-15.3); LYMPH % 14.8 % (8-40); MCH 30.3 pg (25.7-33.7); MCHC 32.8 g/dl (32.0-36.0); MEAN CELL VOLUME 92.5 fl (80-96); MEAN PLT VOLUME 7.4 fl (7.5-11.1); MONO % 18.4 % (3.8-10.2); NEUT % 62.3 % (42.8-82.8); PLATELET COUNT 252 10^3/uL (134-434); RBC 4.04 M/mm3 (3.60-5.2); RDW 15.4 % (11.6-15.6); WHITE BLOOD COUNT 8.2 K/mm3 (4.0-10.0)
[2023-06-26 09:15] LABS: POTASSIUM 4.3 mmol/L (3.5-5.1)
[2023-06-26 09:18] LABS: ALBUMIN 2.8 g/dl (3.4-5.0); BLOOD UREA NITROGEN 14.6 mg/dL (7-18); CALCIUM 8.6 mg/dL (8.5-10.1)
[2023-06-26 09:21] LABS: CREATININE 0.9 mg/dL (0.55-1.3)
[2023-06-26 09:23] LABS: BILIRUBIN,TOTAL 0.6 mg/dL (0.2-1)
[2023-06-26] MEDS: ALLOPURINOL 100 MG TABLET (FP) PO SCH (10:33)
[2023-06-26] MEDS: CHOLECALCIFEROL (VIT D3) 1,000 UNIT (25 MCG) TABLET PO SCH (10:33)
[2023-06-26] MEDS: POTASSIUM CHLORIDE TABS 20 MEQ TABLET.ER (FP) PO SCH (10:33)
[2023-06-26] MEDS: APIXABAN 5 MG TABLET PO SCH ×2 (10:33→22:27)
[2023-06-26] MEDS: SOTALOL HCL 80 MG TABLET (FP) PO SCH (10:34)
[2023-06-26] MEDS: LOSARTAN POTASSIUM 25 MG TABLET PO SCH (10:41)
[2023-06-26] MEDS: FUROSEMIDE 40 MG TABLET (FP) PO SCH (10:41)
[2023-06-26] MEDS: SPIRONOLACTONE 25 MG TABLET PO SCH (10:41)
[2023-06-26] MEDS: TIOTROPIUM BROMIDE 2.5 MCG (SPIRIVA) RESPIMAT INHALER IH SCH (10:42)
[2023-06-27] MEDS: ACETAMINOPHEN 325 MG TABLET (FP) PO PRN (00:32)
[2023-06-27] MEDS: MEROPENEM 1 GM in DEXTROSE 5%-WATER 100 ML IVPB SCH ×3 (03:00→17:42)
[2023-06-27] MEDS: SPIRONOLACTONE 25 MG TABLET PO SCH (10:28)
[2023-06-27] MEDS: TIOTROPIUM BROMIDE 2.5 MCG (SPIRIVA) RESPIMAT INHALER IH SCH (10:30)
[2023-06-27] MEDS: CHOLECALCIFEROL (VIT D3) 1,000 UNIT (25 MCG) TABLET PO SCH (10:30)
[2023-06-27] MEDS: FUROSEMIDE 40 MG TABLET (FP) PO SCH (10:31)
[2023-06-27] MEDS: LOSARTAN POTASSIUM 25 MG TABLET PO SCH (10:31)
[2023-06-27] MEDS: SOTALOL HCL 80 MG TABLET (FP) PO SCH (10:31)
[2023-06-27] MEDS: APIXABAN 5 MG TABLET PO SCH ×2 (10:31→21:35)
[2023-06-27] MEDS: POTASSIUM CHLORIDE TABS 20 MEQ TABLET.ER (FP) PO SCH (10:31)
[2023-06-27] MEDS: ALLOPURINOL 100 MG TABLET (FP) PO SCH (10:33)
[2023-06-28] MEDS: MEROPENEM 1 GM in DEXTROSE 5%-WATER 100 ML IVPB SCH ×3 (01:49→18:16)
[2023-06-28] MEDS: POTASSIUM CHLORIDE TABS 20 MEQ TABLET.ER (FP) PO SCH (10:28)
[2023-06-28] MEDS: FUROSEMIDE 40 MG TABLET (FP) PO SCH (10:28)
[2023-06-28] MEDS: CHOLECALCIFEROL (VIT D3) 1,000 UNIT (25 MCG) TABLET PO SCH (10:28)
[2023-06-28] MEDS: ALLOPURINOL 100 MG TABLET (FP) PO SCH (10:28)
[2023-06-28] MEDS: APIXABAN 5 MG TABLET PO SCH ×2 (10:28→21:45)
[2023-06-28] MEDS: SOTALOL HCL 80 MG TABLET (FP) PO SCH (10:29)
[2023-06-28] MEDS: SPIRONOLACTONE 25 MG TABLET PO SCH (10:29)
[2023-06-28] MEDS: LOSARTAN POTASSIUM 25 MG TABLET PO SCH (10:29)
[2023-06-28] MEDS ORDERED: MAGNESIUM CITRATE 300 ML BOTTLE PO ONE (10:31)
[2023-06-28] MEDS: TIOTROPIUM BROMIDE 2.5 MCG (SPIRIVA) RESPIMAT INHALER IH SCH (10:40)
[2023-06-28] MEDS: SENNOSIDES 8.8 MG/5 ML SYRUP PO SCH ×2 (21:45→21:46)
[2023-06-29] MEDS: MEROPENEM 1 GM in DEXTROSE 5%-WATER 100 ML IVPB SCH ×3 (01:41→17:14)
[2023-06-29] MEDS: LOSARTAN POTASSIUM 25 MG TABLET PO SCH (09:16)
[2023-06-29] MEDS: ALLOPURINOL 100 MG TABLET (FP) PO SCH (09:16)
[2023-06-29] MEDS: SOTALOL HCL 80 MG TABLET (FP) PO SCH (09:16)
[2023-06-29] MEDS: APIXABAN 5 MG TABLET PO SCH ×2 (09:16→21:20)
[2023-06-29] MEDS: CHOLECALCIFEROL (VIT D3) 1,000 UNIT (25 MCG) TABLET PO SCH (09:16)
[2023-06-29] MEDS: FUROSEMIDE 40 MG TABLET (FP) PO SCH (09:16)
[2023-06-29] MEDS: SPIRONOLACTONE 25 MG TABLET PO SCH (09:16)
[2023-06-29] MEDS: POTASSIUM CHLORIDE TABS 20 MEQ TABLET.ER (FP) PO SCH (09:16)
[2023-06-29] MEDS: TIOTROPIUM BROMIDE 2.5 MCG (SPIRIVA) RESPIMAT INHALER IH SCH (09:17)
[2023-06-29] MEDS: POLYETHYLENE GLYCOL (HEALTHYLAX) 3350 17 GM PACKET PO SCH (09:17)
[2023-06-29] MEDS: SENNOSIDES 8.8 MG/5 ML SYRUP PO SCH (21:20)
[2023-06-30] MEDS: MEROPENEM 1 GM in DEXTROSE 5%-WATER 100 ML IVPB SCH ×3 (02:07→17:33)
[2023-06-30] MEDS: SPIRONOLACTONE 25 MG TABLET PO SCH (09:57)
[2023-06-30] MEDS: LOSARTAN POTASSIUM 25 MG TABLET PO SCH (09:58)
[2023-06-30] MEDS: SOTALOL HCL 80 MG TABLET (FP) PO SCH (09:58)
[2023-06-30] MEDS: POTASSIUM CHLORIDE TABS 20 MEQ TABLET.ER (FP) PO SCH (09:59)
[2023-06-30] MEDS: POLYETHYLENE GLYCOL (HEALTHYLAX) 3350 17 GM PACKET PO SCH (09:59)
[2023-06-30] MEDS: CHOLECALCIFEROL (VIT D3) 1,000 UNIT (25 MCG) TABLET PO SCH (10:00)
[2023-06-30] MEDS: FUROSEMIDE 40 MG TABLET (FP) PO SCH (10:00)
[2023-06-30] MEDS: ALLOPURINOL 100 MG TABLET (FP) PO SCH (10:00)
[2023-06-30] MEDS: APIXABAN 5 MG TABLET PO SCH ×2 (10:01→21:50)
[2023-06-30] MEDS: TIOTROPIUM BROMIDE 2.5 MCG (SPIRIVA) RESPIMAT INHALER IH SCH (10:04)
[2023-06-30 13:47] VITALS: BMI 32.9
[2023-06-30] MEDS: SENNOSIDES 8.8 MG/5 ML SYRUP PO SCH (21:50)
[2023-06-30] MEDS: ACETAMINOPHEN 325 MG TABLET (FP) PO PRN (21:51)
[2023-07-01] MEDS: MEROPENEM 1 GM in DEXTROSE 5%-WATER 100 ML IVPB SCH ×2 (02:25→10:32)
[2023-07-01] MEDS: AMINO ACIDS/PROTEIN HYDROLYS 30 ML LIQUID.PKT PO SCH (08:40)
[2023-07-01] MEDS: POLYETHYLENE GLYCOL (HEALTHYLAX) 3350 17 GM PACKET PO SCH (10:32)
[2023-07-01] MEDS: ALLOPURINOL 100 MG TABLET (FP) PO SCH (10:33)
[2023-07-01] MEDS: APIXABAN 5 MG TABLET PO SCH ×2 (10:33→22:52)
[2023-07-01] MEDS: SOTALOL HCL 80 MG TABLET (FP) PO SCH (10:33)
[2023-07-01] MEDS: SPIRONOLACTONE 25 MG TABLET PO SCH (10:33)
[2023-07-01] MEDS: POTASSIUM CHLORIDE TABS 20 MEQ TABLET.ER (FP) PO SCH (10:33)
[2023-07-01] MEDS: MULTIVITAMINS THER W-MINERALS COMBO TABLET (FP) PO SCH (10:33)
[2023-07-01] MEDS: FUROSEMIDE 40 MG TABLET (FP) PO SCH (10:33)
[2023-07-01] MEDS: CHOLECALCIFEROL (VIT D3) 1,000 UNIT (25 MCG) TABLET PO SCH (10:34)
[2023-07-01] MEDS: TIOTROPIUM BROMIDE 2.5 MCG (SPIRIVA) RESPIMAT INHALER IH SCH (10:43)
[2023-07-01] MEDS: LOSARTAN POTASSIUM 25 MG TABLET PO SCH (12:54)
[2023-07-01] MEDS: COLLAGENASE CLOSTRIDIUM HIST. 30 GRAMS TUBE TP SCH (15:15)
[2023-07-01] MEDS: guaiFENesin 200 MG/10 ML 10 ML UNIT-DOSE CUPS PO PRN ×2 (15:31→22:52)
[2023-07-01] MEDS: MINERAL OIL/PET HY-PHL TOPICAL OINTMENT 454 GM JAR TP SCH ×2 (18:00→22:56)
[2023-07-01] MEDS: SENNOSIDES 8.8 MG/5 ML SYRUP PO SCH (22:52)
[2023-07-02] MEDS: AMINO ACIDS/PROTEIN HYDROLYS 30 ML LIQUID.PKT PO SCH (08:40)
[2023-07-02] MEDS: SPIRONOLACTONE 25 MG TABLET PO SCH (09:52)
[2023-07-02] MEDS: ALLOPURINOL 100 MG TABLET (FP) PO SCH (09:52)
[2023-07-02] MEDS: CHOLECALCIFEROL (VIT D3) 1,000 UNIT (25 MCG) TABLET PO SCH (09:52)
[2023-07-02] MEDS: SOTALOL HCL 80 MG TABLET (FP) PO SCH (09:52)
[2023-07-02] MEDS: POTASSIUM CHLORIDE TABS 20 MEQ TABLET.ER (FP) PO SCH (09:52)
[2023-07-02] MEDS: POLYETHYLENE GLYCOL (HEALTHYLAX) 3350 17 GM PACKET PO SCH (09:53)
[2023-07-02] MEDS: LOSARTAN POTASSIUM 25 MG TABLET PO SCH (09:53)
[2023-07-02] MEDS: APIXABAN 5 MG TABLET PO SCH ×2 (09:53→21:34)
[2023-07-02] MEDS: MULTIVITAMINS THER W-MINERALS COMBO TABLET (FP) PO SCH (09:53)
[2023-07-02] MEDS: FUROSEMIDE 40 MG TABLET (FP) PO SCH (09:53)
[2023-07-02] MEDS: TIOTROPIUM BROMIDE 2.5 MCG (SPIRIVA) RESPIMAT INHALER IH SCH (09:55)
[2023-07-02] MEDS: COLLAGENASE CLOSTRIDIUM HIST. 30 GRAMS TUBE TP SCH (09:56)
[2023-07-02] MEDS: MINERAL OIL/PET HY-PHL TOPICAL OINTMENT 454 GM JAR TP SCH ×2 (09:56→21:34)
[2023-07-02] MEDS: guaiFENesin 200 MG/10 ML 10 ML UNIT-DOSE CUPS PO PRN (12:17)
[2023-07-02] MEDS: SENNOSIDES 8.8 MG/5 ML SYRUP PO SCH (21:34)
[2023-07-03] MEDS: guaiFENesin 200 MG/10 ML 10 ML UNIT-DOSE CUPS PO PRN (01:25)
[2023-07-03] MEDS: POLYETHYLENE GLYCOL (HEALTHYLAX) 3350 17 GM PACKET PO SCH (10:04)
[2023-07-03] MEDS: AMINO ACIDS/PROTEIN HYDROLYS 30 ML LIQUID.PKT PO SCH (10:04)
[2023-07-03] MEDS: LOSARTAN POTASSIUM 25 MG TABLET PO SCH (10:05)
[2023-07-03] MEDS: APIXABAN 5 MG TABLET PO SCH ×2 (10:05→21:57)
[2023-07-03] MEDS: SOTALOL HCL 80 MG TABLET (FP) PO SCH (10:05)
[2023-07-03] MEDS: SPIRONOLACTONE 25 MG TABLET PO SCH (10:05)
[2023-07-03] MEDS: CHOLECALCIFEROL (VIT D3) 1,000 UNIT (25 MCG) TABLET PO SCH (10:06)
[2023-07-03] MEDS: POTASSIUM CHLORIDE TABS 20 MEQ TABLET.ER (FP) PO SCH (10:06)
[2023-07-03] MEDS: MULTIVITAMINS THER W-MINERALS COMBO TABLET (FP) PO SCH (10:06)
[2023-07-03] MEDS: FUROSEMIDE 40 MG TABLET (FP) PO SCH (10:06)
[2023-07-03] MEDS: MINERAL OIL/PET HY-PHL TOPICAL OINTMENT 454 GM JAR TP SCH ×2 (10:07→21:58)
[2023-07-03] MEDS: TIOTROPIUM BROMIDE 2.5 MCG (SPIRIVA) RESPIMAT INHALER IH SCH (10:07)
[2023-07-03] MEDS: ALLOPURINOL 100 MG TABLET (FP) PO SCH (10:07)
[2023-07-03] MEDS ORDERED: ALBUTEROL SO4 2.5/IPRATROPIUM 0.5 INH SOL 3 ML VIAL.NEB. NEB PRN (10:47)
[2023-07-03] MEDS ORDERED: guaiFENesin 600 MG TABLET.ER (FP) PO SCH (12:00)
[2023-07-03] MEDS: COLLAGENASE CLOSTRIDIUM HIST. 30 GRAMS TUBE TP SCH (12:46)
[2023-07-03] MEDS: guaiFENesin 600 MG TABLET.ER (FP) PO SCH ×2 (15:45→21:57)
[2023-07-03] MEDS: SENNOSIDES 8.8 MG/5 ML SYRUP PO SCH (21:57)
[2023-07-04] MEDS: APIXABAN 5 MG TABLET PO SCH ×2 (09:55→21:57)
[2023-07-04] MEDS: CHOLECALCIFEROL (VIT D3) 1,000 UNIT (25 MCG) TABLET PO SCH (09:55)
[2023-07-04] MEDS: FUROSEMIDE 40 MG TABLET (FP) PO SCH (09:55)
[2023-07-04] MEDS: ALLOPURINOL 100 MG TABLET (FP) PO SCH (09:56)
[2023-07-04] MEDS: POTASSIUM CHLORIDE TABS 20 MEQ TABLET.ER (FP) PO SCH (09:56)
[2023-07-04] MEDS: MULTIVITAMINS THER W-MINERALS COMBO TABLET (FP) PO SCH (09:56)
[2023-07-04] MEDS: SPIRONOLACTONE 25 MG TABLET PO SCH (09:57)
[2023-07-04] MEDS: AMINO ACIDS/PROTEIN HYDROLYS 30 ML LIQUID.PKT PO SCH (09:57)
[2023-07-04] MEDS: guaiFENesin 600 MG TABLET.ER (FP) PO SCH ×2 (09:57→21:57)
[2023-07-04] MEDS: SOTALOL HCL 80 MG TABLET (FP) PO SCH (09:57)
[2023-07-04] MEDS: LOSARTAN POTASSIUM 25 MG TABLET PO SCH (09:58)
[2023-07-04] MEDS: COLLAGENASE CLOSTRIDIUM HIST. 30 GRAMS TUBE TP SCH (09:59)
[2023-07-04] MEDS: MINERAL OIL/PET HY-PHL TOPICAL OINTMENT 454 GM JAR TP SCH ×2 (09:59→21:57)
[2023-07-04] MEDS ORDERED: FLUTICASONE/UMECLIDIN/VILANTER(200-62.5-25 TRELEGY ELLIPTA) INAHLER IH SCH (10:00)
[2023-07-04] MEDS: TIOTROPIUM BROMIDE 2.5 MCG (SPIRIVA) RESPIMAT INHALER IH SCH (10:02)
[2023-07-04] MEDS: POLYETHYLENE GLYCOL (HEALTHYLAX) 3350 17 GM PACKET PO SCH (10:08)
[2023-07-04] MEDS: FLUTICASONE/UMECLIDIN/VILANTER(200-62.5-25 TRELEGY ELLIPTA) INAHLER IH SCH (15:35)
[2023-07-04] MEDS: SENNOSIDES 8.8 MG/5 ML SYRUP PO SCH (21:58)
[2023-07-04 22:17] VITALS: RESP 18
[2023-07-05 06:15] VITALS: PULSE 85
[2023-07-05] MEDS: MINERAL OIL/PET HY-PHL TOPICAL OINTMENT 454 GM JAR TP SCH (09:10)
[2023-07-05] MEDS: FLUTICASONE/UMECLIDIN/VILANTER(200-62.5-25 TRELEGY ELLIPTA) INAHLER IH SCH (09:10)
[2023-07-05] MEDS: COLLAGENASE CLOSTRIDIUM HIST. 30 GRAMS TUBE TP SCH (09:10)
[2023-07-05] MEDS: SOTALOL HCL 80 MG TABLET (FP) PO SCH (09:11)
[2023-07-05] MEDS: AMINO ACIDS/PROTEIN HYDROLYS 30 ML LIQUID.PKT PO SCH (09:11)
[2023-07-05] MEDS: POLYETHYLENE GLYCOL (HEALTHYLAX) 3350 17 GM PACKET PO SCH (09:11)
[2023-07-05] MEDS: CHOLECALCIFEROL (VIT D3) 1,000 UNIT (25 MCG) TABLET PO SCH (09:11)
[2023-07-05] MEDS: guaiFENesin 600 MG TABLET.ER (FP) PO SCH (09:11)
[2023-07-05] MEDS: ALLOPURINOL 100 MG TABLET (FP) PO SCH (09:12)
[2023-07-05] MEDS: POTASSIUM CHLORIDE TABS 20 MEQ TABLET.ER (FP) PO SCH (09:12)
[2023-07-05] MEDS: SPIRONOLACTONE 25 MG TABLET PO SCH (09:12)
[2023-07-05] MEDS: LOSARTAN POTASSIUM 25 MG TABLET PO SCH (09:12)
[2023-07-05] MEDS: MULTIVITAMINS THER W-MINERALS COMBO TABLET (FP) PO SCH (09:12)
[2023-07-05] MEDS: FUROSEMIDE 40 MG TABLET (FP) PO SCH (09:12)
[2023-07-05] MEDS: APIXABAN 5 MG TABLET PO SCH (09:12)
[2023-07-05 09:20] VITALS: BP 116/61; TEMP 98.4
== END 2023-07-05 11:27 | DRG 603 ==
LOC: JER 17:33 → JERBED 22:20 → J5S 06-24 02:53 → J7W 06-27 14:01
PROVIDERS: ADMIT Internal Medicine; ATTEND Internal Medicine
DX: L03.116 Cellulitis of left lower limb (principal); I48.19 Other persistent atrial fibrillation; J96.11 Chronic respiratory failure with hypoxia; L97.828 Non-pressure chronic ulcer of other part of left lower leg with other specified severity; I10 Essential (primary) hypertension; J44.9 Chronic obstructive pulmonary disease, unspecified; I27.20 Pulmonary hypertension, unspecified; I83.029 Varicose veins of left lower extremity with ulcer of unspecified site; E05.90 Thyrotoxicosis, unspecified without thyrotoxic crisis or storm; B96.20 Unspecified Escherichia coli [E. coli] as the cause of diseases classified elsewhere; D64.9 Anemia, unspecified; K21.9 Gastro-esophageal reflux disease without esophagitis; Z95.0 Presence of cardiac pacemaker; Z99.81 Dependence on supplemental oxygen; Z88.0 Allergy status to penicillin
CPT/HCPCS: 36415; 71045-TC-FY; 73030-TC-LT-FY; 73030-TC-RT-FY; 73590-TC-LT-FY; 80048; 80053; 82803; 83605; 83735; 83880; 84100; 84439; 84443; 84484; 85025; 85651; 86140; 87040; 87070; 87186; 87205; 93005; 93010; 93970-TC; 94640; 97116-GP; 97161-GP; 99285-25

== ENCOUNTER 2024-02-09 11:51 | Inpatient (IN) | payer OTHER ==
[2024-02-09] MEDS ORDERED: methylPREDNISolone NA SUCC 125 MG/2 ML VIAL ONE (13:01)
[2024-02-09] MEDS ORDERED: ALBUTEROL SO4 2.5/IPRATROPIUM 0.5 INH SOL 3 ML VIAL.NEB. NEB ONE (13:03)
[2024-02-09] MEDS: FUROSEMIDE 40 MG/4 ML INJECTABLE VIAL IVPUSH ONE (13:05)
[2024-02-09 13:10] LABS: VENOUS BASE EXCESS 3.3 mmol/L (-2-2); VENOUS O2 SATURATION 48.4 % (70-80); VENOUS PCO2 58.1 mmHg (38-52); VENOUS PH 7.338 (7.310-7.410)
[2024-02-09 13:17] LABS: HEMATOCRIT 37.1 % (32.4-45.2); HEMOGLOBIN 11.8 GM/dL (10.7-15.3); MCH 29.6 pg (25.7-33.7); MCHC 31.9 g/dl (32.0-36.0); MEAN CELL VOLUME 92.7 fl (80-96); MEAN PLT VOLUME 6.8 fl (7.5-11.1); PLATELET COUNT 214 10^3/uL (134-434); RDW 15.6 % (11.6-15.6); WHITE BLOOD COUNT 6.1 K/mm3 (4.0-10.0)
[2024-02-09] MEDS: ALBUTEROL SO4 2.5/IPRATROPIUM 0.5 INH SOL 3 ML VIAL.NEB. NEB ONE (13:26)
[2024-02-09] MEDS: methylPREDNISolone NA SUCC 125 MG/2 ML VIAL IVPUSH ONE (13:26)
[2024-02-09 13:27] LABS: POTASSIUM 5.7 mmol/L (3.5-5.1)
[2024-02-09 13:30] LABS: CALCIUM 9.1 mg/dL (8.5-10.1)
[2024-02-09 13:31] LABS: BLOOD UREA NITROGEN 49.4 mg/dL (7-18)
[2024-02-09 13:34] LABS: CREATININE 1.7 mg/dL (0.55-1.3)
[2024-02-09 13:36] LABS: BILIRUBIN,TOTAL 0.6 mg/dL (0.2-1); TOT PROT 6.9 g/dl (6.4-8.2)
[2024-02-09 13:38] LABS: ANISOCYTOSIS 0; MACROCYTOSIS 0
[2024-02-09 13:39] LABS: N-TERMINAL BNP 2110.4 pg/ml (5-450)
[2024-02-09 13:45] LABS: INR 2.5 (0.83-1.09)
[2024-02-09] MEDS ORDERED: SODIUM ZIRCONIUM CYCLOSILICATE (LOKELMA) 5 GM PACKET ONE (14:13)
[2024-02-09] MEDS ORDERED: DEXTROSE 50%-WATER 25 GM/50 ML DISP.SYRIN ONE (14:13)
[2024-02-09] MEDS ORDERED: INSULIN REGULAR HUMAN 100 UNITS/ML *VIAL ONE (14:14)
[2024-02-09] MEDS: INSULIN REGULAR HUMAN 100 UNITS/ML *VIAL IVPUSH ONE (14:25)
[2024-02-09] MEDS: LACTATED RINGERS SOLUTION 1000 ML INFUS.BAG IV ONE (14:25)
[2024-02-09] MEDS: SODIUM ZIRCONIUM CYCLOSILICATE (LOKELMA) 5 GM PACKET PO ONE (14:25)
[2024-02-09] MEDS: DEXTROSE 50%-WATER - 25 GM/50 ML VIAL IVPUSH ONE (14:25)
[2024-02-09 14:38] LABS: MAGNESIUM 2.5 mg/dL (1.8-2.4)
[2024-02-09] MEDS ORDERED: AZITHROMYCIN IVPB 500 MG/250 ML BAG IVPB ONE (14:50)
[2024-02-09] MEDS: AZITHROMYCIN IVPB 500 MG in DEXTROSE 5%-WATER - 250 ML IVPB ONE (15:23)
[2024-02-09 17:08] LABS: VENOUS BASE EXCESS -0.8 mmol/L (-2-2); VENOUS O2 SATURATION 58.2 % (70-80); VENOUS PCO2 50.6 mmHg (38-52); VENOUS PH 7.326 (7.310-7.410)
[2024-02-09] MEDS ORDERED: ALBUTEROL SO4 2.5/IPRATROPIUM 0.5 INH SOL 3 ML VIAL.NEB. NEB PRN (18:12)
[2024-02-09] MEDS ORDERED: POLYETHYLENE GLYCOL (HEALTHYLAX) 3350 17 GM PACKET PO PRN (18:18)
[2024-02-09] MEDS: ALBUTEROL SO4 2.5/IPRATROPIUM 0.5 INH SOL 3 ML VIAL.NEB. NEB SCH (20:20)
[2024-02-09] MEDS: methylPREDNISolone NA SUCC 40 MG/1 ML VIAL IVPUSH SCH (21:30)
[2024-02-09] MEDS: SENNOSIDES 8.8 MG/5 ML SYRUP PO SCH (21:30)
[2024-02-09] MEDS ORDERED: APIXABAN 5 MG TABLET PO SCH (22:00)
[2024-02-09] MEDS: APIXABAN 2.5 MG TABLET PO SCH (22:32)
[2024-02-10 07:21] LABS: BASO % 0.2 % (0-2.0); HEMOGLOBIN 12.3 GM/dL (10.7-15.3); MCH 29.9 pg (25.7-33.7); MCHC 32.3 g/dl (32.0-36.0); MEAN CELL VOLUME 92.4 fl (80-96); MEAN PLT VOLUME 6.4 fl (7.5-11.1); MONO % 8.2 % (3.8-10.2); NEUT % 79.6 % (42.8-82.8); PLATELET COUNT 202 10^3/uL (134-434); RBC 4.11 M/mm3 (3.60-5.2); RDW 15.4 % (11.6-15.6); WHITE BLOOD COUNT 4.3 K/mm3 (4.0-10.0)
[2024-02-10 07:40] LABS: POTASSIUM 5.6 mmol/L (3.5-5.1)
[2024-02-10 07:49] LABS: BLOOD UREA NITROGEN 51.4 mg/dL (7-18); CALCIUM 8.8 mg/dL (8.5-10.1)
[2024-02-10 07:50] LABS: ALBUMIN 3.1 g/dl (3.4-5.0)
[2024-02-10 07:53] LABS: CREATININE 1.7 mg/dL (0.55-1.3)
[2024-02-10 07:54] LABS: BILIRUBIN,TOTAL 0.5 mg/dL (0.2-1); TOT PROT 7.2 g/dl (6.4-8.2)
[2024-02-10] MEDS: SOTALOL HCL 80 MG TABLET (FP) PO SCH (09:49)
[2024-02-10] MEDS: AZITHROMYCIN IVPB 500 MG/250 ML BAG IVPB SCH (09:49)
[2024-02-10] MEDS: ALLOPURINOL 100 MG TABLET (FP) PO SCH (09:50)
[2024-02-10] MEDS: PANTOPRAZOLE SODIUM 40 MG VIAL IVPUSH SCH (10:03)
[2024-02-10] MEDS: FUROSEMIDE 40 MG/4 ML INJECTABLE VIAL IVPUSH SCH (10:06)
[2024-02-10] MEDS: FLUTICASONE/UMECLIDIN/VILANTER(200-62.5-25 TRELEGY ELLIPTA) INAHLER IH SCH (14:00)
[2024-02-11] MEDS: MINERAL OIL ENEMA 133 ML ENEMA RC ONE (14:40)
[2024-02-11] MEDS: POLYETHYLENE GLYCOL (HEALTHYLAX) 3350 17 GM PACKET PO SCH (14:40)
[2024-02-11 16:33] LABS: POTASSIUM 5.2 mmol/L (3.5-5.1)
[2024-02-11 16:35] LABS: ALBUMIN 3.3 g/dl (3.4-5.0); BLOOD UREA NITROGEN 55.8 mg/dL (7-18)
[2024-02-11 16:38] LABS: CREATININE 1.8 mg/dL (0.55-1.3)
[2024-02-11 16:40] LABS: BILIRUBIN,TOTAL 0.4 mg/dL (0.2-1); TOT PROT 7.4 g/dl (6.4-8.2)
[2024-02-11 19:58] VITALS: BMI 40.5
[2024-02-11] MEDS: BISACODYL 5 MG TABLET.DR (FP) PO ONE (22:19)
[2024-02-11] MEDS: SENNOSIDES 8.6MG TABLET (FP) PO SCH (22:20)
[2024-02-11] MEDS: guaiFENesin 200 MG/10 ML 10 ML UNIT-DOSE CUPS PO PRN (22:20)
[2024-02-12 08:10] LABS: PH,URINE 5.5 (5.0-8.0); URINE APPEARANCE CLEAR; URINE BILIRUBIN NEGATIVE (NEGATIVE); URINE COLOR YELLOW; URINE GLUCOSE (UA) NEGATIVE (NEGATIVE); URINE KETONE NEGATIVE (NEGATIVE); URINE LEUK ESTERASE NEGATIVE (NEGATIVE); URINE NITRITE NEGATIVE (NEGATIVE); URINE PROTEIN NEGATIVE (NEGATIVE)
[2024-02-12 10:19] LABS: POTASSIUM 5.4 mmol/L (3.5-5.1)
[2024-02-12 10:21] LABS: CALCIUM 9.2 mg/dL (8.5-10.1)
[2024-02-12 10:22] LABS: ALBUMIN 3.3 g/dl (3.4-5.0); BLOOD UREA NITROGEN 60.8 mg/dL (7-18)
[2024-02-12 10:25] LABS: CREATININE 1.7 mg/dL (0.55-1.3)
[2024-02-12 10:26] LABS: BILIRUBIN,TOTAL 0.5 mg/dL (0.2-1); TOT PROT 7.1 g/dl (6.4-8.2)
[2024-02-12 11:14] LABS: MAGNESIUM 2.6 mg/dL (1.8-2.4)
[2024-02-12] MEDS: LACTULOSE 20 GM/30 ML UDC (FOR ORAL USE ONLY) PO SCH (12:25)
[2024-02-12 15:25] LABS: ARTERIAL BLD GAS O2 SATURATION 87.2 % (95-98); ARTERIAL BLOOD GAS BASE EXCESS 0.2 mmol/L (-2-2); ARTERIAL BLOOD GAS PO2 55.6 mmHg (80-100); ARTERIAL BLOOD GAS pH 7.349 (7.350-7.450)
[2024-02-12 15:26] LABS: ALLENS TEST POSITIVE
[2024-02-12 15:27] LABS: VENT MODE S/T; VENT RATE 12
[2024-02-13 09:33] LABS: CALCIUM 9.2 mg/dL (8.5-10.1)
[2024-02-13 09:34] LABS: ALBUMIN 3.3 g/dl (3.4-5.0); BLOOD UREA NITROGEN 68.2 mg/dL (7-18)
[2024-02-13 09:37] LABS: CREATININE 1.9 mg/dL (0.55-1.3)
[2024-02-13 09:39] LABS: BILIRUBIN,TOTAL 0.6 mg/dL (0.2-1); TOT PROT 7.4 g/dl (6.4-8.2)
[2024-02-13] MEDS: SODIUM ZIRCONIUM CYCLOSILICATE (LOKELMA) 5 GM PACKET PO SCH ×2 (11:30→11:55)
[2024-02-13] MEDS: SODIUM CHLORIDE 0.45% 1,000 ML IV SCH (11:55)
[2024-02-13] MEDS: FUROSEMIDE 40 MG/4 ML INJECTABLE VIAL IVPUSH ONE (15:33)
[2024-02-13 17:18] LABS: POTASSIUM 4.9 mmol/L (3.5-5.1)
[2024-02-13 17:20] LABS: BLOOD UREA NITROGEN 70.5 mg/dL (7-18); CALCIUM 9.2 mg/dL (8.5-10.1)
[2024-02-14 08:16] LABS: POTASSIUM 5.2 mmol/L (3.5-5.1)
[2024-02-14 08:24] LABS: ALBUMIN 3.3 g/dl (3.4-5.0); BLOOD UREA NITROGEN 68.6 mg/dL (7-18); CALCIUM 9.1 mg/dL (8.5-10.1)
[2024-02-14 08:27] LABS: CREATININE 1.9 mg/dL (0.55-1.3)
[2024-02-14 08:29] LABS: BILIRUBIN,TOTAL 0.7 mg/dL (0.2-1); TOT PROT 7.4 g/dl (6.4-8.2)
[2024-02-14] MEDS ORDERED: ALBUTEROL SO4 2.5/IPRATROPIUM 0.5 INH SOL 3 ML VIAL.NEB. NEB PRN (17:48)
[2024-02-14] MEDS: FUROSEMIDE 40 MG/4 ML INJECTABLE VIAL IVPUSH ONE (17:59)
[2024-02-14] MEDS: ALBUTEROL SO4 2.5/IPRATROPIUM 0.5 INH SOL 3 ML VIAL.NEB. NEB SCH (20:05)
[2024-02-15 07:36] LABS: POTASSIUM 4.5 mmol/L (3.5-5.1)
[2024-02-15 07:42] LABS: BLOOD UREA NITROGEN 73.6 mg/dL (7-18); CALCIUM 9.6 mg/dL (8.5-10.1)
[2024-02-15 07:46] LABS: CREATININE 1.8 mg/dL (0.55-1.3)
[2024-02-15] MEDS: AZITHROMYCIN 250 MG TABLET PO SCH (10:33)
[2024-02-15] MEDS: PANTOPRAZOLE 40 MG TABLET PO SCH (10:33)
[2024-02-15] MEDS: ACETAMINOPHEN 325 MG TABLET (FP) PO PRN (10:59)
[2024-02-15] MEDS: LIDOCAINE 2.5%/PRILOCAINE 2.5% 30 GRAM TUBE TP SCH (12:42)
[2024-02-16 07:44] LABS: POTASSIUM 4.6 mmol/L (3.5-5.1)
[2024-02-16 07:53] LABS: BLOOD UREA NITROGEN 80.1 mg/dL (7-18); CALCIUM 9.4 mg/dL (8.5-10.1)
[2024-02-16 08:01] LABS: CREATININE 1.8 mg/dL (0.55-1.3)
[2024-02-16] MEDS: ALBUTEROL SO4 0.083% IH SOL 2.5 MG/3 ML VIAL.NEB. NEB SCH (15:10)
[2024-02-16] MEDS: methylPREDNISolone NA SUCC 40 MG/1 ML VIAL IVPUSH SCH (17:20)
[2024-02-17 07:04] LABS: HEMATOCRIT 39.6 % (32.4-45.2); HEMOGLOBIN 12.6 GM/dL (10.7-15.3); MCH 29.4 pg (25.7-33.7); MCHC 31.7 g/dl (32.0-36.0); MEAN CELL VOLUME 92.5 fl (80-96); MEAN PLT VOLUME 7.4 fl (7.5-11.1); PLATELET COUNT 246 10^3/uL (134-434); RBC 4.29 M/mm3 (3.60-5.2); RDW 15.9 % (11.6-15.6)
[2024-02-17 07:26] LABS: POTASSIUM 4.7 mmol/L (3.5-5.1)
[2024-02-17 07:28] LABS: WHITE BLOOD COUNT 7.2 K/mm3 (4.0-10.0)
[2024-02-17 07:35] LABS: ALBUMIN 3.4 g/dl (3.4-5.0); BLOOD UREA NITROGEN 74.6 mg/dL (7-18); CREATININE 1.7 mg/dL (0.55-1.3)
[2024-02-17 07:36] LABS: TOT PROT 7.4 g/dl (6.4-8.2)
[2024-02-17 07:38] LABS: CALCIUM 9.5 mg/dL (8.5-10.1)
[2024-02-17 09:08] LABS: ANISOCYTOSIS 0; CORRECTED WBC 5.95 K/mm3; MACROCYTOSIS 0
[2024-02-17] MEDS: FUROSEMIDE 40 MG/4 ML INJECTABLE VIAL IVPUSH SCH (18:56)
[2024-02-18 06:50] LABS: HEMOGLOBIN 12.7 GM/dL (10.7-15.3); MCH 29.2 pg (25.7-33.7); MCHC 31.8 g/dl (32.0-36.0); MEAN PLT VOLUME 7.5 fl (7.5-11.1); PLATELET COUNT 212 10^3/uL (134-434); RBC 4.35 M/mm3 (3.60-5.2); RDW 15.6 % (11.6-15.6); WHITE BLOOD COUNT 6.2 K/mm3 (4.0-10.0)
[2024-02-18 07:07] LABS: POTASSIUM 5.1 mmol/L (3.5-5.1)
[2024-02-18 07:17] LABS: ALBUMIN 3.3 g/dl (3.4-5.0); BLOOD UREA NITROGEN 82.1 mg/dL (7-18); CALCIUM 9.6 mg/dL (8.5-10.1)
[2024-02-18 07:20] LABS: CREATININE 1.6 mg/dL (0.55-1.3)
[2024-02-18 07:22] LABS: BILIRUBIN,TOTAL 1.2 mg/dL (0.2-1)
[2024-02-18 09:58] LABS: PLATELET ESTIMATE ADEQUATE
[2024-02-18] MEDS: LIDOCAINE PATCH REMOVAL MC SCH (21:02)
[2024-02-18] MEDS: methylPREDNISolone NA SUCC 40 MG/1 ML VIAL IVPUSH SCH (21:05)
[2024-02-19] MEDS: LIDOCAINE 4% PATCH TP SCH (00:17)
[2024-02-19] MEDS: SODIUM ZIRCONIUM CYCLOSILICATE (LOKELMA) 5 GM PACKET PO SCH (10:40)
[2024-02-20 08:15] LABS: HEMATOCRIT 40.5 % (32.4-45.2); HEMOGLOBIN 12.7 GM/dL (10.7-15.3); MCH 29.2 pg (25.7-33.7); MCHC 31.5 g/dl (32.0-36.0); MEAN CELL VOLUME 92.7 fl (80-96); MEAN PLT VOLUME 8.1 fl (7.5-11.1); PLATELET COUNT 235 10^3/uL (134-434); RBC 4.37 M/mm3 (3.60-5.2); RDW 15.8 % (11.6-15.6)
[2024-02-20 08:17] LABS: WHITE BLOOD COUNT 7.3 K/mm3 (4.0-10.0)
[2024-02-20 08:37] LABS: CHLORIDE 97 mmol/L (98-107); POTASSIUM 5.5 mmol/L (3.5-5.1); SODIUM 139 mmol/L (136-145)
[2024-02-20 08:47] LABS: ALBUMIN 3.2 g/dl (3.4-5.0); ANION GAP 8 mmol/L (4-13); CALCIUM 9.8 mg/dL (8.5-10.1); CO2 34 mmol/L (21-32); GLUCOSE,RANDOM 122 mg/dL (74-106)
[2024-02-20 08:50] LABS: SGOT/AST 244 U/L (15-37); SGPT/ALT 309 U/L (13-61)
[2024-02-20 08:52] LABS: BILIRUBIN,TOTAL 1.4 mg/dL (0.2-1); TOT PROT 6.8 g/dl (6.4-8.2)
[2024-02-20 08:53] LABS: ALK PHOS 108 U/L (45-117)
[2024-02-20 09:15] LABS: BLOOD UREA NITROGEN 104.7 mg/dL (7-18)
[2024-02-20 10:14] LABS: ANISOCYTOSIS 0; HELMET CELLS 0; HOWELL-JOLLY BODIES 0; MACROCYTOSIS 0; OVALOCYTE 0; ROULEAU 0; SICKELED CELLS 0; TARGET CELLS 0; TEAR DROP CELLS 0; TOXIC GRANULATION 0
[2024-02-20 11:16] LABS: ARTERIAL BLD GAS O2 SATURATION 87.3 % (95-98); ARTERIAL BLOOD GAS BASE EXCESS 9.4 mmol/L (-2-2); ARTERIAL BLOOD GAS PO2 49.8 mmHg (80-100); ARTERIAL BLOOD GAS pH 7.476 (7.350-7.450)
[2024-02-20 11:28] LABS: ALLENS TEST POSITIVE
[2024-02-20] MEDS ORDERED: ACETAMINOPHEN 325 MG TABLET (FP) PO PRN (11:41)
[2024-02-20] MEDS ORDERED: FUROSEMIDE 40 MG/4 ML INJECTABLE VIAL IVPUSH SCH (13:52)
[2024-02-20] MEDS: ALBUMIN HUMAN 25% 100 ML VIAL IV SCH (17:55)
[2024-02-20] MEDS: acetaZOLAMIDE 250 MG TABLET PO ONE (17:55)
[2024-02-20] MEDS: FUROSEMIDE 40 MG/4 ML INJECTABLE VIAL IVPUSH ONE (19:55)
[2024-02-20] MEDS: SODIUM ZIRCONIUM CYCLOSILICATE (LOKELMA) 5 GM PACKET PO SCH (21:07)
[2024-02-20 23:11] VITALS: RESP 20
[2024-02-21] MEDS ORDERED: RAPID SEQUENCE INTUBATION KIT NR ONE (06:20)
[2024-02-21] MEDS ORDERED: CALCIUM GLUCONATE 10% - 1,000 MG/10 ML VIAL ONE (06:25)
[2024-02-21 06:58] VITALS: BP 102/50; PULSE 72; TEMP 97.9
[2024-02-21] MEDS: FUROSEMIDE 40 MG/4 ML INJECTABLE VIAL IVPUSH SCH (07:38)
== END 2024-02-21 10:59 | disposition expired | DRG 291 ==
LOC: JER 11:51 → JERBED 16:48 → J4W 18:52 → JICU 02-21 07:47
PROVIDERS: ADMIT Internal Medicine; ATTEND Internal Medicine
PROC: 06HM33Z Insertion of Infusion Device into Right Femoral Vein, Percutaneous Approach (ICD-10-PCS; principal; 2024-02-21)
PROC: B54BZZA Ultrasonography of Right Lower Extremity Veins, Guidance (ICD-10-PCS; 2024-02-21)
PROC: 0BH17EZ Insertion of Endotracheal Airway into Trachea, Via Natural or Artificial Opening (ICD-10-PCS; 2024-02-21)
PROC: 5A1935Z Respiratory Ventilation, Less than 24 Consecutive Hours (ICD-10-PCS; 2024-02-21)
DX: I13.0 Hypertensive heart and chronic kidney disease with heart failure and stage 1 through stage 4 chronic kidney disease, or unspecified chronic kidney disease (principal); I50.33 Acute on chronic diastolic (congestive) heart failure; J96.21 Acute and chronic respiratory failure with hypoxia; J96.22 Acute and chronic respiratory failure with hypercapnia; J44.1 Chronic obstructive pulmonary disease with (acute) exacerbation; N17.9 Acute kidney failure, unspecified; Z68.41 Body mass index [BMI] 40.0-44.9, adult; E87.1 Hypo-osmolality and hyponatremia; E78.5 Hyperlipidemia, unspecified; I27.20 Pulmonary hypertension, unspecified; I48.91 Unspecified atrial fibrillation; J44.9 Chronic obstructive pulmonary disease, unspecified; K21.9 Gastro-esophageal reflux disease without esophagitis; E66.9 Obesity, unspecified; I25.10 Atherosclerotic heart disease of native coronary artery without angina pectoris; I44.1 Atrioventricular block, second degree; I08.0 Rheumatic disorders of both mitral and aortic valves; K59.00 Constipation, unspecified; D64.9 Anemia, unspecified; I48.0 Paroxysmal atrial fibrillation; I87.2 Venous insufficiency (chronic) (peripheral); E05.90 Thyrotoxicosis, unspecified without thyrotoxic crisis or storm; Z99.81 Dependence on supplemental oxygen; I46.9 Cardiac arrest, cause unspecified; Z88.0 Allergy status to penicillin; Z79.01 Long term (current) use of anticoagulants; N18.9 Chronic kidney disease, unspecified; Z95.0 Presence of cardiac pacemaker
CPT/HCPCS: 0241U-QW; 36415; 36600; 71045-TC-FY; 76775-TC; 80048; 80053; 81003; 82140; 82570; 82803; 82962; 83735; 83880; 84155; 84156; 84165; 84439; 84443; 84484; 85025; 85610; 85730; 93005; 93010; 93306-TC; 94002; 94640; 94660; 97116-GP; 97162-GP; 99285-25